=== PATIENT | female | born 1960 | race African-American/Black ===

== ENCOUNTER → 2020-02-06 14:50 | Outpatient (BNVA) | payer OTHER, SELFPAY | PROVIDERS: PCP Internal Medicine; Visit Provider Anesthesiology | DX: G89.4 Chronic pain syndrome (principal); M17.0 Bilateral primary osteoarthritis of knee; M25.511 Pain in right shoulder; M25.512 Pain in left shoulder; Z79.891 Long term (current) use of opiate analgesic | CPT/HCPCS: 99213; 99214 ==

== ENCOUNTER → 2020-02-27 09:59 | Outpatient (BNVA) | payer OTHER, SELFPAY | PROVIDERS: PCP Internal Medicine; Visit Provider Anesthesiology | DX: M17.0 Bilateral primary osteoarthritis of knee (principal); G89.4 Chronic pain syndrome; Z79.891 Long term (current) use of opiate analgesic | CPT/HCPCS: 99213 ==

== ENCOUNTER 2020-03-13 10:12 | Day surgery (SDC) | payer OTHER, SELFPAY ==
[2020-03-09 10:54] VITALS: BMI 30.7
[2020-03-13 10:34] VITALS: BP 154/83; PULSE 89; RESP 18; TEMP 36.5; O2SAT 97
[2020-03-13] MEDS: Midazolam HCl/PF 2 MG/2 ML VIAL IVPUSH (12:19)
[2020-03-13 12:21] VITALS: BP 166/83; PULSE 87; RESP 16; O2SAT 99
--- NOTE | 2020-03-13 12:49 | FL_ITS ---
EXAMINATION: XR FLUOROSCOPY WITH IMAGES CLINICAL INFORMATION: Genicular nerve block. COMPARISON: 07/24/2019 TECHNIQUE: Fluoroscopy performed by Dr. Tyson Ohara. Fluoroscopy time: 0.1 minutes DAP: 0.842 Gycm2 Images: 2 FINDINGS: AP and lateral views of the left knee performed. There is no evidence of an acute fracture or dislocation. Knee joint spaces appear maintained. [place] are seen overlying the distal femur and proximal tibia. FL/FL guidance in OR IMPRESSION: Left knee intervention.
--- NOTE | 2020-03-13 12:55 | MHC.SHP ---
Pre-Procedural Eval Section A The patient is an INPATIENT: No The History & Physical has been completed within 30 days and I have reviewed it.: No Section B Chief Complaint: OSTEOARTHRITIS RIGHT KNEE Details of Present Illness: Right knee pain. Relevant Family History (Specify if Yes): No Relevant Social History: None Present Medications: see Short Stay Collaborative assessment Medical History: Significant History History of Previous Operations: Relevant previous surgery/procedure and date(s) Allergies: Allergies Allergy/AdvReac Type Severity Reaction Status Date / Time lisinopril [LISINOPRIL] Allergy Severe TONGUE Verified 03/09/20 10:44 SWELLING emprin compound Allergy Intermediate Hives Uncoded 03/09/20 10:45 Review of Systems Sugical H&P ROS: Negative: Constitution, Cardiovascular, Respiratory, Neurological, Psychiatric, Hem-Onc, Allergic/Immunologic, Gastrointestinal, Genitourinary, Musculoskeletal, Integumentary, Endocrine and Eyes/Ears/Nose/Throat Exam Surgical H&P Exam: Normal: HEENT, Normal: Heart, Normal: Lungs, Normal: Abdomen, Normal: Skin and Normal: Neurological and Significant Findings: Extremities ( Tenderness on palpation on bilateral knees more to the more to the right and less to the left.) Plan Diagnosis/Plan: Unchanged Patient has been examined and remains a candidate for the planned procedure
[2020-03-13 13:21] VITALS: BP 148/80; PULSE 89; RESP 16; TEMP 36.2; O2SAT 95
--- NOTE | 2020-03-13 13:33 | PM.OP ---
Brief Operative Note Date of procedure: 03/13/20 Pre-op diagnosis: osteoarthritis left knee Post-op diagnosis: same Procedure: left knee genicular nerves blocks: Superior medial superior lateral and inferior medial nerves. Implants: None Surgeon: Tyson Ohara MD Anesthesia: MAC Estimated blood loss (mL): 0 Condition: stable Disposition: PACU
[2020-03-13 13:36] VITALS: BP 143/78; PULSE 88; RESP 18; O2SAT 96
[2020-03-13 13:51] VITALS: BP 152/74; PULSE 87; RESP 20; O2SAT 97
--- NOTE | 2020-03-13 16:42 | P.OP_ITS ---
Operative Note Operative Note Narrative: GENICULAR NERVES BLOCK Informed consent was explained to the patient. All questions were explained and answered. The patient was taken inside the operating room. The patient was positioned supine on operating table with her LEFT leg elevated on a gel bin. Time-out was performed delineating correct site, side, the nature of the procedure, patient's allergy, preoperative antibiotic if needed. All operating room staff was participating in OR time-out procedure. The point of interest were delineated for: FOR: superior lateral genicular nerve as the connection of the metaphysis of the left femur with corresponding diaphysis on the lateral silhouette of the femur distal bone, For superior medial genicular nerve the point of interest was delineated is the connection of metaphysis of left femur with corresponding diaphysis on the medial silhouette on the femoral distal bone. For inferior medial genicular nerve the point of interest was delineated as connection of metaphysis of the proximal tibia on the medial side with corresponding diaphysis of the same bone. The projections of the points of interest on anterior surface of the left knee was injected with small amount of lidocaine 2% 1-to 2 ml. After that 3 needles 22 gauge 3-1/2 inch long were driven to were the point of interest in tunnel vision fashion. When needles gently contacted the bones the position of the C- arm was switched to the lateral view and needles positions were adjusted to assure that the tip of the needle is located at the mid shaft of each of the above described bones. After that small amount of bupivacaine 0.5% was injected into each needle position total dose of bupivacaine was 4.5 cc. No steroids were used. Upon the completion of the injections the needles were removed sterile dressing was applied. Patient went to PACU where recovered uneventfully.
== END 2020-03-13 14:45 | disposition home or self-care (01) ==
PROVIDERS: PCP Internal Medicine; Visit Provider Anesthesiology
PROC: (CPT 64454; principal; 2020-03-13 11:40)
DX: M17.12 Unilateral primary osteoarthritis, left knee (principal); M25.462 Effusion, left knee; G89.4 Chronic pain syndrome; F11.90 Opioid use, unspecified, uncomplicated; I10 Essential (primary) hypertension; J44.9 Chronic obstructive pulmonary disease, unspecified; F17.210 Nicotine dependence, cigarettes, uncomplicated; Z96.651 Presence of right artificial knee joint; Z79.899 Other long term (current) drug therapy
CPT/HCPCS: 64454; J2250

== ENCOUNTER → 2020-03-19 16:57 | Outpatient (BNVA) | payer OTHER, SELFPAY | PROVIDERS: PCP Internal Medicine; Referring Provider Internal Medicine; Visit Provider Anesthesiology | DX: G89.4 Chronic pain syndrome (principal); M17.0 Bilateral primary osteoarthritis of knee; Z79.891 Long term (current) use of opiate analgesic | CPT/HCPCS: 99212 ==

== ENCOUNTER → 2020-03-30 12:54 | Outpatient (BNVA) | payer OTHER, SELFPAY | PROVIDERS: PCP Internal Medicine; Visit Provider Anesthesiology | DX: G89.4 Chronic pain syndrome (principal); M17.0 Bilateral primary osteoarthritis of knee; Z79.891 Long term (current) use of opiate analgesic | CPT/HCPCS: 99212 ==

== ENCOUNTER → 2020-04-27 09:07 | Outpatient (BNVA) | payer OTHER, SELFPAY | PROVIDERS: PCP Internal Medicine; Visit Provider Anesthesiology | DX: M17.0 Bilateral primary osteoarthritis of knee (principal); F11.90 Opioid use, unspecified, uncomplicated; G89.4 Chronic pain syndrome | CPT/HCPCS: 99212 ==

== ENCOUNTER → 2020-05-25 09:18 | Outpatient (BNVA) | payer OTHER, SELFPAY | PROVIDERS: PCP Internal Medicine; Visit Provider Anesthesiology | DX: M17.0 Bilateral primary osteoarthritis of knee (principal); F11.90 Opioid use, unspecified, uncomplicated; G89.4 Chronic pain syndrome | CPT/HCPCS: 99212 ==

== ENCOUNTER 2020-06-12 09:48 | Day surgery (SDC) | payer OTHER, SELFPAY ==
[2020-06-05 19:26] VITALS: BMI 29.9
--- NOTE | 2020-06-11 09:45 | P.CONAN_ITS ---
Documented by User: Pooja Mason 06/11/20 09:46 HPI - Anesthesia Eval Consult details Narrative: 59yo F for Femoral Nerve Block PMFSH Past Medical History Medical History Arthritis Asthma Back pain Chronic bronchitis Depression with anxiety Fibromyalgia Gastroesophageal reflux disease History of frequent headaches History of palpitations History of sickle cell trait Hyperlipidemia Hypertension Irritable bowel syndrome Neck pain Peripheral neuropathy Renal stones TIA (transient ischemic attack) Family History Family History Father Alive and well Gout Arthritis Mother Alive and well Hypertension Hyperlipidemia Chronic obstructive pulmonary disease (COPD) Brother No problems noted. Son Alive and well Daughter Alive and well Daughter Alive and well Maternal Aunt History of breast cancer Diabetes Surgical History Surgical History H/O arthroscopic knee surgery H/O wrist surgery History of partial hysterectomy History of surgical removal of ganglion cyst History of total right knee replacement (TKR) Hx of cholecystectomy Previous section Subacromial impingement of right shoulder Social History Social History Alcohol intake: current Alcohol intake frequency: a few times a month Alcohol type: wine Smoking Status: Current every day smoker Tobacco Type: Cigarette Cigarettes Per Day: 2 Years Smoked: 10 Smoked in Last 30 Days: Yes Use of substances other than those prescribed or required for medical reasons: No Advance Directives: No Advance Directives Information Provided: No Advance Directives on File: No Recently lost weight without trying: No Meds Allergies Allergy/AdvReac Type Severity Reaction Status Date / Time lisinopril [LISINOPRIL] Allergy Severe TONGUE Verified 06/12/20 09:58 SWELLING emprin compound Allergy Intermediate Hives Uncoded 05/25/20 09:51 Home Medications Medication Instructions Recorded Confirmed Type albuterol sulfate 90 mcg/actuation 2 puff INHALATION Q4H 02/01/20 06/05/20 History aerosol inhaler amlodipine 5 mg tablet 7.5 mg PO DAILY 02/01/20 06/05/20 History cyclobenzaprine 10 mg tablet 10 mg PO TID PRN 02/01/20 06/05/20 History fluticasone propionate 50 1 spray INTRANASAL DAILY 02/01/20 06/05/20 History mcg/actuation nasal spray,suspension naproxen 500 mg tablet 500 mg PO BID PRN 02/01/20 06/05/20 History pantoprazole 40 mg tablet,delayed 40 mg PO DAILY 02/01/20 06/05/20 History release simvastatin 20 mg tablet 20 mg PO BEDTIME 02/01/20 06/05/20 History Exam Exam Date and Time: June 11, 2020 0945 Height,Weight and Vital Signs: Height 5 ft 5 in Weight 81.647 kg Assessment and Plan Assessment Anesthesia Assessment: Chart Reviewed Documented by User: Neeru James 06/12/20 10:12 [facility] Past Medical History Medical History Arthritis Asthma Back pain Chronic bronchitis Depression with anxiety Fibromyalgia Gastroesophageal reflux disease History of frequent headaches History of palpitations History of sickle cell trait Hyperlipidemia Hypertension Irritable bowel syndrome Neck pain Peripheral neuropathy Renal stones TIA (transient ischemic attack) Family History Family History Father Alive and well Gout Arthritis Mother Alive and well Hypertension Hyperlipidemia Chronic obstructive pulmonary disease (COPD) Brother No problems noted. Son Alive and well Daughter Alive and well Daughter Alive and well Maternal Aunt History of breast cancer Diabetes Surgical History Surgical History H/O arthroscopic knee surgery H/O wrist surgery History of partial hysterectomy History of surgical removal of ganglion cyst History of total right knee replacement (TKR) Hx of cholecystectomy Previous section Subacromial impingement of right shoulder Social History Social History Alcohol intake: current Alcohol intake frequency: a few times a month Alcohol type: wine Smoking Status: Current every day smoker Tobacco Type: Cigarette Cigarettes Per Day: 2 Years Smoked: 10 Smoked in Last 30 Days: Yes Use of substances other than those prescribed or required for medical reasons: No Advance Directives: No Advance Directives Information Provided: No Advance Directives on File: No Recently lost weight without trying: No Meds Allergies Allergy/AdvReac Type Severity Reaction Status Date / Time lisinopril [LISINOPRIL] Allergy Severe TONGUE Verified 06/12/20 09:58 SWELLING emprin compound Allergy Intermediate Hives Uncoded 05/25/20 09:51 Home Medications Medication Instructions Recorded Confirmed Type albuterol sulfate 90 mcg/actuation 2 puff INHALATION Q4H 02/01/20 06/05/20 History aerosol inhaler amlodipine 5 mg tablet 7.5 mg PO DAILY 02/01/20 06/05/20 History cyclobenzaprine 10 mg tablet 10 mg PO TID PRN 02/01/20 06/05/20 History fluticasone propionate 50 1 spray INTRANASAL DAILY 02/01/20 06/05/20 History mcg/actuation nasal spray,suspension naproxen 500 mg tablet 500 mg PO BID PRN 02/01/20 06/05/20 History pantoprazole 40 mg tablet,delayed 40 mg PO DAILY 02/01/20 06/05/20 History release simvastatin 20 mg tablet 20 mg PO BEDTIME 02/01/20 06/05/20 History Exam Airway Mallampati Class: II Loose/Missing/Broken Teeth: Yes and Upper (Missing both upper central incisors) Heart: RRR Lungs: CTA Assessment and Plan Assessment Anesthesia Assessment: Anesthesia Plan Discussed and Chart Reviewed Final Anesthetic Review NPO: Yes ASA Class: II Final Preanesthetic Review: Meds/Allgs Chart Reviewed, Consent Obtained/Reviewed and Anes Risks/Benef Reviewed Patient Risk: Low Procedure Risk: Low Anesthetic Plan Anesthetic Plan: MAC: Disposition: Standard PACU
[2020-06-12 10:00] VITALS: BP 158/85; PULSE 95; RESP 18; TEMP 36.6; O2SAT 97
--- NOTE | 2020-06-12 10:11 | MHC.SHP ---
Pre-Procedural Eval Section A The patient is an INPATIENT: No Changes since office visit: Yes Patient answered all questions The History & Physical has been completed within 30 days and I have reviewed it.: No Section B Chief Complaint: osteoarthritis of knee Details of Present Illness: as above Relevant Family History (Specify if Yes): No Relevant Social History: None Present Medications: see Short Stay Collaborative assessment Medical History: No relevant PMH History of Previous Operations: No relevant previous surgery Allergies: Allergies Allergy/AdvReac Type Severity Reaction Status Date / Time lisinopril [LISINOPRIL] Allergy Severe TONGUE Verified 06/12/20 09:58 SWELLING emprin compound Allergy Intermediate Hives Uncoded 05/25/20 09:51 Review of Systems Sugical H&P ROS: Negative: Constitution, Cardiovascular, Respiratory, Neurological, Psychiatric, Hem-Onc, Allergic/Immunologic, Gastrointestinal, Genitourinary, Musculoskeletal, Integumentary, Endocrine and Eyes/Ears/Nose/Throat Exam Surgical H&P Exam: Normal: HEENT, Normal: Heart, Normal: Lungs, Normal: Extremities, Normal: Abdomen, Normal: Skin and Normal: Neurological Plan Diagnosis/Plan: Unchanged I have reviewed the history and physical and performed a pertinent physical examination on my patient. No changes have occurred unless specified.
[2020-06-12] MEDS: Lactated Ringers 1,000 ML 100 ML IVCONT (10:25)
[2020-06-12 11:04] VITALS: BP 135/80; PULSE 97; RESP 20; TEMP 36.7; O2SAT 99
--- NOTE | 2020-06-12 11:06 | PM.OP ---
Brief Operative Note Date of Service: 06/12/20 Pre-op diagnosis: Left knee pain, status post total knee replacement Post-op diagnosis: same Procedure: Femoral nerve block Implants: None Surgeon: Tyson Ohara MD Anesthesia: MAC Estimated blood loss (mL): 0 Pathology: none sent Condition: stable Disposition: PACU
[2020-06-12 11:19] VITALS: BP 150/86; PULSE 85; RESP 18; O2SAT 96
--- NOTE | 2020-06-12 11:32 | PC.NURSE ---
1130 JORGE L PO PREP FOR DC MONITORS AND IVF DCD ASST OOB CH STEADY W ASST AWARE OF HEAVY FEELING IN LEFT THIGH, STIFF , DRESSED SELF AT BS CALL LAGUNAS IN REACH, PLAN TO DC IN WC
--- NOTE | 2020-06-12 12:31 | HO.POSTANES ---
Post Anesthesia Evaluation Post Anesthesia Evaluation Vital Signs: Vital Signs Temp Pulse Resp BP Pulse Ox 06/12/20 11:19 85 18 150/86 H 96 06/12/20 11:04 98.1 F 97 20 135/80 99 06/12/20 10:00 97.9 F 95 18 158/85 H 97 Anesthesia: Monitored Mental Status: Awake Pain Control: Satisfactory Nausea/Vomiting: None Hydration: Adequate Anesthesia-Related Issues: No Anes. Related Issues
--- NOTE | 2020-06-12 15:01 | W.PM.OPN ---
Operative Note Operative Note Date of Service: 06/12/20 Narrative: Informed consent was explained to the patient. All questions were explained and answered. The patient was taken inside of the operating room where she was positioned supine on the stretcher Time-out was performed delineating patient's name and date of , correct site, side, the nature of the procedure, patient's allergy, preoperative antibiotic if needed. All operating room staff was participating in OR time-out procedure. [employer] [employer] monitors were applied. Patient was deeply sedated. Her left groin left lower abdomen and left upper thigh was prepped with ChloraPrep and draped with sterile towels. Sterilely draped straight ultrasound probe was brought over the operating field and picture of femoral artery was delineated on the screen. Lateral to femoral artery femoral nerve was located and 22 gauge echo positive 100 mm needle was inserted extra anatomically to the skin and was advanced toward femoral nerve. Injection of the normal saline was performed through the needle when needle tip was in the vicinity of femoral nerve. Spread of the injection was corresponding to perineural and not intraneural tissue. After that 10 cc of local anesthetic bupivacaine 0.5% was injected in the area surrounding nerve. Upon completion of the injection needle was removed and Band-Aid was applied. The patient tolerated procedure well. She recovered uneventfully. She went home without immediate complications.
== END 2020-06-12 11:59 | disposition home or self-care (01) ==
PROVIDERS: PCP Internal Medicine; Visit Provider Anesthesiology
PROC: 3E0T3BZ Introduction of Anesthetic Agent into Peripheral Nerves and Plexi, Percutaneous Approach (ICD-10-PCS; CPT 64447; principal; 2020-06-12 11:30)
DX: M17.12 Unilateral primary osteoarthritis, left knee (principal); G89.4 Chronic pain syndrome; Z96.651 Presence of right artificial knee joint; M79.7 Fibromyalgia; G62.9 Polyneuropathy, unspecified; J45.909 Unspecified asthma, uncomplicated; J42 Unspecified chronic bronchitis; I10 Essential (primary) hypertension; F11.90 Opioid use, unspecified, uncomplicated; F17.210 Nicotine dependence, cigarettes, uncomplicated; Z79.51 Long term (current) use of inhaled steroids; Z79.899 Other long term (current) drug therapy; Z86.73 Personal history of transient ischemic attack (TIA), and cerebral infarction without residual deficits; Z88.8 Allergy status to other drugs, medicaments and biological substances
CPT/HCPCS: 64447; J2250; J3300

== ENCOUNTER → 2020-06-17 11:30 | Outpatient (BNVA) | payer OTHER, SELFPAY | PROVIDERS: Visit Provider Urology ==

== ENCOUNTER → 2020-06-18 13:36 | Outpatient (BNVA) | payer OTHER, SELFPAY | PROVIDERS: Visit Provider Anesthesiology ==

== ENCOUNTER 2020-10-09 19:03 | Inpatient (IN) | payer OTHER, SELFPAY ==
--- NOTE | ~2020-10-09 | XR_ITS ---
EXAMINATION: XR CHEST CLINICAL INFORMATION: Chest pain COMPARISON: CTA chest 01/04/2019 TECHNIQUE: Frontal view of the chest was obtained. FINDINGS: No significant abnormality is noted involving the heart, lungs, mediastinum, bony thorax or soft tissues. An orthopedic anchor is seen overlying the right humerus. XR/XR chest 1V IMPRESSION: No acute intrathoracic disease.
--- NOTE | ~2020-10-09 | CT_ITS ---
EXAMINATION: CT ANGIOGRAM ABDOMEN CLINICAL INFORMATION: Left renal artery stenosis COMPARISON: Rule out renal artery stenosis TECHNIQUE: Multiple axial images were obtained through the abdomen following the administration of 85 mL Omnipaque 350 intravenous contrast. Images were reviewed on a dedicated 3-D workstation. This CT examination was performed using dose optimization techniques as appropriate, variously including the following: *Automated exposure control *Adjustment of mA and/or kV according to patient size (this includes techniques or standardized protocols for targeted exams where dose is matched to indication/reason for exam; i.e. extremities or head) *Use of iterative reconstruction technique DLP: 238 mGy-cm FINDINGS: The abdominal aorta is normal in caliber. The celiac axis, and ROBINA are patent. Arteries bilaterally. No evidence of renal artery stenosis is seen in the bilateral renal veins are patent. The common and iliac and visualized internal and external iliac arteries are normal in caliber. The lung bases are clear. The liver is slightly enlarged, right lobe measuring 20 cm. Liver attenuation is difficult to assess arterial phase imaging. No focal liver lesion is seen. The gallbladder is not identified. There is no layering duct dilatation. The pancreas is unremarkable. The spleen is unremarkable. The adrenal glands are unremarkable. The kidneys are normal in size, shape and contour. There are areas of bilateral renal cortical thinning or scarring, left greater than right. No renal stone, mass or hydronephrosis is seen. There is stool throughout the colon questionable for constipation. There is diverticulosis of the colon. Visualized small and large bowel is otherwise unremarkable. The stomach is unremarkable. No ascites or adenopathy is seen. There are degenerative changes of the lower thoracic spine. CT/CT angio abdomen IMPRESSION: No evidence of renal artery stenosis. Bilateral renal cortical thinning or scarring, left greater than right.
[2020-10-09 19:57] VITALS: BP 173/96; PULSE 89; RESP 16; TEMP 36.6; O2SAT 98; BMI 29.1
[2020-10-09 20:15] LABS: MANUAL DIFF FLAG NO
[2020-10-09 20:19] LABS: Basophils Percent Auto 0.3 % (0-2); Eosinophils Absolute Auto 0.1 X10*3/uL (0.0-0.4); Eosinophils Percent Auto 0.9 % (0-4); Hematocrit 35.5 % (37-47); Hemoglobin 12.8 g/dl (12.0-16.0); Imm Gran Abs Auto 0.02 X10*3/uL (0.00-0.03); Imm Gran Pct Auto 0.3 % (0.0-0.4); Lymphocytes Absolute Auto 1.9 X10*3/uL (1.2-4.9); Lymphocytes Percent Auto 27.7 % (20-40); Mean Corpuscular HGB Conc 36.1 g/dl (31.0-35.0); Mean Corpuscular Hemoglobin 33.9 pg (27.0-33.0); Mean Corpuscular Volume 93.9 fL (80-98); Mean Platelet Volume 10.4 fL (9.4-12.3); Monocytes Absolute Auto 0.7 X10*3/uL (0.1-1.2); Monocytes Percent Auto 10.2 % (2-11); Neutrophils Percent Auto 60.6 % (45-73); Platelet Count 298 X10*3/uL (160-400); Red Blood Count 3.78 X10*6/uL (4.20-5.50); Red Cell Distribution Width 13.3 % (11.0-16.0); White Blood Count 6.7 X10*3/uL (4.8-10.8)
--- NOTE | 2020-10-09 20:25 | PC.NURSE ---
EKG and labs obtained in Triage. IV established by this RN. Pt aware of plan to await lab results. Continue to monitor.
[2020-10-09 20:28] VITALS: BP 172/87; PULSE 84; RESP 20; O2SAT 99
--- NOTE | 2020-10-09 20:29 | PC.NURSE ---
Pt twitching in bed, remains alert and oriented x 4, speaking full sentences to this RN. Pt states she doesn't know why she is currently twitching and does not twitch at home. This RN asking pt to stay still for an accurate BP reading, pt was able to stay completely still for VS. MD aware. VSS. Continue to monitor.
[2020-10-09 21:02] LABS: Anion Gap 17 (12-20); Blood Urea Nitrogen 5 mg/dL (9-16); Calcium 8.9 mg/dL (8.4-10.2); Carbon Dioxide 32 mmol/L (22-29); Chloride 96 mmol/L (96-108); Creatinine Clr Calc Pharmacy 92.9; Estimated Glomerular Filt Rate > 60; Glucose Random 89 mg/dL (60-115); Potassium 2.4 mmol/L (3.3-5.1); Sodium 143 mmol/L (135-145)
--- NOTE | 2020-10-09 21:09 | ECG_ITS ---
Test Reason : CHEST PAIN Blood Pressure : / mmHG Vent. Rate : 079 BPM Atrial Rate : 079 BPM P-R Int : 162 ms QRS Dur : 102 ms QT Int : 410 ms P-R-T Axes : 031 -02 047 degrees QTc Int : 470 ms Normal sinus rhythm Normal ECG When compared to the previous EKG of No significant changes seen Referred By: Neeru Iverson Electronically Signed By:Anand Goss
--- NOTE | 2020-10-09 21:14 | PC.NURSE ---
at bedside for primary eval.
--- NOTE | 2020-10-09 21:20 | ED.CHESTPAIN ---
HPI - Chest Pain General Chief Complaint: Chest Pain Stated Complaint: chest pain Time Seen by Provider: 10/09/20 21:09 Source: patient Mode of arrival: ambulatory History of Present Illness HPI narrative: Is a 60-year-old female with history of IBS, hypertension, hyperlipidemia who presents as a referral from her physician's office after she had a routine visit for experiencing some palpitations and had lab work that showed that her potassium and magnesium were low. Patient states that thereafter she began experiencing some sharp chest pain symptoms nonradiating, not associated with nausea/dizziness/diaphoresis. Patient denies any new cough or bilateral lower extremity swelling. She states that her blood pressure medication was increased today from Norvasc 5 mg to Norvasc 10 mg daily. Related Data Home Medications Medication Instructions Recorded Confirmed albuterol sulfate 90 mcg/actuation 2 puff INHALATION Q4H PRN 02/01/20 10/09/20 aerosol inhaler amlodipine 5 mg tablet 5 mg PO DAILY 02/01/20 10/09/20 fluticasone propionate 50 1 spray INTRANASAL DAILY PRN 02/01/20 10/09/20 mcg/actuation nasal spray,suspension pantoprazole 40 mg tablet,delayed 40 mg PO DAILY 02/01/20 10/09/20 release simvastatin 20 mg tablet 20 mg PO BEDTIME 02/01/20 10/09/20 cyclobenzaprine 1 tab PO TID PRN 10/09/20 10/09/20 naproxen 1 tab PO BID PRN 10/09/20 10/09/20 Previous Rx's Medication Instructions Recorded oxycodone 10 mg tablet 10 mg PO BID PRN 30 Days #60 tab 05/25/20 Allergies Allergy/AdvReac Type Severity Reaction Status Date / Time lisinopril [LISINOPRIL] Allergy Severe TONGUE Verified 06/18/20 13:36 SWELLING emprin compound Allergy Intermediate Hives Uncoded 05/25/20 09:51 Review of Systems Review of Systems: Pertinent positives and negatives as stated in HPI 10 point review of systems otherwise negative. [facility] Past Medical History Source: nursing notes reviewed Medical History Arthritis Asthma Back pain Chronic bronchitis Depression with anxiety Fibromyalgia Gastroesophageal reflux disease History of frequent headaches History of palpitations History of sickle cell trait Hyperlipidemia Hypertension Irritable bowel syndrome Neck pain Peripheral neuropathy Renal stones TIA (transient ischemic attack) Surgical History H/O arthroscopic knee surgery H/O wrist surgery History of partial hysterectomy History of surgical removal of ganglion cyst History of total right knee replacement (TKR) Hx of cholecystectomy Previous section Subacromial impingement of right shoulder Family History Family History Father Alive and well Gout Arthritis Mother Alive and well Hypertension Hyperlipidemia Chronic obstructive pulmonary disease (COPD) Brother No problems noted. Son Alive and well Daughter Alive and well Daughter Alive and well Maternal Aunt History of breast cancer Diabetes Social History Social History Alcohol intake: current Alcohol intake frequency: a few times a month Alcohol type: wine Cigarettes Per Day: 2 Years Smoked: 10 Advance Directives: No Advance Directives Information Provided: No Patient : No Physical Exam Vital Signs: Vital Signs: Last Vital Signs Temp 97.8 F 10/09/20 19:57 Pulse 74 10/10/20 02:54 Resp 16 10/10/20 02:54 BP 175/88 H 10/10/20 02:54 Pulse Ox 96 10/10/20 01:40 Body Mass Index 29.1 VITAL SIGNS: Reviewed. GENERAL: Well developed, well nourished, in no acute distress. HEAD: Normocephalic/atraumatic EYES: PERRLA, EOMI NOSE: Nares patent bilateral OROPHARYNX: no oral lesions noted, posterior pharynx clear NECK: Supple, no adenopathy LUNGS: Normal breath sounds. No adventitious sounds or accessory muscle use. SpO2<99> CARDIOVASCULAR: Regular rate and rhythm without noted murmurs, no JVD or lower extremity edema. ABDOMEN: Soft, non-tender, non-distended with bowel sounds. NEUROLOGIC: Alert and oriented x 4. Course Course Course Narrative: 60-year-old female with history and clinical presentation of palpitations and chest discomfort likely secondary to electrolyte derangements. Review of all investigations significant for hypokalemia and hypomagnesemia as well as detectable high sensitivity troponin without acute changes on EKG. Repeat troponin decreased and after receiving 2 g of magnesium and 40 mEq of potassium chloride repeat lab work demonstrates almost no change in potassium and magnesium levels. Patient will likely need to be further evaluated and the case was discussed with the inpatient hospitalist who is agreeable for admission. An additional 2g of magnesium was ordered. MDM - Chest Pain Lab Data Result diagrams: 10/09/20 20:10 10/10/20 03:56 Labs: Lab Results 10/09/20 10/09/20 10/09/20 Range/Units 20:10 20:10 20:10 WBC 6.7 (4.8-10.8) X10*3/uL RBC 3.78 L (4.20-5.50) X10*6/uL Hgb 12.8 (12.0-16.0) g/dl Hct 35.5 L (37-47) % MCV 93.9 (80-98) fL MCH 33.9 H (27.0-33.0) pg MCHC 36.1 H (31.0-35.0) g/dl RDW 13.3 (11.0-16.0) % Plt Count 298 (160-400) X10*3/uL MPV 10.4 (9.4-12.3) fL Immature Gran % (Auto) 0.3 (0.0-0.4) % Neut % (Auto) 60.6 (45-73) % Lymph % (Auto) 27.7 (20-40) % [place] % (Auto) 10.2 (2-11) % Eos % (Auto) 0.9 (0-4) % Baso % (Auto) 0.3 (0-2) % Lymph # (Auto) 1.9 (1.2-4.9) X10*3/uL [place] # (Auto) 0.7 (0.1-1.2) X10*3/uL Eos # (Auto) 0.1 (0.0-0.4) X10*3/uL Baso # (Auto) 0.0 (0.0-0.2) X10*3/uL Abs Immat Gran (auto) 0.02 (0.00-0.03) X10*3/uL Absolute Neuts (auto) 4.0 (2.0-8.3) X10*3/uL Absolute Nucleated RBC 0.000 (0.0-0.012) X10*3/uL Nucleated RBC % (auto) 0.0 (0.0-0.2) /100WBC Sodium 143 (135-145) mmol/L Potassium 2.4 L* (3.3-5.1) mmol/L Chloride 96 (96-108) mmol/L Carbon Dioxide 32 H (22-29) mmol/L Anion Gap 17 (12-20) BUN 5 L (9-16) mg/dL Creatinine 0.67 (0.5-1.4) mg/dL Estim Creat Clear Calc 92.9 Estimated GFR > 60 Random Glucose 89 (60-115) mg/dL Calcium 8.9 (8.4-10.2) mg/dL Magnesium 0.9 L* (1.6-2.6) mg/dL Troponin I High Sens 7.0 (<3.5-17.0) ng/L B-Natriuretic Peptide 42 (<100) pg/mL Lipase 20 (8-78) U/L COVID-19 (ISAEL) (Negative) COVID-19 Clin Com 10/09/20 10/10/20 10/10/20 Range/Units 23:20 03:56 03:56 WBC (4.8-10.8) X10*3/uL RBC (4.20-5.50) X10*6/uL Hgb (12.0-16.0) g/dl Hct (37-47) % MCV (80-98) fL MCH (27.0-33.0) pg MCHC (31.0-35.0) g/dl RDW (11.0-16.0) % Plt Count (160-400) X10*3/uL MPV (9.4-12.3) fL Immature Gran % (Auto) (0.0-0.4) % Neut % (Auto) (45-73) % Lymph % (Auto) (20-40) % [place] % (Auto) (2-11) % Eos % (Auto) (0-4) % Baso % (Auto) (0-2) % Lymph # (Auto) (1.2-4.9) X10*3/uL [place] # (Auto) (0.1-1.2) X10*3/uL Eos # (Auto) (0.0-0.4) X10*3/uL Baso # (Auto) (0.0-0.2) X10*3/uL Abs Immat Gran (auto) (0.00-0.03) X10*3/uL Absolute Neuts (auto) (2.0-8.3) X10*3/uL Absolute Nucleated RBC (0.0-0.012) X10*3/uL Nucleated RBC % (auto) (0.0-0.2) /100WBC Sodium 142 (135-145) mmol/L Potassium 2.5 L* (3.3-5.1) mmol/L Chloride 100 (96-108) mmol/L Carbon Dioxide 31 H (22-29) mmol/L Anion Gap 14 (12-20) BUN 4 L (9-16) mg/dL Creatinine 0.55 (0.5-1.4) mg/dL Estim Creat Clear Calc 113.2 Estimated GFR > 60 Random Glucose 99 (60-115) mg/dL Calcium 7.6 L D (8.4-10.2) mg/dL Magnesium Cancelled 1.3 L* (1.6-2.6) mg/dL Troponin I High Sens 5.4 (<3.5-17.0) ng/L B-Natriuretic Peptide (<100) pg/mL Lipase (8-78) U/L COVID-19 (ISAEL) (Negative) COVID-19 Clin Com 10/10/20 Range/Units 04:41 WBC (4.8-10.8) X10*3/uL RBC (4.20-5.50) X10*6/uL Hgb (12.0-16.0) g/dl Hct (37-47) % MCV (80-98) fL MCH (27.0-33.0) pg MCHC (31.0-35.0) g/dl RDW (11.0-16.0) % Plt Count (160-400) X10*3/uL MPV (9.4-12.3) fL Immature Gran % (Auto) (0.0-0.4) % Neut % (Auto) (45-73) % Lymph % (Auto) (20-40) % [place] % (Auto) (2-11) % Eos % (Auto) (0-4) % Baso % (Auto) (0-2) % Lymph # (Auto) (1.2-4.9) X10*3/uL [place] # (Auto) (0.1-1.2) X10*3/uL Eos # (Auto) (0.0-0.4) X10*3/uL Baso # (Auto) (0.0-0.2) X10*3/uL Abs Immat Gran (auto) (0.00-0.03) X10*3/uL Absolute Neuts (auto) (2.0-8.3) X10*3/uL Absolute Nucleated RBC (0.0-0.012) X10*3/uL Nucleated RBC % (auto) (0.0-0.2) /100WBC Sodium (135-145) mmol/L Potassium (3.3-5.1) mmol/L Chloride (96-108) mmol/L Carbon Dioxide (22-29) mmol/L Anion Gap (12-20) BUN (9-16) mg/dL Creatinine (0.5-1.4) mg/dL Estim Creat Clear Calc Estimated GFR Random Glucose (60-115) mg/dL Calcium (8.4-10.2) mg/dL Magnesium (1.6-2.6) mg/dL Troponin I High Sens (<3.5-17.0) ng/L B-Natriuretic Peptide (<100) pg/mL Lipase (8-78) U/L COVID-19 (ISAEL) Negative (Negative) COVID-19 Clin Com See Note ECG Data ECG #1: Attestation: I personally reviewed and interpreted this ECG as follows: Prior ECG tracings: available for review (01/04/2019 no acute changes on comparison) Interpretation: Normal sinus rhythm, HR -79, no evidence of acute ischemia, RI/QTC within normal limits. Critical Care Time Critical Care Time Critical Care Time: Yes Total Critical Care Time: 30 Attestation: I personally attest to this time spent taking care of the patient. Discharge Plan Discharge Clinical Impression: Heart palpitations, Chest pain, Hypokalemia, Hypomagnesemia Patient Disposition: Admitted As Inpatient Prescriptions: No Action cyclobenzaprine 10 mg tablet 1 tab PO TID PRN (Reason: musculoskeletal pain) RF: 0 naproxen 500 mg tablet 1 tab PO BID PRN (Reason: Pain) RF: 0 oxycodone 10 mg tablet 10 mg PO BID PRN (Reason: pain) 30 Days Qty: 60 RF: 0 pantoprazole 40 mg tablet,delayed release (DR/EC) 40 mg PO DAILY RF: 0 amlodipine 5 mg tablet 5 mg PO DAILY RF: 0 simvastatin 20 mg tablet 20 mg PO BEDTIME RF: 0 albuterol sulfate 90 mcg/actuation HFA aerosol inhaler 2 puff inhalation Q4H PRN (Reason: Cough) RF: 0 fluticasone propionate 50 mcg/actuation spray,suspension 1 spray intranasal DAILY PRN (Reason: Allergic Symptoms) RF: 0
[2020-10-09 21:35] LABS: B Type Natriuretic Peptide 42 pg/mL (<100)
--- NOTE | 2020-10-09 21:35 | PC.NURSE ---
Per MD to hold ordered Potassium infusion until Magnesium is resulted.
[2020-10-09 21:40] LABS: Lipase 20 U/L (8-78); Magnesium 0.9 mg/dL (1.6-2.6)
[2020-10-09] MEDS: Magnesium Sulfate/H2O 2 GM/50 ML PIGGYBACK IV (21:46)
--- NOTE | 2020-10-09 21:47 | PC.NURSE ---
Magnesium infusing per MAR.
[2020-10-09] MEDS: Acetaminophen 325 MG TABLET 650 MG PO (22:05)
[2020-10-09] MEDS: Acetaminophen 325 MG TABLET PO (22:05)
[2020-10-09 22:06] VITALS: BP 166/91; PULSE 79; RESP 16; O2SAT 98
--- NOTE | 2020-10-09 22:24 | PC.NURSE ---
Pt requesting pain medication for a ROSS, pt describes the pain as 9/10. This RN consulting with MD, pt MD, verbal order for Tylenol 975 mg. Pt hesitant to accept the Tylenol at this time, states I don't want to refuse it but this isn't going to help me!! I take Oxycodone 10 mg twice a day at home!! This RN again consulting with MD, at this time MD unwilling to place an order for Oxycodone. Pt agreeable to Tylenol but very frustrated, states I'm anxious and in pain and I'm just supposed to lay here in pain?!?! I'll just go home!! Pt provided with multiple warm blankets for comfort, lights dim per request, pt watching TV at this time. VSS. Continue to monitor.
--- NOTE | 2020-10-09 23:20 | PC.NURSE ---
pharmaceutical laboratory technician at bedside for repeat Troponin.
[2020-10-09] MEDS: Potassium Chloride/H20 10 MEQ/100 ML PIGGYBACK 100 MEQ IV (23:40)
[2020-10-09 23:42] VITALS: BP 170/88; PULSE 79; RESP 16; O2SAT 96
--- NOTE | 2020-10-09 23:42 | PC.NURSE ---
Potassium infusion initiated, pt aware of plan for 4 bags of IV Potassium. VSS. Pt reports no relief of pain after Tylenol, requesting to speak with MD.
[2020-10-10] VITALS (12 sets, daily range): BP systolic 165–182; BP diastolic 76–117; PULSE 72–86; RESP 14–18; TEMP 36.1–36.9; O2SAT 95–98
[2020-10-10 00:01] LABS: Troponin-I High Sensitivity 5.4 ng/L (<3.5-17.0)
[2020-10-10] MEDS: Potassium Chloride/H20 10 MEQ/100 ML PIGGYBACK 100 MEQ IV ×3 (00:43→02:44)
[2020-10-10] MEDS: Butalb/Acetamin/Caff 50/325/40 TABLET 1 TAB PO ×2 (00:47→16:03)
--- NOTE | 2020-10-10 01:40 | PC.NURSE ---
Third bag of Potassium infusing.
--- NOTE | 2020-10-10 02:46 | PC.NURSE ---
Final bag of Potassium infusing. Pt sleeping in bed at this time in NAD. VSS. Continue to monitor.
--- NOTE | 2020-10-10 02:51 | PC.NURSE ---
Pt ambulating to the bathroom with a steady gait.
--- NOTE | 2020-10-10 03:56 | PC.NURSE ---
Potassium infusion complete. Labs redrawn, pt aware of plan to await results.
[2020-10-10 04:35] LABS: Anion Gap 14 (12-20); Blood Urea Nitrogen 4 mg/dL (9-16); Calcium 7.6 mg/dL (8.4-10.2); Carbon Dioxide 31 mmol/L (22-29); Chloride 100 mmol/L (96-108); Creatinine Clr Calc Pharmacy 113.2; Estimated Glomerular Filt Rate > 60; Glucose Random 99 mg/dL (60-115); Magnesium 1.3 mg/dL (1.6-2.6); Potassium 2.5 mmol/L (3.3-5.1); Sodium 142 mmol/L (135-145)
--- NOTE | 2020-10-10 04:45 | PC.NURSE ---
Covid swab obtained and sent.
--- NOTE | 2020-10-10 04:59 | PC.NURSE ---
Pt aware of order for UA, unable to void at this time.
[2020-10-10 05:04] LABS: COVID-19 Test Negative (Negative); IDNOW Serial# 9DD0AD1C
[2020-10-10] MEDS: Magnesium Sulfate/D5W 1 GM/100 ML PIGGYBACK IV (05:31)
--- NOTE | 2020-10-10 05:37 | PC.NURSE ---
Mag infusing per MAR. UA obtained and sent. VSS.
[2020-10-10 05:46] LABS: Glucose Urine UA NEG (NEG); Leukocyte Esterase Urine NEG (NEG); Nitrite Urine NEG (NEG); Urine Blood NEG (NEG); Urine Ketones NEG (NEG); Urine Protein NEG (NEG-TRACE)
[2020-10-10 05:48] LABS: Appearance Urine CLEAR; Color Urine YELLOW
[2020-10-10] MEDS: Ketorolac Tromethamine 15 MG/ML VIAL IVPUSH (06:29)
--- NOTE | 2020-10-10 07:17 | PC.NURSE ---
report taken from Deondre JULIAN. pt in bed, resting, awake. requesting breakfast. pt reports pain in her back that is chronic and reports she recently received Toradol for the pain. pt awaiting bed assignment.
--- NOTE | 2020-10-10 07:53 | PM.IMHP ---
History of Present Illness Date of Service: 10/10/20 Chief Complaint: Low potassium, low magnesium and palpitation. 60-year-old female history of IBS with diarrhea predominant, hypertension, chronic pain due to arthritis. She presented to the emergency room after being told by her primary care physician's office to come to the emergency room because an outpatient lab that was done earlier showed low magnesium and low potassium. Earlier during the day the patient had a seen her primary care physician because she was having palpitation and that the office EKG and lab work were performed and she was later called to come to the emergency room because the potassium level was critically low and magnesium level was also critically low. In the emergency room her potassium level was noted to be 2.4 and magnesium was 0.9. She has gotten IV potassium 40 mEq and 3 grams of magnesium. She reports that she has been having more diarrhea than usual. And report that she has history of C diff the last time she has issue with a potassium and magnesium. EKG is normal Review of Systems Review of Systems: Gen: no fever Resp: no sob, no cough CV: no chest, no VENTURA, no leg edema GI: No n/v, no abd pain Neuro: No confusion, headache from migraine musculoskeletal: Joint pains Yes all other systems are reviewed and are negative [facility] Medical History (Updated 10/10/20 @ 08:00 by Sergei Lo MD) Arthritis Asthma Back pain Chronic bronchitis Depression with anxiety Fibromyalgia Gastroesophageal reflux disease History of frequent headaches History of palpitations History of sickle cell trait Hyperlipidemia Hypertension Irritable bowel syndrome Neck pain Peripheral neuropathy Renal stones TIA (transient ischemic attack) Functional capacity: independent ambulation Patient : No Family History Father Alive and well Gout Arthritis Mother Alive and well Hypertension Hyperlipidemia Chronic obstructive pulmonary disease (COPD) Brother No problems noted. Son Alive and well Daughter Alive and well Daughter Alive and well Maternal Aunt History of breast cancer Diabetes Pertinent family history: mother had diabetes Surgical History H/O arthroscopic knee surgery H/O wrist surgery History of partial hysterectomy History of surgical removal of ganglion cyst History of total right knee replacement (TKR) Hx of cholecystectomy Previous section Subacromial impingement of right shoulder Social History Alcohol intake: current Alcohol intake frequency: a few times a month Alcohol type: wine Cigarettes Per Day: 2 Years Smoked: 10 Advance Directives: No Advance Directives Information Provided: No Patient : No Meds Allergies Allergy/AdvReac Type Severity Reaction Status Date / Time lisinopril [LISINOPRIL] Allergy Severe TONGUE Verified 06/18/20 13:36 SWELLING emprin compound Allergy Intermediate Hives Uncoded 05/25/20 09:51 Active Medications: Current Medications Generic Name Dose Route Start Last Admin Trade Name Freq PRN Reason Stop Dose Admin Albuterol Sulfate 2 puff 10/10/20 07:45 Albuterol Sulfate 90 Mcg 8 Gm Inhaler INHALE Q4H PRN Cough Amlodipine Besylate 5 mg 10/10/20 09:00 Amlodipine Besylate 5 Mg Tablet PO DAILY [facility] Protocol Cyclobenzaprine HCl 10 mg 10/10/20 07:45 Cyclobenzaprine Hcl 10 Mg Tablet PO TID PRN musculoskeletal pain Fluticasone Propionate 1 spray 10/10/20 07:45 Fluticasone Propionate Nasal 16 Gm [place] NOSTRIL-B DAILY PRN Allergic Symptoms Naproxen 500 mg 10/10/20 07:45 Naproxen 500 Mg Tablet PO BID PRN Pain Non-Formulary Medication 40 mg 10/10/20 09:00 Pantoprazole PO DAILY [facility] Non-Formulary Medication 20 mg 10/10/20 21:00 Simvastatin PO BEDTIME [facility] Oxycodone HCl 10 mg 10/10/20 07:45 Oxycodone Hcl Immed Release 5 Mg Tablet PO BID PRN pain Pharmacy Consult 1 each 10/09/20 21:53 Consult Rx Perform Med Rec MISCELLANE ONCE PRN Consult order Potassium Chloride 40 meq 10/10/20 07:50 Potassium Chloride Er 20 Meq Tab.Er.Prt PO Q8H [facility] Home Medications Medication Instructions Recorded Confirmed Last Taken Type albuterol sulfate 90 mcg/actuation 2 puff INHALATION Q4H PRN 02/01/20 10/09/20 Unknown History aerosol inhaler amlodipine 5 mg tablet 5 mg PO DAILY 02/01/20 10/09/20 10/08/20 History fluticasone propionate 50 1 spray INTRANASAL DAILY PRN 02/01/20 10/09/20 Unknown History mcg/actuation nasal spray,suspension pantoprazole 40 mg tablet,delayed 40 mg PO DAILY 02/01/20 10/09/20 10/08/20 History release simvastatin 20 mg tablet 20 mg PO BEDTIME 02/01/20 10/09/20 10/08/20 History cyclobenzaprine 1 tab PO TID PRN 10/09/20 10/09/20 10/08/20 History naproxen 1 tab PO BID PRN 10/09/20 10/09/20 10/08/20 History Physical Exam Vital Signs and Narrative: Vital Signs: Last Vital Signs Temp 97.8 F 10/09/20 19:57 Pulse 83 10/10/20 07:16 Resp 15 10/10/20 07:16 BP 165/76 H 10/10/20 07:23 Pulse Ox 98 10/10/20 07:16 Body Mass Index 29.1 Constitutional Awake and Alert, No apparent distress HEENT--normal Neck Supple, No lymphadenopathy Cardiovascular RRR, No M/R/G, S1 S2, No S3 S4, No pedal edema Respiratory Lungs clear, No respiratory distress Gastrointestinal Non tender, Non-distended Skin No rash Neurological Alert & oriented x3 Psychological Appropriate affect Results Labs CBC and Chem 7: 10/09/20 20:10 10/10/20 03:56 Labs: Laboratory Results - last 24 hr 10/09/20 10/09/20 10/09/20 20:10 20:10 20:10 MCV 93.9 MCH 33.9 H MCHC 36.1 H RDW 13.3 Plt Count 298 MPV 10.4 Immature Gran % (Auto) 0.3 Neut % (Auto) 60.6 Lymph % (Auto) 27.7 [place] % (Auto) 10.2 Eos % (Auto) 0.9 Baso % (Auto) 0.3 Lymph # (Auto) 1.9 [place] # (Auto) 0.7 Eos # (Auto) 0.1 Baso # (Auto) 0.0 Abs Immat Gran (auto) 0.02 Absolute Neuts (auto) 4.0 Absolute Nucleated RBC 0.000 Nucleated RBC % (auto) 0.0 Anion Gap 17 Estim Creat Clear Calc 92.9 Estimated GFR > 60 Random Glucose 89 Calcium 8.9 Magnesium 0.9 L* Troponin I High Sens 7.0 B-Natriuretic Peptide 42 Lipase 20 Urine Color Urine Appearance Urine pH Ur Specific [place] Urine Protein Urine Glucose (UA) Urine Ketones Urine Blood Urine Nitrite Ur Leukocyte Esterase COVID-19 (ISAEL) COVID-19 [facility] 10/09/20 10/10/20 10/10/20 23:20 03:56 03:56 MCV MCH MCHC RDW Plt Count MPV Immature Gran % (Auto) Neut % (Auto) Lymph % (Auto) [place] % (Auto) Eos % (Auto) Baso % (Auto) Lymph # (Auto) [place] # (Auto) Eos # (Auto) Baso # (Auto) Abs Immat Gran (auto) Absolute Neuts (auto) Absolute Nucleated RBC Nucleated RBC % (auto) Anion Gap 14 Estim Creat Clear Calc 113.2 Estimated GFR > 60 Random Glucose 99 Calcium 7.6 L D Magnesium Cancelled 1.3 L* Troponin I High Sens 5.4 B-Natriuretic Peptide Lipase Urine Color Urine Appearance Urine pH Ur Specific [place] Urine Protein Urine Glucose (UA) Urine Ketones Urine Blood Urine Nitrite Ur Leukocyte Esterase COVID-19 (ISAEL) COVID-[facility] 10/10/20 10/10/20 04:41 05:37 MCV MCH MCHC RDW Plt Count MPV Immature Gran % (Auto) Neut % (Auto) Lymph % (Auto) [place] % (Auto) Eos % (Auto) Baso % (Auto) Lymph # (Auto) [place] # (Auto) Eos # (Auto) Baso # (Auto) Abs Immat Gran (auto) Absolute Neuts (auto) Absolute Nucleated RBC Nucleated RBC % (auto) Anion Gap Estim Creat Clear Calc Estimated GFR Random Glucose Calcium Magnesium Troponin I High Sens B-Natriuretic Peptide Lipase Urine Color YELLOW Urine Appearance CLEAR Urine pH 6.0 Ur Specific [place] 1.010 Urine Protein NEG Urine Glucose (UA) NEG Urine Ketones NEG Urine Blood NEG Urine Nitrite NEG Ur Leukocyte Esterase NEG COVID-19 (ISAEL) Negative COVID-19 [facility] See Note Imaging Radiologist's Impressions: Impressions Chest X-Ray 10/09/20 21:10 IMPRESSION: No acute intrathoracic disease. Assessment and Plan (1) Hypokalemia: Status: Acute (2) Hypomagnesemia: Status: Acute (3) Hyperlipidemia: Status: Inactive (4) Hypertension: Status: Inactive 60-year-old female with IBS with associated diarrhea, hypertension, hyperlipidemia chronic pain who has presented to the ED with critically low magnesium and potassium likely related to diarrhea. Hypokalemia-- corrected with IV and oral potassium. Hypomagnesemia-- corrected with IV magnesium nephrology consult -- to investigate if there is some underlying renal issues contributing to these electrolyte abnormalities. Hypertension-- blood pressure is moderately high she takes Norvasc 5 mg but this was increased yesterday at the PCP visit to 10 mg and therefore will give her 10 mg here. -Repeat labs in several hours Hyperlipidemia-- continue simvastatin of formulary equivalent chronic pain- continue oxycodone, Fioricet for her migraine headache patient stayed in the hospital will be rather short and therefore avoid heparin or other form anticoagulated for DVT prophylaxis at this time however will encourage to ambulate.
[2020-10-10] MEDS: amLODIPine Besylate 5 MG TABLET PO (08:26)
[2020-10-10] MEDS: oxyCODONE HCl Immed Release 5 MG TABLET 10 MG PO ×2 (08:26→19:57)
[2020-10-10] MEDS: Magnesium Sulfate/H2O 2 GM/50 ML PIGGYBACK IV (10:00)
[2020-10-10] MEDS: Potassium Chloride Packet 20 MEQ PACKET 40 MEQ PO ×3 (10:00→19:28)
[2020-10-10] MEDS: 0.9 % Sodium Chloride Flush 3 ML SYRINGE IVFLUSH ×3 (10:04→19:56)
[2020-10-10 11:03] LABS: Anion Gap 15 (12-20); Carbon Dioxide 31 mmol/L (22-29); Chloride 99 mmol/L (96-108); Potassium 2.9 mmol/L (3.3-5.1); Sodium 142 mmol/L (135-145)
[2020-10-10 11:58] LABS: CDIFF Ag Negative (Negative); CDIFF Internal ctrl Dots and bkg OK (V); CDiff Toxin Negative (Negative)
[2020-10-10 12:38] LABS: Magnesium 1.6 mg/dL (1.6-2.6)
[2020-10-10] MEDS: ondansetron HCL 4 MG/2 ML VIAL IVPUSH ×2 (12:50→19:57)
[2020-10-10] MEDS: NaPROXEN 500 MG TABLET PO (12:55)
[2020-10-10] MEDS: Cyclobenzaprine HCl 10 MG TABLET PO (12:55)
--- NOTE | 2020-10-10 14:58 | PM.CNNEP ---
History of Present Illness Reason for Consult Consult date: 10/10/20 Chief Complaint Chief complaint: Hypokalemia, Hypomagnesemia History of Present Illness Narrative: Laurece is a 60-year-old female history of IBS with diarrhea presented to the emergency room after being told by her primary care physician's office to come to the emergency room because an outpatient lab that was done earlier showed low magnesium and low potassium. Earlier during the day the patient had a seen her primary care physician because she was having palpitation and that the office EKG and lab work were performed and she was later called to come to the emergency room because the potassium level was critically low and magnesium level was also critically low. In the emergency room her potassium level was noted to be 2.4 and magnesium was 0.9. She has gotten IV potassium 40 mEq and 3 grams of magnesium. She reports that she has been having more diarrhea than usual. Nephrology has been consulted to assist in his clinical care Review of Systems Review of Systems Yes all other systems are reviewed and are negative PMF Past Medical History Medical History (Updated 10/10/20 @ 08:00 by Sergei Lo MD) Arthritis Asthma Back pain Chronic bronchitis Depression with anxiety Fibromyalgia Gastroesophageal reflux disease History of frequent headaches History of palpitations History of sickle cell trait Hyperlipidemia Hypertension Irritable bowel syndrome Neck pain Peripheral neuropathy Renal stones TIA (transient ischemic attack) Functional capacity: independent ambulation Family History Family History Father Alive and well Gout Arthritis Mother Alive and well Hypertension Hyperlipidemia Chronic obstructive pulmonary disease (COPD) Brother No problems noted. Son Alive and well Daughter Alive and well Daughter Alive and well Maternal Aunt History of breast cancer Diabetes Surgical History Surgical History H/O arthroscopic knee surgery H/O wrist surgery History of partial hysterectomy History of surgical removal of ganglion cyst History of total right knee replacement (TKR) Hx of cholecystectomy Previous section Subacromial impingement of right shoulder Social History Social History Alcohol intake: current Alcohol intake frequency: a few times a month Alcohol type: wine Cigarettes Per Day: 2 Years Smoked: 10 Advance Directives: No Advance Directives Information Provided: No Patient : No Meds Allergies Allergy/AdvReac Type Severity Reaction Status Date / Time lisinopril [LISINOPRIL] Allergy Severe TONGUE Verified 06/18/20 13:36 SWELLING emprin compound Allergy Intermediate Hives Uncoded 05/25/20 09:51 Active Medications: Current Medications Generic Name Dose Route Start Last Admin Trade Name Freq PRN Reason Stop Dose Admin Acetaminophen 650 mg 10/10/20 09:57 Acetaminophen Supp 650 Mg Supp.Rect [place] Q6H PRN Pain, Mild (Pain Scale 1-3) Acetaminophen/Butalbital/Caffeine 1 tab 10/10/20 12:18 Butalb/Acetamin/Caff 50/325/40 Tablet PO Q8H PRN Headache Albuterol Sulfate 2 puff 10/10/20 07:45 Albuterol Sulfate 90 Mcg 8 Gm Inhaler INHALE Q4H PRN Cough Amlodipine Besylate 5 mg 10/10/20 09:00 10/10/20 08:26 Amlodipine Besylate 5 Mg Tablet PO 5 mg DAILY [facility] Administration Protocol Atorvastatin Calcium 10 mg 10/10/20 21:00 Atorvastatin Calcium 10 Mg Tablet PO BEDTIME [facility] Cyclobenzaprine HCl 10 mg 10/10/20 07:45 10/10/20 12:55 Cyclobenzaprine Hcl 10 Mg Tablet PO 10 mg TID PRN Administration musculoskeletal pain Fluticasone Propionate 1 spray 10/10/20 07:45 Fluticasone Propionate Nasal 16 Gm [place] NOSTRIL-B DAILY PRN Allergic Symptoms Naproxen 500 mg 10/10/20 07:45 10/10/20 12:55 Naproxen 500 Mg Tablet PO 500 mg BID PRN Administration Pain, Moderate (Pain Scale 4-6 Omeprazole 20 mg 10/11/20 06:30 Omeprazole 20 Mg Capsule. PO DAILY@0630 [facility] Ondansetron HCl 4 mg 10/10/20 12:18 10/10/20 12:50 Ondansetron Hcl 4 Mg/2 Ml Vial IVPUSH 4 mg Q8H PRN Administration Nausea and Vomiting Oxycodone HCl 10 mg 10/10/20 07:45 10/10/20 08:26 Oxycodone Hcl Immed Release 5 Mg Tablet PO 10 mg BID PRN Administration Pain, Moderate (Pain Scale 4-6 Pharmacy Consult 1 each 10/09/20 21:53 Consult Rx Perform Med Rec MISCELLANE ONCE PRN Consult order Potassium Chloride 40 meq 10/10/20 10:00 10/10/20 10:00 Potassium Chloride Packet 20 Meq Packet PO 10/10/20 18:01 40 meq Q4H MICHELLE Administration Sodium Chloride 3 ml 10/10/20 09:57 10/10/20 10:04 0.9 % Sodium Chloride Flush 3 Ml Syringe IVFLUSH 3 ml QSHIFT MICHELLE Administration Zolpidem Tartrate 5 mg 10/10/20 09:57 Zolpidem Tartrate 5 Mg Tablet PO BEDTIME PRN Insomnia Home Medications Medication Instructions Recorded Confirmed Last Taken Type albuterol sulfate 90 mcg/actuation 2 puff INHALATION Q4H PRN 02/01/20 10/09/20 Unknown History aerosol inhaler amlodipine 5 mg tablet 5 mg PO DAILY 02/01/20 10/09/20 10/08/20 History fluticasone propionate 50 1 spray INTRANASAL DAILY PRN 02/01/20 10/09/20 Unknown History mcg/actuation nasal spray,suspension pantoprazole 40 mg tablet,delayed 40 mg PO DAILY 02/01/20 10/09/20 10/08/20 History release simvastatin 20 mg tablet 20 mg PO BEDTIME 02/01/20 10/09/20 10/08/20 History cyclobenzaprine 1 tab PO TID PRN 10/09/20 10/09/20 10/08/20 History naproxen 1 tab PO BID PRN 10/09/20 10/09/20 10/08/20 History Physical Exam Vital Signs: Last Vital Signs Temp 97.8 F 10/09/20 19:57 Pulse 72 10/10/20 12:51 Resp 14 10/10/20 12:51 BP 172/87 H 10/10/20 12:51 Pulse Ox 98 10/10/20 09:58 Body Mass Index 29.1 Const General: alert Eyes EOM: EOMs intact bilaterally Neck Neck: Yes supple Resp Auscultation: diminished lung sounds Cardio Jugular venous distension: no JVD GI Palpation (GI): Soft to palpation Neuro General: moves all extremities Results Lab Results Result Diagrams: 10/09/20 20:10 10/10/20 09:34 Lab results: Chemistry 10/09/20 10/10/20 10/10/20 20:10 03:56 09:34 Sodium 143 142 142 Potassium 2.4 L* 2.5 L* 2.9 L Carbon Dioxide 32 H 31 H 31 H BUN 5 L 4 L Creatinine 0.67 0.55 Calcium 8.9 7.6 L D Hematology 10/09/20 20:10 WBC 6.7 Hgb 12.8 Plt Count 298 Urinalysis 10/10/20 05:37 Urine Color YELLOW Urine Appearance CLEAR Urine pH 6.0 Ur Specific [place] 1.010 Urine Protein NEG Urine Glucose (UA) NEG Urine Ketones NEG Urine Blood NEG Urine Nitrite NEG Ur Leukocyte Esterase NEG Assessment and Plan (1) Hypokalemia: Status: Acute Has Hypokalemia, hypomagnesemia, metabolic alkalosis, hypertension 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 Shall aggressively replace Magnesium Needs to check urine calcium. Could discontinue Amlodipine Start Spironolactone 25 mg which could be increased based on clinical response Procedures Date of Service Date of Service: 10/10/20
[2020-10-10] MEDS: Atorvastatin Calcium 10 MG TABLET PO (19:55)
[2020-10-10] MEDS: Zolpidem Tartrate 5 MG TABLET PO (21:53)
[2020-10-11 03:00] VITALS: BP 180/99; PULSE 73; RESP 18; TEMP 36.5; O2SAT 94
[2020-10-11] MEDS: oxyCODONE HCl Immed Release 5 MG TABLET 10 MG PO ×2 (05:52→18:44)
[2020-10-11] MEDS: Omeprazole 20 MG CAPSULE.DR PO (05:52)
[2020-10-11 05:57] VITALS: BP 180/99; PULSE 85
[2020-10-11] MEDS: amLODIPine Besylate 5 MG TABLET PO (05:57)
[2020-10-11 06:46] VITALS: BP 170/81; PULSE 73; RESP 20; TEMP 36.1; O2SAT 96
[2020-10-11] MEDS: Cyclobenzaprine HCl 10 MG TABLET PO ×2 (07:53→15:28)
[2020-10-11] MEDS: 0.9 % Sodium Chloride Flush 3 ML SYRINGE IVFLUSH ×2 (07:55→15:29)
[2020-10-11 09:03] LABS: Carbon Dioxide 33 mmol/L (22-29); Chloride 97 mmol/L (96-108); Potassium 2.6 mmol/L (3.3-5.1); Sodium 140 mmol/L (135-145)
[2020-10-11 09:04] LABS: Anion Gap 13 (12-20); Blood Urea Nitrogen 3 mg/dL (9-16); Calcium 7.9 mg/dL (8.4-10.2); Creatinine Clr Calc Pharmacy 109.2; Estimated Glomerular Filt Rate > 60; Glucose Random 94 mg/dL (60-115); Magnesium 1.5 mg/dL (1.6-2.6)
--- NOTE | 2020-10-11 09:04 | MHC.CM.PN ---
CM met with Patient at bedside. Patient lives in a townhouse with her Daughter/HCP/Milagro, her Son-in-Law and 3 Grandchildren. Patient has both a cane and walker and her Daughter is her SALES AND SERVICE ASSOCIATE (30 hours/week through [facility]). Patient's goal is to return home and resume these services and CM has initiated and will follow for dc planning.PCP is Dr. Rusty Zaragoza.
--- NOTE | 2020-10-11 10:21 | HO.PM.IMPN ---
Subjective Subjective Date of Service: 10/11/20 Interval History: seen in f/u for low potassium and magenesium, potassium remains low despite aggresive replacement presently 2.6, mag 1.5 which is better Review of Systems Gen: no fever Resp: no sob, no cough CV: no chest, no VENTURA, no leg edema GI: No n/v, no abd pain Neuro: No confusion, headache from migraine musculoskeletal: Joint pains Physical Exam Vital Signs: Vital Signs: Last Vital Signs Temp 97 F 10/11/20 06:46 Pulse 73 10/11/20 06:46 Resp 20 10/11/20 06:46 BP 170/81 H 10/11/20 06:46 Pulse Ox 96 10/11/20 06:46 Body Mass Index 29.1 Const: Other: Constitutional Awake and Alert, No apparent distress Neck Supple, No lymphadenopathy Cardiovascular RRR, No M/R/G, S1 S2, No S3 S4, No pedal edema Respiratory Lungs clear, No respiratory distress Gastrointestinal Non tender, Non-distended Skin No rash Neurological Alert & oriented x3 Psychological Appropriate affect Objective Data Current Medications Generic Name Dose Route Start Last Admin Trade Name Freq PRN Reason Stop Dose Admin Acetaminophen 650 mg 10/10/20 09:57 Acetaminophen Supp 650 Mg Supp.Rect [place] Q6H PRN Pain, Mild (Pain Scale 1-3) Acetaminophen/Butalbital/Caffeine 1 tab 10/10/20 12:18 10/10/20 16:03 Butalb/Acetamin/Caff 50/325/40 Tablet PO 1 tab Q8H PRN Administration Headache Albuterol Sulfate 2 puff 10/10/20 07:45 Albuterol Sulfate 90 Mcg 8 Gm Inhaler INHALE Q4H PRN Cough Amlodipine Besylate 5 mg 10/10/20 09:00 10/11/20 05:57 Amlodipine Besylate 5 Mg Tablet PO 5 mg DAILY [facility]HELLE Administration Protocol Atorvastatin Calcium 10 mg 10/10/20 21:00 10/10/20 19:55 Atorvastatin Calcium 10 Mg Tablet PO 10 mg BEDTIME MICHELLE Administration Cyclobenzaprine HCl 10 mg 10/10/20 07:45 10/11/20 07:53 Cyclobenzaprine Hcl 10 Mg Tablet PO 10 mg TID PRN Administration musculoskeletal pain Fluticasone Propionate 1 spray 10/10/20 07:45 Fluticasone Propionate Nasal 16 Gm [place] NOSTRIL-B DAILY PRN Allergic Symptoms Magnesium Sulfate 4 gm in 50 mls @ 150 mls/hr 10/11/20 10:19 Magnesium Sulfate/H2o IV 10/11/20 10:38 ONCE ONE Naproxen 500 mg 10/10/20 07:45 10/10/20 12:55 Naproxen 500 Mg Tablet PO 500 mg BID PRN Administration Pain, Moderate (Pain Scale 4-6 Omeprazole 20 mg 10/11/20 06:30 10/11/20 05:52 Omeprazole 20 Mg Capsule.Dr PO 20 mg DAILY@0630 MICHELLE Administration Ondansetron HCl 4 mg 10/10/20 12:18 10/10/20 19:57 Ondansetron Hcl 4 Mg/2 Ml Vial IVPUSH 4 mg Q8H PRN Administration Nausea and Vomiting Oxycodone HCl 10 mg 10/10/20 07:45 10/11/20 05:52 Oxycodone Hcl Immed Release 5 Mg Tablet PO 10 mg BID PRN Administration Pain, Moderate (Pain Scale 4-6 Pharmacy Consult 1 each 10/09/20 21:53 Consult Rx Perform Med Rec MISCELLANE ONCE PRN Consult order Potassium Chloride 60 meq 10/11/20 10:18 Potassium Chloride Packet 20 Meq Packet PO 10/11/20 10:19 ONCE ONE Sodium Chloride 3 ml 10/10/20 09:57 10/11/20 07:55 0.9 % Sodium Chloride Flush 3 Ml Syringe IVFLUSH 3 ml QSHIFT MICHELLE Administration Zolpidem Tartrate 5 mg 10/10/20 09:57 10/10/20 21:53 Zolpidem Tartrate 5 Mg Tablet PO 5 mg BEDTIME PRN Administration Insomnia Labs CBC & Chem 7: 10/09/20 20:10 10/11/20 07:46 Assessment and Plan (1) Hypokalemia: Status: Acute (2) Hypomagnesemia: Status: Acute (3) Hyperlipidemia: Status: Inactive (4) Hypertension: Status: Inactive Assessment and Plan: 60-year-old female with IBS with associated diarrhea, hypertension, hyperlipidemia chronic pain who has presented to the ED with critically low magnesium and potassium likely related to diarrhea. Hypokalemia-- IV and PO replacement Hypomagnesemia-- IV replacment nephrology consult seeing her with provisional diagnosis of gittlemen's -Add Aldactone to help retain potassium and treat BP Hypertension-- blood pressure is moderately high she takes Norvasc 5 mg but this was increased yesterday at the PCP visit to 10 mg and therefore will give her 10 mg here. -Repeat labs in several hours, adding Aldactone 25 daily Hyperlipidemia-- continue simvastatin of formulary equivalent chronic pain- continue oxycodone, Fioricet for her migraine headache Lovenox for DVT siomara
[2020-10-11] MEDS: Magnesium Sulfate/H2O 2 GM/50 ML PIGGYBACK IV ×2 (10:44→12:43)
[2020-10-11] MEDS: ondansetron HCL 4 MG/2 ML VIAL IVPUSH (10:51)
[2020-10-11] MEDS: NaPROXEN 500 MG TABLET PO (10:51)
[2020-10-11] MEDS: Potassium Chloride Packet 20 MEQ PACKET 60 MEQ PO (10:58)
[2020-10-11 11:03] VITALS: BP 155/80; PULSE 78; RESP 18; TEMP 35.8; O2SAT 96
[2020-10-11] MEDS: Spironolactone 25 MG TABLET PO (11:42)
[2020-10-11] MEDS: Butalb/Acetamin/Caff 50/325/40 TABLET 1 TAB PO ×2 (12:04→20:27)
[2020-10-11 15:32] VITALS: BP 171/86; PULSE 78; RESP 18; TEMP 36.6; O2SAT 98
--- NOTE | 2020-10-11 15:42 | PM.PNNEP ---
Subjective Subjective Date of Service: 10/11/20 Interval history: Continues to have diarrhea. Remains hypokalemia Physical Exam Vital Signs: Vital Signs: Last Vital Signs Temp 97.8 F 10/11/20 15:32 Pulse 78 10/11/20 15:32 Resp 18 10/11/20 15:32 BP 171/86 H 10/11/20 15:32 Pulse Ox 98 10/11/20 15:32 Body Mass Index 29.1 Const: General: comfortable Orientation/consciousness: patient oriented x3 Eyes: EOM: EOMs intact bilaterally Neck: Neck: Yes supple Resp: Auscultation: diminished lung sounds Cardio: Jugular venous distension: no JVD GI: Palpation (GI): Soft to palpation Neuro: General: patient oriented x3 and moves all extremities Objective Data Labs CBC & Chem 7: 10/09/20 20:10 10/11/20 07:46 Labs: Laboratory Results - last 24 hr 10/11/20 07:46 Sodium 140 Potassium 2.6 L Chloride 97 Carbon Dioxide 33 H Anion Gap 13 BUN 3 L Creatinine 0.57 Estim Creat Clear Calc 109.2 Estimated GFR > 60 Random Glucose 94 Calcium 7.9 L Magnesium 1.5 L Assessment & Plan Assessment and plan (1) Hypokalemia: Status: Acute Assessment and Plan: Has Hypokalemia, hypomagnesemia, metabolic alkalosis, hypertension 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 Getting aggressively replacement of Magnesium. Needs aggressive K replacement urine calcium pending. Ordered urine K, Osmolality. Could discontinue Amlodipine with time Could increase Spironolactone to 50 mg which could be increased based on clinical response Time Spent With Patient Time: Total time spent is greater than 50% in coordination of care (as documented) at patient's floor/unit and/or counseling patient: Procedures Date of Service Date of Service: 10/11/20
[2020-10-11 15:55] LABS: Anion Gap 14 (12-20); Carbon Dioxide 33 mmol/L (22-29); Chloride 96 mmol/L (96-108); Potassium 2.9 mmol/L (3.3-5.1); Sodium 140 mmol/L (135-145)
[2020-10-11 16:25] LABS: Osmolality, Serum 290 mosm/kg (281-305)
[2020-10-11] MEDS: Potassium Chloride Packet 20 MEQ PACKET 40 MEQ PO (17:08)
[2020-10-11 17:52] LABS: Potassium Urine Random 4.2 mmol/L
[2020-10-11 18:07] LABS: Osmolality Urine 180 mosm/kg (373-1093)
[2020-10-11 19:25] VITALS: BP 161/84; PULSE 76; RESP 18; TEMP 36.9; O2SAT 96
[2020-10-11] MEDS: Atorvastatin Calcium 10 MG TABLET PO (20:26)
[2020-10-12] VITALS (7 sets, daily range): BP systolic 147–172; BP diastolic 74–89; PULSE 69–78; RESP 16–20; TEMP 36.3–37.1; O2SAT 93–99
[2020-10-12] MEDS: ondansetron HCL 4 MG/2 ML VIAL IVPUSH ×3 (00:08→20:34)
[2020-10-12] MEDS: NaPROXEN 500 MG TABLET PO ×3 (00:08→22:15)
[2020-10-12] MEDS: Cyclobenzaprine HCl 10 MG TABLET PO ×3 (00:08→17:05)
[2020-10-12] MEDS: 0.9 % Sodium Chloride Flush 3 ML SYRINGE IVFLUSH ×4 (00:51→20:32)
[2020-10-12] MEDS: Omeprazole 20 MG CAPSULE.DR PO (07:10)
[2020-10-12] MEDS: oxyCODONE HCl Immed Release 5 MG TABLET 10 MG PO ×2 (07:24→20:30)
[2020-10-12 08:25] LABS: Anion Gap 13 (12-20); Blood Urea Nitrogen 7 mg/dL (9-16); Calcium 7.9 mg/dL (8.4-10.2); Carbon Dioxide 32 mmol/L (22-29); Chloride 99 mmol/L (96-108); Creatinine Clr Calc Pharmacy 107.4; Estimated Glomerular Filt Rate > 60; Glucose Random 83 mg/dL (60-115); Sodium 141 mmol/L (135-145)
[2020-10-12 08:39] LABS: Magnesium 1.9 mg/dL (1.6-2.6)
[2020-10-12] MEDS: amLODIPine Besylate 5 MG TABLET 10 MG PO (09:17)
[2020-10-12] MEDS: Spironolactone 25 MG TABLET PO (09:17)
--- NOTE | 2020-10-12 11:05 | P.PNIM_ITS ---
Subjective Subjective Date of Service: 10/12/20 Interval History: Continues to have diarrhea. Remains hypokalemic, 3.0, has diarrhea Review of Systems Gen: no fever Resp: no sob, no cough CV: no chest, no VENTURA, no leg edema GI: No n/v, no abd pain Neuro: No confusion, headache from migraine musculoskeletal: Joint pains Physical Exam Vital Signs: Vital Signs: Last Vital Signs Temp 97.5 F 10/12/20 07:36 Pulse 69 10/12/20 07:36 Resp 18 10/12/20 07:36 BP 165/86 H 10/12/20 07:36 Pulse Ox 99 10/12/20 07:36 Body Mass Index 29.1 Const: Other: Constitutional Awake and Alert, No apparent distress Neck Supple, No lymphadenopathy Cardiovascular RRR, No M/R/G, S1 S2, No S3 S4, No pedal edema Respiratory Lungs clear, No respiratory distress Gastrointestinal Non tender, Non-distended Skin No rash Neurological Alert & oriented x3 Psychological Appropriate affect Objective Data Current Medications Generic Name Dose Route Start Last Admin Trade Name Freq PRN Reason Stop Dose Admin Acetaminophen 650 mg 10/10/20 09:57 Acetaminophen Supp 650 Mg Supp.Rect [place] Q6H PRN Pain, Mild (Pain Scale 1-3) Acetaminophen/Butalbital/Caffeine 1 tab 10/10/20 12:18 10/11/20 20:27 Butalb/Acetamin/Caff 50/325/40 Tablet PO 1 tab Q8H PRN Administration Headache Albuterol Sulfate 2 puff 10/10/20 07:45 Albuterol Sulfate 90 Mcg 8 Gm Inhaler INHALE Q4H PRN Cough Amlodipine Besylate 10 mg 10/12/20 09:00 10/12/20 09:17 Amlodipine Besylate 5 Mg Tablet PO 10 mg DAILY [facility]HELLE Administration Protocol Atorvastatin Calcium 10 mg 10/10/20 21:00 10/11/20 20:26 Atorvastatin Calcium 10 Mg Tablet PO 10 mg BEDTIME MICHELLE Administration Cyclobenzaprine HCl 10 mg 10/10/20 07:45 10/12/20 09:18 Cyclobenzaprine Hcl 10 Mg Tablet PO 10 mg TID PRN Administration musculoskeletal pain Fluticasone Propionate 1 spray 10/10/20 07:45 Fluticasone Propionate Nasal 16 Gm [place] NOSTRIL-B DAILY PRN Allergic Symptoms Naproxen 500 mg 10/10/20 07:45 10/12/20 09:17 Naproxen 500 Mg Tablet PO 500 mg BID PRN Administration Pain, Moderate (Pain Scale 4-6 Omeprazole 20 mg 10/11/20 06:30 10/12/20 07:10 Omeprazole 20 Mg Capsule. PO 20 mg DAILY@0630 MICHELLE Administration Ondansetron HCl 4 mg 10/10/20 12:18 10/12/20 09:18 Ondansetron Hcl 4 Mg/2 Ml Vial IVPUSH 4 mg Q8H PRN Administration Nausea and Vomiting Oxycodone HCl 10 mg 10/10/20 07:45 10/12/20 07:24 Oxycodone Hcl Immed Release 5 Mg Tablet PO 10 mg BID PRN Administration Pain, Moderate (Pain Scale 4-6 Pharmacy Consult 1 each 10/09/20 21:53 Consult Rx Perform Med Rec MISCELLANE ONCE PRN Consult order Sodium Chloride 3 ml 10/10/20 09:57 10/12/20 07:24 0.9 % Sodium Chloride Flush 3 Ml Syringe IVFLUSH 3 ml QSHIFT MICHELLE Administration Spironolactone 25 mg 10/11/20 10:45 10/12/20 09:17 Spironolactone 25 Mg Tablet PO 25 mg DAILY [facility]HELLE Administration Protocol Zolpidem Tartrate 5 mg 10/10/20 09:57 10/10/20 21:53 Zolpidem Tartrate 5 Mg Tablet PO 5 mg BEDTIME PRN Administration Insomnia Labs CBC & Chem 7: 10/09/20 20:10 10/12/20 06:57 Assessment and Plan (1) Hypokalemia: Status: Acute (2) Hypomagnesemia: Status: Acute (3) Hyperlipidemia: Status: Inactive (4) Hypertension: Status: Inactive Assessment and Plan: 60-year-old female with IBS with associated diarrhea, hypertension, hyperlipidemia chronic pain who has presented to the ED with critically low mag nesium and potassium likely related to diarrhea. Hypokalemia-- 3.o now, oral replacement a Hypomagnesemia-- recheck level today and consider oral supplemt nephrology consult seeing her with provisional diagnosis of gittlemen's vs primary gi loss from diarrha -Add Aldactone to help retain potassium and treat BP Hypertension-- blood pressure is moderately high she takes Norvasc 5 mg but this was increased yesterday at the PCP visit to 10 mg and therefore will give her 10 mg here. -Repeat labs in several hours, continue Aldactone 25 daily Hyperlipidemia-- continue simvastatin of formulary equivalent chronic pain- continue oxycodone, Fioricet for her migraine headache home tomorrow, recheck lab later today and give additional K PRN Lovenox for DVT siomara
[2020-10-12] MEDS: Potassium Chloride Packet 20 MEQ PACKET 40 MEQ PO (11:10)
[2020-10-12] MEDS: Butalb/Acetamin/Caff 50/325/40 TABLET 1 TAB PO ×2 (11:16→20:29)
[2020-10-12 14:25] LABS: Osmolality Urine 336 mosm/kg (373-1093)
[2020-10-12 14:31] LABS: Potassium Urine Random 18.8 mmol/L
[2020-10-12 18:12] LABS: Calcium, Random Urine 1.8 mg/dL
--- NOTE | 2020-10-12 19:31 | PM.PNNEP ---
Subjective Subjective Date of Service: 10/12/20 Interval history: Seen and examined.Events noted H/O recurrent hypoK during periods of GI/diarrhea upset Trouble with taking PO KCL Physical Exam Vital Signs: Vital Signs: Last Vital Signs Temp 97.3 F 10/12/20 16:00 Pulse 75 10/12/20 16:00 Resp 18 10/12/20 16:00 BP 147/74 H 10/12/20 16:00 Pulse Ox 93 10/12/20 16:00 Body Mass Index 29.1 Const: General: comfortable and alert Orientation/consciousness: patient oriented x3 Eyes: EOM: EOMs intact bilaterally Neck: Neck: Yes supple Resp: Auscultation: diminished lung sounds Cardio: Jugular venous distension: no JVD GI: Palpation (GI): Soft to palpation Neuro: General: patient oriented x3 and moves all extremities Objective Data Labs CBC & Chem 7: 10/09/20 20:10 10/12/20 06:57 Labs: Laboratory Results - last 24 hr 10/11/20 10/12/20 10/12/20 06:01 06:57 06:57 Sodium 141 Potassium 3.0 L Chloride 99 Carbon Dioxide 32 H Anion Gap 13 BUN 7 L D Creatinine 0.58 Estim Creat Clear Calc 107.4 Estimated GFR > 60 Random Glucose 83 Calcium 7.9 L Magnesium 1.9 Urine Osmolality Ur Random Sodium Ur Random Potassium Ur Random Calcium 1.8 Urine Creatinine 10/12/20 10/12/20 13:44 13:44 Sodium Potassium Chloride Carbon Dioxide Anion Gap BUN Creatinine Estim Creat Clear Calc Estimated GFR Random Glucose Calcium Magnesium Urine Osmolality 336 L Ur Random Sodium 46.0 Ur Random Potassium 18.8 Ur Random Calcium Urine Creatinine 159.40 Assessment & Plan Assessment and plan (1) Hypokalemia: Status: Acute Assessment and Plan: 1. HypoK: based on TTKg elevated looks like inappropriate urine K wasting and raises the following DDx primary hyperaldo:given HTN with hypoK CHIP with hyperRenin/hyperaldo secondary hyperaldo: diarrhea vol depletion with sec incr jak tubular defect: gitleman or Bar[place] which would go along with incr HCO3 and hypoMg BUT these PTs do not have elevated BP 2. HypoMg: d/t diarrhea and/or PPI 3. Incr HCO3: contraction alk vs other REC: cont K and Mg repalcement; track K level; check jak/renin levels ( on aldactone will be hard to interpret); avoid PPi if possible Will follow with team Time Spent With Patient Time: Total time spent is greater than 50% in coordination of care (as documented) at patient's floor/unit and/or counseling patient: Procedures Date of Service Date of Service: 10/12/20
[2020-10-12 20:03] LABS: Anion Gap 12 (12-20); Carbon Dioxide 32 mmol/L (22-29); Chloride 100 mmol/L (96-108); Magnesium 1.6 mg/dL (1.6-2.6); Potassium 3.2 mmol/L (3.3-5.1); Sodium 141 mmol/L (135-145)
[2020-10-12] MEDS: Atorvastatin Calcium 10 MG TABLET PO (20:30)
[2020-10-12] MEDS: Zolpidem Tartrate 5 MG TABLET PO (22:15)
[2020-10-13] VITALS (7 sets, daily range): BP systolic 138–188; BP diastolic 74–89; PULSE 71–95; RESP 17–20; TEMP 36.1–37.3; O2SAT 95–98
[2020-10-13] MEDS: Omeprazole 20 MG CAPSULE.DR PO (06:04)
[2020-10-13] MEDS: Cyclobenzaprine HCl 10 MG TABLET PO ×2 (06:09→20:19)
[2020-10-13] MEDS: ondansetron HCL 4 MG/2 ML VIAL IVPUSH ×2 (06:10→18:11)
[2020-10-13 07:04] LABS: Magnesium 1.5 mg/dL (1.6-2.6)
[2020-10-13] MEDS: Spironolactone 25 MG TABLET PO (07:38)
[2020-10-13] MEDS: oxyCODONE HCl Immed Release 5 MG TABLET 10 MG PO ×2 (07:38→20:19)
[2020-10-13] MEDS: amLODIPine Besylate 5 MG TABLET 10 MG PO (07:39)
[2020-10-13] MEDS: 0.9 % Sodium Chloride Flush 3 ML SYRINGE IVFLUSH ×3 (07:41→20:19)
--- NOTE | 2020-10-13 07:56 | HO.PM.IMPN ---
Subjective Subjective Date of Service: 10/13/20 Interval History: Seen in f/u for hypoKalemia, hypomagnesemia, she c/o intermittend sharp abd pain Review of Systems Gen: no fever Resp: no sob, no cough CV: no chest, no VENTURA, no leg edema GI: No n/v, no abd pain Neuro: No confusion, headache from migraine musculoskeletal: Joint pains Physical Exam Vital Signs: Vital Signs: Last Vital Signs Temp 99.1 F 10/13/20 07:28 Pulse 71 10/13/20 07:28 Resp 18 10/13/20 07:28 BP 173/89 H 10/13/20 07:28 Pulse Ox 98 10/13/20 07:28 Body Mass Index 29.1 Const: Other: Constitutional Awake and Alert, No apparent distress Neck Supple, No lymphadenopathy Cardiovascular RRR, No M/R/G, S1 S2, No S3 S4, No pedal edema Respiratory Lungs clear, No respiratory distress Gastrointestinal Non tender, Non-distended Skin No rash Neurological Alert & oriented x3 Psychological Appropriate affect Objective Data Current Medications Generic Name Dose Route Start Last Admin Trade Name Freq PRN Reason Stop Dose Admin Acetaminophen 650 mg 10/10/20 09:57 Acetaminophen Supp 650 Mg Supp.Rect [place] Q6H PRN Pain, Mild (Pain Scale 1-3) Acetaminophen/Butalbital/Caffeine 1 tab 10/10/20 12:18 10/12/20 20:29 Butalb/Acetamin/Caff 50/325/40 Tablet PO 1 tab Q8H PRN Administration Headache Albuterol Sulfate 2 puff 10/10/20 07:45 Albuterol Sulfate 90 Mcg 8 Gm Inhaler INHALE Q4H PRN Cough Amlodipine Besylate 10 mg 10/12/20 09:00 10/13/20 07:39 Amlodipine Besylate 5 Mg Tablet PO 10 mg DAILY MICHELLE Administration Protocol Atorvastatin Calcium 10 mg 10/10/20 21:00 10/12/20 20:30 Atorvastatin Calcium 10 Mg Tablet PO 10 mg BEDTIME MICHELLE Administration Cyclobenzaprine HCl 10 mg 10/10/20 07:45 10/13/20 06:09 Cyclobenzaprine Hcl 10 Mg Tablet PO 10 mg TID PRN Administration musculoskeletal pain Fluticasone Propionate 1 spray 10/10/20 07:45 Fluticasone Propionate Nasal 16 Gm [place] NOSTRIL-B DAILY PRN Allergic Symptoms Magnesium Sulfate 2 gm in 50 mls @ 25 mls/hr 10/13/20 08:00 Magnesium Sulfate/H2o IV 10/13/20 09:59 Q1H MICHELLE Naproxen 500 mg 10/10/20 07:45 10/12/20 22:15 Naproxen 500 Mg Tablet PO 500 mg BID PRN Administration Pain, Moderate (Pain Scale 4-6 Ondansetron HCl 4 mg 10/10/20 12:18 10/13/20 06:10 Ondansetron Hcl 4 Mg/2 Ml Vial IVPUSH 4 mg Q8H PRN Administration Nausea and Vomiting Oxycodone HCl 10 mg 10/10/20 07:45 10/13/20 07:38 Oxycodone Hcl Immed Release 5 Mg Tablet PO 10 mg BID PRN Administration Pain, Moderate (Pain Scale 4-6 Pharmacy Consult 1 each 10/09/20 21:53 Consult Rx Perform Med Rec MISCELLANE ONCE PRN Consult order Sodium Chloride 3 ml 10/10/20 09:57 10/13/20 07:41 0.9 % Sodium Chloride Flush 3 Ml Syringe IVFLUSH 3 ml QSHIFT MICHELLE Administration Spironolactone 25 mg 10/11/20 10:45 10/13/20 07:38 Spironolactone 25 Mg Tablet PO 25 mg DAILY MICHELLE Administration Protocol Zolpidem Tartrate 5 mg 10/10/20 09:57 10/12/20 22:15 Zolpidem Tartrate 5 Mg Tablet PO 5 mg BEDTIME PRN Administration Insomnia Labs CBC & Chem 7: 10/09/20 20:10 10/12/20 13:44 Assessment and Plan (1) Hypokalemia: Status: Acute (2) Hypomagnesemia: Status: Acute (3) Hyperlipidemia: Status: Inactive (4) Hypertension: Status: Inactive Assessment and Plan: 60-year-old female with IBS with associated diarrhea, hypertension, hyperlipidemia chronic pain who has presented to the ED with critically low magnesium and potassium likely related to diarrhea. Hypokalemia likely-- 3.2 now, oral replacement a Hypomagnesemia-- recheck level today and consider oral supplemt, DC PPI nephrology consult seeing her with provisional diagnosis of gittlemen's vs primary gi loss from diarrha -Aldactone to help retain potassium and treat BP Hypertension-- BP still high, continue Aldactone 25, Norvasc 10, if persistently high, add Atenolol, she has Pricilla allergy Hyperlipidemia-- continue simvastatin of formulary equivalent chronic pain- continue oxycodone, Fioricet for her migraine headache Abdominal pain transient and resolved, normal exam if happens again will consider a scan home tomorrow, recheck lab later today and give additional K PRN
[2020-10-13] MEDS: Magnesium Sulfate/H2O 2 GM/50 ML PIGGYBACK IV ×2 (08:25→09:50)
[2020-10-13 13:36] LABS: Anion Gap 12 (12-20); Carbon Dioxide 31 mmol/L (22-29); Chloride 101 mmol/L (96-108); Potassium 3.2 mmol/L (3.3-5.1); Sodium 141 mmol/L (135-145)
[2020-10-13] MEDS: Butalb/Acetamin/Caff 50/325/40 TABLET 1 TAB PO (18:13)
--- NOTE | 2020-10-13 19:33 | PM.PNNEP ---
Subjective Subjective Date of Service: 10/13/20 Interval history: Seen and examined, events noted Physical Exam Vital Signs: Vital Signs: Last Vital Signs Temp 97.5 F 10/13/20 19:06 Pulse 86 10/13/20 19:06 Resp 17 10/13/20 19:06 BP 175/88 H 10/13/20 19:06 Pulse Ox 98 10/13/20 19:06 Body Mass Index 29.1 Const: General: comfortable and alert Orientation/consciousness: patient oriented x3 Eyes: EOM: EOMs intact bilaterally Neck: Neck: Yes supple Resp: Auscultation: diminished lung sounds Cardio: Jugular venous distension: no JVD GI: Palpation (GI): Soft to palpation Neuro: General: patient oriented x3 and moves all extremities Objective Data Labs CBC & Chem 7: 10/09/20 20:10 10/13/20 11:12 Labs: Laboratory Results - last 24 hr 10/12/20 10/13/20 10/13/20 13:44 06:10 06:10 Sodium 141 Potassium 3.2 L Chloride 100 Carbon Dioxide 32 H Anion Gap 12 Magnesium 1.6 Renin Cancelled Aldosterone Cancelled 10/13/20 10/13/20 06:10 11:12 Sodium 141 Potassium 3.2 L Chloride 101 Carbon Dioxide 31 H Anion Gap 12 Magnesium 1.5 L Renin Aldosterone Assessment & Plan Assessment and plan (1) Hypokalemia: Status: Acute Assessment and Plan: 1. 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 HypoMg: d/t diarrhea and/or PPI 3. Incr HCO3: contraction alk vs other 4. HTN: will cont ot incr REC: cont K and Mg repalcement; track K level; r/o CHIP with CTA; check jak/renin levels ( on aldactone will be hard to interpret); avoid PPi if possible Will follow with team Time Spent With Patient Time: Total time spent is greater than 50% in coordination of care (as documented) at patient's floor/unit and/or counseling patient: Procedures Date of Service Date of Service: 10/13/20
[2020-10-13] MEDS: Atorvastatin Calcium 10 MG TABLET PO (20:19)
[2020-10-13] MEDS: Zolpidem Tartrate 5 MG TABLET PO (22:05)
[2020-10-13] MEDS: Potassium Chloride Packet 20 MEQ PACKET 40 MEQ PO (22:05)
[2020-10-14 04:00] VITALS: BP 145/71; PULSE 85; RESP 17; TEMP 36.7; O2SAT 97
[2020-10-14 06:51] VITALS: BP 179/78; PULSE 81; RESP 20; TEMP 36.1; O2SAT 96
[2020-10-14 06:55] LABS: Magnesium 1.6 mg/dL (1.6-2.6)
[2020-10-14 07:11] LABS: Anion Gap 11 (12-20); Carbon Dioxide 33 mmol/L (22-29); Chloride 100 mmol/L (96-108); Creatinine Clr Calc Pharmacy 103.8; Estimated Glomerular Filt Rate > 60; Glucose Random 85 mg/dL (60-115); Potassium 3.1 mmol/L (3.3-5.1); Sodium 141 mmol/L (135-145)
[2020-10-14 07:35] LABS: Blood Urea Nitrogen 13 mg/dL (9-16); Calcium 9.2 mg/dL (8.4-10.2)
[2020-10-14] MEDS: oxyCODONE HCl Immed Release 5 MG TABLET 10 MG PO (09:05)
[2020-10-14] MEDS: atenoloL 25 MG TABLET PO (09:06)
[2020-10-14] MEDS: Spironolactone 25 MG TABLET PO (09:06)
[2020-10-14] MEDS: amLODIPine Besylate 5 MG TABLET 10 MG PO (09:06)
[2020-10-14] MEDS: 0.9 % Sodium Chloride Flush 3 ML SYRINGE IVFLUSH ×2 (09:07→15:05)
[2020-10-14] MEDS: Magnesium Sulfate/H2O 2 GM/50 ML PIGGYBACK IV (09:07)
[2020-10-14] MEDS: Potassium Chloride Packet 20 MEQ PACKET 40 MEQ PO ×2 (09:07)
[2020-10-14] MEDS: ondansetron HCL 4 MG/2 ML VIAL IVPUSH (09:11)
[2020-10-14 10:52] VITALS: BP 152/78; PULSE 83; RESP 82; TEMP 36.1; O2SAT 98
[2020-10-14] MEDS: iohexoL 350 MG/ML 100 ML INFUS..BTL 80 ML IV (11:26)
--- NOTE | 2020-10-14 12:47 | P.PNIM_ITS ---
Subjective Subjective Date of Service: 10/14/20 Interval History: Seen in f/u for hypoKalemia, hypomagnesemia, she c/o some abd pain Review of Systems Gen: no fever Resp: no sob, no cough CV: no chest, no VENTURA, no leg edema GI: No n/v, no abd pain Neuro: No confusion, headache from migraine musculoskeletal: Joint pains Physical Exam Vital Signs: Vital Signs: Last Vital Signs Temp 96.9 F 10/14/20 10:52 Pulse 83 10/14/20 10:52 Resp 82 H 10/14/20 10:52 BP 152/78 H 10/14/20 10:52 Pulse Ox 98 10/14/20 10:52 Body Mass Index 29.1 Const: Other: Constitutional Awake and Alert, No apparent distress Neck Supple, No lymphadenopathy Cardiovascular RRR, No M/R/G, S1 S2, No S3 S4, No pedal edema Respiratory Lungs clear, No respiratory distress Gastrointestinal Non tender, Non-distended Skin No rash Neurological Alert & oriented x3 Psychological Appropriate affect Objective Data Current Medications Generic Name Dose Route Start Last Admin Trade Name Freq PRN Reason Stop Dose Admin Acetaminophen 650 mg 10/10/20 09:57 Acetaminophen Supp 650 Mg Supp.Rect [place] Q6H PRN Pain, Mild (Pain Scale 1-3) Acetaminophen/Butalbital/Caffeine 1 tab 10/10/20 12:18 10/13/20 18:13 Butalb/Acetamin/Caff 50/325/40 Tablet PO 1 tab Q8H PRN Administration Headache Albuterol Sulfate 2 puff 10/10/20 07:45 Albuterol Sulfate 90 Mcg 8 Gm Inhaler INHALE Q4H PRN Cough Amlodipine Besylate 10 mg 10/12/20 09:00 10/14/20 09:06 Amlodipine Besylate 5 Mg Tablet PO 10 mg DAILY MICHELLE Administration Protocol Atenolol 25 mg 10/14/20 09:00 10/14/20 09:06 Atenolol 25 Mg Tablet PO 25 mg DAILY MICHELLE Administration Protocol Atorvastatin Calcium 10 mg 10/10/20 21:00 10/13/20 20:19 Atorvastatin Calcium 10 Mg Tablet PO 10 mg BEDTIME MICHELLE Administration Cyclobenzaprine HCl 10 mg 10/10/20 07:45 10/13/20 20:19 Cyclobenzaprine Hcl 10 Mg Tablet PO 10 mg TID PRN Administration musculoskeletal pain Fluticasone Propionate 1 spray 10/10/20 07:45 Fluticasone Propionate Nasal 16 Gm [place] NOSTRIL-B DAILY PRN Allergic Symptoms Naproxen 500 mg 10/10/20 07:45 10/12/20 22:15 Naproxen 500 Mg Tablet PO 500 mg BID PRN Administration Pain, Moderate (Pain Scale 4-6 Ondansetron HCl 4 mg 10/10/20 12:18 10/14/20 09:11 Ondansetron Hcl 4 Mg/2 Ml Vial IVPUSH 4 mg Q8H PRN Administration Nausea and Vomiting Oxycodone HCl 10 mg 10/10/20 07:45 10/14/20 09:05 Oxycodone Hcl Immed Release 5 Mg Tablet PO 10 mg BID PRN Administration Pain, Moderate (Pain Scale 4-6 Pharmacy Consult 1 each 10/09/20 21:53 Consult Rx Perform Med Rec MISCELLANE ONCE PRN Consult order Potassium Chloride 40 meq 10/13/20 21:10 10/14/20 09:07 Potassium Chloride Packet 20 Meq Packet PO 10/14/20 21:01 40 meq BID MICHELLE Administration Sodium Chloride 3 ml 10/10/20 09:57 10/14/20 09:07 0.9 % Sodium Chloride Flush 3 Ml Syringe IVFLUSH 3 ml QSHIFT MICHELLE Administration Spironolactone 25 mg 10/11/20 10:45 10/14/20 09:06 Spironolactone 25 Mg Tablet PO 25 mg DAILY MICHELLE Administration Protocol Zolpidem Tartrate 5 mg 10/10/20 09:57 10/13/20 22:05 Zolpidem Tartrate 5 Mg Tablet PO 5 mg BEDTIME PRN Administration Insomnia Labs CBC & Chem 7: 10/09/20 20:10 10/14/20 05:38 Assessment and Plan (1) Hypokalemia: Status: Acute (2) Hypomagnesemia: Status: Acute (3) Hyperlipidemia: Status: Inactive (4) Hypertension: Status: Inactive Assessment and Plan: 60-year-old female with IBS with associated diarrhea, hypertension, hyperlipidemia chronic pain who has presented to the ED with critically low magnesium and potassium likely related to diarrhea. Hypokalemia likely-- 3.1 now, oral replacement a Hypomagnesemia-- 1.6, give more supplement today nephrology consult seeing her with provisional diagnosis GI, loss as not less likely Gittleman chronic pain- continue oxycodone, Fioricet for her migraine headache Abdominal pain transient and resolved, normal exam if happens again will consider a scan home todag, recheck lab later today and giv
--- NOTE | 2020-10-14 13:46 | MHC.CM.PN ---
pt dcd today to resume [facility] at 30 hrs a week family to transport home
--- NOTE | 2020-10-14 13:58 | P.DS_ITS ---
DS: Providers Provider Date of Service: 10/14/20 Date of admission: 10/10/20 07:50 Primary care physician: Rusty Zaragoza MD Consults: 10/10/20 07:49 Consult to Nephrology Routine Consulting Provider: Salvador Shelby Reason for consultation: Low potassium, low magnesium Has provider been notified: DS: Diagnosis Discharge Diagnosis (1) Hypokalemia: Status: Acute (2) Hypomagnesemia: Status: Acute (3) Hyperlipidemia: Status: Inactive (4) Hypertension: Status: Inactive DS: Medications Discharge Medications Home Medications: Home Medications Medication Instructions Recorded Confirmed albuterol sulfate 90 mcg/actuation 2 puff INHALATION Q4H PRN 02/01/20 10/09/20 aerosol inhaler amlodipine 5 mg tablet 5 mg PO DAILY 02/01/20 10/09/20 fluticasone propionate 50 1 spray INTRANASAL DAILY PRN 02/01/20 10/09/20 mcg/actuation nasal spray,suspension pantoprazole 40 mg tablet,delayed 40 mg PO DAILY 02/01/20 10/09/20 release simvastatin 20 mg tablet 20 mg PO BEDTIME 02/01/20 10/09/20 cyclobenzaprine 1 tab PO TID PRN 10/09/20 10/09/20 naproxen 1 tab PO BID PRN 10/09/20 10/09/20 Previous Rx's Medication Instructions Recorded oxycodone 10 mg tablet 10 mg PO BID PRN 30 Days #60 tab 05/25/20 DS: Summary Hospital Course Hospital Course: Chief Complaint: Low potassium, low magnesium and palpitation. 60-year-old female history of IBS with diarrhea predominant, hypertension, chronic pain due to arthritis. She presented to the emergency room after being told by her primary care physician's office to come to the emergency room because an outpatient lab that was done earlier showed low magnesium and low potassium. Earlier during the day the patient had a seen her primary care physician because she was having palpitation and that the office EKG and lab work were performed and she was later called to come to the emergency room because the potassium level was critically low and magnesium level was also critically low. In the emergency room her potassium level was noted to be 2.4 and magnesium was 0.9. She has gotten IV potassium 40 mEq and 3 grams of magnesium. She reports that she has been having more diarrhea than usual. And report that she has history of C diff the last time she has issue with a potassium and magnesium. EKG is normal Hospital course: HypOkalemia--etiology likely GI loss as patient reports frequent episode of diarrhea, althought no diarrhea has been seen here in the hospital, she has soft stool and this has been ongoing for years, actually a CT scan suggest rather constipation. Hypokalemia was treated with combination of IV and oral potassium and along with magenesium replacement and over time, potassium has improved to 3.1 now and Magnesium 1.6 up from 0.9 of admission with ongoing replacement. She was evaluated by Nephrology team that help with mangement. Her potassium was 2. 4 on admission. She will be discharge with oral potassium 40 meq daily, magnesium oxide 400 mg bid, and [place] has been titrated up to 50 mg daily to help retain potassium. She will have lab check on Monday and to follow up with Dr. Acosta in the office next week. Also her blood pressure has been moderately high and Norvasc has been increased to 10 and Started on Atenolol 25 daily, and Aldactone 50 mg daily. Time Spent with Patient Time attestation: Total time spent providing and/or coordinating discharge services: Discharge coordination time: Greater than 30 minutes Quality: Stroke Does the patient have a stroke diagnosis?: No Physical Exam Vital Signs: Vital Signs: Last Vital Signs Temp 96.9 F 10/14/20 10:52 Pulse 83 10/14/20 10:52 Resp 82 H 10/14/20 10:52 BP 152/78 H 10/14/20 10:52 Pulse Ox 98 10/14/20 10:52 Body Mass Index 29.1 General: AO X 3, no acute distress Resp: CTA bilateral CVS: S1,S2,RRR GI: +BS, NT, no distention Skin: No rash Neuro: motor grossly intact Psych: appropriate affect DS: Data Data Completed and Pending Labs on day of discharge: Laboratory Results - last 24 hr 10/14/20 10/14/20 05:38 05:38 Sodium 141 Potassium 3.1 L Chloride 100 Carbon Dioxide 33 H Anion Gap 11 L BUN 13 D Creatinine 0.60 Estim Creat Clear Calc 103.8 Estimated GFR > 60 Random Glucose 85 Calcium 9.2 D Magnesium 1.6 Discharge Plan Discharge Anticipated Discharge Date/Time: 10/14/20 13:25 Patient Disposition: Home, Self-Care Discharge Diagnosis: Hypokalemia, hypomagnesia Referrals: interventional physiatrist servcies [Other] - 1 Week Rusty Zaragoza MD [Primary Care Provider] - 1 Week Discharge Medications: New atenolol 25 mg Tablet 25 mg PO DAILY Qty: 30 RF: 0 amlodipine 5 mg Tablet 10 mg PO DAILY Qty: 30 RF: 0 spironolactone [Aldactone] 50 mg tablet 50 mg PO DAILY Qty: 30 RF: 0 potassium chloride 10 mEq capsule, extended release 40 meq PO DAILY Qty: 60 RF: 0 magnesium oxide 400 mg magnesium capsule 400 mg PO BID Qty: 60 RF: 0 famotidine [Pepcid] 40 mg tablet 40 mg PO DAILY Qty: 30 RF: 0 oxycodone 5 mg capsule 5 mg PO BID PRN (Reason: pain) Qty: 10 RF: 0 atenolol 25 mg tablet 25 mg PO DAILY Qty: 30 RF: 0 Continued cyclobenzaprine 10 mg tablet 1 tab PO TID PRN (Reason: musculoskeletal pain) RF: 0 naproxen 500 mg tablet 1 tab PO BID PRN (Reason: Pain) RF: 0 oxycodone 10 mg tablet 10 mg PO BID PRN (Reason: pain) 30 Days Qty: 60 RF: 0 simvastatin 20 mg tablet 20 mg PO BEDTIME RF: 0 albuterol sulfate 90 mcg/actuation HFA aerosol inhaler 2 puff inhalation Q4H PRN (Reason: Cough) RF: 0 fluticasone propionate 50 mcg/actuation spray,suspension 1 spray intranasal DAILY PRN (Reason: Allergic Symptoms) RF: 0 Discontinued pantoprazole 40 mg tablet,delayed release (DR/EC) 40 mg PO DAILY RF: 0 amlodipine 5 mg tablet 5 mg PO DAILY RF: 0 Discharge Orders: Discharge Order (Routine); Ordered 10/14/20 Ordered By: Sergei Lo Diet: advance to usual diet Activity on Discharge: As tolerated Stand Alone Forms: Patient Portal Discharge page Other Ambulatory Orders: Basic Metabolic Panel (Routine) Timeframe: [id number] Facility: [facility] - Location: Laboratory Ordered By: Sergei [facility] Care Plan Goals: Correct magnesium and post potassium level and prevent rehospitalization. Health Concerns: Low potassium and low magnesium. Plan of Treatment: Take Potassium and Magenesium supplement as directed, follow up with your Doctor in a week Follow up with Dr. Fall in his office accros from the hospital. Get lab work done on Monday Stop takin prilosec and take Pepcid instead Norvasc for blood pressure has been increased to 10, Atenolol 25 mg daily has been added, Aldactone 50 mg also added --all to help controll your blood pressure. Aldactone will also help with potassium level. Assessment: low potassium and low magnesium Patient Instructions: Spironolactone (By mouth) Discharge Date/Time: 10/14/20 17:00
[2020-10-14] MEDS: Cyclobenzaprine HCl 10 MG TABLET PO (15:04)
[2020-10-14] MEDS: Butalb/Acetamin/Caff 50/325/40 TABLET 1 TAB PO (15:04)
[2020-10-17 16:31] LABS: Creatinine, Random Urine 146 mg/dL (20-275); Magnesium, Random Urine 25 mg/g creat (22-130)
[2020-10-20 12:51] LABS: Plasma Renin Activity 0.25 ng/mL/h (0.25-5.82)
== END 2020-10-14 17:00 | disposition home or self-care (01) | DRG 425 ==
LOC: HO.ED 10-10 05:32 → HO.EDOVER 10-10 07:51 → HO.IMC 10-10 14:05
PROVIDERS: Internal Medicine; Internal Medicine Nephrology; Admitting Provider Internal Medicine; Emergency Provider Student in an Organized Health Care Education/Training Program; PCP Internal Medicine; Visit Provider Internal Medicine
DX: E87.6 Hypokalemia (principal); E83.42 Hypomagnesemia; E78.5 Hyperlipidemia, unspecified; G89.29 Other chronic pain; F17.210 Nicotine dependence, cigarettes, uncomplicated; Z20.822 Contact with and (suspected) exposure to COVID-19; Z71.6 Tobacco abuse counseling; Z79.1 Long term (current) use of non-steroidal anti-inflammatories (NSAID); Z79.51 Long term (current) use of inhaled steroids; Z79.891 Long term (current) use of opiate analgesic; Z79.899 Other long term (current) drug therapy
CPT/HCPCS: 36415; 71045; 74175; 80048; 80051; 81003; 82088; 82310; 83690; 83735; 83880; 83930; 83935; 84133; 84300; 84484; 85025; 87324; 87449; 87635; 93005; 96365; 96366; 96375; 99285; 99291; J1885; J2405; J3475; Q9967

== ENCOUNTER 2020-10-16 08:59 | Outpatient (REF) | payer OTHER, SELFPAY ==
[2020-10-16 10:27] LABS: Anion Gap 17 (12-20); Blood Urea Nitrogen 8 mg/dL (9-16); Calcium 9.4 mg/dL (8.4-10.2); Carbon Dioxide 29 mmol/L (22-29); Chloride 99 mmol/L (96-108); Estimated Glomerular Filt Rate > 60; Glucose Random 76 mg/dL (60-115); Potassium 3.3 mmol/L (3.3-5.1); Sodium 142 mmol/L (135-145)
== END 2020-10-16 09:00 | disposition home or self-care (01) ==
LOC: HO.LAB 08:59
PROVIDERS: PCP Internal Medicine; Visit Provider Internal Medicine
DX: E83.42 Hypomagnesemia (principal); E87.6 Hypokalemia
CPT/HCPCS: 36415; 80048

== ENCOUNTER 2020-12-10 14:51 | Outpatient (REF) | payer OTHER, SELFPAY ==
[2020-12-10 16:04] LABS: Anion Gap 18 (12-20); Blood Urea Nitrogen 9 mg/dL (9-16); Calcium 9.2 mg/dL (8.4-10.2); Carbon Dioxide 29 mmol/L (22-29); Chloride 99 mmol/L (96-108); Estimated Glomerular Filt Rate > 60; Magnesium 1.5 mg/dL (1.6-2.6); Phosphorus 3.4 mg/dL (2.7-4.5); Potassium 2.9 mmol/L (3.3-5.1); Sodium 143 mmol/L (135-145)
[2020-12-10 18:03] LABS: Glucose Urine UA NEG (NEG); Leukocyte Esterase Urine NEG (NEG); Nitrite Urine NEG (NEG); Urine Blood NEG (NEG); Urine Ketones NEG (NEG); Urine Protein NEG (NEG-TRACE)
[2020-12-10 18:05] LABS: Appearance Urine CLEAR; Color Urine YELLOW
[2020-12-10 18:14] LABS: Microalbum/Creatinine Ratio Ur 12.2 ug/mg cr; Protein/Creatinine Ratio, Ur 0.08 (<0.2); Total Protein Urine Random 14 mg/dL (<12)
== END 2020-12-10 14:52 | disposition home or self-care (01) ==
LOC: HO.LAB 14:51
PROVIDERS: PCP Internal Medicine; Visit Provider Internal Medicine Nephrology
DX: E83.42 Hypomagnesemia (principal); E87.6 Hypokalemia
CPT/HCPCS: 36415; 80051; 81003; 82043; 82310; 82565; 83735; 84100; 84156; 84520

== ENCOUNTER 2021-07-28 14:49 | Emergency (ER) | payer OTHER, SELFPAY ==
--- NOTE | 2021-07-28 | ECG_ITS ---
Test Reason : LOW POTASSIUM Blood Pressure : / mmHG Vent. Rate : 085 BPM Atrial Rate : 085 BPM P-R Int : 158 ms QRS Dur : 094 ms QT Int : 368 ms P-R-T Axes : 055 -23 081 degrees QTc Int : 437 ms Normal sinus rhythm Nonspecific T wave abnormality Abnormal ECG When compared with ECG of 09-OCT-2020 21:29, No significant change was found Referred By: Generic ED Physician Electronically Signed By:REGINO LANTIGUA MD
[2021-07-28 15:25] VITALS: BP 190/90; PULSE 86; RESP 18; TEMP 36.8; O2SAT 98; BMI 30.5
[2021-07-28 15:26] LABS: MANUAL DIFF FLAG NO
[2021-07-28 15:37] LABS: Basophils Percent Auto 0.3 % (0-2); Eosinophils Absolute Auto 0.1 X10*3/uL (0.0-0.4); Eosinophils Percent Auto 1.2 % (0-4); Hematocrit 37.8 % (37.0-47.0); Hemoglobin 13.3 g/dl (12.0-16.0); Imm Gran Abs Auto 0.04 X10*3/uL (0.00-0.03); Imm Gran Pct Auto 0.6 % (0.0-0.4); Lymphocytes Absolute Auto 1.7 X10*3/uL (1.2-4.9); Lymphocytes Percent Auto 25.3 % (20-40); Mean Corpuscular HGB Conc 35.2 g/dl (31.0-35.0); Mean Corpuscular Hemoglobin 32.8 pg (27.0-33.0); Mean Corpuscular Volume 93.3 fL (80.0-98.0); Monocytes Absolute Auto 0.5 X10*3/uL (0.1-1.2); Neutrophils Absolute Auto 4.4 x10*3/uL (2.0-8.3); Neutrophils Percent Auto 64.6 % (45-73); Platelet Count 327 X10*3/uL (160-400); Red Blood Count 4.05 X10*6/uL (4.20-5.50); Red Cell Distribution Width 14.7 % (11.0-16.0); White Blood Count 6.8 X10*3/uL (4.8-10.8)
[2021-07-28 15:52] LABS: Alanine Aminotransferase 12 U/L (0-31); Albumin Level 4.2 g/dL (3.5-5.0); Alkaline Phosphatase 137 U/L (39-117); Anion Gap 15 (12-20); Aspartate Amino Transferase 23 U/L (5-31); Bilirubin Total 0.6 mg/dL (0.0-1.0); Blood Urea Nitrogen 9 mg/dL (9-16); Calcium 9.9 mg/dL (8.4-10.2); Carbon Dioxide 29 mmol/L (22-29); Chloride 101 mmol/L (96-108); Creatinine Clr Calc Pharmacy 93.9; Estimated Glomerular Filt Rate > 60; Glucose Random 97 mg/dL (60-115); Magnesium 1.4 mg/dL (1.6-2.6); Potassium 3.5 mmol/L (3.3-5.1); Sodium 141 mmol/L (135-145); Total Protein 8.3 g/dL (6.5-8.0)
--- NOTE | 2021-07-28 18:15 | ED.RECABL ---
HPI - Recheck/Abnormal Lab/Rx General Chief Complaint: Recheck/Abnormal Lab/Rx Stated Complaint: low potassium/affecting heart Time Seen by Provider: 07/28/21 16:03 Source: patient Mode of arrival: ambulatory Limitations: no limitations History of Present Illness complaint: abnormal lab (told by PCP 2.9 K) Initial visit (ago): hour(s) (earlier today) Initial visit for: other (has had chronic diarrhea for 3 years unknown cause but due to this has repeat bouts of low K and low Mag / Na) Returns today for: called because of abnormal lab/test Symptoms since prior visit: no new symptoms (similar diarrhea, but she reports fatigue, palpitations overall not feeling well) Context: called for abnormal lab result Associated symptoms: malaise, nausea and abdominal pain Treatments prior to arrival: other (tried to take her medications as prescribed she is on oral K BID) Related Data Home Medications Medication Instructions Recorded Confirmed albuterol sulfate 90 mcg/actuation 2 puff INHALATION Q4H PRN 02/01/20 10/09/20 aerosol inhaler fluticasone propionate 50 1 spray INTRANASAL DAILY PRN 02/01/20 10/09/20 mcg/actuation nasal spray,suspension simvastatin 20 mg tablet 20 mg PO BEDTIME 02/01/20 10/09/20 cyclobenzaprine 10 mg tablet 1 tab PO TID PRN 10/09/20 10/09/20 naproxen 500 mg tablet 1 tab PO BID PRN 10/09/20 10/09/20 Previous Rx's Medication Instructions Recorded oxycodone 10 mg tablet 10 mg PO BID PRN 30 Days #60 tab 05/25/20 amlodipine 5 mg tablet 10 mg PO DAILY #30 tab 10/14/20 atenolol 25 mg tablet 25 mg PO DAILY #30 tab 10/14/20 atenolol 25 mg tablet 25 mg PO DAILY #30 tab 10/14/20 famotidine 40 mg tablet (Pepcid) 40 mg PO DAILY #30 tab 10/14/20 magnesium oxide 400 mg PO BID #60 cap 10/14/20 oxycodone 5 mg capsule 5 mg PO BID PRN #10 cap 10/14/20 potassium chloride 10 mEq 40 meq PO DAILY #60 cap 10/14/20 capsule,extended release spironolactone 50 mg tablet 50 mg PO DAILY #30 tab 10/14/20 (Aldactone) [id number] 3.5 4 drp OTIC (EAR) RIGHT TID 7 Days 07/28/21 mg-10,000 unit/mL-1 % ear #10 ml drops,susp Allergies Allergy/AdvReac Type Severity Reaction Status Date / Time lisinopril [LISINOPRIL] Allergy Severe TONGUE Verified 06/18/20 13:36 SWELLING emprin compound Allergy Intermediate Hives Uncoded 05/25/20 09:51 Review of Systems Review of Systems: Constitutional : No Weight loss, No Fever, No Chills, pos Fatigue, pos Malaise ENT/Mouth : No sore throat, No Rhinorrhea Eyes: No Eye Pain, No Swelling, No Redness Cardiovascular : No Chest Pain, No SOB, No Dyspnea on Exertion, No Orthopnea, No Edema, pos Palpitations Respiratory : No Cough, No Sputum, No Wheezing Gastrointestinal : pos Nausea, No Vomiting, pos Diarrhea, No Constipation, pos abdominal Pain, No Hematochezia, No Melena Genitourinary : No Dysuria, No Urinary Frequency, No Hematuria, Musculoskeletal : No joint pain, pos Myalgias, No Joint Swelling Skin : No Skin Lesions, No rash Neuro : pos Weakness, No Numbness, No Dizziness, No Headache Psych : No Anxiety/Panic, No Depression Heme/Lymph: No Bruising, No Bleeding,No Lymphadenopathy Endocrine : No Polyuria, No Polydipsia All other systems reviewed and are negative [facility] Past Medical History Attestation statement: The following information was validated with the patient. Medical History Arthritis Asthma Back pain Chronic bronchitis Depression with anxiety Fibromyalgia Gastroesophageal reflux disease History of frequent headaches History of palpitations History of sickle cell trait Hyperlipidemia Hypertension Irritable bowel syndrome Neck pain Peripheral neuropathy Renal stones TIA (transient ischemic attack) Surgical History H/O arthroscopic knee surgery H/O wrist surgery History of partial hysterectomy History of surgical removal of ganglion cyst History of total right knee replacement (TKR) Hx of cholecystectomy Previous section Subacromial impingement of right shoulder Family History Family History Father Alive and well Gout Arthritis Mother Alive and well Hypertension Hyperlipidemia Chronic obstructive pulmonary disease (COPD) Brother No problems noted. Son Alive and well Daughter Alive and well Daughter Alive and well Maternal Aunt History of breast cancer Diabetes Social History Social History Household Members: Family Housing: House Alcohol intake: current Alcohol intake frequency: a few times a month Alcohol type: wine Cigarettes Per Day: 2 Years Smoked: 10 Advance Directives: No Advance Directives Information Provided: No service: No Current occupational status: disabled Physical Exam Vital Signs: Vital Signs: Last Vital Signs Temp 98.2 F 07/28/21 15:25 Pulse 83 07/28/21 18:44 Resp 16 07/28/21 18:44 BP 158/82 H 07/28/21 18:44 Pulse Ox 99 07/28/21 18:44 BMI result Body Mass Index 30.5 Appearance: Alert. Oriented X3. No acute distress. Eyes: Pupils equal, round and reactive to light. ENT: Pharynx normal. R TM normal mild erythema noted of canal scant yellow material Neck: Normal inspection. Neck supple. CVS: Normal heart rate and rhythm. Pulses normal. Respiratory: No respiratory distress. Breath sounds normal. Abdomen: Soft and non-tender. Did not grimace to palpation Skin: Skin warm and dry. Normal skin color. Normal skin turgor. Extremities: No lower extremity edema. No calf ttp Neuro: Oriented X 3. No motor deficit. No sensory deficit. Course Course Course Narrative: K 3.1 - IV 10meg and 40meg PO ordered but not an indication for admission will replete and DC home IV morphine for chronic back pain otic gtts for right ear watching TV in no distress MDM - Recheck/Abnormal Lab/Rx MDM Narrative Medical decision making narrative: 61 yo female with hx of chronic IBS with diarrhea she reports it has been constant x 3 years with repeat workups by GI this has resulted in frequent bouts of hypokalemia and hypomagnesemia. At this time she had labs drawn by PCP today told her K was 2.9 and to come to ED on our lab it is 3.5 but the patient feels her K is low - will repeat level. Her magnesium is low IV 2G is ordered. Her symptoms after review of EMR appear to be a chronic presentation. Dispo per results and findings. Lab Data Result diagrams: 07/28/21 15:22 07/28/21 19:54 Labs: Lab Results 07/28/21 07/28/21 07/28/21 Range/Units 15: 15: 19:54 WBC 6.8 (4.8-10.8) X10*3/uL RBC 4.05 L (4.20-5.50) X10*6/uL Hgb 13.3 (12.0-16.0) g/dl Hct 37.8 (37.0-47.0) % MCV 93.3 (80.0-98.0) fL MCH 32.8 (27.0-33.0) pg MCHC 35.2 H (31.0-35.0) g/dl RDW 14.7 (11.0-16.0) % Plt Count 327 (160-400) X10*3/uL MPV 11.0 (9.4-12.3) fL Immature Gran % (Auto) 0.6 H (0.0-0.4) % Neut % (Auto) 64.6 (45-73) % Lymph % (Auto) 25.3 (20-40) % [place] % (Auto) 8.0 (2-11) % Eos % (Auto) 1.2 (0-4) % Baso % (Auto) 0.3 (0-2) % Lymph # (Auto) 1.7 (1.2-4.9) X10*3/uL [place] # (Auto) 0.5 (0.1-1.2) X10*3/uL Eos # (Auto) 0.1 (0.0-0.4) X10*3/uL Baso # (Auto) 0.0 (0.0-0.2) X10*3/uL Abs Immat Gran (auto) 0.04 H (0.00-0.03) X10*3/uL Absolute Neuts (auto) 4.4 (2.0-8.3) x10*3/uL Absolute Nucleated RBC 0.000 (0.0-0.012) X10*3/uL Nucleated RBC % (auto) 0.0 (0.0-0.2) /100WBC Sodium 141 (135-145) mmol/L Potassium 3.5 D 3.1 L (3.3-5.1) mmol/L Chloride 101 (96-108) mmol/L Carbon Dioxide 29 (22-29) mmol/L Anion Gap 15 (12-20) BUN 9 (9-16) mg/dL Creatinine 0.67 (0.5-1.4) mg/dL Estim Creat Clear Calc 93.9 Estimated GFR > 60 Random Glucose 97 (60-115) mg/dL Calcium 9.9 D (8.4-10.2) mg/dL Magnesium 1.4 L* (1.6-2.6) mg/dL Total Bilirubin 0.6 (0.0-1.0) mg/dL AST 23 (5-31) U/L ALT 12 (0-31) U/L Alkaline Phosphatase 137 H (39-117) U/L Total Protein 8.3 H (6.5-8.0) g/dL Albumin 4.2 (3.5-5.0) g/dL ECG Data Attestation: I personally reviewed and interpreted this ECG as follows: ECG interpretation date: 07/28/21 ECG interpretation time: 18:27 Interpretation: Rate: 85 Rhythm: NSR [place]: left Normal P waves. Normal FERMIN. Normal QRS complex. ST T wave : normal no DAVID qTC: normal prior studies: no acute ischemia The study has been interpreted contemporaneously by me. . Discharge Plan Discharge Clinical Impression: Hypomagnesemia, Acute hypokalemia, Chronic diarrhea Otitis externa Qualifiers: Otitis externa type: diffuse Chronicity: acute Laterality: right Qualified Code(s): H60.311 - Diffuse otitis externa, right ear Patient Disposition: Home, Self-Care Instructions: Otitis Externa (ED), Hypokalemia (ED), Chronic Diarrhea (ED), Hypomagnesemia (ED) Additional Instructions: return to ED for any worsening symptoms or concerns magnesium and potassium repleted in ED magnesium 1.4, potassium 3.1 Prescriptions: New tjhteqyo-muzctkdyt-IA 3.5-10,000-1 mg/mL-unit/mL-% drops,suspension 4 drp otic (ear) right TID 7 Days Qty: 10 0RF No Action cyclobenzaprine 10 mg tablet 1 tab PO TID PRN (Reason: musculoskeletal pain) 0RF naproxen 500 mg tablet 1 tab PO BID PRN (Reason: Pain) 0RF atenolol 25 mg Tablet 25 mg PO DAILY Qty: 30 0RF Protocol: Hold for SBP/HR < HOLD for SBP < : 90 HOLD for HR < : 60 amlodipine 5 mg Tablet 10 mg PO DAILY Qty: 30 0RF Protocol: Hold for SBP< HOLD for SBP < : 90 spironolactone [Aldactone] 50 mg tablet 50 mg PO DAILY Qty: 30 0RF potassium chloride 10 mEq capsule, extended release 40 meq PO DAILY Qty: 60 0RF magnesium oxide 400 mg magnesium capsule 400 mg PO BID Qty: 60 0RF famotidine [Pepcid] 40 mg tablet 40 mg PO DAILY Qty: 30 0RF oxycodone 5 mg capsule 5 mg PO BID PRN (Reason: pain) Qty: 10 0RF atenolol 25 mg tablet 25 mg PO DAILY Qty: 30 0RF oxycodone 10 mg tablet 10 mg PO BID PRN (Reason: pain) 30 Days Qty: 60 0RF Rx Instructions: Not filled recently, but patient taking prn simvastatin 20 mg tablet 20 mg PO BEDTIME 0RF albuterol sulfate 90 mcg/actuation HFA aerosol inhaler 2 puff inhalation Q4H PRN (Reason: Cough) 0RF Rx Instructions: Inhale 2 puffs by mouth every 4 hours if needed for cough or wheezing fluticasone propionate 50 mcg/actuation spray,suspension 1 spray intranasal DAILY PRN (Reason: Allergic Symptoms) 0RF Rx Instructions: administer into each nostril Referrals: Rusty Zaragoza MD [Primary Care Provider] - 2 days (recheck labs)
[2021-07-28] MEDS: Magnesium Sulfate/H2O 2 GM/50 ML PIGGYBACK IV (18:36)
[2021-07-28] MEDS: Lactated Ringers 1,000 ML 999 ML IV (18:39)
[2021-07-28 18:44] VITALS: BP 158/82; PULSE 83; RESP 16; O2SAT 99
[2021-07-28] MEDS: Morphine Sulfate 4 MG/ML CARTRIDGE IVPUSH (19:12)
[2021-07-28] MEDS: ondansetron HCL 4 MG/2 ML VIAL IVPUSH (19:13)
[2021-07-28 20:16] LABS: Potassium 3.1 mmol/L (3.3-5.1)
[2021-07-28 20:42] VITALS: BP 168/89; PULSE 71; RESP 16; O2SAT 97
[2021-07-28] MEDS: NeoMYCIN/Polymyxin/HC Otic Sol BOTTLE 4 DROP EAR-RIGHT (20:43)
[2021-07-28] MEDS: Potassium Chloride ER 20 MEQ TAB.ER.PRT 40 MEQ PO (20:44)
[2021-07-28] MEDS: Potassium Chloride/H20 10 MEQ/100 ML PIGGYBACK 100 MEQ IV (20:44)
[2021-07-28 21:56] VITALS: BP 154/86; PULSE 70; RESP 16; TEMP 36.9; O2SAT 99
== END 2021-07-28 22:00 | disposition home or self-care (01) ==
PROVIDERS: Emergency Provider Emergency Medicine; PCP Internal Medicine
DX: H60.311 Diffuse otitis externa, right ear (principal); R79.89 Other specified abnormal findings of blood chemistry; E61.2 Magnesium deficiency; E87.6 Hypokalemia; R19.7 Diarrhea, unspecified; Z79.899 Other long term (current) drug therapy
CPT/HCPCS: 36415; 80053; 83735; 84132; 85025; 93005; 96365; 96366; 96367; 96375; 99284; J2270; J2405; J3475

== ENCOUNTER 2022-01-03 08:45 | Outpatient (REF) | payer OTHER, SELFPAY ==
--- NOTE | ~2022-01-03 | XR_ITS ---
EXAMINATION: XR BILATERAL KNEE AP STANDING, LATERAL AND SUNRISE VIEWS CLINICAL INFORMATION: Pain in unspecified knee COMPARISON: 07/24/2019 TECHNIQUE: AP bilateral standing, lateral and sunrise views of both knees were obtained. FINDINGS: Right knee: Status post right total knee arthroplasty with patellar resurfacing. The hardware appears well seated. No evidence of periprosthetic fracture. No joint effusion. Similar appearance of prepatellar soft tissue prominence. Left knee: Mild medial compartment joint space narrowing. Mild medial and lateral marginal tibial osteophytosis. No fracture or dislocation. No joint effusion. Lateral patellofemoral osteophytosis. XR/XR knee standing BI IMPRESSION: Status post right total knee arthroplasty with no evidence of complication. Mild osteoarthritis of the left knee.
--- NOTE | ~2022-01-03 | XR_ITS ---
EXAMINATION: XR BILATERAL KNEE AP STANDING, LATERAL AND SUNRISE VIEWS CLINICAL INFORMATION: Pain in unspecified knee COMPARISON: 07/24/2019 TECHNIQUE: AP bilateral standing, lateral and sunrise views of both knees were obtained. FINDINGS: Right knee: Status post right total knee arthroplasty with patellar resurfacing. The hardware appears well seated. No evidence of periprosthetic fracture. No joint effusion. Similar appearance of prepatellar soft tissue prominence. Left knee: Mild medial compartment joint space narrowing. Mild medial and lateral marginal tibial osteophytosis. No fracture or dislocation. No joint effusion. Lateral patellofemoral osteophytosis. XR/XR knee LT 2V IMPRESSION: Status post right total knee arthroplasty with no evidence of complication. Mild osteoarthritis of the left knee.
--- NOTE | ~2022-01-03 | XR_ITS ---
EXAMINATION: XR BILATERAL KNEE AP STANDING, LATERAL AND SUNRISE VIEWS CLINICAL INFORMATION: Pain in unspecified knee COMPARISON: 07/24/2019 TECHNIQUE: AP bilateral standing, lateral and sunrise views of both knees were obtained. FINDINGS: Right knee: Status post right total knee arthroplasty with patellar resurfacing. The hardware appears well seated. No evidence of periprosthetic fracture. No joint effusion. Similar appearance of prepatellar soft tissue prominence. Left knee: Mild medial compartment joint space narrowing. Mild medial and lateral marginal tibial osteophytosis. No fracture or dislocation. No joint effusion. Lateral patellofemoral osteophytosis. XR/XR knee RT 2V IMPRESSION: Status post right total knee arthroplasty with no evidence of complication. Mild osteoarthritis of the left knee.
== END 2022-01-03 08:46 | disposition home or self-care (01) ==
LOC: HO.HOSX 08:45
PROVIDERS: Visit Provider Orthopaedic Surgery
DX: M17.12 Unilateral primary osteoarthritis, left knee (principal); M25.561 Pain in right knee; M54.16 Radiculopathy, lumbar region; R26.9 Unspecified abnormalities of gait and mobility
CPT/HCPCS: 20610; 73560; 73565; 99212; J1100

== ENCOUNTER 2022-02-16 10:25 | Emergency (ER) | payer OTHER, SELFPAY ==
[2022-02-16 11:14] VITALS: BP 185/97; PULSE 80; RESP 18; TEMP 36.2; O2SAT 98; BMI 29.2
[2022-02-16 11:32] LABS: MANUAL DIFF FLAG NO
[2022-02-16 11:34] LABS: Basophils Percent Auto 0.6 % (0-2); Eosinophils Absolute Auto 0.1 X10*3/uL (0.0-0.4); Hematocrit 37.7 % (37.0-47.0); Hemoglobin 13.4 g/dl (12.0-16.0); Imm Gran Abs Auto 0.02 X10*3/uL (0.00-0.03); Imm Gran Pct Auto 0.4 % (0.0-0.4); Lymphocytes Absolute Auto 1.5 X10*3/uL (1.2-4.9); Lymphocytes Percent Auto 28.1 % (20-40); Mean Corpuscular HGB Conc 35.5 g/dl (31.0-35.0); Mean Corpuscular Hemoglobin 31.7 pg (27.0-33.0); Mean Corpuscular Volume 89.1 fL (80.0-98.0); Mean Platelet Volume 10.1 fL (9.4-12.3); Monocytes Absolute Auto 0.5 X10*3/uL (0.1-1.2); Monocytes Percent Auto 9.4 % (2-11); Neutrophils Absolute Auto 3.3 x10*3/uL (2.0-8.3); Neutrophils Percent Auto 59.5 % (45-73); Platelet Count 325 X10*3/uL (160-400); Red Blood Count 4.23 X10*6/uL (4.20-5.50); Red Cell Distribution Width 13.9 % (11.0-16.0); White Blood Count 5.5 X10*3/uL (4.8-10.8)
[2022-02-16 12:02] LABS: Anion Gap 18 (12-20); Blood Urea Nitrogen 9 mg/dL (9-16); Calcium 9.4 mg/dL (8.4-10.2); Carbon Dioxide 33 mmol/L (22-29); Chloride 97 mmol/L (96-108); Creatinine Clr Calc Pharmacy 88.1; Estimated Glomerular Filt Rate > 60; Glucose Random 87 mg/dL (60-115); Potassium 2.7 mmol/L (3.3-5.1); Sodium 145 mmol/L (135-145)
[2022-02-16 13:50] VITALS: BP 189/90; PULSE 69; RESP 16; O2SAT 99
--- NOTE | 2022-02-16 13:55 | ECG_ITS ---
Test Reason : ABNORMAL LABS Blood Pressure : / mmHG Vent. Rate : 070 BPM Atrial Rate : 070 BPM P-R Int : 164 ms QRS Dur : 098 ms QT Int : 422 ms P-R-T Axes : 044 001 051 degrees QTc Int : 455 ms Normal sinus rhythm Normal ECG When compared with ECG of 28-JUL-2021 15:06, No significant change was found Referred By: Gloria Everett Electronically Signed By:CANDICE ROWAN MD
--- NOTE | 2022-02-16 14:18 | ED_ITS ---
HPI - Recheck/Abnormal Lab/Rx General Chief Complaint: Recheck/Abnormal Lab/Rx Stated Complaint: sent from doctors, dangerously low potassium Time Seen by Provider: 02/16/22 13:55 Source: patient and old records reviewed Mode of arrival: ambulatory Limitations: no limitations History of Present Illness MD complaint: abnormal lab Initial visit (ago): day(s) (today ) Initial visit for: other (preop for cataracts next week) Returns today for: called because of abnormal lab/test Description of abnormal result: K and magnesium Symptoms since prior visit: no new symptoms Context: called for abnormal lab result Associated symptoms: other (chronic nausea and abdominal pain) Related Data Home Medications Medication Instructions Recorded Confirmed albuterol sulfate 90 mcg/actuation 2 puff inhalation Q4H PRN Cough 02/01/20 10/09/20 aerosol inhaler fluticasone propionate 50 1 spray intranasal DAILY PRN 02/01/20 10/09/20 mcg/actuation nasal Allergic Symptoms spray,suspension simvastatin 20 mg tablet 20 mg PO BEDTIME 02/01/20 10/09/20 cyclobenzaprine 10 mg tablet 1 tab PO TID PRN musculoskeletal 10/09/20 10/09/20 pain naproxen 500 mg tablet 1 tab PO BID PRN Pain 10/09/20 10/09/20 Previous Rx's Medication Instructions Recorded oxycodone 10 mg tablet 10 mg PO BID PRN pain 30 days #60 05/25/20 tabs amlodipine 5 mg tablet 10 mg PO DAILY #30 tabs 10/14/20 atenolol 25 mg tablet 25 mg PO DAILY #30 tabs 10/14/20 atenolol 25 mg tablet 25 mg PO DAILY #30 tabs 10/14/20 famotidine 40 mg tablet (Pepcid) 40 mg PO DAILY #30 tabs 10/14/20 magnesium oxide 400 mg PO BID #60 caps 10/14/20 potassium chloride 10 mEq 40 meq PO DAILY #60 caps 10/14/20 capsule,extended release spironolactone 50 mg tablet 50 mg PO DAILY #30 tabs 10/14/20 (Aldactone) [id number]-[id number]-[id number] 3.5 4 drp otic (ear) right TID 7 days 07/28/21 mg-10,000 unit/mL-1 % ear #10 mL drops,susp Allergies Allergy/AdvReac Type Severity Reaction Status Date / Time lisinopril [LISINOPRIL] Allergy Severe TONGUE Verified 01/03/22 10:09 SWELLING emprin compound Allergy Intermediate Hives Uncoded 05/25/20 09:51 Review of Systems Review of Systems: Constitutional : No Weight loss, No Fever, No Chills ENT/Mouth : No sore throat, No Rhinorrhea Eyes: No Swelling, No Redness Cardiovascular : No Chest Pain, No SOB, NoEdema Respiratory : No Cough, No Sputum, No Wheezing Gastrointestinal : Positive Nausea, no Vomiting, no Diarrhea, positive abdominal Pain, No Hematochezia, No Melena Genitourinary : No Dysuria, No Urinary Frequency, No Hematuria, No Urgency Musculoskeletal : No joint pain, No Myalgias, No Joint Swelling Skin : No Skin Lesions, No rash Neuro : No Weakness, No Numbness, No Dizziness, No Headache Psych : No Anxiety/Panic, No Depression Heme/Lymph: No Bruising, No Lymphadenopathy Endocrine : No Polyuria, No Polydipsia All other systems reviewed and are negative. [facility] Past Medical History Attestation statement: The following information was validated with the patient. Medical History Arthritis Asthma Back pain Chronic bronchitis Depression with anxiety Fibromyalgia Gastroesophageal reflux disease History of frequent headaches History of palpitations History of sickle cell trait Hyperlipidemia Hypertension Irritable bowel syndrome Neck pain Peripheral neuropathy Renal stones TIA (transient ischemic attack) Surgical History H/O arthroscopic knee surgery H/O wrist surgery History of partial hysterectomy History of surgical removal of ganglion cyst History of total right knee replacement (TKR) Hx of cholecystectomy Previous section Subacromial impingement of right shoulder Family History Family History Father Alive and well Gout Arthritis Mother Alive and well Hypertension Hyperlipidemia Chronic obstructive pulmonary disease (COPD) Brother No problems noted. Son Alive and well Daughter Alive and well Daughter Alive and well Maternal Aunt History of breast cancer Diabetes Social History Social History Household Members: Family Housing: House Alcohol intake: current Alcohol intake frequency: holidays/special occasions only Alcohol type: wine Patient Tobacco Use Status: Current someday Tobacco user Cigarettes Per Day: 2 Years Smoked: 10 Smoked in Last 30 Days: Yes Use of substances other than those prescribed or required for medical reasons: No Advance Directives: No Patient : No service: No Current occupational status: disabled Physical Exam Vital Signs: Vital Signs: Last Vital Signs Temp 97.1 F 02/16/22 11:14 Pulse 69 02/16/22 14:26 Resp 18 02/16/22 14:26 BP 190/97 H 02/16/22 14:26 Pulse Ox 97 02/16/22 14:26 O2 Del Method 02/16/22 14:26 BMI result Body Mass Index 29.2 Appearance: Alert. Oriented X3. No acute distress. States she needs pain medications and nausea medications - chronic pain Eyes: Pupils equal, round and reactive to light. ENT: Pharynx normal. Neck: Normal inspection. Neck supple. CVS: Normal heart rate and rhythm. Pulses normal. Respiratory: No respiratory distress. Breath sounds normal. Abdomen: Soft and no grimace with palpation no rebound or guarding Skin: Skin warm and dry. Normal skin color. Normal skin turgor. Extremities: No lower extremity edema. No calf ttp Neuro: Oriented X 3. No motor deficit. No sensory deficit. Course Course Course Narrative: eating in ED MDM - Recheck/Abnormal Lab/Rx MDM Narrative Medical decision making narrative: 61 yo female with hx of IBS, HLD, HTN, chronic pain on oxycodone regularly frequent low K and magnesium here with c/o getting pre op for her cataracts and sent to the ED for her low K and magnesium - chronic presentation. On supplements at home. At this time will replete. She also has chronic pain. Medications ordered. Anticipate DC home. Lab Data Result diagrams: 02/16/22 11:27 02/16/22 11:27 Labs: Lab Results 02/16/22 02/16/22 Range/Units 11:27 11:27 WBC 5.5 (4.8-10.8) X10*3/uL RBC 4.23 (4.20-5.50) X10*6/uL Hgb 13.4 (12.0-16.0) g/dl Hct 37.7 (37.0-47.0) % MCV 89.1 (80.0-98.0) fL MCH 31.7 (27.0-33.0) pg MCHC 35.5 H (31.0-35.0) g/dl RDW 13.9 (11.0-16.0) % Plt Count 325 (160-400) X10*3/uL MPV 10.1 (9.4-12.3) fL Immature Gran % (Auto) 0.4 (0.0-0.4) % Neut % (Auto) 59.5 (45-73) % Lymph % (Auto) 28.1 (20-40) % [place] % (Auto) 9.4 (2-11) % Eos % (Auto) 2.0 (0-4) % Baso % (Auto) 0.6 (0-2) % Lymph # (Auto) 1.5 (1.2-4.9) X10*3/uL [place] # (Auto) 0.5 (0.1-1.2) X10*3/uL Eos # (Auto) 0.1 (0.0-0.4) X10*3/uL Baso # (Auto) 0.0 (0.0-0.2) X10*3/uL Abs Immat Gran (auto) 0.02 (0.00-0.03) X10*3/uL Absolute Neuts (auto) 3.3 (2.0-8.3) x10*3/uL Absolute Nucleated RBC 0.000 (0.0-0.012) X10*3/uL Nucleated RBC % (auto) 0.0 (0.0-0.2) /100WBC Sodium 145 (135-145) mmol/L Potassium 2.7 L (3.3-5.1) mmol/L Chloride 97 (96-108) mmol/L Carbon Dioxide 33 H (22-29) mmol/L Anion Gap 18 (12-20) BUN 9 (9-16) mg/dL Creatinine 0.70 (0.5-1.4) mg/dL Estim Creat Clear Calc 88.1 Estimated GFR > 60 Random Glucose 87 (60-115) mg/dL Calcium 9.4 (8.4-10.2) mg/dL Magnesium 1.3 L* (1.6-2.6) mg/dL ECG Data Attestation: I personally reviewed and interpreted this ECG as follows: ECG interpretation date: 02/16/22 ECG interpretation time: 14:30 Interpretation: Rate: 70 Rhythm: NSR Caruthers: left Normal P waves. Normal FERMIN. Normal QRS complex. ST T wave : normal no DAVID qTC: normal prior studies: no acute ischemia The study has been interpreted contemporaneously by me. . Discharge Plan Discharge Clinical Impression: Acute hypokalemia, Hypomagnesemia, Chronic abdominal pain Patient Disposition: Home, Self-Care Instructions: Hypokalemia (ED), Hypomagnesemia (ED) Additional Instructions: return to ED for any worsening symptoms or concerns continue your supplements please have your labs rechecked through your primary care doctor on Monday Prescriptions: No Action cyclobenzaprine 10 mg tablet 1 tab PO TID PRN (Reason: musculoskeletal pain) naproxen 500 mg tablet 1 tab PO BID PRN (Reason: Pain) atenolol 25 mg Tablet 25 mg PO DAILY Qty: 30 0RF Protocol: Hold for SBP/HR < HOLD for SBP < : 90 HOLD for HR < : 60 amlodipine 5 mg Tablet 10 mg PO DAILY Qty: 30 0RF Protocol: Hold for SBP< HOLD for SBP < : 90 spironolactone [Aldactone] 50 mg tablet 50 mg PO DAILY Qty: 30 0RF potassium chloride 10 mEq capsule, extended release 40 meq PO DAILY Qty: 60 0RF magnesium oxide 400 mg magnesium capsule 400 mg PO BID Qty: 60 0RF famotidine [Pepcid] 40 mg tablet 40 mg PO DAILY Qty: 30 0RF atenolol 25 mg tablet 25 mg PO DAILY Qty: 30 0RF nhqrqctb-sbbkkmzfo-LT 3.5-10,000-1 mg/mL-unit/mL-% drops,suspension 4 drp otic (ear) right TID 7 Days Qty: 10 0RF oxycodone 10 mg tablet 10 mg PO BID PRN (Reason: pain) 30 Days Qty: 60 0RF Rx Instructions: Not filled recently, but patient taking prn simvastatin 20 mg tablet 20 mg PO BEDTIME albuterol sulfate 90 mcg/actuation HFA aerosol inhaler 2 puff inhalation Q4H PRN (Reason: Cough) Rx Instructions: Inhale 2 puffs by mouth every 4 hours if needed for cough or wheezing fluticasone propionate 50 mcg/actuation spray,suspension 1 spray intranasal DAILY PRN (Reason: Allergic Symptoms) Rx Instructions: administer into each nostril
[2022-02-16 14:26] VITALS: BP 190/97; PULSE 69; RESP 18; O2SAT 97
[2022-02-16] MEDS: HYDROmorphone HCl 1 MG/ML SYRINGE IVPUSH (14:47)
[2022-02-16] MEDS: Magnesium Sulfate/H2O 2 GM/50 ML PIGGYBACK IV (14:49)
[2022-02-16] MEDS: oxyCODONE HCl Immed Release 5 MG TABLET 10 MG PO (14:49)
[2022-02-16] MEDS: ondansetron HCL 4 MG/2 ML VIAL IVPUSH ×2 (14:49→18:25)
[2022-02-16] MEDS: Potassium Chloride Packet 20 MEQ PACKET 40 MEQ PO (14:49)
[2022-02-16] MEDS: Potassium Chloride/H20 10 MEQ/100 ML PIGGYBACK 100 MEQ IV ×2 (14:50→16:37)
[2022-02-16 15:28] LABS: Magnesium 1.3 mg/dL (1.6-2.6)
[2022-02-16] MEDS: 0.9 % Sodium Chloride 1,000 ML 999 ML IV (15:29)
== END 2022-02-16 18:31 | disposition home or self-care (01) ==
PROVIDERS: Emergency Provider Emergency Medicine; PCP Internal Medicine
DX: E87.6 Hypokalemia (principal); R79.89 Other specified abnormal findings of blood chemistry; E83.42 Hypomagnesemia; R07.89 Other chest pain; F17.210 Nicotine dependence, cigarettes, uncomplicated; Z79.899 Other long term (current) drug therapy; Z71.6 Tobacco abuse counseling
CPT/HCPCS: 36415; 80048; 83735; 85025; 93005; 96365; 96366; 96375; 96376; 99284; 99285; J1170; J2405; J3475

== ENCOUNTER 2022-03-05 08:55 | Emergency (ER) | payer OTHER, SELFPAY ==
--- NOTE | ~2022-03-05 | CT_ITS ---
EXAMINATION: CT HEAD CT CERVICAL SPINE CLINICAL INFORMATION: Trauma. Fall. Pain. COMPARISON: Plain films 11/30/2010 TECHNIQUE: CT head: Contiguous axial imaging from the skull base through the vertex. Coronal and sagittal reformats. CT cervical spine: Contiguous axial imaging from the skull base to the thoracic inlet. Coronal and sagittal reformats. This CT examination was performed using dose optimization techniques as appropriate, variously including the following: * Automated exposure control * Adjustment of mA and/or kV according to patient size (this includes techniques or standardized protocols for targeted exams where dose is matched to indication/reason for exam; i.e. extremities or head) * Use of iterative reconstruction technique Total exam dose-length product 1106 mGy-cm FINDINGS: CT HEAD: Small volume of subarachnoid hemorrhage is noted over the left frontal cortex. No mass effect or shift of midline structures. The ventricles are symmetric and midline in position. Garcia-white differentiation is preserved without acute territorial infarction. Right lens extraction. Posterior fossa is intact. Postsurgical changes along the left inferior orbital rim. No acute fracture. CERVICAL SPINE: Mild concave right scoliosis. No acute fracture. No malalignment. Mild diffuse spondylosis and disc disease predominating at the C6-7 level. Facet joints articulate normally. Prevertebral soft tissues within normal limits. 5 mm nodule at the right apex. Follow with low-dose noncontrast chest CT in 6-[address]/CT cervical spine wo IV con IMPRESSION: 1. Small subarachnoid hemorrhage overlying the left frontal cortex. No mass effect or shift of midline structures. 2. A 5 mm right upper lobe pulmonary nodule. Follow with low-dose noncontrast chest CT in 6-12 months time. 3. Degenerative changes in the cervical spine without fracture. Fleischner criteria followed. This critical result was discussed with Eden SEVILLA at 10:50 AM on 03/05/2022 and it was ascertained that the content and urgency of the report was understood at the time of direct communication.
--- NOTE | ~2022-03-05 | XR_ITS ---
EXAMINATION: XR RIGHT HIP WITH PELVIS XR RIGHT TIBIA/FIBULA XR RIGHT ANKLE XR RIGHT FOOT CLINICAL INFORMATION: History of fall, pain COMPARISON: 01/03/2022 exam of right knee TECHNIQUE: Pelvis, AP view Right hip, 2 views Right tibia/fibula, AP and lateral views Right ankle, 4 views Right foot, 2 views FINDINGS: Pelvis and right hip: Pelvic bones are intact and have normal alignment. Moderate superior joint space loss, subarticular sclerosis and osteophytosis at the left hip. The right hip joint space is maintained. No fracture or subluxation at the right hip. The proximal femur is intact. Right tibia and fibula: There are constrained femoral and tibial components of the total knee arthroplasty. No periprosthetic fracture. There appears to be a trace amount of fluid in the suprapatellar compartment of the knee joint. Proximal tibia and fibula are intact. Right ankle: Acute, oblique fracture of the distal fibular metaphysis (Steward B injury) with approximately 0.5 cm lateral displacement 0.3 cm posterior displacement of the distal fibular fragment. There is abnormal widening of the medial tibiotalar joint space, highly suggestive of deltoid ligament injury, with mild lateral talar subluxation within the mortise. Right foot: Bones have normal alignment throughout the right foot. Tarsal bones and metatarsals are intact. The joint spaces are maintained throughout the foot. Soft tissues are swollen at the ankle and proximal foot. XR/XR hip RT w PEL1V IMPRESSION: * Acute, oblique fracture of the distal fibular metaphysis (Steward B injury) and deltoid ligament injury, as manifest by abnormal widening of medial tibiotalar joint space. Soft tissues are swollen at the ankle. * No other sites of acute osseous injury are identified within the examined extremity. * Moderate osteoarthritis of the left hip. * No evidence of loosening of components of the right total knee arthroplasty.
--- NOTE | ~2022-03-05 | XR_ITS ---
EXAMINATION: XR RIGHT HIP WITH PELVIS XR RIGHT TIBIA/FIBULA XR RIGHT ANKLE XR RIGHT FOOT CLINICAL INFORMATION: History of fall, pain COMPARISON: 01/03/2022 exam of right knee TECHNIQUE: Pelvis, AP view Right hip, 2 views Right tibia/fibula, AP and lateral views Right ankle, 4 views Right foot, 2 views FINDINGS: Pelvis and right hip: Pelvic bones are intact and have normal alignment. Moderate superior joint space loss, subarticular sclerosis and osteophytosis at the left hip. The right hip joint space is maintained. No fracture or subluxation at the right hip. The proximal femur is intact. Right tibia and fibula: There are constrained femoral and tibial components of the total knee arthroplasty. No periprosthetic fracture. There appears to be a trace amount of fluid in the suprapatellar compartment of the knee joint. Proximal tibia and fibula are intact. Right ankle: Acute, oblique fracture of the distal fibular metaphysis (Steward B injury) with approximately 0.5 cm lateral displacement 0.3 cm posterior displacement of the distal fibular fragment. There is abnormal widening of the medial tibiotalar joint space, highly suggestive of deltoid ligament injury, with mild lateral talar subluxation within the mortise. Right foot: Bones have normal alignment throughout the right foot. Tarsal bones and metatarsals are intact. The joint spaces are maintained throughout the foot. Soft tissues are swollen at the ankle and proximal foot. XR/XR tibia fibula RT 2V IMPRESSION: * Acute, oblique fracture of the distal fibular metaphysis (Steward B injury) and deltoid ligament injury, as manifest by abnormal widening of medial tibiotalar joint space. Soft tissues are swollen at the ankle. * No other sites of acute osseous injury are identified within the examined extremity. * Moderate osteoarthritis of the left hip. * No evidence of loosening of components of the right total knee arthroplasty.
[2022-03-05 09:11] VITALS: BP 137/85; BP 138/86; PULSE 109; PULSE 99; RESP 16; TEMP 36.8; O2SAT 97; O2SAT 98; BMI 29.4
--- NOTE | 2022-03-05 09:25 | ED.FALL ---
HPI - Fall General Chief Complaint: Fall Stated Complaint: fall ankle shoulder and knee pain Time Seen by Provider: 03/05/22 09:03 Source: patient and EMS Mode of arrival: EMS Limitations: no limitations History of Present Illness HPI Narrative: 61-year-old female with a history of IBS, hypertension, hyperlipidemia, chronic pain here after a fall. Patient tells me she tripped yesterday while walking landing on the right side of her body but then says she isnt sure because everything is fuzzy. She may or may not have hit her head. Patient tells me she had a brief ?blacking out. She was able to get up after the fall. She tells me that she has been using an Oral wrap and an ankle brace to the right lower leg. She does have pain in the right foot, right lower leg, right ankle, right hip, right shoulder. Also complaining of some headache and nausea. No neck pain, back pain, vomiting, abdominal pain, chest pain. No anticoagulation use Related Data Home Medications Medication Instructions Recorded Confirmed albuterol sulfate 90 mcg/actuation 2 puff inhalation Q4H PRN Cough 02/01/20 10/09/20 aerosol inhaler fluticasone propionate 50 1 spray intranasal DAILY PRN 02/01/20 10/09/20 mcg/actuation nasal Allergic Symptoms spray,suspension simvastatin 20 mg tablet 20 mg PO BEDTIME 02/01/20 10/09/20 cyclobenzaprine 10 mg tablet 1 tab PO TID PRN musculoskeletal 10/09/20 10/09/20 pain naproxen 500 mg tablet 1 tab PO BID PRN Pain 10/09/20 10/09/20 Previous Rx's Medication Instructions Recorded oxycodone 10 mg tablet 10 mg PO BID PRN pain 30 days #60 05/25/20 tabs amlodipine 5 mg tablet 10 mg PO DAILY #30 tabs 10/14/20 atenolol 25 mg tablet 25 mg PO DAILY #30 tabs 10/14/20 atenolol 25 mg tablet 25 mg PO DAILY #30 tabs 10/14/20 famotidine 40 mg tablet (Pepcid) 40 mg PO DAILY #30 tabs 10/14/20 magnesium oxide 400 mg PO BID #60 caps 10/14/20 potassium chloride 10 mEq 40 meq PO DAILY #60 caps 10/14/20 capsule,extended release spironolactone 50 mg tablet 50 mg PO DAILY #30 tabs 10/14/20 (Aldactone) [id number] 3.5 4 drp otic (ear) right TID 7 days 07/28/21 mg-10,000 unit/mL-1 % ear #10 mL drops,susp Allergies Allergy/AdvReac Type Severity Reaction Status Date / Time lisinopril [LISINOPRIL] Allergy Severe TONGUE Verified 01/03/22 10:09 SWELLING emprin compound Allergy Intermediate Hives Uncoded 05/25/20 09:51 Review of Systems Review of Systems: Yes all other systems are reviewed and are negative Constitutional: Constitutional: Reports no additional constitutional complaints, Denies body ache(s), Denies chills, Denies fever(s), Reports headache(s) and Denies weakness Eyes: Eyes: Reports no additional eye complaints and Denies change in vision ENT: Reports system reviewed and no additional complaints, except as documented, Denies dizziness, Reports headache(s), Denies nasal congestion, Denies nasal discharge and Denies neck pain Cardiovascular: Cardiovascular: Reports no additional cardiovascular complaints, Denies chest pain, Denies leg edema and Denies dyspnea Respiratory: Respiratory: Reports no additional respiratory complaints, Denies cough and Denies dyspnea Gastrointestinal: Gastrointestinal: Reports no additional gastrointestinal complaints, Denies abdominal pain, Denies diarrhea, Reports nausea and Denies vomiting Genitourinary: Genitourinary: Reports no additional female genitourinary complaints and Denies urinary incontinence Musculoskeletal: Musculoskeletal: Reports no additional musculoskeletal complaints, Denies back pain, Reports arthralgias, Denies joint swelling, Reports limited range of motion, Denies neck pain, Denies numbness and Denies tingling Integumentary/Breasts: Skin/Breast: Reports system reviewed and no additional complaints, except as docu and Denies rash Neurologic: Reports system reviewed and no additional complaints, except as documented, Denies Abnormal speech present, Denies dizziness, Reports headache(s), Denies numbness, Denies tingling and Denies weakness PMFSH Past Medical History Attestation statement: The following information was validated with the patient. Source: old records reviewed and nursing notes reviewed Medical History Arthritis Asthma Back pain Chronic bronchitis Depression with anxiety Fibromyalgia Gastroesophageal reflux disease History of frequent headaches History of palpitations History of sickle cell trait Hyperlipidemia Hypertension Irritable bowel syndrome Neck pain Peripheral neuropathy Renal stones TIA (transient ischemic attack) Surgical History H/O arthroscopic knee surgery H/O wrist surgery History of partial hysterectomy History of surgical removal of ganglion cyst History of total right knee replacement (TKR) Hx of cholecystectomy Previous section Subacromial impingement of right shoulder Family History Family History Father Alive and well Gout Arthritis Mother Alive and well Hypertension Hyperlipidemia Chronic obstructive pulmonary disease (COPD) Brother No problems noted. Son Alive and well Daughter Alive and well Daughter Alive and well Maternal Aunt History of breast cancer Diabetes Social History Social History Household Members: Family Housing: House Alcohol intake: never Patient Tobacco Use Status: Never used Tobacco Cigarettes Per Day: 2 Years Smoked: 10 Use of substances other than those prescribed or required for medical reasons: No Advance Directives: No Advance Directives Information Provided: Yes service: No Current occupational status: disabled Physical Exam Vital Signs: Vital Signs: Last Vital Signs Temp 98.2 F 03/05/22 10:54 Pulse 90 03/05/22 10:54 Resp 18 03/05/22 10:54 BP 152/80 H 03/05/22 10:54 Pulse Ox 99 03/05/22 10:54 O2 Del Method 03/05/22 10:54 BMI result Body Mass Index 29.4 Const: General: cooperative, healthy appearing, comfortable and no acute distress Orientation/consciousness: patient oriented x3 Limitations: no limitations HEENT: Head: Yes normal to inspection, No Osorio's sign and No raccoon eyes Ears: hearing grossly normal bilaterally and TM's normal bilaterally General nose exam: Normal external nose present Face and sinus: Yes normal facial exam Mouth: Normal oral and palatal mucosa present Throat: Yes posterior oropharynx normal Eyes: General: appearance normal, both eyes and all related structures Pupils: Equal, round and reactive pupils present Neck: Other: Mild cervical midline tenderness. No step-offs or deformities Neck: Yes normal visual inspection and Yes full ROM Chest: Chest palpation & inspection: normal inspection of the chest Resp: Effort & Inspection: normal respiratory effort Auscultation: clear to auscultation bilaterally Cardio: Rate: regular rate Rhythm: regular rhythm Peripheral pulses: Peripheral pulses 2+ throughout GI: Inspection: Yes normal to inspection Palpation (GI): Soft to palpation and nontender Auscultation: normal bowel sounds : General: Yes no CVA tenderness Back/Spine/Pelvis: Back: no CVA tenderness Thoracic/Lumbar Spine: thoracic and lumbar spine normal to inspection Skin: General skin exam: no rashes or lesions noted Neuro: General: patient oriented x3, moves all extremities, no focal motor deficits, normal sensation to monofilament and Unable to assess gait Cranial nerves: Yes CN's II-XII intact bilaterally, Yes Equal, round and reactive pupils present, Yes Bilaterally intact EOM present, Yes Nystagmus not present, Yes Normal facial strength present and Yes Midline tongue present Cognition (Neuro): normal cognition Speech: No Abnormal speech present Gait exam (Neuro): Unable to assess gait Motor exam (neuro): 5/5 motor strength present throughout Sensory Exam: Normal double simultaneous stimulation for sensation Extrem: Other: There is mild tenderness to the right anterior shoulder with full range of motion and no obvious swelling or deformity. Neurovascular intact distally. Mild tenderness the right lateral hip. There is no obvious shortening or deformity of the limb. There is some tenderness over the right ankle and just proximal to this with some swelling. Limited range of motion of the ankle due to pain. There is also some tenderness over the right dorsal foot. Neurovascular intact distally. Normal DP and PT pulses General: Yes normal to inspection NIH Stroke Scale Internal: Initial- Upon Arrival Level of Consciousness: Alert Level of Consciousness Questions: Answers both questions correctly Level of Consciousness Commands: Performs both tasks correctly Best Gaze: Normal Visual: No visual loss Facial Palsy: Normal Motor Arm (Right): No drift Motor Arm (Left): No drift Motor Leg (Right): No drift Motor Leg (Left): No drift Limb Ataxia: Absent Sensory: Normal Best Language: No aphasia Dysarthia: Normal Extinction and Inattention: No abnormality Score: 0 Course Course Course Narrative: 1050-call from Radiology. Patient has a small left frontal cortex subarachnoid hemorrhage. CT cervical spine is still pending. Her x-rays are also pending. On my review of the x-rays the hip and pelvis look normal. There is a distal fibula fracture of the right lower leg. COVID screen ordered. Images sent through [place]. Will call [facility] Trauma Service for transfer Reevaluation(s) Reevaluation #1: 1100-spoke to transfer line at [facility]. Pending call back from Trauma Service Spoke to patient still having some pain and some mild nausea. Will give morphine and Zofran. Posterior splint placed to the right lower leg. Blood pressure stable Neuro exam unchanged Reevaluation #2: 1120-call back from [facility] trauma service. Spoke to Dr. Kelley who accepted patient ER to ER with trauma consult Procedures Orthopedic Splinting/Casting Injury #1: Side: right Lower Extremity Injury Location: lower leg Lower Extremity Immobilizer: posterior splint MDM - Fall MDM Narrative Medical decision making narrative: 61-year-old female here after mechanical fall with a ?head strike and brief LOC here with complaints of RLE pain, right hip pain, right shoulder pain, headache, nausea, neck discomfort. Normal neuro exam There is some swelling and in tenderness over the right ankle and proximal tibia and fibula with limited range of motion due to pain. Also some tenderness over the foot. Will check x-rays. Right hip pain. Unable to assess range of motion due to discomfort. Therefore will check x-rays. Patient also having right shoulder pain. Patient has full range of motion with no difficulty and no swelling. Likely contusion. Patient also is unsure if she had brief loss of consciousness or head strike. She does have nausea and headache. Normal neuro exam. Will check CT head and cervical spine. Patient takes oxycodone 10mg BID chronically. Will provide antiemetic, analgesia. Medical Records Attestation: I reviewed the patient's medical records. Lab Data Attestation: I reviewed the patient's lab results. Labs: Lab Results 03/05/22 Range/Units 11:05 COVID-19 (ISAEL) Negative (Negative) COVID-19 Clin Com See Note Imaging Data ct head/cervical spine: Attestation: I personally reviewed and interpreted this imaging study as follows: Radiologist's impression: FINDINGS: CT HEAD: Small volume of subarachnoid hemorrhage is noted over the left frontal cortex. No mass effect or shift of midline structures. The ventricles are symmetric and midline in position. Garcia-white differentiation is preserved without acute territorial infarction. Right lens extraction. Posterior fossa is intact. Postsurgical changes along the left inferior orbital rim. No acute fracture. CERVICAL SPINE: Mild concave right scoliosis. No acute fracture. No malalignment. Mild diffuse spondylosis and disc disease predominating at the C6-7 level. Facet joints articulate normally. Prevertebral soft tissues within normal limits. 5 mm nodule at the right apex. Follow with low-dose noncontrast chest CT in 6-[address]/CT head/brain wo IV con IMPRESSION: ? 1. Small subarachnoid hemorrhage overlying the left frontal cortex. No mass effect or shift of midline structures. ? 2. A 5 mm right upper lobe pulmonary nodule. Follow with low-dose noncontrast chest CT in 6-12 months time. ? 3. Degenerative changes in the cervical spine without fracture. ankle xray: Attestation: I personally reviewed and interpreted this imaging study as follows: Radiologist's impression: *? Acute, oblique fracture of the distal fibular metaphysis (Steward B injury) and deltoid ligament injury, as manifest by abnormal widening of medial tibiotalar joint space. Soft tissues are swollen at the ankle. right foot xray: Attestation: I personally reviewed and interpreted this imaging study as follows: Radiologist's impression: Right foot: Bones have normal alignment throughout the right foot. Tarsal bones and metatarsals are intact. The joint spaces are maintained throughout the foot. Soft tissues are swollen at the ankle and proximal foot. right tibia/fibula xray: Attestation: I personally reviewed and interpreted this imaging study as follows: Radiologist's impression: Right tibia and fibula: There are constrained femoral and tibial components of the total knee arthroplasty. No periprosthetic fracture. There appears to be a trace amount of fluid in the suprapatellar compartment of the knee joint. Proximal tibia and fibula are intact. right hip/pelvis xray: Attestation: I personally reviewed and interpreted this imaging study as follows: Radiologist's impression: Pelvis and right hip: Pelvic bones are intact and have normal alignment. Moderate superior joint space loss, subarticular sclerosis and osteophytosis at the left hip. The right hip joint space is maintained. No fracture or subluxation at the right hip. The proximal femur is intact. Critical Care Time Critical Care Time Critical Care Time: Yes Total Critical Care Time: 60 Attestation: Multiple re-evaluations for neurological status. Intracranial hemorrhage requiring transfer to Trauma Service, discussion with tertiary care center. Discharge Plan Discharge Clinical Impression: Subarachnoid hemorrhage, Closed fracture of distal end of right fibula Patient Disposition: Xfer [facility] [place] [facility] [place]: No Action cyclobenzaprine 10 mg tablet 1 tab PO TID PRN (Reason: musculoskeletal pain) naproxen 500 mg tablet 1 tab PO BID PRN (Reason: Pain) atenolol 25 mg Tablet 25 mg PO DAILY Qty: 30 0RF Protocol: Hold for SBP/HR < HOLD for SBP < : 90 HOLD for HR < : 60 amlodipine 5 mg Tablet 10 mg PO DAILY Qty: 30 0RF Protocol: Hold for SBP< HOLD for SBP < : 90 spironolactone [Aldactone] 50 mg tablet 50 mg PO DAILY Qty: 30 0RF potassium chloride 10 mEq capsule, extended release 40 meq PO DAILY Qty: 60 0RF magnesium oxide 400 mg magnesium capsule 400 mg PO BID Qty: 60 0RF famotidine [Pepcid] 40 mg tablet 40 mg PO DAILY Qty: 30 0RF atenolol 25 mg tablet 25 mg PO DAILY Qty: 30 0RF [id number]-yfvtpzlsj-HC 3.5-10,000-1 mg/mL-unit/mL-% drops,suspension 4 drp otic (ear) right TID 7 Days Qty: 10 0RF oxycodone 10 mg tablet 10 mg PO BID PRN (Reason: pain) 30 Days Qty: 60 0RF Rx Instructions: Not filled recently, but patient taking prn simvastatin 20 mg tablet 20 mg PO BEDTIME albuterol sulfate 90 mcg/actuation HFA aerosol inhaler 2 puff inhalation Q4H PRN (Reason: Cough) Rx Instructions: Inhale 2 puffs by mouth every 4 hours if needed for cough or wheezing fluticasone propionate 50 mcg/actuation spray,suspension 1 spray intranasal DAILY PRN (Reason: Allergic Symptoms) Rx Instructions: administer into each nostril Interventions: Acute Care Transfer Worksheet (ED) Last Done: 03/05/22 11:56 Discharge Date/Time: 03/05/22 11:58
[2022-03-05] MEDS: Ondansetron ODT 4 MG TAB.RAPDIS TRANSLINGU (10:04)
[2022-03-05] MEDS: Ketorolac Tromethamine 60 MG/2 ML VIAL IM (10:05)
[2022-03-05 10:54] VITALS: BP 152/80; PULSE 90; RESP 18; TEMP 36.8; O2SAT 99
--- NOTE | 2022-03-05 10:56 | PC.NURSE ---
pt is a/o x 4 no sob/alejandro noted lungs - cta. heart sound regular. abd soft, n/t, bs x + 4 quads.pt aware of plan of care for transfer to [facility] [place] via amb, pt has r ft ankle.
[2022-03-05 11:23] LABS: COVID-19 Test Negative (Negative)
[2022-03-05] MEDS: ondansetron HCL 4 MG/2 ML VIAL IVPUSH (11:24)
[2022-03-05] MEDS: Morphine Sulfate 4 MG/ML CARTRIDGE IVPUSH (11:24)
--- NOTE | 2022-03-05 11:56 | PC.NURSE ---
rn to rn report given to maryjane at [facility], pt transfered to [facility].
== END 2022-03-05 11:58 | disposition short-term general hospital (02) ==
PROVIDERS: Nurse Practitioner Family; Emergency Provider Emergency Medicine; PCP Internal Medicine
DX: S82.831A Other fracture of upper and lower end of right fibula, initial encounter for closed fracture (principal); S06.6XAA Traumatic subarachnoid hemorrhage with loss of consciousness status unknown, initial encounter; R51.9 Headache, unspecified; M54.2 Cervicalgia; M25.551 Pain in right hip; M25.571 Pain in right ankle and joints of right foot; W01.0XXA Fall on same level from slipping, tripping and stumbling without subsequent striking against object, initial encounter; Y93.9 Activity, unspecified; Y92.9 Unspecified place or not applicable; Z79.899 Other long term (current) drug therapy; Z20.822 Contact with and (suspected) exposure to COVID-19; Y99.9 Unspecified external cause status; F17.210 Nicotine dependence, cigarettes, uncomplicated; Z71.6 Tobacco abuse counseling
CPT/HCPCS: 29505; 70450; 72125; 73502; 73590; 73600; 73620; 87635; 96372; 96374; 96375; 99285; J1885; J2270; J2405

== ENCOUNTER 2022-07-30 06:50 | Emergency (ER) | payer OTHER, SELFPAY ==
--- NOTE | ~2022-07-30 | CT_ITS ---
EXAMINATION: CT ABDOMEN AND PELVIS WITH CONTRAST CLINICAL INFORMATION: Abdominal pain/vomiting/diarrhea COMPARISON: None available. TECHNIQUE: Multidetector volumetric images were obtained from the superior aspect of the liver through the pubic symphysis following administration 85 mL of Omnipaque 350 intravenous contrast. Sagittal and coronal reformatted images were obtained on the technologist's workstation. Oral contrast: No This CT examination was performed using dose optimization techniques as appropriate, variously including the following: *Automated exposure control *Adjustment of mA and/or kV according to patient size (this includes techniques or standardized protocols for targeted exams where dose is matched to indication/reason for exam; i.e. extremities or head) *Use of iterative reconstruction technique DLP: 665 mGy-cm FINDINGS: LUNG BASES: The lung bases are clear. Heart size is normal. LIVER, GALLBLADDER, AND BILIARY TREE: The liver is normal in size, shape, and attenuation. No focal hepatic lesion or biliary ductal dilatation is present. The gallbladder has been surgically removed PANCREAS: The pancreas is homogeneous in density without focal lesion. Pancreatic duct is visualized and measures 4 mm. SPLEEN: The spleen is unremarkable. ADRENAL GLANDS: There is a 1.5 cm left adrenal lesion measuring 69 Hounsfield units on coronal image 37/5. The right adrenal gland is unremarkable. KIDNEYS AND URETERS: The kidneys are normal in size, shape, and attenuation. There are multiple bilateral cortical scars. No radiopaque renal calculi or hydronephrosis seen. No perinephric stranding seen. Images of 5 mm hypodensity upper pole left kidney likely small cyst BLADDER: Unremarkable. GASTROINTESTINAL TRACT: There is diffuse mural thickening involving the colon with pericolic fat stranding suggestive of inflammatory or infectious colitis. There is a posterior cecal diverticulosis with superimposed diverticulitis. The pericolic fat stranding is more prominent in the proximal descending and ascending colon. Appendix is normal caliber. The small bowel loops are normal caliber. No free air or free fluid seen. The stomach is nondistended. ABDOMINAL WALL: No significant hernia is appreciated. LYMPH NODES: No abnormal size lymph nodes seen. VASCULAR: No abnormality seen PELVIC VISCERA: No aggressive lytic or sclerotic process seen. There is mild facet joint arthropathy L3-L4 through L5- OSSEOUS STRUCTURES: There is mild bilateral facet joint arthropathy from L3-L4 through L5-S1 disc levels. CT/CT abdomen pelvis w IV con IMPRESSION: Diffuse colonic mural thickening with pericolic fat stranding suggestive of inflammatory or infectious colitis. In addition there is cecal diverticulosis with posterior cecal fat stranding suspicious for superimposed diverticulitis. No obstruction, free air or free fluid fluid. 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 Fleischner guidelines were followed.
[2022-07-30 06:57] VITALS: BP 149/80; PULSE 79; RESP 16; TEMP 37.2; O2SAT 99; BMI 28.3
[2022-07-30 07:49] LABS: MANUAL DIFF FLAG NO
--- NOTE | 2022-07-30 07:49 | PC.NURSE ---
Patient with complaint of abd pain denies hematuria or dysuria, ABD soft tender throughout BS quad x 4. PAtient also complains of numbness in legs ambulates independently with steady gait grasp equal no facial asymmetry or deviation of tongue no slurring of words. AOx 4 neuros intact no distress noted. IV access obtained labs collected and sent will CTM
[2022-07-30 07:51] LABS: Basophils Percent Auto 0.3 % (0-2); Eosinophils Absolute Auto 0.1 X10*3/uL (0.0-0.4); Eosinophils Percent Auto 0.5 % (0-4); Hematocrit 42.3 % (37.0-47.0); Hemoglobin 15.1 g/dl (12.0-16.0); Imm Gran Abs Auto 0.04 X10*3/uL (0.00-0.03); Imm Gran Pct Auto 0.4 % (0.0-0.4); Lymphocytes Absolute Auto 1.3 X10*3/uL (1.2-4.9); Lymphocytes Percent Auto 14.2 % (20-40); Mean Corpuscular HGB Conc 35.7 g/dl (31.0-35.0); Mean Corpuscular Hemoglobin 31.3 pg (27.0-33.0); Mean Corpuscular Volume 87.6 fL (80.0-98.0); Mean Platelet Volume 10.7 fL (9.4-12.3); Monocytes Absolute Auto 0.7 X10*3/uL (0.1-1.2); Monocytes Percent Auto 7.6 % (2-11); Neutrophils Absolute Auto 7.1 x10*3/uL (2.0-8.3); Platelet Count 347 X10*3/uL (160-400); Red Blood Count 4.83 X10*6/uL (4.20-5.50); Red Cell Distribution Width 14.7 % (11.0-16.0); White Blood Count 9.2 X10*3/uL (4.8-10.8)
--- NOTE | 2022-07-30 07:54 | ED.NAVMDI ---
HPI - Nausea/Vomiting/Diarrhea General Chief complaint: Nausea/Vomiting/Diarrhea Stated complaint: n,v,d, Multiple symptoms Time Seen by Provider: 07/30/22 07:52 Source: patient Mode of arrival: ambulatory Limitations: no limitations History of Present Illness HPI Narrative: 61 yo female with history of IBS, HTN, HLD, chronic pain syndrome on 10mg oxycodone several times daily presents to the ER with complaints of 4 days of vomiting, diarrhea, generalized abdominal discomfort, chills. Reports unable to tolerate her oxycodone due to symptoms. Patient reports some acute on chronic neck and back pain as well as tingling in her 4 extremities. Patient feels she may be dehydrated or her electrolytes may be abnormal. Patient denies any bloody or black stools. No blood in the vomit. No fevers. No URI symptoms, chest pain or shortness of breath. Patient denies any recent travel or sick contact. No recent antibiotic use or hospitalization. h/o radha, c/section MD elicited complaint: vomiting, diarrhea and abdominal pain Associated nausea: Yes Related Data Home Medications Medication Instructions Recorded Confirmed albuterol sulfate 90 mcg/actuation 2 puff inhalation Q4H PRN Cough 02/01/20 10/09/20 aerosol inhaler fluticasone propionate 50 1 spray intranasal DAILY PRN 02/01/20 10/09/20 mcg/actuation nasal Allergic Symptoms spray,suspension simvastatin 20 mg tablet 20 mg PO BEDTIME 02/01/20 10/09/20 cyclobenzaprine 10 mg tablet 1 tab PO TID PRN musculoskeletal 10/09/20 10/09/20 pain naproxen 500 mg tablet 1 tab PO BID PRN Pain 10/09/20 10/09/20 Previous Rx's Medication Instructions Recorded oxycodone 10 mg tablet 10 mg PO BID PRN pain 30 days #60 05/25/20 tabs amlodipine 5 mg tablet 10 mg PO DAILY #30 tabs 10/14/20 atenolol 25 mg tablet 25 mg PO DAILY #30 tabs 10/14/20 atenolol 25 mg tablet 25 mg PO DAILY #30 tabs 10/14/20 famotidine 40 mg tablet (Pepcid) 40 mg PO DAILY #30 tabs 10/14/20 magnesium oxide 400 mg PO BID #60 caps 10/14/20 potassium chloride 10 mEq 40 meq PO DAILY #60 caps 10/14/20 capsule,extended release spironolactone 50 mg tablet 50 mg PO DAILY #30 tabs 10/14/20 (Aldactone) [id number] 3.5 4 drp otic (ear) right TID 7 days 07/28/21 mg-10,000 unit/mL-1 % ear #10 mL drops,susp levofloxacin 750 mg tablet 750 mg PO DAILY 7 days #7 tabs 07/30/22 metronidazole 500 mg tablet 500 mg PO BID 7 days #14 tabs 07/30/22 ondansetron 4 mg disintegrating 4 mg PO Q6H PRN nausea and 07/30/22 tablet vomiting #15 tabs oxycodone 5 mg tablet 5 mg PO Q8H PRN pain #6 tabs 07/30/22 Allergies Allergy/AdvReac Type Severity Reaction Status Date / Time lisinopril [LISINOPRIL] Allergy Severe TONGUE Verified 01/03/22 10:09 SWELLING emprin compound Allergy Intermediate Hives Uncoded 05/25/20 09:51 Review of Systems Review of Systems: Yes all other systems are reviewed and are negative Constitutional: Constitutional: Reports no additional constitutional complaints, Denies body ache(s), Reports chills, Denies fever(s), Denies headache(s) and Denies weakness Eyes: Eyes: Reports no additional eye complaints and Denies change in vision ENT: Reports system reviewed and no additional complaints, except as documented, Denies dizziness, Denies headache(s), Denies nasal congestion, Denies nasal discharge and Denies neck pain Cardiovascular: Cardiovascular: Reports no additional cardiovascular complaints, Denies chest pain, Denies leg edema and Denies dyspnea Respiratory: Respiratory: Reports no additional respiratory complaints, Denies cough and Denies dyspnea Gastrointestinal: Gastrointestinal: Reports no additional gastrointestinal complaints, Reports abdominal pain, Reports diarrhea, Reports nausea and Reports vomiting Genitourinary: Genitourinary: Reports no additional female genitourinary complaints and Denies urinary incontinence Musculoskeletal: Musculoskeletal: Reports no additional musculoskeletal complaints, Denies back pain, Denies arthralgias, Denies joint swelling, Denies neck pain, Denies numbness and Denies tingling Integumentary/Breasts: Skin/Breast: Reports system reviewed and no additional complaints, except as docu and Denies rash Neurologic: Reports system reviewed and no additional complaints, except as documented, Denies Abnormal speech present, Denies dizziness, Denies headache(s), Denies numbness, Denies tingling and Denies weakness PMFSH Past Medical History Attestation statement: The following information was validated with the patient. Source: old records reviewed and nursing notes reviewed Medical History Arthritis Asthma Back pain Chronic bronchitis Depression with anxiety Fibromyalgia Gastroesophageal reflux disease History of frequent headaches History of palpitations History of sickle cell trait Hyperlipidemia Hypertension Irritable bowel syndrome Neck pain Peripheral neuropathy Renal stones TIA (transient ischemic attack) Surgical History H/O arthroscopic knee surgery H/O wrist surgery History of partial hysterectomy History of surgical removal of ganglion cyst History of total right knee replacement (TKR) Hx of cholecystectomy Previous section Subacromial impingement of right shoulder Family History Family History Father Alive and well Gout Arthritis Mother Alive and well Hypertension Hyperlipidemia Chronic obstructive pulmonary disease (COPD) Brother No problems noted. Son Alive and well Daughter Alive and well Daughter Alive and well Maternal Aunt History of breast cancer Diabetes Social History Social History Household Members: Family Housing: House Alcohol intake: current Alcohol intake frequency: holidays/special occasions only Alcohol type: wine Patient Tobacco Use Status: Never used Tobacco Cigarettes Per Day: 2 Years Smoked: 10 Smoked in Last 30 Days: Yes Use of substances other than those prescribed or required for medical reasons: No Advance Directives: Yes Advance Directives Information Provided: No Advance Directives on File: No service: No Current occupational status: disabled Physical Exam Vital Signs: Vital Signs: Last Vital Signs Temp 98.1 F 07/30/22 12:00 Pulse 63 07/30/22 12:00 Resp 16 07/30/22 12:00 BP 156/80 H 07/30/22 12:00 Pulse Ox 98 07/30/22 12:00 O2 Del Method Room Air 07/30/22 12:00 BMI result Body Mass Index 28.3 Const: General: cooperative, healthy appearing, comfortable and no acute distress Orientation/consciousness: patient oriented x3 Limitations: no limitations HEENT: Head: Yes normal to inspection Ears: hearing grossly normal bilaterally and TM's normal bilaterally General nose exam: Normal external nose present Face and sinus: Yes normal facial exam Mouth: Normal oral and palatal mucosa present Throat: Yes posterior oropharynx normal, Yes tonsils normal and Yes uvula midline Eyes: General: appearance normal, both eyes and all related structures Pupils: Equal, round and reactive pupils present Neck: Neck: Yes normal visual inspection, Yes full ROM, Yes no lymphadenopathy and Yes no meningeal signs Chest: Chest palpation & inspection: normal inspection of the chest Resp: Effort & Inspection: normal respiratory effort Auscultation: clear to auscultation bilaterally Cardio: Rate: regular rate Rhythm: regular rhythm Peripheral pulses: Peripheral pulses 2+ throughout GI: Inspection: Yes normal to inspection Palpation (GI): Soft to palpation and Tenderness to palpation present (GI) (Diffusely tender) Auscultation: normal bowel sounds Back/Spine/Pelvis: Thoracic/Lumbar Spine: thoracic and lumbar spine normal to inspection Skin: General skin exam: no rashes or lesions noted Neuro: General: patient oriented x3, no meningeal signs, no focal motor deficits and normal sensation to monofilament Cranial nerves: Yes Equal, round and reactive pupils present Cognition (Neuro): normal cognition Speech: No Abnormal speech present Gait exam (Neuro): Normal gait present Motor exam (neuro): 5/5 motor strength present throughout Extrem: General: Yes normal to inspection Course Course Course Narrative: CT is concerning for inflammatory or infectious colitis with likely underlying diverticulitis as well. Labs show hypomagnesimia. Patient received IV replacement. Additional labs are unremarkable. UA is pending. Viral testing is negative. Will need p.o. trial determine if patient can be discharged home Reevaluation(s) Reevaluation #1: 1350-patient able tolerate nadine kira as well as her home 10 mg of oxycodone with no additional vomiting episodes. Plan for discharge home with course of antibiotics. Reviewed worrisome signs and symptoms of when to return to the emergency room. Comfortable plan for discharge home. Reevaluation #2: 1400-patient informs me she does not have more oxycodone at home. i did review [facility] which showed that she filled a 2 day supply on 06/28 so this seems accurate. She does have a provider and tells me she can follow-up with them however today is monday and she will have difficulty. Therefore I will provide 6 tablets of 5mg oxycodone to the patient. Medications Administered Discontinued Medications Generic Name Dose Route Start Last Admin Trade Name Roberto PRN Reason Stop Dose Admin Sodium Chloride 1,000 mls @ 999 mls/hr 07/30/22 08:01 07/30/22 12:13 Ns IV 07/30/22 09:01 Infused .Q1H1M STA Infusion Magnesium Sulfate 2 gm in 50 mls @ 25 mls/hr 07/30/22 08:47 07/30/22 11:12 Magnesium Sulfate/H2o IV 07/30/22 10:46 Infused ONCE ONE Infusion Iohexol 85 ml 07/30/22 08:40 07/30/22 08:41 Iohexol 350 Mg/Ml 100 Ml Infus..Btl IV 07/30/22 08:41 85 ml ONCE ONE Administration Morphine Sulfate 4 mg 07/30/22 08:01 07/30/22 08:20 Morphine Sulfate 4 Mg/Ml Cartridge IVPUSH 07/30/22 08:02 4 mg ONCE ONE Administration Protocol Ondansetron HCl 4 mg 07/30/22 08:01 07/30/22 08:20 Ondansetron Hcl 4 Mg/2 Ml Vial IVPUSH 07/30/22 08:02 4 mg ONCE ONE Administration Ondansetron HCl 4 mg 07/30/22 11:19 07/30/22 11:29 Ondansetron Hcl 4 Mg/2 Ml Vial IVPUSH 07/30/22 11:20 4 mg ONCE ONE Administration Oxycodone HCl 10 mg 07/30/22 11:19 07/30/22 11:29 Oxycodone Hcl Immed Release 5 Mg Tablet PO 07/30/22 11:20 10 mg ONCE ONE Administration Medical Decision Making Medical Decision Making MDM Narrative: This is a 62-year-old female who is on chronic opiates who presents to the emergency room with vomiting, diarrhea, abdominal cramping, chills for the last 4 days. Patient feels that she is dehydrated as she has been unable to tolerate liquids or her chronic pain medications for the last 4 days. Also describes tingling in her extremities and feels that her mouth is dry. On exam patient with diffuse abdominal tenderness Hemodynamically stable. Normal neuro. Will obtain labs, UA, viral testing, CT Patient will receive IV fluids, antiemetics, analgesia Differential Diagnosis Differential Diagnoses: The differential diagnosis associated with the presentation includes Viral syndrome, diverticulitis, infectious diarrhea Lab Data MDM Lab Attestation statement: I reviewed the patient's lab results. 07/30/22 07:43 07/30/22 07:43 Labs: Lab Results 07/30/22 07/30/22 07/30/22 Range/Units 07:43 07:43 08:14 WBC 9.2 (4.8-10.8) X10*3/uL RBC 4.83 (4.20-5.50) X10*6/uL Hgb 15.1 (12.0-16.0) g/dl Hct 42.3 (37.0-47.0) % MCV 87.6 (80.0-98.0) fL MCH 31.3 (27.0-33.0) pg MCHC 35.7 H (31.0-35.0) g/dl RDW 14.7 (11.0-16.0) % Plt Count 347 (160-400) X10*3/uL MPV 10.7 (9.4-12.3) fL Immature Gran % (Auto) 0.4 (0.0-0.4) % Neut % (Auto) 77.0 H (45-73) % Lymph % (Auto) 14.2 L (20-40) % Jones % (Auto) 7.6 (2-11) % Eos % (Auto) 0.5 (0-4) % Baso % (Auto) 0.3 (0-2) % Lymph # (Auto) 1.3 (1.2-4.9) X10*3/uL Jones # (Auto) 0.7 (0.1-1.2) X10*3/uL Eos # (Auto) 0.1 (0.0-0.4) X10*3/uL Baso # (Auto) 0.0 (0.0-0.2) X10*3/uL Abs Immat Gran (auto) 0.04 H (0.00-0.03) X10*3/uL Absolute Neuts (auto) 7.1 (2.0-8.3) x10*3/uL Absolute Nucleated RBC 0.000 (0.0-0.012) X10*3/uL Nucleated RBC % (auto) 0.0 (0.0-0.2) /100WBC Sodium 142 (135-145) mmol/L Potassium 3.3 D (3.3-5.1) mmol/L Chloride 100 (96-108) mmol/L Carbon Dioxide 24 (22-29) mmol/L Anion Gap 21 H (12-20) BUN 6 L (9-16) mg/dL Creatinine 0.61 (0.5-1.4) mg/dL Estim Creat Clear Calc 98.2 Estimated GFR > 60 Random Glucose 87 (60-115) mg/dL Lactic Acid 0.7 (0.5-2.0) mmol/L Calcium 8.9 (8.4-10.2) mg/dL Magnesium (1.6-2.6) mg/dL Total Bilirubin 1.1 H (0.0-1.0) mg/dL AST 22 (5-31) U/L ALT 8 (0-31) U/L Alkaline Phosphatase 188 H (39-117) U/L Total Protein 7.6 (6.5-8.0) g/dL Albumin 3.7 (3.5-5.0) g/dL Lipase 8 (8-78) U/L Influenza Type A (PCR) (Negative) Influenza Type B (PCR) (Negative) RSV RNA Qual (PCR) (Negative) SARS-CoV-2 RNA (RT-PCR) (Negative) 07/30/22 07/30/22 Range/Units 08:14 08:14 WBC (4.8-10.8) X10*3/uL RBC (4.20-5.50) X10*6/uL Hgb (12.0-16.0) g/dl Hct (37.0-47.0) % MCV (80.0-98.0) fL MCH (27.0-33.0) pg MCHC (31.0-35.0) g/dl RDW (11.0-16.0) % Plt Count (160-400) X10*3/uL MPV (9.4-12.3) fL Immature Gran % (Auto) (0.0-0.4) % Neut % (Auto) (45-73) % Lymph % (Auto) (20-40) % Jones % (Auto) (2-11) % Eos % (Auto) (0-4) % Baso % (Auto) (0-2) % Lymph # (Auto) (1.2-4.9) X10*3/uL Jones # (Auto) (0.1-1.2) X10*3/uL Eos # (Auto) (0.0-0.4) X10*3/uL Baso # (Auto) (0.0-0.2) X10*3/uL Abs Immat Gran (auto) (0.00-0.03) X10*3/uL Absolute Neuts (auto) (2.0-8.3) x10*3/uL Absolute Nucleated RBC (0.0-0.012) X10*3/uL Nucleated RBC % (auto) (0.0-0.2) /100WBC Sodium (135-145) mmol/L Potassium (3.3-5.1) mmol/L Chloride (96-108) mmol/L Carbon Dioxide (22-29) mmol/L Anion Gap (12-20) BUN (9-16) mg/dL Creatinine (0.5-1.4) mg/dL Estim Creat Clear Calc Estimated GFR Random Glucose (60-115) mg/dL Lactic Acid (0.5-2.0) mmol/L Calcium (8.4-10.2) mg/dL Magnesium 1.2 L* (1.6-2.6) mg/dL Total Bilirubin (0.0-1.0) mg/dL AST (5-31) U/L ALT (0-31) U/L Alkaline Phosphatase (39-117) U/L Total Protein (6.5-8.0) g/dL Albumin (3.5-5.0) g/dL Lipase (8-78) U/L Influenza Type A (PCR) NEGATIVE (Negative) Influenza Type B (PCR) NEGATIVE (Negative) RSV RNA Qual (PCR) NEGATIVE (Negative) SARS-CoV-2 RNA (RT-PCR) NEGATIVE (Negative) Independent Interpretation I performed an independent interpretation of an: CT Scan Interpretation: I independently reviewed the CT scan and agree with the radiologist's report Radiology Impression Discussion of test interpretation with radiology: I have reviewed the radiologist's reading. Discharge Plan Discharge Clinical Impression: Diverticulitis Patient Disposition: Home, Self-Care Instructions: Diverticulitis (ED), Diverticulitis Diet (ED) Additional Instructions: Your ct scan shows diverticulitis start with clear liquids today then advance your diet as tolerated return for worsening symptoms Prescriptions: New metronidazole 500 mg tablet 500 mg PO BID 7 Days Qty: 14 0RF levofloxacin 750 mg tablet 750 mg PO DAILY 7 Days Qty: 7 0RF ondansetron 4 mg tablet,disintegrating 4 mg PO Q6H PRN (Reason: nausea and vomiting) Qty: 15 0RF oxycodone 5 mg tablet 5 mg PO Q8H PRN (Reason: pain) Qty: 6 0RF Rx Instructions: Partial Fill upon patient request. No Action cyclobenzaprine 10 mg tablet 1 tab PO TID PRN (Reason: musculoskeletal pain) naproxen 500 mg tablet 1 tab PO BID PRN (Reason: Pain) atenolol 25 mg Tablet 25 mg PO DAILY Qty: 30 0RF Protocol: Hold for SBP/HR < HOLD for SBP < : 90 HOLD for HR < : 60 amlodipine 5 mg Tablet 10 mg PO DAILY Qty: 30 0RF Protocol: Hold for SBP< HOLD for SBP < : 90 spironolactone [Aldactone] 50 mg tablet 50 mg PO DAILY Qty: 30 0RF potassium chloride 10 mEq capsule, extended release 40 meq PO DAILY Qty: 60 0RF magnesium oxide 400 mg magnesium capsule 400 mg PO BID Qty: 60 0RF famotidine [Pepcid] 40 mg tablet 40 mg PO DAILY Qty: 30 0RF atenolol 25 mg tablet 25 mg PO DAILY Qty: 30 0RF [id number]-guqrglcwp-SN 3.5-10,000-1 mg/mL-unit/mL-% drops,suspension 4 drp otic (ear) right TID 7 Days Qty: 10 0RF oxycodone 10 mg tablet 10 mg PO BID PRN (Reason: pain) 30 Days Qty: 60 0RF Rx Instructions: Not filled recently, but patient taking prn simvastatin 20 mg tablet 20 mg PO BEDTIME albuterol sulfate 90 mcg/actuation HFA aerosol inhaler 2 puff inhalation Q4H PRN (Reason: Cough) Rx Instructions: Inhale 2 puffs by mouth every 4 hours if needed for cough or wheezing fluticasone propionate 50 mcg/actuation spray,suspension 1 spray intranasal DAILY PRN (Reason: Allergic Symptoms) Rx Instructions: administer into each nostril Referrals: Physician,Unknown J [Primary Care Provider] - 10 days Interventions: ED Discharge Assessment Last Done: 07/30/22 14:29 Discharge Date/Time: 07/30/22 14:29
[2022-07-30] MEDS: 0.9 % Sodium Chloride 1,000 ML 999 ML IV (08:19)
[2022-07-30] MEDS: Morphine Sulfate 4 MG/ML CARTRIDGE IVPUSH (08:20)
[2022-07-30] MEDS: ondansetron HCL 4 MG/2 ML VIAL IVPUSH ×2 (08:20→11:29)
[2022-07-30 08:21] LABS: Alanine Aminotransferase 8 U/L (0-31); Albumin Level 3.7 g/dL (3.5-5.0); Alkaline Phosphatase 188 U/L (39-117); Anion Gap 21 (12-20); Aspartate Amino Transferase 22 U/L (5-31); Bilirubin Total 1.1 mg/dL (0.0-1.0); Blood Urea Nitrogen 6 mg/dL (9-16); Calcium 8.9 mg/dL (8.4-10.2); Carbon Dioxide 24 mmol/L (22-29); Chloride 100 mmol/L (96-108); Creatinine Clr Calc Pharmacy 98.2; Estimated Glomerular Filt Rate > 60; Glucose Random 87 mg/dL (60-115); Lipase 8 U/L (8-78); Potassium 3.3 mmol/L (3.3-5.1); Sodium 142 mmol/L (135-145); Total Protein 7.6 g/dL (6.5-8.0)
[2022-07-30 08:37] LABS: Lactic Acid 0.7 mmol/L (0.5-2.0)
[2022-07-30] MEDS: iohexoL 350 MG/ML 100 ML INFUS..BTL 85 ML IV (08:41)
[2022-07-30 08:47] LABS: Magnesium 1.2 mg/dL (1.6-2.6)
[2022-07-30 09:01] LABS: Influenza A PCR NEGATIVE (Negative); Influenza B PCR NEGATIVE (Negative); Resp Syncy Virus RNA Qual PCR NEGATIVE (Negative); SARS COV2 PCR INHOUSE NEGATIVE (Negative)
[2022-07-30] MEDS: Magnesium Sulfate/H2O 2 GM/50 ML PIGGYBACK IV (09:12)
[2022-07-30 09:19] VITALS: BP 170/88; PULSE 68; RESP 16; TEMP 36.8; O2SAT 96
--- NOTE | 2022-07-30 09:23 | PC.NURSE ---
assuming care of pt @ 9:00. aox3, reporting 8/10 abdominal pain and some leg tingling described as when your foot falls asleep nuros intact, grasps equal, speech clear. Magnesium ruining per order, banking paralegal intact. tech drawing blood cultures. will continue to monitor.
[2022-07-30] MEDS: oxyCODONE HCl Immed Release 5 MG TABLET 10 MG PO (11:29)
--- NOTE | 2022-07-30 11:31 | PC.NURSE ---
patient a*ox3, night monitor intact, nsr 80s, pt medicated for nausea and back/abd 01/15 pain, pt given ice chips, call bustos within reach, will continue to monitor
[2022-07-30 12:00] VITALS: BP 156/80; PULSE 63; RESP 16; TEMP 36.7; O2SAT 98
--- NOTE | 2022-07-30 12:52 | PC.NURSE ---
patient a&ox3, licensing officer intact-sinus tyler, vss, pt states her pain is a 8/10 abd/back, pt states that at times the weather plays a part in her pain increasing. pt also states her nausea has improved, call bustos within reach, will continue to montir.
== END 2022-07-30 14:29 | disposition home or self-care (01) ==
PROVIDERS: Nurse Practitioner Family; Emergency Provider Emergency Medicine
DX: K57.92 Diverticulitis of intestine, part unspecified, without perforation or abscess without bleeding (principal); R11.2 Nausea with vomiting, unspecified; Z20.822 Contact with and (suspected) exposure to COVID-19; Z20.828 Contact with and (suspected) exposure to other viral communicable diseases; I10 Essential (primary) hypertension; E78.5 Hyperlipidemia, unspecified; G89.4 Chronic pain syndrome; Z79.891 Long term (current) use of opiate analgesic; Z79.899 Other long term (current) drug therapy
CPT/HCPCS: 0241U; 36415; 74177; 80053; 83605; 83690; 83735; 85025; 87040; 96361; 96365; 96366; 96375; 96376; 99284; 99285; J2270; J2405; J3475; Q9967

== ENCOUNTER 2022-08-04 12:29 | Inpatient (IN) | payer OTHER, SELFPAY ==
--- NOTE | ~2022-08-04 | MR_ITS ---
EXAMINATION: MR CHOLANGIOPANCREATOGRAPHY CLINICAL INFORMATION: hepatic duct dilatation COMPARISON: Prior studies including the 08/04/2022 CT scan TECHNIQUE: Multiple routine MRI sequences through the abdomen were obtained. Heavily T2-weighted images were performed utilizing a dedicated MRCP technique. Contrast was not utilized for the study. FINDINGS: Biliary system: The common bile duct is normal in course but mildly increased in caliber measuring up to 0.8 cm. No evidence for intrahepatic biliary ductal dilatation. No intraluminal filling defects are appreciated. Gallbladder: Surgically absent Liver parenchyma is homogeneous in signal with no focal hepatic lesion appreciated. Pancreas: There is an incidental pancreatic divisum with the main pancreatic duct draining separately into the duodenum via an accessory ampulla. No evidence for pancreatic ductal obstruction. There is homogeneous signal to the pancreas with no focal suspicious pancreatic lesion. Cortical scarring in the left kidney again noted. No obstructive changes seen to the kidneys. No visualized abnormalities are seen in the adrenals or spleen. MR/MR MRCP IMPRESSION: The prominent common bile duct is likely within normal limits for postcholecystectomy patient of this age. No obstructive change or intraluminal filling defects seen.
--- NOTE | ~2022-08-04 | CT_ITS ---
EXAMINATION: CT ABDOMEN AND PELVIS WITH CONTRAST CLINICAL INFORMATION: Abdominal pain COMPARISON: CT abdomen and pelvis with contrast 07/30/2022. CTA abdomen 10/14/2020, CTA chest 01/04/2019; outside ultrasound kidneys 06/09/2020 and 06/06/2019 ([facility]). TECHNIQUE: Multidetector volumetric images were obtained from the superior aspect of the liver through the pubic symphysis following administration 85 mL of Omnipaque 350 intravenous contrast. Sagittal and coronal reformatted images were obtained on the technologist's workstation. Patient's IV is in the right lower extremity. Oral contrast: No This CT examination was performed using dose optimization techniques as appropriate, variously including the following: *Automated exposure control *Adjustment of mA and/or kV according to patient size (this includes techniques or standardized protocols for targeted exams where dose is matched to indication/reason for exam; i.e. extremities or head) *Use of iterative reconstruction technique DLP: 623 mGy-cm FINDINGS: LUNG BASES: The visualized lung bases are unremarkable. LIVER, GALLBLADDER, AND BILIARY TREE: The liver is homogeneous and smooth in contour and within normal size. No focal hepatic parenchymal lesion. There has been prior cholecystectomy. Again, there is fullness central intrahepatic biliary tree similar to recent CT. The common hepatic duct ranges from 10-13 mm, increased in size from the more remote CT in 2020. There is no visible choledocholithiasis or focal stricture. Recommend correlation with serum laboratories. Ultrasound could be performed for further evaluation. PANCREAS: Pancreas is atrophic. No distention common duct. No peripancreatic inflammatory changes. SPLEEN: Unremarkable. ADRENAL GLANDS: Stable, probable mild bilateral adrenal hyperplasia. KIDNEYS AND URETERS: No hydronephrosis, hydroureter, calculi, or perinephric stranding. There is incidental compound left kidney similar to prior exams. BLADDER: Unremarkable. GASTROINTESTINAL TRACT: No bowel obstruction or focal inflammatory changes in the bowel or mesentery. No pneumatosis or free air. The subtle inflammatory stranding adjacent to a posterior cecal diverticulum is no longer demonstrated. The appendix is not well visualized. No dilated appendix. No interval pericecal inflammatory changes. Terminal ileum normal. No ascites or fluid collection. ABDOMINAL WALL: No significant hernia is appreciated. LYMPH NODES: No lymphadenopathy. VASCULAR: There is contrast in the right femoral and iliac veins compared with no appreciable contrast on the left consistent with the contrast injection from the right lower extremity IV. PELVIC VISCERA: Unremarkable. OSSEOUS STRUCTURES: Unremarkable. Results called and discussed with DI Jones in the emergency department at approximately [address]/CT abdomen pelvis w IV con IMPRESSION: -Prior cholecystectomy. Mild fullness central intrahepatic biliary tree similar to recent CT. Common hepatic duct 10-13 mm increased from more remote CT in 2020. No visible choledocholithiasis or focal stricture. Recommend correlation with laboratories. -Resolution inflammatory changes around posterior cecal diverticulum since recent CT 07/30/2022. No obstruction or focal inflammatory changes in bowel or mesentery.
[2022-08-04 12:39] VITALS: BP 148/78; PULSE 72; PULSE 74; RESP 18; TEMP 37.1; O2SAT 100; O2SAT 98; BMI 29.1
--- NOTE | 2022-08-04 12:57 | PC.NURSE ---
Pt a&ox4. Pt resting comfortably, no difficulty/labored breathing, no obvious distress. Skin normal for ethnicity, warm, and dry. Pt complaining of 10/10 epigastric abdominal pain. Bowel sounds present and hyperactive all oh. Abdomen soft upon palpation, pt reports tenderness upon palpation. Lung sounds present and equal all oh bilaterally.
--- NOTE | 2022-08-04 13:06 | ED.GENADULT ---
HPI - General Adult General Chief complaint: Abdominal Pain Stated complaint: ABD PAIN,N/V, FROM URGENT CARE PER EMS Time Seen by Provider: 08/04/22 13:06 Source: patient and EMS Mode of arrival: EMS Limitations: no limitations History of Present Illness HPI narrative: Patient is a 62 year old assigned female at with a history of irritable bowel syndrome and recent diagnosed diverticulitis presenting to the emergency department today with worsening abdominal pain. Patient states that she started antibiotic treatment along with liquid diet for her diverticulitis but has been having worsening abdominal pain radiating to the back and shoulders, the abdominal pain now is diffuse. She states she ran out of the Oxycodone that was prescribed for her pain at her prior visit. Reports diarrhea, nausea, and vomiting. Unsure about fever but has been having chills. Patient denies any dizziness, lightheadedness, blurry vision, double vision, loss of vision, chest pain, difficulty breathing, shortness of breath, back pain, night sweats, pain with urination, increased urinary frequency, increased urinary urgency, blood in her urine or stool, syncope or a near syncopal episode, recent trauma or falls, bowel incontinence, bladder incontinence, bowel retention, bladder retention, or any other complaints at this time. Onset (ago): day(s) Location: abdomen Radiation: back Quality: sharp Associated symptoms: nausea/vomiting Treatments prior to arrival: other (Oxycodone) Related Data Home Medications Medication Instructions Recorded Confirmed albuterol sulfate 90 mcg/actuation 2 puff inhalation Q4H PRN Cough 02/01/20 08/04/22 aerosol inhaler simvastatin 20 mg tablet 20 mg PO BEDTIME 02/01/20 08/04/22 cyclobenzaprine 10 mg tablet 1 tab PO TID PRN musculoskeletal 10/09/20 08/04/22 pain escitalopram oxalate 20 mg tablet 20 mg PO DAILY 08/04/22 08/04/22 fluticasone propionate 110 1 puff inhalation BID 08/04/22 08/04/22 mcg/actuation HFA aerosol inhaler (Flovent HFA) mirtazapine 30 mg tablet 30 mg PO BEDTIME 08/04/22 08/04/22 pantoprazole 40 mg tablet,delayed 40 mg PO DAILY 08/04/22 08/04/22 release zolpidem 10 mg tablet 10 mg PO BEDTIME PRN insomnia 08/04/22 08/04/22 Previous Rx's Medication Instructions Recorded amlodipine 5 mg tablet 10 mg PO DAILY #30 tabs 10/14/20 levofloxacin 750 mg tablet 750 mg PO DAILY 7 days #7 tabs 07/30/22 metronidazole 500 mg tablet 500 mg PO BID 7 days #14 tabs 07/30/22 ondansetron 4 mg disintegrating 4 mg PO Q6H PRN nausea and 07/30/22 tablet vomiting #15 tabs oxycodone 5 mg tablet 5 mg PO Q8H PRN pain #6 tabs 07/30/22 Allergies Allergy/AdvReac Type Severity Reaction Status Date / Time lisinopril [LISINOPRIL] Allergy Severe TONGUE Verified 01/03/22 10:09 SWELLING emprin compound Allergy Intermediate Hives Uncoded 05/25/20 09:51 Review of Systems Review of Systems: Yes all other systems are reviewed and are negative Constitutional: Constitutional: Reports no additional constitutional complaints Eyes: Eyes: Reports no additional eye complaints and Denies loss of vision ENT: Reports system reviewed and no additional complaints, except as documented and Denies dizziness Cardiovascular: Cardiovascular: Reports no additional cardiovascular complaints Respiratory: Respiratory: Reports no additional respiratory complaints Gastrointestinal: Gastrointestinal: Reports as per HPI, Reports abdominal pain and Reports nausea Genitourinary: Genitourinary: Denies hematuria, Denies urinary frequency, Denies dysuria, Denies urinary incontinence, Denies urinary hesitancy and Denies urinary urgency Musculoskeletal: Musculoskeletal: Reports no additional musculoskeletal complaints, Denies numbness and Denies tingling Neurologic: Denies dizziness, Denies loss of vision, Denies numbness and Denies tingling Psychiatric: Psychiatric: Reports no additional psychiatric complaints Endocrine: Endocrine: Reports no additional endocrine complaints Hematologic/Lymphatic: Hematologic/Lymphatic: Reports no additional hematologic/lymphatic complaints Allergic/Immunologic: Allergic/Immunologic: Reports no additional allergic/immunologic complaints [facility] Past Medical History Attestation statement: The following information was validated with the patient. Source: old records reviewed and nursing notes reviewed Medical History (Updated 08/05/22 @ 09:25 by Rod Tillman MD) Arthritis Asthma Back pain Chronic bronchitis Depression with anxiety Diverticulitis Fibromyalgia Gastroesophageal reflux disease History of frequent headaches History of palpitations History of sickle cell trait Hyperlipidemia Hypertension Irritable bowel syndrome Neck pain Peripheral neuropathy Renal stones TIA (transient ischemic attack) Surgical History H/O arthroscopic knee surgery H/O wrist surgery History of partial hysterectomy History of surgical removal of ganglion cyst History of total right knee replacement (TKR) Hx of cholecystectomy Previous section Subacromial impingement of right shoulder Family History Family History Father Alive and well Gout Arthritis Mother Alive and well Hypertension Hyperlipidemia Chronic obstructive pulmonary disease (COPD) Brother No problems noted. Son Alive and well Daughter Alive and well Daughter Alive and well Maternal Aunt History of breast cancer Diabetes Social History Social History Household Members: Children Housing: Condominium Do you presently have visiting nurse or other home services: Yes (sister is [employer]) Alcohol intake: current Alcohol intake frequency: holidays/special occasions only Alcohol type: wine Patient Tobacco Use Status: Never used Tobacco Cigarettes Per Day: 2 Years Smoked: 10 Smoked in Last 30 Days: Yes Use of substances other than those prescribed or required for medical reasons: No Currently Displaying Signs/Symptoms of Drug Intoxication Withdrawal: No Have you been hit, kicked, punched, or otherwise hurt by someone within the past year? If so, by whom?: No Do you feel safe in your current relationship?: Yes Is there a partner from a previous relationship who is making you feel unsafe now?: No Are you made to feel afraid or neglected: No Advance Directives: No Do you have thoughts of harming others: None Do you have a plan to hurt others: No Plan Recently lost weight without trying: Yes How much weight loss: 2-13 pounds Eating poorly because of decreased appetite: Yes Nutrition screen score: 4 Nutrition Risks: Acute nausea or vomiting x1 week Patient : No : No Poor oral hygiene: No service: No Current occupational status: disabled Physical Exam ED Vital Signs: Vital Signs - 24 hr 08/04/22 12:39 08/04/22 13:47 08/04/22 14:04 Temperature 98.7 F Pulse Rate 74 74 82 Respiratory Rate 18 16 12 Blood Pressure 156/90 H 158/81 H Pulse Oximetry 100 96 Oxygen Delivery Method Room Air Room Air 08/04/22 16:18 Temperature Pulse Rate 79 Respiratory Rate 16 Blood Pressure 166/81 H Pulse Oximetry 95 Oxygen Delivery Method Room Air BMI result Body Mass Index 29.1 Const General: cooperative and in distress (appears uncomfortable laying in bed) Nutritional Appearance: average body habitus Orientation/consciousness: oriented to person, oriented to place, oriented to time and patient oriented x3 Limitations: no limitations [facility] Head: Yes normal to inspection Ears: hearing grossly normal bilaterally General nose exam: Normal external nose present Face and sinus: Yes normal facial exam Mouth: Normal oral and palatal mucosa present, no drooling and no muffled voice Eyes General: appearance normal, both eyes and all related structures Periorbital: periorbital findings normal Eyelids: Yes eyelids normal Conjunctivae: conjunctivae normal Pupils: Equal, round and reactive pupils present EOM: EOMs intact bilaterally Neck Neck: Yes normal visual inspection and Yes full ROM Chest Chest palpation & inspection: normal inspection of the chest Resp Effort & Inspection: normal respiratory effort and able to speak in complete sentences Auscultation: clear to auscultation bilaterally Cardio Rate: regular rate Rhythm: regular rhythm GI Inspection: Yes normal to inspection Palpation (GI): Soft to palpation and Tenderness to palpation present (GI) (palpable mass in LLQ) in the epigastrum, in the LLQ, in the RLQ, in the LUQ, in the RUQ and periumbilically Auscultation: normal bowel sounds Neuro General: oriented to person, oriented to place, oriented to time and patient oriented x3 Cranial nerves: Yes Equal, round and reactive pupils present Cognition (Neuro): normal cognition Motor exam (neuro): 5/5 motor strength present throughout Sensory Exam: Normal double simultaneous stimulation for sensation Coordination: [id number] test normal Extrem General: Yes normal to inspection, Yes full ROM and Yes capillary refill normal Psych Appearance: grossly normal Mental Status: mental status grossly normal Affect: normal affect Attitude: cooperative Thought process: Normal thought process present Thought content: Normal thought content present Insight: Good insight present (Psych) Medications Administered Generic Name Dose Route Start Last Admin Trade Name Freq PRN Reason Stop Dose Admin Amlodipine Besylate 10 mg 08/05/22 09:00 08/05/22 08:45 Amlodipine Besylate 10 Mg Tablet PO 10 mg DAILY MICHELLE Administration Protocol Atorvastatin Calcium 10 mg 08/04/22 21:00 08/04/22 23:08 Atorvastatin Calcium 10 Mg Tablet PO Not Given BEDTIME MICHELLE Enoxaparin Sodium 40 mg 08/04/22 18:30 08/04/22 19:12 Enoxaparin Sodium 40 Mg/0.4 Ml Syringe SUBCUT 40 mg Q24H MICHELLE Administration Escitalopram Oxalate 20 mg 08/05/22 09:00 08/05/22 08:47 Escitalopram Oxalate 20 Mg Tablet PO Not Given DAILY MICHELLE Fluticasone Propionate 1 puff 08/04/22 20:00 08/05/22 08:55 Fluticasone Propionate 100 Mcg Blst.W.Dev INHALE Not Given RBID MICHELLE Hydromorphone HCl 1 mg 08/04/22 20:00 08/05/22 08:47 Hydromorphone Hcl 1 Mg/Ml Syringe IVPUSH 1 mg Q4H PRN Administration Pain, Severe (Pain Scale 7-10) Protocol Sodium Chloride 1,000 mls @ 100 mls/hr 08/04/22 18:45 08/05/22 11:10 Ns IVCONT 0 mls/hr .Q10H MICHELLE Infusion Ceftriaxone Sodium 1 gm/ 50 mls @ 100 mls/hr 08/05/22 00:00 08/05/22 00:10 Sodium Chloride IV Infused Q24H MICHELLE Infusion Metronidazole 500 mg in 100 mls @ 100 mls/hr 08/05/22 00:00 08/05/22 10:19 Flagyl IV Infused Q8H MICHELLE Infusion Potassium Chloride 10 meq in 100 mls @ 100 mls/hr 08/05/22 09:00 08/05/22 11:10 Potassium Chloride/H20 IV 08/05/22 12:59 0 mls/hr Q1H MICHELLE Infusion Magnesium Oxide 400 mg 08/05/22 08:30 08/05/22 08:47 Magnesium Oxide 400 Mg Tablet PO Not Given BIDPC MICHELLE Mirtazapine 30 mg 08/04/22 21:00 08/04/22 23:08 Mirtazapine 30 Mg Tablet PO Not Given BEDTIME MICHELLE Omeprazole 20 mg 08/05/22 06:30 08/05/22 06:13 Omeprazole 20 Mg Capsule.Dr PO Not Given DAILY@0630 [facility] Ondansetron HCl 4 mg 08/04/22 18:23 08/05/22 06:16 Ondansetron Hcl 4 Mg/2 Ml Vial IVPUSH 4 mg Q8H PRN Administration Nausea and Vomiting Sodium Chloride 3 ml 08/05/22 00:00 08/05/22 07:12 0.9 % Sodium Chloride Flush 3 Ml Syringe IVFLUSH Not Given QSHIFT MICHELLE Zolpidem Tartrate 5 mg 08/04/22 21:00 08/04/22 23:12 Zolpidem Tartrate 5 Mg Tablet PO 5 mg BEDTIME PRN Administration insomnia Discontinued Medications Generic Name Dose Route Start Last Admin Trade Name Ciroq PRN Reason Stop Dose Admin Hydromorphone HCl 1 mg 08/04/22 13:25 08/04/22 13:45 Hydromorphone Hcl 1 Mg/Ml Syringe IVPUSH 08/04/22 13:26 1 mg ONCE ONE Administration Protocol Hydromorphone HCl 1 mg 08/04/22 16:01 08/04/22 16:16 Hydromorphone Hcl 1 Mg/Ml Syringe IVPUSH 08/04/22 16:02 1 mg ONCE ONE Administration Protocol Magnesium Sulfate 2 gm in 50 mls @ 25 mls/hr 08/04/22 14:33 08/04/22 17:30 Magnesium Sulfate/H2o IV 08/04/22 16:32 Infused ONCE ONE Infusion Potassium Chloride 10 meq in 100 mls @ 100 mls/hr 08/04/22 15:00 08/04/22 23:34 Potassium Chloride/H20 IV 08/04/22 18:59 Infused Q1H MICHELLE Infusion Magnesium Sulfate 2 gm in 50 mls @ 25 mls/hr 08/04/22 18:23 08/04/22 23:34 Magnesium Sulfate/H2o IV 08/04/22 20:22 Infused ONCE ONE Infusion Ceftriaxone Sodium 1 gm/ 50 mls @ 100 mls/hr 08/04/22 18:35 08/04/22 23:33 Sodium Chloride IV Not Given Q24H MICHELLE Metronidazole 500 mg in 100 mls @ 100 mls/hr 08/04/22 18:45 08/04/22 23:34 Flagyl IV Not Given Q8H MICHELLE Iohexol 100 ml 08/04/22 16:14 08/04/22 16:14 Iohexol 350 Mg/Ml 100 Ml Infus..Btl IV 08/04/22 16:15 85 ml ONCE ONE Administration Ondansetron HCl 4 mg 08/04/22 14:12 08/04/22 14:24 Ondansetron Hcl 4 Mg/2 Ml Vial IVPUSH 08/04/22 14:13 4 mg ONCE ONE Administration Potassium Chloride 40 meq 08/05/22 07:08 08/05/22 08:45 Potassium Chloride Er 20 Meq Tab.Er.Prt PO 08/05/22 07:09 Not Given ONCE ONE Medical Decision Making Medical Decision Making [facility] Narrative: Patient is a 62 year old assigned female at presenting to the emergency department today with continued abdominal pain. Patient's physical exam showed diffuse abdominal pain but was otherwise unremarkable. Patient's blood work showed hypomagnesemia at 1.2 and hypokalemia at 2.8. Patient's abdominal CT showed no evidence of perforation. Patient required multiple doses of IV pain medication to effectively manage her pain. I spoke to the hospitalist team who agreed to admission. I explained my physical exam findings as well as all test results to the patient. I answered all questions asked by the patient. Patient verbalized agreement and understanding with this treatment plan and admission. Differential Diagnosis Differential Diagnoses: The differential diagnosis associated with the presentation includes intractable pain, hypomagnesemia, hypokalemia, diverticulitis Consult Healthcare Provider Management of the patient was discussed with: Hospitalist (agreed to admission) Lab Data [facility] Lab Attestation statement: I reviewed the patient's lab results. 08/04/22 13:30 08/04/22 13:30 Labs: Lab Results 08/04/22 08/04/22 08/04/22 Range/Units 13:30 13:30 13:45 WBC 5.9 (4.8-10.8) X10*3/uL RBC 4.41 (4.20-5.50) X10*6/uL Hgb 13.5 (12.0-16.0) g/dl Hct 38.4 (37.0-47.0) % MCV 87.1 (80.0-98.0) fL MCH 30.6 (27.0-33.0) pg MCHC 35.2 H (31.0-35.0) g/dl RDW 14.6 (11.0-16.0) % Plt Count 334 (160-400) X10*3/uL MPV 10.7 (9.4-12.3) fL Immature Gran % (Auto) 0.7 H (0.0-0.4) % Neut % (Auto) 65.9 (45-73) % Lymph % (Auto) 20.0 (20-40) % [place] % (Auto) 11.5 H (2-11) % Eos % (Auto) 1.7 (0-4) % Baso % (Auto) 0.2 (0-2) % Lymph # (Auto) 1.2 (1.2-4.9) X10*3/uL [place] # (Auto) 0.7 (0.1-1.2) X10*3/uL Eos # (Auto) 0.1 (0.0-0.4) X10*3/uL Baso # (Auto) 0.0 (0.0-0.2) X10*3/uL Abs Immat Gran (auto) 0.04 H (0.00-0.03) X10*3/uL Absolute Neuts (auto) 3.9 (2.0-8.3) x10*3/uL Absolute Nucleated RBC 0.000 (0.0-0.012) X10*3/uL Nucleated RBC % (auto) 0.0 (0.0-0.2) /100WBC Smear Tech's Comments VERIFIED Sodium (135-145) mmol/L Potassium (3.3-5.1) mmol/L Chloride (96-108) mmol/L Carbon Dioxide (22-29) mmol/L Anion Gap (12-20) BUN (9-16) mg/dL Creatinine (0.5-1.4) mg/dL Estim Creat Clear Calc Estimated GFR Random Glucose (60-115) mg/dL Lactic Acid 0.9 (0.5-2.0) mmol/L Calcium (8.4-10.2) mg/dL Magnesium (1.6-2.6) mg/dL Total Bilirubin (0.0-1.0) mg/dL AST (5-31) U/L ALT (0-31) U/L Alkaline Phosphatase (39-117) U/L Total Protein (6.5-8.0) g/dL Albumin (3.5-5.0) g/dL Urine Color Urine Appearance Urine pH (5.0-9.0) Ur Specific [place] (1.005-1.025) Urine Protein (Neg-Trace) mg/dL Urine Glucose (UA) (Negative) mg/dL Urine Ketones (Negative) mg/dL Urine Blood (Negative) Urine Nitrite (Negative) Ur Leukocyte Esterase (Negative) COVID-19 (ISAEL) Negative (Negative) COVID-19 Clin Com See Note 08/04/22 08/04/22 Range/Units 14:00 17:49 WBC (4.8-10.8) X10*3/uL RBC (4.20-5.50) X10*6/uL Hgb (12.0-16.0) g/dl Hct (37.0-47.0) % MCV (80.0-98.0) fL MCH (27.0-33.0) pg MCHC (31.0-35.0) g/dl RDW (11.0-16.0) % Plt Count (160-400) X10*3/uL MPV (9.4-12.3) fL Immature Gran % (Auto) (0.0-0.4) % Neut % (Auto) (45-73) % Lymph % (Auto) (20-40) % [place] % (Auto) (2-11) % Eos % (Auto) (0-4) % Baso % (Auto) (0-2) % Lymph # (Auto) (1.2-4.9) X10*3/uL [place] # (Auto) (0.1-1.2) X10*3/uL Eos # (Auto) (0.0-0.4) X10*3/uL Baso # (Auto) (0.0-0.2) X10*3/uL Abs Immat Gran (auto) (0.00-0.03) X10*3/uL Absolute Neuts (auto) (2.0-8.3) x10*3/uL Absolute Nucleated RBC (0.0-0.012) X10*3/uL Nucleated RBC % (auto) (0.0-0.2) /100WBC Smear Tech's Comments Sodium 144 (135-145) mmol/L Potassium 2.8 L (3.3-5.1) mmol/L Chloride 104 (96-108) mmol/L Carbon Dioxide 29 (22-29) mmol/L Anion Gap 14 (12-20) BUN 7 L (9-16) mg/dL Creatinine 0.67 (0.5-1.4) mg/dL Estim Creat Clear Calc 90.6 Estimated GFR > 60 Random Glucose 90 (60-115) mg/dL Lactic Acid (0.5-2.0) mmol/L Calcium 8.6 (8.4-10.2) mg/dL Magnesium 1.2 L* (1.6-2.6) mg/dL Total Bilirubin 0.4 (0.0-1.0) mg/dL AST 19 (5-31) U/L ALT 9 (0-31) U/L Alkaline Phosphatase 190 H (39-117) U/L Total Protein 6.3 L (6.5-8.0) g/dL Albumin 3.3 L (3.5-5.0) g/dL Urine Color Yellow Urine Appearance Clear Urine pH 6.5 (5.0-9.0) Ur Specific [place] >= 1.030 H (1.005-1.025) Urine Protein Negative (Neg-Trace) mg/dL Urine Glucose (UA) Negative (Negative) mg/dL Urine Ketones Trace (Negative) mg/dL Urine Blood Negative (Negative) Urine Nitrite Negative (Negative) Ur Leukocyte Esterase Negative (Negative) COVID-19 (ISAEL) (Negative) COVID-19 Clin Com Independent Interpretation Interpretation: My interpretation is in agreement with the radiologist's impression of this imaging study. EXAMINATION: CT ABDOMEN AND PELVIS WITH CONTRAST? CLINICAL INFORMATION: Abdominal pain? COMPARISON: CT abdomen and pelvis with contrast 07/30/2022. CTA abdomen 10/14/2020, CTA chest 01/04/2019; outside ultrasound kidneys 06/09/2020 and 06/06/2019 ([facility]). TECHNIQUE: Multidetector volumetric images were obtained from the superior aspect of the liver through the pubic symphysis following administration 85 mL of Omnipaque 350 intravenous contrast. Sagittal and coronal reformatted images were obtained on the technologist's workstation. Patient's IV is in the right lower extremity. Oral contrast: No This CT examination was performed using dose optimization techniques as appropriate, variously including the following: *Automated exposure control *Adjustment of mA and/or kV according to patient size (this includes techniques or standardized protocols for targeted exams where dose is matched to indication/reason for exam; i.e. extremities or head) *Use of iterative reconstruction technique DLP: 623 mGy-cm FINDINGS: LUNG BASES: The visualized lung bases are unremarkable.? LIVER, GALLBLADDER, AND BILIARY TREE: The liver is homogeneous and smooth in contour and within normal size. No focal hepatic parenchymal lesion. There has been prior cholecystectomy. Again, there is fullness central intrahepatic biliary tree similar to recent CT. The common hepatic duct ranges from 10-13 mm, increased in size from the more remote CT in 2020. There is no visible choledocholithiasis or focal stricture. Recommend correlation with serum laboratories. Ultrasound could be performed for further evaluation. PANCREAS: Pancreas is atrophic. No distention common duct. No peripancreatic inflammatory changes.? SPLEEN: Unremarkable.? ADRENAL GLANDS: Stable, probable mild bilateral adrenal hyperplasia.? KIDNEYS AND URETERS: No hydronephrosis, hydroureter, calculi, or perinephric stranding. There is incidental compound left kidney similar to prior exams.? BLADDER: Unremarkable.? GASTROINTESTINAL TRACT: No bowel obstruction or focal inflammatory changes in the bowel or mesentery. No pneumatosis or free air. The subtle inflammatory stranding adjacent to a posterior cecal diverticulum is no longer demonstrated. The appendix is not well visualized. No dilated appendix. No interval pericecal inflammatory changes. Terminal ileum normal. No ascites or fluid collection. ? ABDOMINAL WALL: No significant hernia is appreciated.? LYMPH NODES: No lymphadenopathy. VASCULAR: There is contrast in the right femoral and iliac veins compared with no appreciable contrast on the left consistent with the contrast injection from the right lower extremity IV. PELVIC VISCERA: Unremarkable.? OSSEOUS STRUCTURES: Unremarkable.? Results called and discussed with DI Jones in the emergency department at approximately [address]/CT abdomen pelvis w IV con IMPRESSION: -Prior cholecystectomy. Mild fullness central intrahepatic biliary tree similar to recent CT. Common hepatic duct 10-13 mm increased from more remote CT in 2020. No visible choledocholithiasis or focal stricture. Recommend correlation with laboratories. ? -Resolution inflammatory changes around posterior cecal diverticulum since recent CT 07/30/2022. No obstruction or focal inflammatory changes in bowel or mesentery. Dictated By: Bj Broussard MD Signed By: Electronically signed by Bj Broussard MD 08/04/22 3550 Critical Care Time Critical Care Time Critical Care Time: Yes Total Critical Care Time: 30 Attestation: I spent 30 minutes of Critical Care Time with this patient. This does not include time spent on separately reported billable procedures. Discharge Plan Discharge Clinical Impression: Hypokalemia, Hypomagnesemia, Diverticulitis, Intractable abdominal pain Patient Disposition: Admitted As Inpatient Interventions: Admission Worksheet (ED) Last Done: 08/04/22 20:48 Discharge Date/Time: 08/04/22 20:51
[2022-08-04 13:41] LABS: Basophils Percent Auto 0.2 % (0-2); Eosinophils Absolute Auto 0.1 X10*3/uL (0.0-0.4); Eosinophils Percent Auto 1.7 % (0-4); Hematocrit 38.4 % (37.0-47.0); Hemoglobin 13.5 g/dl (12.0-16.0); Imm Gran Abs Auto 0.04 X10*3/uL (0.00-0.03); Imm Gran Pct Auto 0.7 % (0.0-0.4); Lymphocytes Absolute Auto 1.2 X10*3/uL (1.2-4.9); MANUAL DIFF FLAG SCAN; Mean Corpuscular HGB Conc 35.2 g/dl (31.0-35.0); Mean Corpuscular Hemoglobin 30.6 pg (27.0-33.0); Mean Corpuscular Volume 87.1 fL (80.0-98.0); Mean Platelet Volume 10.7 fL (9.4-12.3); Monocytes Absolute Auto 0.7 X10*3/uL (0.1-1.2); Monocytes Percent Auto 11.5 % (2-11); Neutrophils Absolute Auto 3.9 x10*3/uL (2.0-8.3); Neutrophils Percent Auto 65.9 % (45-73); PLT CLUMP 1; Red Blood Count 4.41 X10*6/uL (4.20-5.50); Red Cell Distribution Width 14.6 % (11.0-16.0); SCAN SMEAR FLAG 1
[2022-08-04 13:43] LABS: White Blood Count 5.9 X10*3/uL (4.8-10.8)
[2022-08-04] MEDS: HYDROmorphone HCl 1 MG/ML SYRINGE IVPUSH ×4 (13:45→23:12)
[2022-08-04 13:47] VITALS: BP 156/90; PULSE 74; RESP 16
--- NOTE | 2022-08-04 13:47 | PC.NURSE ---
Difficult IV stick, obtained in right foot. Medicated as charted for 10/10 abd pain
[2022-08-04 13:53] LABS: COVID-19 Test Negative (Negative); IDNOW Serial# 6674DD1D
[2022-08-04 14:02] LABS: Lactic Acid 0.9 mmol/L (0.5-2.0)
[2022-08-04 14:04] VITALS: BP 158/81; PULSE 82; RESP 12; O2SAT 96
[2022-08-04 14:14] LABS: Platelet Count 334 X10*3/uL (160-400)
[2022-08-04 14:15] LABS: SLIDE REVIEW VERIFIED
[2022-08-04] MEDS: ondansetron HCL 4 MG/2 ML VIAL IVPUSH ×2 (14:24→23:13)
[2022-08-04 14:32] LABS: Alanine Aminotransferase 9 U/L (0-31); Albumin Level 3.3 g/dL (3.5-5.0); Alkaline Phosphatase 190 U/L (39-117); Anion Gap 14 (12-20); Aspartate Amino Transferase 19 U/L (5-31); Bilirubin Total 0.4 mg/dL (0.0-1.0); Blood Urea Nitrogen 7 mg/dL (9-16); Calcium 8.6 mg/dL (8.4-10.2); Carbon Dioxide 29 mmol/L (22-29); Chloride 104 mmol/L (96-108); Creatinine Clr Calc Pharmacy 90.6; Estimated Glomerular Filt Rate > 60; Glucose Random 90 mg/dL (60-115); Magnesium 1.2 mg/dL (1.6-2.6); Potassium 2.8 mmol/L (3.3-5.1); Sodium 144 mmol/L (135-145); Total Protein 6.3 g/dL (6.5-8.0)
[2022-08-04] MEDS: Magnesium Sulfate/H2O 2 GM/50 ML PIGGYBACK IV ×2 (14:50→21:30)
--- NOTE | 2022-08-04 14:54 | PHA.MEDREC ---
Pharmacy Consult ? Medication Reconciliation Pharmacy has completed the medication reconciliation.
[2022-08-04] MEDS: Potassium Chloride/H20 10 MEQ/100 ML PIGGYBACK 100 MEQ IV ×4 (15:45→20:28)
[2022-08-04] MEDS: iohexoL 350 MG/ML 100 ML INFUS..BTL IV (16:14)
[2022-08-04 16:18] VITALS: BP 166/81; PULSE 79; RESP 16; O2SAT 95
--- NOTE | 2022-08-04 17:44 | PM.IMHP ---
History of Present Illness Date of Service: 08/04/22 Attending physician on admission: Rod Tillman Chief Complaint: Abdominal pain Pt is a 62-year-old female with a PMH significant for?IBS with diarrhea predominant, HTN, chronic pain d/t arthritis on chronic opioids, fibromyalgia, and GERD who presents to the ED with?worsening abdominal pain and nausea, vomiting, and diarrhea. Patient originally presented to the ED with similar complaints on 07/10/2022. CT scan showed evidence of inflammatory or infectious colitis also suspicious for a superimposed diverticulitis. Patient was treated for pain and sent home on a prescription for metronidazole and levofloxacin. Patient states that her pain since visit 5 days ago has continued to be severe though slightly improved to an 8/10, down from a 10/10. Abdominal pain is diffuse, described as crampy, stabbing, squeezing. Pain tends to come and go, though today has been constant. Patient has a long history of chronic nausea, vomiting, and diarrhea; pt states she has not had a solid bowel movement in over six years. However, these have been worse over the past week. Patient has experienced chills and has felt fatigued, drained. Patient also complains of pain while walking in her calves bilaterally for the past few weeks, and has had chronic intermittent numbness and tingling in her extremities and on the left side of her face. Patient followed by Dr. Hardwick in Gastroenterology. In the ED patient was afebrile, slightly hypertensive at 166/81. Labs were significant for potassium 2.8, magnesium of 1.2. CT?of abdomen/pelvis showed no perforation, continued biliary tree dilation w/o evidence of choledocholithiasis, and improving colonic inflammation per verbal report. Pt was treated with hydromorphone, ondansetron, Mag sulfate, and potassium chloride. Pt will be admitted to the hospital for treatment and further evaluation of diverticulitis with intractable pain that failed outpatient therapy. Review of Systems Review of Systems: Severe, diffuse abdominal pain Worsening nausea, vomiting, diarrhea Chills Fatigue Leg pain in calves with walking Numbness and tingling of extremities and left face Yes all other systems are reviewed and are negative [facility] Medical History Arthritis Asthma Back pain Chronic bronchitis Depression with anxiety Fibromyalgia Gastroesophageal reflux disease History of frequent headaches History of palpitations History of sickle cell trait Hyperlipidemia Hypertension Irritable bowel syndrome Neck pain Peripheral neuropathy Renal stones TIA (transient ischemic attack) Family History Father Alive and well Gout Arthritis Mother Alive and well Hypertension Hyperlipidemia Chronic obstructive pulmonary disease (COPD) Brother No problems noted. Son Alive and well Daughter Alive and well Daughter Alive and well Maternal Aunt History of breast cancer Diabetes Surgical History H/O arthroscopic knee surgery H/O wrist surgery History of partial hysterectomy History of surgical removal of ganglion cyst History of total right knee replacement (TKR) Hx of cholecystectomy Previous section Subacromial impingement of right shoulder Social History Household Members: Family Housing: House Alcohol intake: current Alcohol intake frequency: holidays/special occasions only Alcohol type: wine Patient Tobacco Use Status: Never used Tobacco Cigarettes Per Day: 2 Years Smoked: 10 Smoked in Last 30 Days: Yes Use of substances other than those prescribed or required for medical reasons: No Advance Directives: No Patient : No service: No Current occupational status: disabled Meds Allergies Allergy/AdvReac Type Severity Reaction Status Date / Time lisinopril [LISINOPRIL] Allergy Severe TONGUE Verified 01/03/22 10:09 SWELLING emprin compound Allergy Intermediate Hives Uncoded 05/25/20 09:51 Active Medications: Current Medications Potassium Chloride (Potassium Chloride/H20) 10 meq in 100 mls @ 100 mls/hr IV Q1H MICHELLE Stop: 08/04/22 18:59 Last Admin: 08/04/22 17:30 Dose: 100 mls/hr Pharmacy Consult (Consult Rx Perform Med Rec) 1 each MISCELLANE ONCE PRN PRN Reason: Consult order Home Medications Medication Instructions Recorded Confirmed Last Taken Type albuterol sulfate 90 mcg/actuation 2 puff inhalation Q4H PRN Cough 02/01/20 08/04/22 08/03/22 History aerosol inhaler simvastatin 20 mg tablet 20 mg PO BEDTIME 02/01/20 08/04/22 08/03/22 History cyclobenzaprine 10 mg tablet 1 tab PO TID PRN musculoskeletal 10/09/20 08/04/22 08/03/22 History pain escitalopram oxalate 20 mg tablet 20 mg PO DAILY 08/04/22 08/04/22 08/03/22 History fluticasone propionate 110 1 puff inhalation BID 08/04/22 08/04/22 08/03/22 History mcg/actuation HFA aerosol inhaler (Flovent HFA) mirtazapine 30 mg tablet 30 mg PO BEDTIME 08/04/22 08/04/22 08/03/22 History pantoprazole 40 mg tablet,delayed 40 mg PO DAILY 08/04/22 08/04/22 08/04/22 History release zolpidem 10 mg tablet 10 mg PO BEDTIME PRN insomnia 08/04/22 08/04/22 08/03/22 History Physical Exam Vital Signs and Narrative: Vital Signs: Last Vital Signs Temp 98.7 F 08/04/22 12:39 Pulse 79 08/04/22 16:18 Resp 16 08/04/22 16:18 BP 166/81 H 08/04/22 16:18 Pulse Ox 95 08/04/22 16:18 O2 Del Method Room Air 08/04/22 16:18 BMI result Body Mass Index 29.1 Constitutional: Alert, in no acute distress. Mental Status: Oriented to person, place and time. Eyes: Pupils are equal, round, and reactive to light. Ear, Nose, and Throat: Oropharynx clear, mucous membranes moist. Ears and nose without deformities. Trachea midline. Respiratory: Clear to auscultation bilaterally. No wheezing, rales, or rhonchi. Cardiovascular: S1, S2 regular. No murmurs, rubs, or gallops. Gastrointestinal: Abdomen soft, non-distended. Diffusely tender, especially in upper quadrants. Normal bowel sounds. Neurologic: Cranial nerves II-XII are grossly intact bilaterally. No focal neurological deficits. Moves all extremities spontaneously. Skin: No rashes or lesions noted. Musculoskeletal: No cyanosis or clubbing. Extremities: No edema. Psychiatric: Normal mood and affect. Results Labs 08/04/22 13:30 08/04/22 14:00 Labs: Laboratory Results - last 24 hr 08/04/22 08/04/22 08/04/22 13:30 13:30 13:45 MCV 87.1 MCH 30.6 MCHC 35.2 H RDW 14.6 Plt Count 334 MPV 10.7 Immature Gran % (Auto) 0.7 H Neut % (Auto) 65.9 Lymph % (Auto) 20.0 [place] % (Auto) 11.5 H Eos % (Auto) 1.7 Baso % (Auto) 0.2 Lymph # (Auto) 1.2 [place] # (Auto) 0.7 Eos # (Auto) 0.1 Baso # (Auto) 0.0 Abs Immat Gran (auto) 0.04 H Absolute Neuts (auto) 3.9 Absolute Nucleated RBC 0.000 Nucleated RBC % (auto) 0.0 Smear Tech's Comments VERIFIED Anion Gap Estim Creat Clear Calc Estimated GFR Random Glucose Lactic Acid 0.9 Calcium Magnesium Total Bilirubin AST ALT Alkaline Phosphatase Total Protein Albumin COVID-19 (ISAEL) Negative COVID-19 Clin Com See Note 08/04/22 14:00 MCV MCH MCHC RDW Plt Count MPV Immature Gran % (Auto) Neut % (Auto) Lymph % (Auto) [place] % (Auto) Eos % (Auto) Baso % (Auto) Lymph # (Auto) [place] # (Auto) Eos # (Auto) Baso # (Auto) Abs Immat Gran (auto) Absolute Neuts (auto) Absolute Nucleated RBC Nucleated RBC % (auto) Smear Tech's Comments Anion Gap 14 Estim Creat Clear Calc 90.6 Estimated GFR > 60 Random Glucose 90 Lactic Acid Calcium 8.6 Magnesium 1.2 L* Total Bilirubin 0.4 AST 19 ALT 9 Alkaline Phosphatase 190 H Total Protein 6.3 L Albumin 3.3 L COVID-19 (ISAEL) COVID-19 Clin Com Assessment and Plan (1) Intractable abdominal pain: Status: Acute (2) Diverticulitis: Status: Acute Plan Pt is a 62-year-old female with a PMH significant for?IBS with diarrhea predominant, HTN, chronic pain d/t arthritis on chronic opioids, fibromyalgia, and GERD who presents to the ED with?worsening abdominal pain and nausea, vomiting, and diarrhea. Patient originally presented to the ED with similar complaints on 07/10/2022. CT scan showed evidence of inflammatory or infectious colitis also suspicious for a superimposed diverticulitis. Pt will be admitted to the hospital for treatment and further evaluation of diverticulitis with intractable pain that failed outpatient therapy. Diverticulitis with intractable pain CT with evidence of colitis and superimposed diverticulitis, improved over CT on 07/10/2022 Patient with continued severe abdominal pain, increased diarrhea, nausea, vomiting IV ABX: Ceftriaxone, metronidazole Continue hydromorphone for pain management Patient to be made NPO, advance to clear liquid diet tomorrow a.m. as tolerated GI consult, patient followed by Dr. Hardwick gastroenterology Hypomagnesemia Patient with a long history of hypomagnesia, no longer taking home supplements Possible secondary to long-term PPI use? Patient presented with magnesium 1.2 Given 2 g IV of Mag and ED Give another 2 g IV of Mag Check BMP tomorrow Hypokalemia Patient with a long history of hypokalemia, no longer taking home supplements Possible secondary to long-term PPI use? Patient mildly hypokalemic at 2.8 Given IV potassium chloride in the ED Check BMP tomorrow Numbness and tingling in extremities and left face Patient should continue following up with Dr. Cedeño outpatient Bilateral calf pain with walking Patient with history of chronic lower back pain and surgically repaired right ankle fracture Analgesics for pain Follow-up outpatient PCP GERD Continue pantoprazole HLD Continue statin Mood disorder Continue mirtazapine HTN Continue amlodipine Full Code Attending:?Dr. Tillman DVT Prophylaxis: Lovenox Pt will require a hospitalization of at least two nights for treatment of?diverticulitis and intractable pain that failed outpatient therapy with IV antibiotics and analgesics. Time Spent With Patient Time: Total time managing care of this patient today ____ minutes. Quality Stroke Does the patient have a stroke diagnosis?: No VTE Prior VTE?: No VTE Risk Level:: Medical - moderate - high VTE Device Contraindication: Treatment Not Indicated VTE Drug Contraindication: N/A - Med Ordered
[2022-08-04 17:56] LABS: Appearance Urine Clear; Color Urine Yellow; Glucose Urine UA Negative (Negative); Leukocyte Esterase Urine Negative (Negative); Nitrite Urine Negative (Negative); PH 6.5 (5.0-9.0); Specific Gravity - Urine >= 1.030 (1.005-1.025); Urine Blood Negative (Negative); Urine Ketones Trace mg/dL (Negative); Urine Protein Negative (Neg-Trace)
[2022-08-04] MEDS: Enoxaparin Sodium 40 MG/0.4 ML SYRINGE SUBCUT (19:12)
[2022-08-04 20:02] VITALS: BP 168/89; PULSE 67; RESP 17; O2SAT 96
[2022-08-04 21:02] VITALS: BP 160/93; PULSE 69; RESP 18; TEMP 36.6; O2SAT 93
[2022-08-04] MEDS: 0.9 % Sodium Chloride 1,000 ML 100 ML IVCONT (21:36)
[2022-08-04] MEDS: Zolpidem Tartrate 5 MG TABLET PO (23:12)
[2022-08-04] MEDS: 0.9 % Sodium Chloride Flush 3 ML SYRINGE IVFLUSH (23:13)
[2022-08-04] MEDS: cefTRIAXone sodium 1 GM in 0.9 % Sodium Chloride 50 ML IV (23:26)
[2022-08-04] MEDS: metroNIDAZOLE/NS 500 MG/100 ML PIGGYBACK 100 MG IV (23:27)
[2022-08-05] VITALS (8 sets, daily range): BP systolic 160–188; BP diastolic 79–91; PULSE 69–78; RESP 18–98; TEMP 36–37.2; O2SAT 95–98
[2022-08-05] MEDS: HYDROmorphone HCl 1 MG/ML SYRINGE IVPUSH ×5 (04:31→22:41)
[2022-08-05] MEDS: 0.9 % Sodium Chloride 1,000 ML 100 ML IVCONT ×2 (06:16→16:04)
[2022-08-05] MEDS: ondansetron HCL 4 MG/2 ML VIAL IVPUSH ×2 (06:16→15:49)
[2022-08-05 06:36] LABS: Anion Gap 13 (12-20); Blood Urea Nitrogen 3 mg/dL (9-16); Calcium 8.5 mg/dL (8.4-10.2); Carbon Dioxide 28 mmol/L (22-29); Chloride 105 mmol/L (96-108); Creatinine Clr Calc Pharmacy 96.4; Estimated Glomerular Filt Rate > 60; Glucose Random 83 mg/dL (60-115); Magnesium 1.6 mg/dL (1.6-2.6); Potassium 3.3 mmol/L (3.3-5.1); Sodium 143 mmol/L (135-145)
[2022-08-05] MEDS: metroNIDAZOLE/NS 500 MG/100 ML PIGGYBACK 100 MG IV ×2 (08:45→16:04)
[2022-08-05] MEDS: amLODIPine Besylate 10 MG TABLET PO (08:45)
--- NOTE | 2022-08-05 09:24 | P.PNIM_ITS ---
Subjective Subjective Date of Service: 08/05/22 Interval History: abd pain improving Physical Exam Vital Signs: Vital Signs: Last Vital Signs Temp 97.5 F 08/05/22 08:00 Pulse 78 08/05/22 08:00 Resp 19 08/05/22 08:47 BP 163/79 H 08/05/22 08:00 Pulse Ox 95 08/05/22 08:00 O2 Del Method Room Air 08/05/22 08:00 BMI result Body Mass Index 29.1 General: AO X 3, no acute distress Resp: CTA bilateral, no accessory muscles used CVS: S1,S2,RRR GI: soft, tender, non distended Neuro: motor grossly intact, alert Psych: appropriate affect, appropriate insight Objective Data Active Medications Acetaminophen (Acetaminophen 325 Mg Tablet) 650 mg PO Q6H PRN PRN Reason: Pain, Mild (Pain Scale 1-3) Albuterol Sulfate (Albuterol Sulfate 90 Mcg 8 Gm Inhaler) 2 puff INHALE Q4H PRN PRN Reason: Cough Amlodipine Besylate (Amlodipine Besylate 10 Mg Tablet) 10 mg PO DAILY [facility]; Protocol Last Admin: 08/05/22 08:45 Dose: 10 mg Documented By: SOHAN Atorvastatin Calcium (Atorvastatin Calcium 10 Mg Tablet) 10 mg PO BEDTIME [facility] Last Admin: 08/04/22 23:08 Dose: Not Given Documented By: KALE Non-Admin Reason: Patient Refused Enoxaparin Sodium (Enoxaparin Sodium 40 Mg/0.4 Ml Syringe) 40 mg SUBCUT Q24H [facility] Last Admin: 08/04/22 19:12 Dose: 40 mg Documented By: EVELYNE Escitalopram Oxalate (Escitalopram Oxalate 20 Mg Tablet) 20 mg PO DAILY [facility] Last Admin: 08/05/22 08:47 Dose: Not Given Documented By: SOHAN Non-Admin Reason: Patient Refused Fluticasone Propionate (Fluticasone Propionate 100 Mcg Blst.W.Dev) 1 puff INHALE RBID [facility] Last Admin: 08/05/22 08:55 Dose: Not Given Documented By: MARCELA Non-Admin Reason: pharmacy called Hydromorphone HCl (Hydromorphone Hcl 1 Mg/Ml Syringe) 1 mg IVPUSH Q4H PRN; Protocol PRN Reason: Pain, Severe (Pain Scale 7-10) Last Admin: 08/05/22 08:47 Dose: 1 mg Documented By: SOHAN Sodium Chloride (Ns) 1,000 mls @ 100 mls/hr IVCONT .Q10H [facility] Last Admin: 08/05/22 06:16 Dose: 100 mls/hr Documented By: KALE Ceftriaxone Sodium 1 gm/ (Sodium Chloride) 50 mls @ 100 mls/hr IV Q24H [facility] Last Infusion: 08/05/22 00:10 Dose: 0 mls/hr Documented By: KALE Metronidazole (Flagyl) 500 mg in 100 mls @ 100 mls/hr IV Q8H [facility] Last Admin: 08/05/22 08:45 Dose: 100 mls/hr Documented By: SOHAN Potassium Chloride (Potassium Chloride/H20) 10 meq in 100 mls @ 100 mls/hr IV Q1H [facility] Stop: 08/05/22 12:59 Magnesium Oxide (Magnesium Oxide 400 Mg Tablet) 400 mg PO BIDPC [facility] Last Admin: 08/05/22 08:47 Dose: Not Given Documented By: SOHAN Non-Admin Reason: Patient Refused Mirtazapine (Mirtazapine 30 Mg Tablet) 30 mg PO BEDTIME [facility] Last Admin: 08/04/22 23:08 Dose: Not Given Documented By: KALE Non-Admin Reason: Patient Refused Omeprazole (Omeprazole 20 Mg Capsule.Dr) 20 mg PO DAILY@0630 [facility] Last Admin: 08/05/22 06:13 Dose: Not Given Documented By: KALE Non-Admin Reason: Patient Refused Ondansetron HCl (Ondansetron Hcl 4 Mg/2 Ml Vial) 4 mg IVPUSH Q8H PRN PRN Reason: Nausea and Vomiting Last Admin: 08/05/22 06:16 Dose: 4 mg Documented By: KALE Pharmacy Consult (Consult Rx Perform Med Rec) 1 each MISCELLANE ONCE PRN PRN Reason: Consult order Sodium Chloride (0.9 % Sodium Chloride Flush 3 Ml Syringe) 3 ml IVFLUSH QSHIFT [facility] Last Admin: 08/05/22 07:12 Dose: Not Given Documented By: SOHAN Non-Admin Reason: IV Running Zolpidem Tartrate (Zolpidem Tartrate 5 Mg Tablet) 5 mg PO BEDTIME PRN PRN Reason: insomnia Last Admin: 08/04/22 23:12 Dose: 5 mg Documented By: KALE Labs 08/04/22 13:30 08/05/22 05:40 Labs: Laboratory Results - last 24 hr 08/04/22 08/04/22 08/04/22 13:30 13:30 13:45 MCV 87.1 MCH 30.6 MCHC 35.2 H RDW 14.6 Plt Count 334 MPV 10.7 Immature Gran % (Auto) 0.7 H Neut % (Auto) 65.9 Lymph % (Auto) 20.0 [place] % (Auto) 11.5 H Eos % (Auto) 1.7 Baso % (Auto) 0.2 Lymph # (Auto) 1.2 [place] # (Auto) 0.7 Eos # (Auto) 0.1 Baso # (Auto) 0.0 Abs Immat Gran (auto) 0.04 H Absolute Neuts (auto) 3.9 Absolute Nucleated RBC 0.000 Nucleated RBC % (auto) 0.0 Smear Tech's Comments VERIFIED Anion Gap Estim Creat Clear Calc Estimated GFR Random Glucose Lactic Acid 0.9 Calcium Magnesium Total Bilirubin AST ALT Alkaline Phosphatase Total Protein Albumin Urine Color Urine Appearance Urine pH Ur Specific [place] Urine Protein Urine Glucose (UA) Urine Ketones Urine Blood Urine Nitrite Ur Leukocyte Esterase COVID-19 (ISAEL) Negative COVID-19 Clin Com See Note 08/04/22 08/04/22 08/05/22 14:00 17:49 05:40 MCV MCH MCHC RDW Plt Count MPV Immature Gran % (Auto) Neut % (Auto) Lymph % (Auto) [place] % (Auto) Eos % (Auto) Baso % (Auto) Lymph # (Auto) [place] # (Auto) Eos # (Auto) Baso # (Auto) Abs Immat Gran (auto) Absolute Neuts (auto) Absolute Nucleated RBC Nucleated RBC % (auto) Smear Tech's Comments Anion Gap 14 13 Estim Creat Clear Calc 90.6 96.4 Estimated GFR > 60 > 60 Random Glucose 90 83 Lactic Acid Calcium 8.6 8.5 Magnesium 1.2 L* 1.6 Total Bilirubin 0.4 AST 19 ALT 9 Alkaline Phosphatase 190 H Total Protein 6.3 L Albumin 3.3 L Urine Color Yellow Urine Appearance Clear Urine pH 6.5 Ur Specific [place] >= 1.030 H Urine Protein Negative Urine Glucose (UA) Negative Urine Ketones Trace Urine Blood Negative Urine Nitrite Negative Ur Leukocyte Esterase Negative COVID-19 (ISAEL) COVID-19 Clin Com Assessment and Plan (1) Intractable abdominal pain: Status: Acute Plan 62F PMH HTN, SAH (feb 2023), sickle cell trait, IBS-D, moderate persistent asthma, chronic opiate dependence, fibromyalgia, GERD presented with ongoing abdominal pain after recent colitis/diverticulitis diagnosis abd pain, diarrhea CT from 07/30/22 with colitis and diverticulitis, chronic bilateral renal infarcts CT from 08/04/22 with resolution of colitis/diverticulitis, fullness of intrahepatic ducts, atrophic pancreas empiric antibiotics with rocpehin and flagyl, gi eval, check stool pcr MRCP to assess biliary ducts added creon for chronic diarrhea and atrophic pancreas Hypomagnesemia replace and monitor hypokalemia replace and monitor GERD ppi moderate persistent asthma stable continue flovent GERD Continue pantoprazole HLD statin Mood disorder mirtazapine, lexapro HTN amlodipine Full Code DVT Prophylaxis: Lovenox reason for continued hospitalization:abd pain Time Spent With Patient Time: Total time managing care of this patient today ____ minutes. Quality Stroke Does the patient have a stroke diagnosis?: No VTE Prior VTE?: No VTE Risk Level:: Medical - moderate - high VTE Device Contraindication: Treatment Not Indicated VTE Drug Contraindication: N/A - Med Ordered
[2022-08-05] MEDS: Potassium Chloride/H20 10 MEQ/100 ML PIGGYBACK 100 MEQ IV ×4 (10:21→14:54)
[2022-08-05 10:22] LABS: CDiff Gene PCR POSITIVE (Negative)
[2022-08-05 11:27] LABS: Adenovirus F 40/41 Not Detected (Not Detect.); Campylobacter Not Detected (Not Detect.); Cryptosporidium Not Detected (Not Detect.); Cyclospora cayetanensis Not Detected (Not Detect.); E. coli EAEC Not Detected (Not Detect.); E. coli EPEC Not Detected (Not Detect.); E. coli ETEC Not Detected (Not Detect.); E. coli STEC Not Detected (Not Detect.); Entamoeba histolytica Not Detected (Not Detect.); Giardia lamblia Not Detected (Not Detect.); Plesiomonas shigelloides Not Detected (Not Detect.); Salmonella Not Detected (Not Detect.); Shigella sp./EIEC Not Detected (Not Detect.); Vibrio Not Detected (Not Detect.); Vibrio Cholerae Not Detected (Not Detect.); Yersinia enterocolitica Not Detected (Not Detect.)
[2022-08-05 11:28] LABS: Astrovirus Not Detected (Not Detect.); Norovirus GI/GII Not Detected (Not Detect.); Rotavirus A Not Detected (Not Detect.); Sapovirus Not Detected (Not Detect.)
--- NOTE | 2022-08-05 11:47 | MHC.CM.PN ---
pt is independent her dgter is her tare worker she has own ride home is covid vax x 3 dc plan home with resumption of same
[2022-08-05 12:01] LABS: CDIFF Internal ctrl Dots and bkg OK (V); CDiff Toxin Negative (Negative)
[2022-08-05] MEDS: Lipase/Prot/Amylase 24/76/120K 1 CAP CAPSULE.DR PO ×2 (12:22→15:49)
--- NOTE | 2022-08-05 13:13 | MHC.CLN ---
NUTRITION CONSULT FOR NAUSEA, VOMITING, POOR PO. CONTINUES NPO. REVIEW OF WEIGHT HX SHOWS WEIGHT LOSS X ONE YEAR -4.6%. WEIGHT LOSS NOT SIGNIFICANT. RD TO FOLLOW UP ABLE WHEN PO RESUMES.
--- NOTE | 2022-08-05 15:26 | PM.EVENT ---
Event Note Date of Service: 08/05/22 Event Note: GI consult dictated agree with symptomatic rx for n/v and abd pain can stop abx if stool tests are negative. dicyclomine for abd cramping mri looks neg to my review, so cbd dilation is likely physiologic after ccy. Time Spent With Patient Time: Total time managing care of this patient today ____ minutes.
[2022-08-05] MEDS: Magnesium Oxide 400 MG TABLET PO (17:41)
[2022-08-05] MEDS: Enoxaparin Sodium 40 MG/0.4 ML SYRINGE SUBCUT (17:41)
[2022-08-05] MEDS: Mirtazapine 30 MG TABLET PO (20:38)
[2022-08-05] MEDS: Atorvastatin Calcium 10 MG TABLET PO (20:38)
[2022-08-05] MEDS: cefTRIAXone sodium 1 GM in 0.9 % Sodium Chloride 50 ML IV (23:39)
[2022-08-05] MEDS: Zolpidem Tartrate 5 MG TABLET PO (23:47)
[2022-08-06] VITALS (7 sets, daily range): BP systolic 138–178; BP diastolic 67–82; PULSE 68–83; RESP 18–19; TEMP 36.4–37.1; O2SAT 93–95
[2022-08-06] MEDS: metroNIDAZOLE/NS 500 MG/100 ML PIGGYBACK 100 MG IV (00:13)
--- NOTE | 2022-08-06 01:10 | CONS_ITS ---
DATE OF SERVICE: 08/05/2022 REFERRING PHYSICIAN: DI Mckinney REASON FOR CONSULTATION: Diarrhea, abdominal pain, and atrophic pancreas. HISTORY OF PRESENT ILLNESS: The patient is a pleasant 62-year-old woman known to me from previous evaluation, who was admitted to the hospital after presenting to the emergency room with multiple complaints. She has a history of irritable bowel syndrome and was last seen in the office in January 2022 for continued care of gastroesophageal reflux disease and irritable bowel syndrome. Reflux has been treated with pantoprazole and IBS with Imodium. She reports having had colonoscopy in [place]. Records available indicate that she had colonoscopy at [facility] in 2010, which showed hemorrhoids, diverticulosis, and no polyps. No colitis was identified. She was recently treated in the emergency department on July 30 after presenting with complaints of vomiting, diarrhea, and abdominal pain as well as chills. CT scanning at that time was interpreted as showing changes consistent with colitis and cecal diverticulitis. She was given antibiotics and sent home. She returned to the emergency department yesterday with complaints of continued abdominal symptoms and was admitted to the hospital. She was started on intravenous antibiotics. CT scanning was repeated, which showed resolution of inflammatory change around the diverticulum from her previous CAT scan. She has been admitted to the hospital and treated with IV antibiotics, antiemetics, and pain medications. She states she last vomited this morning. She reports no rectal bleeding. PAST MEDICAL HISTORY: 1. Irritable bowel syndrome. 2. Gastroesophageal reflux disease. 3. Hypertension. 4. Elevated cholesterol. 5. Osteoarthritis. 6. Bronchitis. 7. Anxiety/depression. 8. Fibromyalgia. 9. Sickle cell trait. 10. Neuropathy. 11. TIA. CURRENT MEDICATIONS: Her current medication list is reviewed in the chart. ALLERGIES: ALLERGY LIST IS REVIEWED. PAST SURGICAL HISTORY: Includes knee replacement, cholecystectomy, shoulder surgery, and section. FAMILY HISTORY: Noncontributory. SOCIAL HISTORY: There is no reported substance abuse. REVIEW OF SYSTEMS: SKIN: No pruritus. HEENT: Negative. CARDIOPULMONARY: No shortness of breath or chest pain. GASTROINTESTINAL: As above. GENITOURINARY: Negative. NEUROPSYCHIATRIC: Negative. PHYSICAL EXAMINATION: GENERAL: Shows a pleasant female, lying comfortably in bed, complaining of abdominal pain. VITAL SIGNS: Reviewed in the electronic medical record and are stable. She has been afebrile. She has been somewhat hypertensive. SKIN: Anicteric. HEENT: Shows no scleral icterus. NECK: Without lymphadenopathy or thyromegaly. LUNGS: Clear. HEART: Shows regular rate and rhythm. S1, S2. No murmur. ABDOMEN: Soft without focal masses or tenderness. Bowel sounds are present. No organomegaly is noted. There is some mild diffuse tenderness to palpation. EXTREMITIES: Without edema. LABORATORY DATA: Including CT scan and MRI are reviewed. Final MRI report is pending. IMPRESSION: Her diverticulosis and colitis appear to be improved by CT standards. She is currently receiving antibiotics and I would recommend continuing these until stool testing is obtained and is negative. I would recommend starting treatment with dicyclomine for any component of functional bowel disease. She believes her last colonoscopy was at [facility] and those records have been requested. She will likely need followup colonoscopy as an outpatient after her present symptoms have resolved. MRI imaging is reviewed and appears to show no evidence of common bile duct pathology suggesting her bile duct dilation is physiologic following her cholecystectomy. Thanks for asking me to see her. I will follow her in the hospital with you. MD ELIN Anne/STEPHAN / [id number]
[2022-08-06] MEDS: 0.9 % Sodium Chloride 1,000 ML 100 ML IVCONT ×2 (03:44→12:50)
[2022-08-06] MEDS: Omeprazole 20 MG CAPSULE.DR PO (05:40)
[2022-08-06] MEDS: HYDROmorphone HCl 1 MG/ML SYRINGE IVPUSH ×4 (05:46→20:23)
[2022-08-06] MEDS: ondansetron HCL 4 MG/2 ML VIAL IVPUSH (05:46)
[2022-08-06 05:48] LABS: Hemoglobin 13.4 g/dl (12.0-16.0); Mean Corpuscular HGB Conc 35.3 g/dl (31.0-35.0); Mean Corpuscular Hemoglobin 30.8 pg (27.0-33.0); Mean Corpuscular Volume 87.4 fL (80.0-98.0); Mean Platelet Volume 9.9 fL (9.4-12.3); Platelet Count 352 X10*3/uL (160-400); Red Blood Count 4.35 X10*6/uL (4.20-5.50); Red Cell Distribution Width 14.8 % (11.0-16.0); White Blood Count 4.9 X10*3/uL (4.8-10.8)
[2022-08-06 06:13] LABS: Alanine Aminotransferase 9 U/L (0-31); Albumin Level 3.3 g/dL (3.5-5.0); Alkaline Phosphatase 180 U/L (39-117); Anion Gap 14 (12-20); Aspartate Amino Transferase 26 U/L (5-31); Bilirubin Direct < 0.2 mg/dL (0.0-0.5); Bilirubin Total 0.5 mg/dL (0.0-1.0); Blood Urea Nitrogen < 3 mg/dL (9-16); Calcium 8.8 mg/dL (8.4-10.2); Carbon Dioxide 30 mmol/L (22-29); Chloride 102 mmol/L (96-108); Creatinine Clr Calc Pharmacy 106.5; Estimated Glomerular Filt Rate > 60; Glucose Fasting 77 mg/dL (60-99); Potassium 3.1 mmol/L (3.3-5.1); Sodium 143 mmol/L (135-145); Total Protein 6.4 g/dL (6.5-8.0)
[2022-08-06 06:15] LABS: Magnesium 1.4 mg/dL (1.6-2.6)
[2022-08-06] MEDS: Magnesium Sulfate/H2O 2 GM/50 ML PIGGYBACK IV (06:34)
[2022-08-06] MEDS: Fluticasone Propionate 100 MCG BLST.W.DEV 1 PUFF INHALE ×2 (07:46→18:54)
[2022-08-06] MEDS: Lipase/Prot/Amylase 24/76/120K 1 CAP CAPSULE.DR PO ×3 (08:00→16:50)
[2022-08-06] MEDS: Escitalopram Oxalate 20 MG TABLET PO (08:00)
[2022-08-06] MEDS: Magnesium Oxide 400 MG TABLET PO ×2 (08:01→16:50)
[2022-08-06] MEDS: Dicyclomine HCl 10 MG CAPSULE 20 MG PO ×4 (08:01→20:24)
[2022-08-06] MEDS: amLODIPine Besylate 10 MG TABLET PO (08:01)
[2022-08-06] MEDS: Enoxaparin Sodium 40 MG/0.4 ML SYRINGE SUBCUT (17:38)
[2022-08-06] MEDS: Mirtazapine 30 MG TABLET PO (20:24)
[2022-08-06] MEDS: Atorvastatin Calcium 10 MG TABLET PO (20:24)
[2022-08-06] MEDS: 0.9 % Sodium Chloride Flush 3 ML SYRINGE IVFLUSH (20:24)
[2022-08-07 07:36] VITALS: BP 160/84; PULSE 65; RESP 17; TEMP 36.2; O2SAT 95
[2022-08-07] MEDS: HYDROmorphone HCl 1 MG/ML SYRINGE IVPUSH ×4 (08:04→21:27)
[2022-08-07] MEDS: Lipase/Prot/Amylase 24/76/120K 1 CAP CAPSULE.DR PO ×3 (08:04→17:04)
[2022-08-07] MEDS: Magnesium Oxide 400 MG TABLET PO ×2 (08:04→17:04)
[2022-08-07] MEDS: amLODIPine Besylate 10 MG TABLET PO (08:04)
[2022-08-07] MEDS: Dicyclomine HCl 10 MG CAPSULE 20 MG PO ×4 (08:05→20:20)
[2022-08-07] MEDS: Escitalopram Oxalate 20 MG TABLET PO (08:05)
--- NOTE | 2022-08-07 09:10 | P.PNIM_ITS ---
Subjective Subjective Date of Service: 08/07/22 Interval History: abd pain improving Physical Exam Vital Signs: Vital Signs: Last Vital Signs Temp 97.2 F 08/07/22 07:36 Pulse 65 08/07/22 07:36 Resp 17 08/07/22 07:36 BP 160/84 H 08/07/22 07:36 Pulse Ox 95 08/07/22 07:36 O2 Del Method Room Air 08/07/22 07:36 BMI result Body Mass Index 29.1 General: AO X 3, no acute distress Resp: CTA bilateral, no accessory muscles used CVS: S1,S2,RRR GI: soft, tender, non distended Neuro: motor grossly intact, alert Psych: appropriate affect, appropriate insight Objective Data Active Medications Acetaminophen (Acetaminophen 325 Mg Tablet) 650 mg PO Q6H PRN PRN Reason: Pain, Mild (Pain Scale 1-3) Albuterol Sulfate (Albuterol Sulfate 90 Mcg 8 Gm Inhaler) 2 puff INHALE Q4H PRN PRN Reason: Cough Amlodipine Besylate (Amlodipine Besylate 10 Mg Tablet) 10 mg PO DAILY [facility]; Protocol Last Admin: 08/07/22 08:04 Dose: 10 mg Documented By: CRISTOFER Lipase/Protease/Amylase (Lipase/Prot/Amylase 24/76/120k 1 Cap Capsule.Dr) 1 cap PO TIDWM [facility] Last Admin: 08/07/22 08:04 Dose: 1 cap Documented By: CRISTOFER Atorvastatin Calcium (Atorvastatin Calcium 10 Mg Tablet) 10 mg PO BEDTIME [facility] Last Admin: 08/06/22 20:24 Dose: 10 mg Documented By: ARASH Dicyclomine HCl (Dicyclomine Hcl 10 Mg Capsule) 20 mg PO QIDACHS [facility] Last Admin: 08/07/22 08:05 Dose: 20 mg Documented By: CRISTOFER Enoxaparin Sodium (Enoxaparin Sodium 40 Mg/0.4 Ml Syringe) 40 mg SUBCUT Q24H [facility] Last Admin: 08/06/22 17:38 Dose: 40 mg Documented By: DOUGLAS Escitalopram Oxalate (Escitalopram Oxalate 20 Mg Tablet) 20 mg PO DAILY [facility] Last Admin: 08/07/22 08:05 Dose: 20 mg Documented By: CRISTOFER Fluticasone Propionate (Fluticasone Propionate 100 Mcg [place]st.Kayleigh) 1 puff INHALE RBID [facility] Last Admin: 08/07/22 07:33 Dose: Not Given Documented By: FELICIA Non-Admin Reason: Patient Asleep Hydromorphone HCl (Hydromorphone Hcl 1 Mg/Ml Syringe) 1 mg IVPUSH Q4H PRN; Protocol PRN Reason: Pain, Severe (Pain Scale 7-10) Last Admin: 08/07/22 08:04 Dose: 1 mg Documented By: CRISTOFER Magnesium Oxide (Magnesium Oxide 400 Mg Tablet) 400 mg PO BIDPC [facility] Last Admin: 08/07/22 08:04 Dose: 400 mg Documented By: CRISTOFER Mirtazapine (Mirtazapine 30 Mg Tablet) 30 mg PO BEDTIME [facility] Last Admin: 08/06/22 20:24 Dose: 30 mg Documented By: ARASH Ondansetron HCl (Ondansetron Hcl 4 Mg/2 Ml Vial) 4 mg IVPUSH Q8H PRN PRN Reason: Nausea and Vomiting Last Admin: 08/06/22 05:46 Dose: 4 mg Documented By: BRYSON Pharmacy Consult (Consult Rx Perform Med Rec) 1 each MISCELLANE ONCE PRN PRN Reason: Consult order Sodium Chloride (0.9 % Sodium Chloride Flush 3 Ml Syringe) [facility] Last Admin: 08/07/22 08:05 Dose: Not Given Documented By: CRISTOFER Non-Admin Reason: IV Running Zolpidem Tartrate (Zolpidem Tartrate 5 Mg Tablet) 5 mg PO BEDTIME PRN PRN Reason: insomnia Last Admin: 08/05/22 23:47 Dose: 5 mg Documented By: BRYSON Labs 08/06/22 05:37 08/06/22 05:37 Microbiology Microbiology Results: Microbiology 08/04/22 14:00 Blood Culture - Preliminary Blood - Venous No growth after 48 hours. 08/04/22 13:42 Blood Culture - Preliminary Blood - Venous No growth after 48 hours. Assessment and Plan (1) Intractable abdominal pain: Status: Acute Plan 62F PMH HTN, SAH (feb 2023), sickle cell trait, IBS-D, moderate persistent asthma, chronic opiate dependence, fibromyalgia, GERD presented with ongoing abdominal pain after recent colitis/diverticulitis diagnosis abd pain, diarrhea CT from 07/30/22 with colitis and diverticulitis, chronic bilateral renal infarcts CT from 08/04/22 with resolution of colitis/diverticulitis, fullness of intrahepatic ducts, atrophic pancreas stool studies negative will dc abx MRCP to assess biliary ducts added creon for chronic diarrhea and atrophic pancreas Hypomagnesemia replace and monitor hypokalemia replace and monitor GERD ppi moderate persistent asthma stable continue flovent HLD statin Mood disorder mirtazapine, lexapro HTN amlodipine Full Code DVT Prophylaxis: Lovenox reason for continued hospitalization:abd pain Time Spent With Patient Time: Total time managing care of this patient today ____ minutes. Quality Stroke Does the patient have a stroke diagnosis?: No VTE Prior VTE?: No VTE Risk Level:: Medical - moderate - high VTE Device Contraindication: Treatment Not Indicated VTE Drug Contraindication: N/A - Med Ordered
[2022-08-07 15:18] VITALS: BP 163/77; PULSE 69; RESP 16; TEMP 37; O2SAT 93
[2022-08-07] MEDS: Enoxaparin Sodium 40 MG/0.4 ML SYRINGE SUBCUT (17:03)
[2022-08-07] MEDS: ondansetron HCL 4 MG/2 ML VIAL IVPUSH (17:25)
[2022-08-07] MEDS: 0.9 % Sodium Chloride Flush 3 ML SYRINGE IVFLUSH ×2 (17:29→20:23)
[2022-08-07 19:14] VITALS: BP 137/78; PULSE 69; RESP 18; TEMP 36.7; O2SAT 97
[2022-08-07] MEDS: Fluticasone Propionate 100 MCG BLST.W.DEV 1 PUFF INHALE (19:51)
[2022-08-07 19:52] VITALS: PULSE 72; RESP 16; O2SAT 98
[2022-08-07] MEDS: Mirtazapine 30 MG TABLET PO (20:20)
[2022-08-07] MEDS: Atorvastatin Calcium 10 MG TABLET PO (20:21)
[2022-08-07] MEDS: Zolpidem Tartrate 5 MG TABLET PO (21:27)
[2022-08-08 03:25] VITALS: BP 144/69; PULSE 65; RESP 16; TEMP 36.4; O2SAT 93
[2022-08-08] MEDS: ondansetron HCL 4 MG/2 ML VIAL IVPUSH ×2 (03:31→11:34)
[2022-08-08] MEDS: HYDROmorphone HCl 1 MG/ML SYRINGE IVPUSH ×5 (03:31→21:30)
[2022-08-08 07:26] LABS: Hematocrit 38.1 % (37.0-47.0); Hemoglobin 13.4 g/dl (12.0-16.0); Mean Corpuscular HGB Conc 35.2 g/dl (31.0-35.0); Mean Corpuscular Hemoglobin 31.2 pg (27.0-33.0); Mean Corpuscular Volume 88.6 fL (80.0-98.0); Mean Platelet Volume 10.3 fL (9.4-12.3); Platelet Count 371 X10*3/uL (160-400); Red Cell Distribution Width 14.8 % (11.0-16.0); White Blood Count 4.8 X10*3/uL (4.8-10.8)
[2022-08-08 07:36] VITALS: BP 164/79; PULSE 67; RESP 16; TEMP 36.9; O2SAT 92
[2022-08-08 07:47] LABS: Anion Gap 11 (12-20); Blood Urea Nitrogen < 3 mg/dL (9-16); Calcium 9.4 mg/dL (8.4-10.2); Carbon Dioxide 33 mmol/L (22-29); Chloride 102 mmol/L (96-108); Creatinine Clr Calc Pharmacy 90.6; Estimated Glomerular Filt Rate > 60; Glucose Fasting 92 mg/dL (60-99); Magnesium 1.5 mg/dL (1.6-2.6); Potassium 3.4 mmol/L (3.3-5.1); Sodium 143 mmol/L (135-145)
[2022-08-08 07:51] VITALS: PULSE 75; RESP 16; O2SAT 97
[2022-08-08] MEDS: Fluticasone Propionate 100 MCG BLST.W.DEV 1 PUFF INHALE ×2 (07:51→19:34)
[2022-08-08] MEDS: Dicyclomine HCl 10 MG CAPSULE 20 MG PO ×4 (08:49→20:36)
[2022-08-08] MEDS: amLODIPine Besylate 10 MG TABLET PO (08:50)
[2022-08-08] MEDS: Escitalopram Oxalate 20 MG TABLET PO (08:50)
[2022-08-08] MEDS: Magnesium Oxide 400 MG TABLET PO (08:50)
[2022-08-08] MEDS: Lipase/Prot/Amylase 24/76/120K 1 CAP CAPSULE.DR PO ×3 (08:50→17:26)
[2022-08-08] MEDS: 0.9 % Sodium Chloride Flush 3 ML SYRINGE IVFLUSH ×3 (08:50→20:36)
[2022-08-08] MEDS: Acetaminophen 325 MG TABLET 650 MG PO (08:56)
--- NOTE | 2022-08-08 10:36 | HO.PM.IMPN ---
Subjective Subjective Date of Service: 08/08/22 Interval History: still with nausea Physical Exam Vital Signs: Vital Signs: Last Vital Signs Temp 98.4 F 08/08/22 07:36 Pulse 75 08/08/22 07:51 Resp 16 08/08/22 07:51 BP 164/79 H 08/08/22 07:36 Pulse Ox 92 08/08/22 07:36 O2 Del Method Room Air 08/08/22 07:36 BMI result Body Mass Index 29.1 General: AO X 3, no acute distress Resp: CTA bilateral, no accessory muscles used CVS: S1,S2,RRR GI: soft, tender, non distended Neuro: motor grossly intact, alert Psych: appropriate affect, appropriate insight Objective Data Active Medications Acetaminophen (Acetaminophen 325 Mg Tablet) 650 mg PO Q6H PRN PRN Reason: Pain, Mild (Pain Scale 1-3) Last Admin: 08/08/22 08:56 Dose: 650 mg Documented By: GRACY Albuterol Sulfate (Albuterol Sulfate 90 Mcg 8 Gm Inhaler) 2 puff INHALE Q4H PRN PRN Reason: Cough Amlodipine Besylate (Amlodipine Besylate 10 Mg Tablet) 10 mg PO DAILY [facility]; Protocol Last Admin: 08/08/22 08:50 Dose: 10 mg Documented By: GRACY Lipase/Protease/Amylase (Lipase/Prot/Amylase 24/76/120k 1 Cap Capsule.Dr) 1 cap PO TIDWM [facility] Last Admin: 08/08/22 08:50 Dose: 1 cap Documented By: GRACY Atorvastatin Calcium (Atorvastatin Calcium 10 Mg Tablet) 10 mg PO BEDTIME [facility] Last Admin: 08/07/22 20:21 Dose: 10 mg Documented By: ARASH Dicyclomine HCl (Dicyclomine Hcl 10 Mg Capsule) 20 mg PO QIDACHS [facility] Last Admin: 08/08/22 08:49 Dose: 20 mg Documented By: GRACY Enoxaparin Sodium (Enoxaparin Sodium 40 Mg/0.4 Ml Syringe) 40 mg SUBCUT Q24H [facility] Last Admin: 08/07/22 17:03 Dose: 40 mg Documented By: CRISTOFER Escitalopram Oxalate (Escitalopram Oxalate 20 Mg Tablet) 20 mg PO DAILY [facility] Last Admin: 08/08/22 08:50 Dose: 20 mg Documented By: GRACY Fluticasone Propionate (Fluticasone Propionate 100 Mcg Blst.W.Dev) 1 puff INHALE RBID [facility] Last Admin: 08/08/22 07:51 Dose: 1 puff Documented By: FRANSISCO Hydromorphone HCl (Hydromorphone Hcl 1 Mg/Ml Syringe) 1 mg IVPUSH Q4H PRN; Protocol PRN Reason: Pain, Severe (Pain Scale 7-10) Last Admin: 08/08/22 08:56 Dose: 1 mg Documented By: GRACY Magnesium Oxide (Magnesium Oxide 400 Mg Tablet) 400 mg PO BIDPC [facility] Last Admin: 08/08/22 08:50 Dose: 400 mg Documented By: GRACY Mirtazapine (Mirtazapine 30 Mg Tablet) 30 mg PO BEDTIME [facility] Last Admin: 08/07/22 20:20 Dose: 30 mg Documented By: ARASH Ondansetron HCl (Ondansetron Hcl 4 Mg/2 Ml Vial) 4 mg IVPUSH Q8H PRN PRN Reason: Nausea and Vomiting Last Admin: 08/08/22 03:31 Dose: 4 mg Documented By: ARASH Pharmacy Consult (Consult Rx Perform Med Rec) 1 each MISCELLANE ONCE PRN PRN Reason: Consult order Potassium Chloride (Potassium Chloride Er 20 Meq Tab.Er.Prt) 40 meq PO ONCE ONE Stop: 08/08/22 10:35 Sodium Chloride (0.9 % Sodium Chloride Flush 3 Ml Syringe) [facility] Last Admin: 08/08/22 08:50 Dose: 3 ml Documented By: GRACY Zolpidem Tartrate (Zolpidem Tartrate 5 Mg Tablet) 5 mg PO BEDTIME PRN PRN Reason: insomnia Last Admin: 08/07/22 21:27 Dose: 5 mg Documented By: ARASH Labs 08/08/22 06:57 08/08/22 06:57 Labs: Laboratory Results - last 24 hr 08/08/22 08/08/22 06:57 06:57 MCV 88.6 MCH 31.2 MCHC 35.2 H RDW 14.8 Plt Count 371 MPV 10.3 Absolute Nucleated RBC 0.000 Nucleated RBC % (auto) 0.0 Anion Gap 11 L Estim Creat Clear Calc 90.6 Estimated GFR > 60 Fasting Glucose 92 Calcium 9.4 D Magnesium 1.5 L Assessment and Plan (1) Intractable abdominal pain: Status: Acute Plan 62F PMH HTN, SAH (feb 2023), sickle cell trait, IBS-D, moderate persistent asthma, chronic opiate dependence, fibromyalgia, GERD presented with ongoing abdominal pain after recent colitis/diverticulitis diagnosis abd pain, diarrhea CT from 07/30/22 with colitis and diverticulitis, chronic bilateral renal infarcts CT from 08/04/22 with resolution of colitis/diverticulitis, fullness of intrahepatic ducts, atrophic pancreas stool studies negative will dced abx MRCP to assess biliary ducts - no obstruction added creon for chronic diarrhea and atrophic pancreas Hypomagnesemia replace and monitor hypokalemia replace and monitor GERD ppi moderate persistent asthma stable continue flovent HLD statin Mood disorder mirtazapine, lexapro HTN amlodipine Full Code DVT Prophylaxis: Lovenox reason for continued hospitalization: not tolerating po Time Spent With Patient Time: Total time managing care of this patient today ____ minutes. Quality Stroke Does the patient have a stroke diagnosis?: No VTE Prior VTE?: No VTE Risk Level:: Medical - moderate - high VTE Device Contraindication: Treatment Not Indicated VTE Drug Contraindication: N/A - Med Ordered
[2022-08-08] MEDS: Famotidine/PF 20 MG/2 ML VIAL IVPUSH ×2 (11:34→20:37)
[2022-08-08] MEDS: Potassium Chloride Packet 20 MEQ PACKET 40 MEQ PO (11:36)
--- NOTE | 2022-08-08 15:39 | MHC.CM.PN ---
per rounds pt will not be dcd today plan remains home no servceis
[2022-08-08 16:00] VITALS: BP 162/80; PULSE 71; RESP 17; TEMP 36.6; O2SAT 94
[2022-08-08] MEDS: Magnesium Oxide 400 MG TABLET 800 MG PO (17:27)
[2022-08-08] MEDS: Enoxaparin Sodium 40 MG/0.4 ML SYRINGE SUBCUT (17:34)
[2022-08-08 19:19] VITALS: BP 156/82; PULSE 82; RESP 18; TEMP 37; O2SAT 96
[2022-08-08 19:35] VITALS: PULSE 80; RESP 18; O2SAT 98
[2022-08-08] MEDS: Mirtazapine 30 MG TABLET PO (20:36)
[2022-08-08] MEDS: Atorvastatin Calcium 10 MG TABLET PO (20:36)
[2022-08-08] MEDS: Zolpidem Tartrate 5 MG TABLET PO (21:31)
[2022-08-09] MEDS: HYDROmorphone HCl 1 MG/ML SYRINGE IVPUSH ×4 (03:13→17:09)
[2022-08-09 03:35] VITALS: BP 142/75; PULSE 66; RESP 17; TEMP 36.7; O2SAT 95
[2022-08-09 06:16] LABS: Hematocrit 36.9 % (37.0-47.0); Hemoglobin 12.9 g/dl (12.0-16.0); Mean Corpuscular Hemoglobin 31.2 pg (27.0-33.0); Mean Corpuscular Volume 89.3 fL (80.0-98.0); Mean Platelet Volume 10.6 fL (9.4-12.3); Platelet Count 356 X10*3/uL (160-400); Red Blood Count 4.13 X10*6/uL (4.20-5.50); Red Cell Distribution Width 14.8 % (11.0-16.0); White Blood Count 4.9 X10*3/uL (4.8-10.8)
[2022-08-09 06:48] LABS: Anion Gap 11 (12-20); Blood Urea Nitrogen 3 mg/dL (9-16); Calcium 9.3 mg/dL (8.4-10.2); Carbon Dioxide 33 mmol/L (22-29); Chloride 102 mmol/L (96-108); Estimated Glomerular Filt Rate > 60; Glucose Fasting 91 mg/dL (60-99); Magnesium 1.6 mg/dL (1.6-2.6); Potassium 3.4 mmol/L (3.3-5.1); Sodium 143 mmol/L (135-145)
[2022-08-09 07:38] VITALS: BP 142/87; PULSE 72; RESP 17; TEMP 36.3; O2SAT 98
[2022-08-09 07:48] VITALS: PULSE 82; RESP 18; O2SAT 97
[2022-08-09] MEDS: Fluticasone Propionate 100 MCG BLST.W.DEV 1 PUFF INHALE ×2 (07:48→20:06)
[2022-08-09] MEDS: Famotidine/PF 20 MG/2 ML VIAL IVPUSH ×2 (08:00→21:15)
[2022-08-09] MEDS: ondansetron HCL 4 MG/2 ML VIAL IVPUSH (08:00)
[2022-08-09] MEDS: amLODIPine Besylate 10 MG TABLET PO (08:02)
[2022-08-09] MEDS: 0.9 % Sodium Chloride Flush 3 ML SYRINGE IVFLUSH ×3 (08:02→21:16)
[2022-08-09] MEDS: Magnesium Oxide 400 MG TABLET 800 MG PO ×2 (08:03→17:03)
[2022-08-09] MEDS: Escitalopram Oxalate 20 MG TABLET PO (08:03)
[2022-08-09] MEDS: Lipase/Prot/Amylase 24/76/120K 1 CAP CAPSULE.DR PO ×3 (08:03→17:03)
[2022-08-09] MEDS: Dicyclomine HCl 10 MG CAPSULE 20 MG PO ×4 (08:07→21:15)
--- NOTE | 2022-08-09 08:58 | HO.PM.IMPN ---
Subjective Subjective Date of Service: 08/09/22 Interval History: still with nausea Physical Exam Vital Signs: Vital Signs: Last Vital Signs Temp 97.3 F 08/09/22 07:38 Pulse 82 08/09/22 07:48 Resp 18 08/09/22 07:48 BP 142/87 H 08/09/22 07:38 Pulse Ox 98 08/09/22 07:38 O2 Del Method Room Air 08/09/22 07:38 BMI result Body Mass Index 29.1 General: AO X 3, no acute distress Resp: CTA bilateral, no accessory muscles used CVS: S1,S2,RRR GI: soft, tender, non distended Neuro: motor grossly intact, alert Psych: appropriate affect, appropriate insight Objective Data Active Medications Acetaminophen (Acetaminophen 325 Mg Tablet) 650 mg PO Q6H PRN PRN Reason: Pain, Mild (Pain Scale 1-3) Last Admin: 08/08/22 08:56 Dose: 650 mg Documented By: GRACY Albuterol Sulfate (Albuterol Sulfate 90 Mcg 8 Gm Inhaler) 2 puff INHALE Q4H PRN PRN Reason: Cough Amlodipine Besylate (Amlodipine Besylate 10 Mg Tablet) 10 mg PO DAILY [facility]; Protocol Last Admin: 08/09/22 08:02 Dose: 10 mg Documented By: MORAIMA Lipase/Protease/Amylase (Lipase/Prot/Amylase 24/76/120k 1 Cap Capsule.Dr) 1 cap PO TIDWM [facility] Last Admin: 08/09/22 08:03 Dose: 1 cap Documented By: MORAIMA Atorvastatin Calcium (Atorvastatin Calcium 10 Mg Tablet) 10 mg PO BEDTIME [facility] Last Admin: 08/08/22 20:36 Dose: 10 mg Documented By: CONNIE Dicyclomine HCl (Dicyclomine Hcl 10 Mg Capsule) 20 mg PO QIDACHS [facility] Last Admin: 08/09/22 08:07 Dose: 20 mg Documented By: MORAIMA Enoxaparin Sodium (Enoxaparin Sodium 40 Mg/0.4 Ml Syringe) 40 mg SUBCUT Q24H [facility] Last Admin: 08/08/22 17:34 Dose: 40 mg Documented By: MORAIMA Escitalopram Oxalate (Escitalopram Oxalate 20 Mg Tablet) 20 mg PO DAILY [facility] Last Admin: 08/09/22 08:03 Dose: 20 mg Documented By: MORAIMA Famotidine (Famotidine/Pf 20 Mg/2 Ml Vial) 20 mg IVPUSH BID [facility] Last Admin: 08/09/22 08:00 Dose: 20 mg Documented By: MORAIMA Fluticasone Propionate (Fluticasone Propionate 100 Mcg Blst.W.Dev) 1 puff INHALE RBID [facility] Last Admin: 08/09/22 07:48 Dose: 1 puff Documented By: FRANSISCO Hydromorphone HCl (Hydromorphone Hcl 1 Mg/Ml Syringe) 1 mg IVPUSH Q4H PRN; Protocol PRN Reason: Pain, Severe (Pain Scale 7-10) Last Admin: 08/09/22 07:58 Dose: 1 mg Documented By: MORAIMA Magnesium Oxide (Magnesium Oxide 400 Mg Tablet) [facility] Last Admin: 08/09/22 08:03 Dose: 800 mg Documented By: MORAIMA Mirtazapine (Mirtazapine 30 Mg Tablet) 30 mg PO BEDTIME [facility] Last Admin: 08/08/22 20:36 Dose: 30 mg Documented By: CONNIE Ondansetron HCl (Ondansetron Hcl 4 Mg/2 Ml Vial) 4 mg IVPUSH Q8H PRN PRN Reason: Nausea and Vomiting Last Admin: 08/09/22 08:00 Dose: 4 mg Documented By: MORAIMA Pharmacy Consult (Consult Rx Perform Med Rec) 1 each MISCELLANE ONCE PRN PRN Reason: Consult order Sodium Chloride (0.9 % Sodium Chloride Flush 3 Ml Syringe) 3 ml IVFLUSH QSHIFT [facility] Last Admin: 08/09/22 08:02 Dose: 3 ml Documented By: MORAIMA Zolpidem Tartrate (Zolpidem Tartrate 5 Mg Tablet) 5 mg PO BEDTIME PRN PRN Reason: insomnia Last Admin: 08/08/22 21:31 Dose: 5 mg Documented By: CONNIE Labs 08/09/22 05:41 08/09/22 05:41 Labs: Laboratory Results - last 24 hr 08/09/22 08/09/22 05:41 05:41 MCV 89.3 MCH 31.2 MCHC 35.0 RDW 14.8 Plt Count 356 MPV 10.6 Absolute Nucleated RBC 0.000 Nucleated RBC % (auto) 0.0 Anion Gap 11 L Estim Creat Clear Calc 92.0 Estimated GFR > 60 Fasting Glucose 91 Calcium 9.3 Magnesium 1.6 Assessment and Plan (1) Intractable abdominal pain: Status: Acute Plan 62F PMH HTN, SAH (feb 2023), sickle cell trait, IBS-D, moderate persistent asthma, chronic opiate dependence, fibromyalgia, GERD presented with ongoing abdominal pain after recent colitis/diverticulitis diagnosis abd pain, diarrhea CT from 07/30/22 with colitis and diverticulitis, chronic bilateral renal infarcts CT from 08/04/22 with resolution of colitis/diverticulitis, fullness of intrahepatic ducts, atrophic pancreas stool studies negative will dced abx MRCP to assess biliary ducts - no obstruction added creon for chronic diarrhea and atrophic pancreas Hypomagnesemia replace and monitor hypokalemia replace and monitor GERD ppi moderate persistent asthma stable continue flovent HLD statin Mood disorder mirtazapine, lexapro HTN amlodipine Full Code DVT Prophylaxis: Lovenox reason for continued hospitalization: not tolerating po Time Spent With Patient Time: Total time managing care of this patient today ____ minutes. Quality Stroke Does the patient have a stroke diagnosis?: No VTE Prior VTE?: No VTE Risk Level:: Medical - moderate - high VTE Device Contraindication: Treatment Not Indicated VTE Drug Contraindication: N/A - Med Ordered
[2022-08-09] MEDS: Potassium Chloride Packet 20 MEQ PACKET 40 MEQ PO (09:06)
[2022-08-09] MEDS: Acetaminophen 325 MG TABLET 650 MG PO ×2 (11:08→21:15)
[2022-08-09 15:49] VITALS: BP 141/75; PULSE 66; RESP 18; TEMP 37; O2SAT 98
[2022-08-09] MEDS: Enoxaparin Sodium 40 MG/0.4 ML SYRINGE SUBCUT (18:04)
[2022-08-09 19:50] VITALS: BP 144/70; PULSE 81; RESP 15; TEMP 36.4; O2SAT 94
[2022-08-09 20:06] VITALS: PULSE 81; RESP 15; O2SAT 95
[2022-08-09] MEDS: Mirtazapine 30 MG TABLET PO (21:15)
[2022-08-09] MEDS: Atorvastatin Calcium 10 MG TABLET PO (21:15)
[2022-08-10] MEDS: ondansetron HCL 4 MG/2 ML VIAL IVPUSH ×3 (00:59→22:31)
[2022-08-10] MEDS: HYDROmorphone HCl 0.5 MG/0.5 ML SYRINGE IVPUSH ×3 (00:59→13:42)
[2022-08-10] MEDS: Zolpidem Tartrate 5 MG TABLET PO ×2 (00:59→22:39)
[2022-08-10 02:34] VITALS: BP 150/75; PULSE 73; RESP 16; TEMP 36.4; O2SAT 94
[2022-08-10 07:42] VITALS: BP 161/86; PULSE 75; RESP 18; TEMP 37; O2SAT 95
[2022-08-10] MEDS: Fluticasone Propionate 100 MCG BLST.W.DEV 1 PUFF INHALE ×2 (07:53→20:04)
[2022-08-10 07:55] VITALS: PULSE 75; RESP 16; O2SAT 95
[2022-08-10] MEDS: Magnesium Oxide 400 MG TABLET 800 MG PO ×2 (09:16→17:28)
[2022-08-10] MEDS: amLODIPine Besylate 10 MG TABLET PO (09:16)
[2022-08-10] MEDS: Dicyclomine HCl 10 MG CAPSULE 20 MG PO ×4 (09:16→20:34)
[2022-08-10] MEDS: Lipase/Prot/Amylase 24/76/120K 1 CAP CAPSULE.DR PO ×3 (09:16→17:28)
[2022-08-10] MEDS: Escitalopram Oxalate 20 MG TABLET PO (09:16)
[2022-08-10] MEDS: 0.9 % Sodium Chloride Flush 3 ML SYRINGE IVFLUSH ×2 (09:17→17:32)
[2022-08-10] MEDS: Famotidine/PF 20 MG/2 ML VIAL IVPUSH ×2 (09:17→20:34)
--- NOTE | 2022-08-10 10:33 | P.PNIM_ITS ---
Subjective Subjective Date of Service: 08/10/22 Interval History: Seen and evaluated improving slowly still reporting pain and nasuea tolerating more diet no other overnight events Review of Systems Review of Systems: Yes all other systems are reviewed and are negative Physical Exam Vital Signs: Vital Signs: Last Vital Signs Temp 98.6 F 08/10/22 07:42 Pulse 75 08/10/22 07:55 Resp 16 08/10/22 07:55 BP 161/86 H 08/10/22 07:42 Pulse Ox 95 08/10/22 07:42 O2 Del Method Room Air 08/10/22 07:42 BMI result Body Mass Index 29.1 Const: Other: Constitutional : Awake, interactive, not in distress Neck : Normal inspection, Supple Cardiovascular : RRR, no JVP, no lower extremity edema Respiratory : good bilateral air entry, no crackles, wheezes or rhonchi Gastrointestinal: soft, lax, Normal bowel sounds, generalized tenderness, no surgical signs Skin : Warm, Dry Neurological : Alert & oriented x3, No focal deficit Objective Data Active Medications Acetaminophen (Acetaminophen 325 Mg Tablet) 650 mg PO Q6H PRN PRN Reason: Pain, Mild (Pain Scale 1-3) Last Admin: 08/09/22 21:15 Dose: 650 mg Documented By: CONNIE Albuterol Sulfate (Albuterol Sulfate 90 Mcg 8 Gm Inhaler) 2 puff INHALE Q4H PRN PRN Reason: Cough Amlodipine Besylate (Amlodipine Besylate 10 Mg Tablet) 10 mg PO DAILY [facility]; Protocol Last Admin: 08/10/22 09:16 Dose: 10 mg Documented By: EVELYN Lipase/Protease/Amylase (Lipase/Prot/Amylase 24/76/120k 1 Cap Capsule.Dr) 1 cap PO TIDWM [facility] Last Admin: 08/10/22 09:16 Dose: 1 cap Documented By: EVELYN Atorvastatin Calcium (Atorvastatin Calcium 10 Mg Tablet) 10 mg PO BEDTIME [facility] Last Admin: 08/09/22 21:15 Dose: 10 mg Documented By: CONNIE Dicyclomine HCl (Dicyclomine Hcl 10 Mg Capsule) 20 mg PO QIDACHS [facility] Last Admin: 08/10/22 09:16 Dose: 20 mg Documented By: EVELYN Enoxaparin Sodium (Enoxaparin Sodium 40 Mg/0.4 Ml Syringe) 40 mg SUBCUT Q24H [facility] Last Admin: 08/09/22 18:04 Dose: 40 mg Documented By: MORAIMA Escitalopram Oxalate (Escitalopram Oxalate 20 Mg Tablet) 20 mg PO DAILY [facility] Last Admin: 08/10/22 09:16 Dose: 20 mg Documented By: EVELYN Famotidine (Famotidine/Pf 20 Mg/2 Ml Vial) 20 mg IVPUSH BID [facility] Last Admin: 08/10/22 09:17 Dose: 20 mg Documented By: EVELYN Fluticasone Propionate (Fluticasone Propionate 100 Mcg Blst.W.Dev) 1 puff INHALE RBID [facility] Last Admin: 08/10/22 07:53 Dose: 1 puff Documented By: JOSSELINE Hydromorphone HCl (Hydromorphone Hcl 0.5 Mg/0.5 Ml Syringe) 0.5 mg IVPUSH Q4H PRN; Protocol PRN Reason: Pain, Severe (Pain Scale 7-10) Last Admin: 08/10/22 09:21 Dose: 0.5 mg Documented By: EVELYN Magnesium Oxide (Magnesium Oxide 400 Mg Tablet) 800 mg PO BIDPC [facility] Last Admin: 08/10/22 09:16 Dose: 800 mg Documented By: EVELYN Mirtazapine (Mirtazapine 30 Mg Tablet) 30 mg PO BEDTIME [facility] Last Admin: 08/09/22 21:15 Dose: 30 mg Documented By: CONNIE Ondansetron HCl (Ondansetron Hcl 4 Mg/2 Ml Vial) 4 mg IVPUSH Q8H PRN PRN Reason: Nausea and Vomiting Last Admin: 08/10/22 00:59 Dose: 4 mg Documented By: CONNIE Pharmacy Consult (Consult Rx Perform Med Rec) 1 each MISCELLANE ONCE PRN PRN Reason: Consult order Sodium Chloride (0.9 % Sodium Chloride Flush 3 Ml Syringe) 3 ml IVFLUSH QSHIFT [facility] Last Admin: 08/10/22 09:17 Dose: 3 ml Documented By: EVELYN Zolpidem Tartrate (Zolpidem Tartrate 5 Mg Tablet) 5 mg PO BEDTIME PRN PRN Reason: Insomnia Last Admin: 08/10/22 00:59 Dose: 5 mg Documented By: CONNIE Labs 08/09/22 05:41 08/09/22 05:41 Microbiology Microbiology Results: Microbiology 08/04/22 14:00 Blood Culture - Final Blood - Venous No growth after 5 days. 08/04/22 13:42 Blood Culture - Final Blood - Venous No growth after 5 days. Assessment and Plan (1) Intractable abdominal pain: Status: Acute (2) Colitis: Status: Acute Plan 62F PMH HTN, SAH (feb 2023), sickle cell trait, IBS-D, moderate persistent asthma, chronic opiate dependence, fibromyalgia, GERD presented with ongoing abdominal pain after recent colitis/diverticulitis diagnosis abd pain, diarrhea improving slowly CT from 07/30/22 with colitis and diverticulitis, chronic bilateral renal infarcts CT from 08/04/22 with resolution of colitis/diverticulitis, fullness of intrahepatic ducts, atrophic pancreas stool studies negative will dced abx MRCP to assess biliary ducts - no obstruction added creon for chronic diarrhea and atrophic pancreas Hypomagnesemia replace and monitor hypokalemia replace and monitor GERD ppi moderate persistent asthma stable continue flovent HLD statin Mood disorder mirtazapine, lexapro HTN amlodipine Full Code DVT Prophylaxis: Lovenox reason for continued hospitalization: not tolerating po Time Spent With Patient Time: Total time managing care of this patient today ____ minutes. Quality Stroke Does the patient have a stroke diagnosis?: No VTE Prior VTE?: No VTE Risk Level:: Medical - moderate - high VTE Device Contraindication: Treatment Not Indicated VTE Drug Contraindication: N/A - Med Ordered
[2022-08-10] MEDS: Metoclopramide HCl 5 MG TABLET PO ×2 (12:34→17:28)
[2022-08-10 15:45] VITALS: BP 164/79; PULSE 78; RESP 18; TEMP 36.4; O2SAT 95
[2022-08-10] MEDS: Enoxaparin Sodium 40 MG/0.4 ML SYRINGE SUBCUT (17:29)
[2022-08-10] MEDS: Morphine Sulfate 2 MG/ML CARTRIDGE IVPUSH ×2 (18:39→22:31)
[2022-08-10 20:00] VITALS: BP 141/81; PULSE 73; RESP 16; TEMP 37.1; O2SAT 97
[2022-08-10 20:04] VITALS: PULSE 78; RESP 18; O2SAT 95
[2022-08-10] MEDS: Atorvastatin Calcium 10 MG TABLET PO (20:34)
[2022-08-10] MEDS: Mirtazapine 30 MG TABLET PO (20:34)
[2022-08-11 03:27] VITALS: BP 152/75; PULSE 73; RESP 16; TEMP 36.5; O2SAT 93
[2022-08-11] MEDS: Morphine Sulfate 2 MG/ML CARTRIDGE IVPUSH ×5 (03:48→21:22)
[2022-08-11 08:00] VITALS: BP 136/83; PULSE 79; RESP 18; TEMP 36.8; O2SAT 98
[2022-08-11] MEDS: Fluticasone Propionate 100 MCG BLST.W.DEV 1 PUFF INHALE ×2 (08:17→19:13)
[2022-08-11 08:18] VITALS: PULSE 79; RESP 16; O2SAT 98
[2022-08-11] MEDS: Lipase/Prot/Amylase 24/76/120K 1 CAP CAPSULE.DR PO ×3 (08:53→17:36)
[2022-08-11] MEDS: Famotidine/PF 20 MG/2 ML VIAL IVPUSH ×2 (08:53→21:21)
[2022-08-11] MEDS: Dicyclomine HCl 10 MG CAPSULE 20 MG PO ×4 (08:54→21:22)
[2022-08-11] MEDS: Metoclopramide HCl 5 MG TABLET PO ×3 (08:54→16:02)
[2022-08-11] MEDS: amLODIPine Besylate 10 MG TABLET PO (08:54)
[2022-08-11] MEDS: Magnesium Oxide 400 MG TABLET 800 MG PO ×2 (08:54→17:36)
[2022-08-11] MEDS: Escitalopram Oxalate 20 MG TABLET PO (08:54)
[2022-08-11] MEDS: 0.9 % Sodium Chloride Flush 3 ML SYRINGE IVFLUSH ×2 (08:59→17:36)
[2022-08-11] MEDS: vancomycin HCL 125 MG CAPSULE PO ×3 (09:51→21:22)
--- NOTE | 2022-08-11 12:20 | HO.PM.IMPN ---
Subjective Subjective Date of Service: 08/11/22 Interval History: Seen and evaluated improving slowly still reporting pain , vomiting and diarrhea tolerating more diet no other overnight events Review of Systems Review of Systems: Yes all other systems are reviewed and are negative Physical Exam Vital Signs: Vital Signs: Last Vital Signs Temp 98.3 F 08/11/22 08:00 Pulse 79 08/11/22 08:18 Resp 16 08/11/22 08:18 BP 136/83 08/11/22 08:00 Pulse Ox 98 08/11/22 08:00 O2 Del Method Room Air 08/11/22 08:00 BMI result Body Mass Index 29.1 Const: Other: Constitutional : Awake, interactive, not in distress Neck : Normal inspection, Supple Cardiovascular : RRR, no JVP, no lower extremity edema Respiratory : good bilateral air entry, no crackles, wheezes or rhonchi Gastrointestinal: soft, lax, Normal bowel sounds, generalized tenderness, no surgical signs Skin : Warm, Dry Neurological : Alert & oriented x3, No focal deficit Objective Data Active Medications Acetaminophen (Acetaminophen 325 Mg Tablet) 650 mg PO Q6H PRN PRN Reason: Pain, Mild (Pain Scale 1-3) Last Admin: 08/09/22 21:15 Dose: 650 mg Documented By: CONNIE Albuterol Sulfate (Albuterol Sulfate 90 Mcg 8 Gm Inhaler) 2 puff INHALE Q4H PRN PRN Reason: Cough Amlodipine Besylate (Amlodipine Besylate 10 Mg Tablet) 10 mg PO DAILY [facility]; Protocol Last Admin: 08/11/22 08:54 Dose: 10 mg Documented By: MORAIMA Lipase/Protease/Amylase (Lipase/Prot/Amylase 24/76/120k 1 Cap Capsule.Dr) 1 cap PO TIDWM [facility] Last Admin: 08/11/22 11:44 Dose: 1 cap Documented By: MORAIMA Atorvastatin Calcium (Atorvastatin Calcium 10 Mg Tablet) 10 mg PO BEDTIME [facility] Last Admin: 08/10/22 20:34 Dose: 10 mg Documented By: MORENITA-KALPANA Dicyclomine HCl (Dicyclomine Hcl 10 Mg Capsule) 20 mg PO QIDACHS [facility] Last Admin: 08/11/22 11:44 Dose: 20 mg Documented By: MORAIMA Enoxaparin Sodium (Enoxaparin Sodium 40 Mg/0.4 Ml Syringe) 40 mg SUBCUT Q24H [facility] Last Admin: 08/10/22 17:29 Dose: 40 mg Documented By: EVELYN Escitalopram Oxalate (Escitalopram Oxalate 20 Mg Tablet) 20 mg PO DAILY [facility] Last Admin: 08/11/22 08:54 Dose: 20 mg Documented By: MORAIMA Famotidine (Famotidine/Pf 20 Mg/2 Ml Vial) 20 mg IVPUSH BID [facility] Last Admin: 08/11/22 08:53 Dose: 20 mg Documented By: MORAIMA Fluticasone Propionate (Fluticasone Propionate 100 Mcg Blst.W.Dev) 1 puff INHALE RBID [facility] Last Admin: 08/11/22 08:17 Dose: 1 puff Documented By: JOSSELINE Magnesium Oxide (Magnesium Oxide 400 Mg Tablet) 800 mg PO BIDPC [facility] Last Admin: 08/11/22 08:54 Dose: 800 mg Documented By: MORAIMA Metoclopramide HCl (Metoclopramide Hcl 5 Mg Tablet) 5 mg PO TIDAC [facility] Stop: 08/12/22 07:31 Last Admin: 08/11/22 11:44 Dose: 5 mg Documented By: MORAIMA Mirtazapine (Mirtazapine 30 Mg Tablet) 30 mg PO BEDTIME [facility] Last Admin: 08/10/22 20:34 Dose: 30 mg Documented By: DOV Morphine Sulfate (Morphine Sulfate 2 Mg/Ml Cartridge) 2 mg IVPUSH Q4H PRN; Protocol PRN Reason: Pain, Severe (Pain Scale 7-10) Last Admin: 08/11/22 08:53 Dose: 2 mg Documented By: MORAIMA Ondansetron HCl (Ondansetron Hcl 4 Mg/2 Ml Vial) 4 mg IVPUSH Q8H PRN PRN Reason: Nausea and Vomiting Last Admin: 08/10/22 22:31 Dose: 4 mg Documented By: DOV Oxycodone HCl (Oxycodone Hcl Immed Release 5 Mg Tablet) 5 mg PO Q6H PRN PRN Reason: Pain, Moderate (Pain Scale 4-6 Pharmacy Consult (Consult Rx Perform Med Rec) 1 each MISCELLANE ONCE PRN PRN Reason: Consult order Sodium Chloride (0.9 % Sodium Chloride Flush 3 Ml Syringe) 3 ml IVFLUSH QSHIFT [facility] Last Admin: 08/11/22 08:59 Dose: 3 ml Documented By: GRAZRIC Vancomycin HCl (Vancomycin Hcl 125 Mg Capsule) 125 mg PO Q6H [facility] Last Admin: 08/11/22 09:51 Dose: 125 mg Documented By: GRAZRIC Zolpidem Tartrate (Zolpidem Tartrate 5 Mg Tablet) 5 mg PO BEDTIME PRN PRN Reason: Insomnia Last Admin: 08/10/22 22:39 Dose: 5 mg Documented By: MORENITA-PIERM Labs 08/09/22 05:41 08/09/22 05:41 Assessment and Plan (1) Colitis: Status: Acute (2) Intractable abdominal pain: Status: Acute Plan 62F PMH HTN, SAH (feb 2023), sickle cell trait, IBS-D, moderate persistent asthma, chronic opiate dependence, fibromyalgia, GERD presented with ongoing abdominal pain after recent colitis/diverticulitis diagnosis abd pain, diarrhea improving slowly CT from 07/30/22 with colitis and diverticulitis, chronic bilateral renal infarcts CT from 08/04/22 with resolution of colitis/diverticulitis, fullness of intrahepatic ducts, atrophic pancreas stool studies negative will dced abx MRCP to assess biliary ducts - no obstruction creon for chronic diarrhea and atrophic pancreas CDiff Carrier with ongoing diarrhea will cover her with PO Vancomycin for 2 weeks Hypomagnesemia replace and monitor hypokalemia replace and monitor GERD ppi moderate persistent asthma stable continue flovent HLD statin Mood disorder mirtazapine, lexapro HTN amlodipine Full Code DVT Prophylaxis: Lovenox reason for continued hospitalization: Symptomatic with nausea and vomiting with ongoing diarrhea. Time Spent With Patient Time: Total time managing care of this patient today ____ minutes. Quality Stroke Does the patient have a stroke diagnosis?: No VTE Prior VTE?: No VTE Risk Level:: Medical - moderate - high VTE Device Contraindication: Treatment Not Indicated VTE Drug Contraindication: N/A - Med Ordered
[2022-08-11 16:00] VITALS: BP 151/73; PULSE 81; RESP 16; TEMP 37; O2SAT 97
[2022-08-11] MEDS: oxyCODONE HCl Immed Release 5 MG TABLET PO (16:07)
[2022-08-11] MEDS: Enoxaparin Sodium 40 MG/0.4 ML SYRINGE SUBCUT (18:44)
[2022-08-11 19:14] VITALS: PULSE 81; RESP 16; O2SAT 96
[2022-08-11 19:51] VITALS: BP 143/77; PULSE 77; RESP 16; TEMP 36.2; O2SAT 97
[2022-08-11] MEDS: Zolpidem Tartrate 5 MG TABLET PO (21:22)
[2022-08-11] MEDS: Atorvastatin Calcium 10 MG TABLET PO (21:22)
[2022-08-11] MEDS: Mirtazapine 30 MG TABLET PO (21:22)
[2022-08-11] MEDS: ondansetron HCL 4 MG/2 ML VIAL IVPUSH (21:23)
[2022-08-12] MEDS: 0.9 % Sodium Chloride Flush 3 ML SYRINGE IVFLUSH ×2 (00:24→07:44)
[2022-08-12] MEDS: vancomycin HCL 125 MG CAPSULE PO ×2 (03:16→09:43)
[2022-08-12 03:19] VITALS: BP 173/81; PULSE 64; RESP 16; TEMP 37.1; O2SAT 95
[2022-08-12 03:21] VITALS: BP 139/71
[2022-08-12] MEDS: oxyCODONE HCl Immed Release 5 MG TABLET PO ×2 (03:25→09:42)
[2022-08-12] MEDS: Morphine Sulfate 2 MG/ML CARTRIDGE IVPUSH ×2 (06:50→12:14)
[2022-08-12] MEDS: Dicyclomine HCl 10 MG CAPSULE 20 MG PO ×2 (07:42→12:13)
[2022-08-12] MEDS: Magnesium Oxide 400 MG TABLET 800 MG PO (07:42)
[2022-08-12] MEDS: amLODIPine Besylate 10 MG TABLET PO (07:43)
[2022-08-12] MEDS: Escitalopram Oxalate 20 MG TABLET PO (07:43)
[2022-08-12] MEDS: Metoclopramide HCl 5 MG TABLET PO (07:43)
[2022-08-12] MEDS: Lipase/Prot/Amylase 24/76/120K 1 CAP CAPSULE.DR PO ×2 (07:43→12:05)
[2022-08-12] MEDS: Famotidine/PF 20 MG/2 ML VIAL IVPUSH (07:44)
[2022-08-12] MEDS: Fluticasone Propionate 100 MCG BLST.W.DEV 1 PUFF INHALE (07:45)
[2022-08-12 07:46] VITALS: PULSE 82; RESP 16; O2SAT 95
[2022-08-12 08:00] VITALS: BP 183/86; PULSE 67; RESP 16; TEMP 36.9; O2SAT 98
--- NOTE | 2022-08-12 09:06 | MHC.CM.PN ---
Addendum entered by Mary Rowley 08/12/22 14:28: [facility] declined to accept the patient. [facility] will provide home health services. Original Note: Patient is discharged to home today. [facility] has been referred for home services. Patient has arranged for transportation home from a family member.
--- NOTE | 2022-08-12 10:33 | W.MHC.F2F ---
Service Date Service Date: 08/12/22 Encounter Date of encounter: 08/12/22 Reasons for Services Signs and symptoms assessed: Monitor BP medications Reason for residential: medication management and teach disease management Homebound: Leaving the home is medically contraindicated at this time without the asist of a device and/or another person due th the listed conditions above and below. Reason homebound: weakness related to hospital stay Certification: Based on the above findings, I certify that this patient is confined to the home and needs intermittent residential care, physical therapy and/or speech therapy, or continues to need occupational therapy. The patient is under my care, and I have initiated the establishment of the plan of care. The patient will be followed by a physician who will periodically review the plan of care. Time Spent With Patient Time: Total time managing care of this patient today ____ minutes.
--- NOTE | 2022-08-12 10:34 | PM.DS ---
DS: Providers Provider Date of Service: 08/12/22 Date of admission: 08/04/22 18:24 Primary care physician: Alyx Lehman MD Consults: 08/04/22 18:23 Consult to Gastroenterology Routine Consulting Provider: Moisés Hardwick Reason for consultation: chronic diarrhea , abd pain, atrophic pancreas DS: Diagnosis Discharge Diagnosis (1) Colitis: Status: Acute (2) Intractable abdominal pain: Status: Acute (3) Clostridium difficile carrier: Status: Acute DS: Summary Hospital Course Hospital Course: Admission note HPI Pt is a 62-year-old female with a PMH significant for?IBS with diarrhea predominant, HTN, chronic pain d/t arthritis on chronic opioids, fibromyalgia, and GERD who presents to the ED with?worsening abdominal pain and nausea, vomiting, and diarrhea.? Patient originally presented to the ED with similar complaints on 07/10/2022.? CT scan showed evidence of inflammatory or infectious colitis also suspicious for a superimposed diverticulitis.? Patient was treated for pain and sent home on a prescription for metronidazole and levofloxacin.? Patient states that her pain since visit 5 days ago has continued to be severe though slightly improved to an 8/10, down from a 10/10.? Abdominal pain is diffuse, described as crampy, stabbing, squeezing. Pain tends to come and go, though today has been constant.? Patient has a long history of chronic nausea, vomiting, and diarrhea; pt states she has not had a solid bowel movement in over six years. However, these have been worse over the past week.? Patient has experienced chills and has felt fatigued, drained.? Patient also complains of pain while walking in her calves bilaterally for the past few weeks, and has had chronic intermittent numbness and tingling in her extremities and on the left side of her face.? Patient followed by Dr. Hardwick in Gastroenterology. In the ED patient was afebrile, slightly hypertensive at 166/81. Labs were significant for potassium 2.8, magnesium of 1.2. CT?of abdomen/pelvis showed no perforation, continued biliary tree dilation w/o evidence of choledocholithiasis, and improving colonic inflammation per verbal report. Pt was treated with hydromorphone, ondansetron, Mag sulfate, and potassium chloride. Pt will be admitted to the hospital for treatment and further evaluation of diverticulitis with intractable pain that failed outpatient therapy. Hospital course Patient was admitted for evaluation of abdominal pain and diarrhea. as CT from 07/30/22 with colitis and diverticulitis, chronic bilateral renal infarcts treated as OP with oral antibiotics. repeated CT from 08/04/22 with resolution of colitis/diverticulitis, fullness of intrahepatic ducts, atrophic pancreas. stool studies negative and IV Abx were discontinued. MRCP to assess biliary ducts - no obstruction. evaluated by GI who recommended creon for chronic diarrhea and atrophic pancreas. pain significantly improved and she was able to tolerated diet. but diarrhea continued. Noted to be a CDiff Carrier. with ongoing diarrhea started on PO Vancomycin for 2 weeks with improvement in diarrhea. Hypomagnesemia replaced and monitored hypokalemia replace and monitored Continue Vancomycin as prescribed Dicyclomine as needed for abd discomfort Creon as prescribed To follow with PCP as outpatient Time Spent with Patient Time attestation: Total time managing care of this patient today ____ minutes. Discharge coordination time: Greater than 30 minutes Quality: Safe Use of Opioids Does Pt have an Active Cancer Diagnosis on the Problem List?: No Quality: Stroke Does the patient have a stroke diagnosis?: No Physical Exam Vital Signs: Vital Signs: Last Vital Signs Temp 98.4 F 08/12/22 08:00 Pulse 67 08/12/22 08:00 Resp 16 08/12/22 08:00 BP 183/86 H 08/12/22 08:00 Pulse Ox 98 08/12/22 08:00 O2 Del Method Room Air 08/12/22 08:00 BMI result Body Mass Index 29.1 Const: Other: Constitutional : Awake, interactive, not in distress Neck : Normal inspection, Supple Cardiovascular : RRR, no JVP, no lower extremity edema Respiratory : good bilateral air entry, no crackles, wheezes or rhonchi Gastrointestinal: soft, lax, Normal bowel sounds, no tenderness, no surgical signs Skin : Warm, Dry Neurological : Alert & oriented x3, No focal deficit DS: Data Imaging MRI - abdomen: Radiologist's impression: ITS Impressions Abdomen/Pelvis CT 08/04/22 16:13 IMPRESSION: -Prior cholecystectomy. Mild fullness central intrahepatic biliary tree similar to recent CT. Common hepatic duct 10-13 mm increased from more remote CT in 2020. No visible choledocholithiasis or focal stricture. Recommend correlation with laboratories. -Resolution inflammatory changes around posterior cecal diverticulum since recent CT 07/30/2022. No obstruction or focal inflammatory changes in bowel or mesentery. Cholangiopancreatography MRI 08/05/22 11:32 IMPRESSION: The prominent common bile duct is likely within normal limits for postcholecystectomy patient of this age. No obstructive change or intraluminal filling defects seen. Discharge Plan Discharge Anticipated Discharge Date/Time: 08/12/22 10:15 Patient Disposition: Home Health Service Discharge Diagnosis: Colitis electrolytes imbalance Referrals: Alyx Lehman MD [Primary Care Provider] - 1 Week Discharge Medications: New vancomycin 125 mg Capsule 125 mg PO Q6H 13 Days Qty: 52 0RF dicyclomine 10 mg Capsule 20 mg PO QIDACHS PRN (Reason: Abdominal Discomfort) Qty: 90 0RF Creon 24,000-76,000 -120,000 unit Capsule,Delayed Release(Dr/Ec) 1 cap PO TIDWM Qty: 90 0RF magnesium oxide 400 mg (241.3 mg magnesium) Tablet 800 mg PO DAILY Qty: 60 0RF Continued cyclobenzaprine 10 mg tablet 1 tab PO TID PRN (Reason: musculoskeletal pain) amlodipine 5 mg Tablet 10 mg PO DAILY Qty: 30 0RF Protocol: Hold for SBP< HOLD for SBP < : 90 ondansetron 4 mg tablet,disintegrating 4 mg PO Q6H PRN (Reason: nausea and vomiting) Qty: 15 0RF pantoprazole 40 mg tablet,delayed release (DR/EC) 40 mg PO DAILY mirtazapine 30 mg tablet 30 mg PO BEDTIME zolpidem 10 mg tablet 10 mg PO BEDTIME PRN (Reason: insomnia) fluticasone propionate [Flovent HFA] 110 mcg/actuation HFA aerosol inhaler 1 puff INHALATION BID escitalopram oxalate 20 mg tablet 20 mg PO DAILY oxycodone 5 mg tablet 5 mg PO Q8H PRN (Reason: pain) Qty: 15 0RF Rx Instructions: Partial Fill upon patient request. simvastatin 20 mg tablet 20 mg PO BEDTIME albuterol sulfate 90 mcg/actuation HFA aerosol inhaler 2 puff inhalation Q4H PRN (Reason: Cough) Rx Instructions: Inhale 2 puffs by mouth every 4 hours if needed for cough or wheezing Discontinued metronidazole 500 mg tablet 500 mg PO BID 7 Days Qty: 14 0RF levofloxacin 750 mg tablet 750 mg PO DAILY 7 Days Qty: 7 0RF Discharge Orders: Discharge Order (Routine); Ordered 08/12/22 Ordered By: Geoff Welch Diet: Advance to usual diet Activity on Discharge: As tolerated Stand Alone Forms: Patient Portal Discharge page Care Plan Goals: Read below Health Concerns: Read below Plan of Treatment: Read below Assessment: You were admitted to the hospital for evaluation of abdominal pain. treated as colitis based on CT images of abdomen with IV antibiotics. MRCP was done showing shrinkage of pancreas, started on Creon as enzyme replacement. stool testing was positive for C.Diff bacteria and you were treated with Vancomycin orally. Continue Vancomycin as prescribed Dicyclomine as needed for abd discomfort Creon as prescribed To follow with PCP as outpatient
[2022-08-12] MEDS: ondansetron HCL 4 MG/2 ML VIAL IVPUSH (12:14)
== END 2022-08-12 01:00 | disposition home health service (06) | DRG 249 ==
LOC: HO.ED 17:44 → HO.EDOVER 18:33 → HO.S3 19:13
PROVIDERS: Internal Medicine; Physician Assistant Medical; Admitting Provider Student in an Organized Health Care Education/Training Program; Emergency Provider Emergency Medicine; PCP Family Medicine; Visit Provider Student in an Organized Health Care Education/Training Program
DX: K52.9 Noninfective gastroenteritis and colitis, unspecified (principal); N28.0 Ischemia and infarction of kidney; D57.3 Sickle-cell trait; E78.00 Pure hypercholesterolemia, unspecified; E83.42 Hypomagnesemia; E87.6 Hypokalemia; M19.90 Unspecified osteoarthritis, unspecified site; G62.9 Polyneuropathy, unspecified; F41.8 Other specified anxiety disorders; J45.40 Moderate persistent asthma, uncomplicated; M79.7 Fibromyalgia; Z22.1 Carrier of other intestinal infectious diseases; I10 Essential (primary) hypertension; Z20.822 Contact with and (suspected) exposure to COVID-19; Z88.8 Allergy status to other drugs, medicaments and biological substances; Z79.891 Long term (current) use of opiate analgesic; Z79.899 Other long term (current) drug therapy
CPT/HCPCS: 36415; 74177; 74181; 80048; 80053; 80076; 81003; 83605; 83735; 85025; 85027; 87040; 87324; 87493; 87507; 87635; 94640; 99285; J0696; J1170; J1650; J2270; J2405; J3475; Q9967

== ENCOUNTER → 2022-09-02 12:06 | Outpatient (BNVA) | payer OTHER, SELFPAY | PROVIDERS: PCP Family Medicine; Visit Provider Orthopaedic Surgery | DX: M17.12 Unilateral primary osteoarthritis, left knee (principal); M79.7 Fibromyalgia; Z96.651 Presence of right artificial knee joint | CPT/HCPCS: 99212 ==

== ENCOUNTER 2022-10-11 12:55 | Emergency (ER) | payer OTHER, SELFPAY ==
--- NOTE | ~2022-10-11 | CT_ITS ---
EXAMINATION: CT ABDOMEN AND PELVIS WITHOUT CONTRAST CLINICAL INFORMATION: Diffuse abdominal pain, nausea and vomiting. COMPARISON: CT scan of the abdomen and pelvis dated 08/04/2022. TECHNIQUE: Multidetector volumetric imaging was performed from the superior aspect of the liver through the pubic symphysis. Sagittal and coronal reformatted images were obtained on the technologist's workstation. Lack of intravenous and oral contrast limits visceral evaluation. This CT examination was performed using dose optimization techniques as appropriate, variously including the following: *Automated exposure control *Adjustment of mA and/or kV according to patient size (this includes techniques or standardized protocols for targeted exams where dose is matched to indication/reason for exam; i.e. extremities or head) *Use of iterative reconstruction technique DLP: 611 mGy-cm FINDINGS: LUNG BASES: The visualized lung bases are unremarkable. LIVER, GALLBLADDER, AND BILIARY TREE: No hepatic abnormality. Status post cholecystectomy. No significant biliary ductal dilatation or change. PANCREAS: Unremarkable. SPLEEN: Unremarkable. ADRENAL GLANDS: Unremarkable. KIDNEYS AND URETERS: Bilateral renal cortical lobulation, left greater than right without significant change. No hydroureteronephrosis. BLADDER: Unremarkable. GASTROINTESTINAL TRACT: The stomach, small bowel and appendix are unremarkable. The colon shows scattered mild diverticulosis, most pronounced in the sigmoid colon without surrounding abnormality. The rectum is unremarkable. ABDOMINAL WALL: No significant hernia is appreciated. LYMPH NODES: No lymphadenopathy. VASCULAR: Unremarkable. PELVIC VISCERA: Unremarkable. OSSEOUS STRUCTURES: There is an approximate 10% superior plate compression deformity of L4 that was not seen previously. Mild to moderate multilevel bilateral facet arthropathy with hypertrophic changes without significant change. CT/CT abdomen pelvis wo IV con IMPRESSION: 1. No acute intra-abdominal/pelvic abnormality to explain the patient's symptoms. 2. Mild colonic diverticulosis without evidence for acute diverticulitis. 3. L4 superior endplate compression deformity was not seen previously. Correlate with physical exam.
[2022-10-11 13:49] VITALS: BP 194/107; PULSE 86; RESP 18; TEMP 37.1; O2SAT 100; BMI 27.7
--- NOTE | 2022-10-11 13:55 | ED_ITS ---
HPI - Nausea/Vomiting/Diarrhea General Chief complaint: Nausea/Vomiting/Diarrhea Stated complaint: Diarrhea x1wk/ Diverticulitis? Time Seen by Provider: 10/11/22 19:39 Source: patient Mode of arrival: ambulatory Limitations: no limitations History of Present Illness HPI Narrative: 62 year old female presents to the ED with vomiting and diarrhea for the past 4 days. She states she feels like she has been punched in the abdomen as well. Patient denies fever chills cough. She states she has vomited 4 times today and had diarrhea 8 times today. No falls or injuries. Was seen in triage and had CT and labs which show magnsemia only. NO surgical issue in the abdomen. MD elicited complaint: nausea, vomiting and diarrhea Related Data Home Medications Medication Instructions Recorded Confirmed albuterol sulfate 90 mcg/actuation 2 puff inhalation Q4H PRN Cough 02/01/20 08/04/22 aerosol inhaler simvastatin 20 mg tablet 20 mg PO BEDTIME 02/01/20 08/04/22 cyclobenzaprine 10 mg tablet 1 tab PO TID PRN musculoskeletal 10/09/20 08/04/22 pain escitalopram oxalate 20 mg tablet 20 mg PO DAILY 08/04/22 08/04/22 fluticasone propionate 110 1 puff inhalation BID 08/04/22 08/04/22 mcg/actuation HFA aerosol inhaler (Flovent HFA) mirtazapine 30 mg tablet 30 mg PO BEDTIME 08/04/22 08/04/22 pantoprazole 40 mg tablet,delayed 40 mg PO DAILY 08/04/22 08/04/22 release zolpidem 10 mg tablet 10 mg PO BEDTIME PRN insomnia 08/04/22 08/04/22 Previous Rx's Medication Instructions Recorded amlodipine 5 mg tablet 10 mg PO DAILY #30 tabs 10/14/20 ondansetron 4 mg disintegrating 4 mg PO Q6H PRN nausea and 07/30/22 tablet vomiting #15 tabs bkuzon-tavyudod-oaqvivs 1 cap PO TIDWM #90 caps 08/12/22 24,000-76,000-120,000 unit capsule,delayed rel (Creon) magnesium oxide 400 mg (241.3 mg 800 mg PO DAILY #60 tabs 08/12/22 magnesium) tablet celecoxib 200 mg capsule (Celebrex) 200 mg PO BID #60 caps 09/02/22 magnesium chloride 71.5 mg 71.5 mg PO BID #60 tabs 10/11/22 (magnesium chloride) tablet,delayed release (Slow-Mag) Allergies Allergy/AdvReac Type Severity Reaction Status Date / Time lisinopril [LISINOPRIL] Allergy Severe TONGUE Verified 01/03/22 10:09 SWELLING emprin compound Allergy Intermediate Hives Uncoded 05/25/20 09:51 Review of Systems Review of Systems: Review of systems: General: Patient denies any fever chills recent illness or falls Musculoskeletal: Denies back pain or body aches or other injuries HEENT: denies headache, runny nose, ear pain Respiratory: denies shortness of breath, cough Cardiovascular: no chest pain or palpitations : denies dysuria, frequency Abdomen: diarrhea nausea vomiting diffuse abdominal pain Extremities: no swelling, no pain Skin: no diaphoresis Yes all other systems are reviewed and are negative [facility] Past Medical History Medical History (Updated 10/11/22 @ 19:57 by Elieser Doe DO) Arthritis Asthma Back pain Chronic bronchitis Depression with anxiety Diverticulitis Fibromyalgia Gastroesophageal reflux disease History of frequent headaches History of palpitations History of sickle cell trait Hyperlipidemia Hypertension Irritable bowel syndrome Neck pain Peripheral neuropathy Renal stones TIA (transient ischemic attack) Surgical History (Updated 09/02/22 @ 12:35 by Kenny Medrano) H/O arthroscopic knee surgery H/O wrist surgery History of partial hysterectomy History of surgical removal of ganglion cyst History of total right knee replacement (TKR) Hx of cholecystectomy Previous section Subacromial impingement of right shoulder Family History Family History Father Alive and well Gout Arthritis Mother Alive and well Hypertension Hyperlipidemia Chronic obstructive pulmonary disease (COPD) Brother No problems noted. Son Alive and well Daughter Alive and well Daughter Alive and well Maternal Aunt History of breast cancer Diabetes Social History Social History Household Members: Children Housing: Condominium Do you presently have visiting nurse or other home services: Yes (sister is [employer]) Alcohol intake: current Alcohol intake frequency: holidays/special occasions only Alcohol type: wine Patient Tobacco Use Status: Never used Tobacco Cigarettes Per Day: 2 Years Smoked: 10 Smoked in Last 30 Days: Yes Use of substances other than those prescribed or required for medical reasons: No Advance Directives: No Advance Directives Information Provided: No Patient : No service: No Current occupational status: disabled Physical Exam Vital Signs: Vital Signs: Last Vital Signs Temp 98.7 F 10/11/22 13:49 Pulse 91 10/11/22 21:05 Resp 18 10/11/22 21:05 BP 186/98 H 10/11/22 21:05 Pulse Ox 98 10/11/22 21:05 O2 Del Method Room Air 10/11/22 20:14 BMI result Body Mass Index 27.7 General: Well-appearing well-nourished in no signs of distress HEENT: Normocephalic atraumatic Neck: No signs of JVD, no masses no tenderness or lymphadenopathy Cardiovascular: Regular rate and rhythm Respiratory: Clear to auscultation bilaterally Abdomen: Soft obese when pushing on abdomen exaggerated tenderness and won't allow exam. I was able to distract her and use my stethoscope with no tenderness on exam no masses Extremities: Normal pedal pulses no signs of edema Skin: Dry warm no rashes Back: No tenderness full ROM Course Course Course Narrative: RME - 62 y/o f with hx of diverticulitis and c. diff colitis for evaluation of 4-5 days of diarrhea, n/v along with diffuse abdominal pain. She states that it feels similar to diverticulitits in the past. She is hypertensive with diffuse abdominal tenderness on exam. Plan: basic labs, CT scan Reevaluation(s) Reevaluation #1: [id number] I still feel safe discharge the patient home patient did have some Amando seizure after getting the Zyprexa I will give some Benadryl IV I also give her her home dose of amlodipine. Patient admitted she has taking her blood pressure medication due to the recurrent vomiting. I tried to explain to her the dangers of this I do not think she has any end-organ damage I do think she is still safe to go home I will send her home with [facility] and PCP follow-up. Medications Administered Discontinued Medications Generic Name Dose Route Start Last Admin Trade Name Freq PRN Reason Stop Dose Admin Dicyclomine HCl 10 mg 10/11/22 19:46 10/11/22 20:17 Dicyclomine Hcl 10 Mg Capsule PO 10/11/22 19:47 10 mg ONCE ONE Administration Sodium Chloride 1,000 mls @ 999 mls/hr 10/11/22 19:45 10/11/22 20:12 Ns IV 10/11/22 20:45 999 mls/hr .Q1H1M MICHELLE Administration Ketorolac Tromethamine 15 mg 10/11/22 19:46 10/11/22 20:19 Ketorolac Tromethamine 15 Mg/Ml Vial IVPUSH 10/11/22 19:47 15 mg ONCE ONE Administration Olanzapine 10 mg 10/11/22 19:56 10/11/22 20:22 Olanzapine 10 Mg Vial IM 10/11/22 19:57 10 mg ONCE ONE Administration Medical Decision Making Medical Decision Making [facility] Narrative: Patient with the strange story normal CT scan normal labs and only tenderness when I push the hands when I push very hard with my stethoscope she does not wince at all. Patient is completely normal vitals no signs of dehydration other than a magnesium that is minimally low. I will repeat the magnesium the patient some Zofran some Bentyl and Toradol. I do not think this patient will require admission I did explain to the patient she seemed very upset stating that she feels like she has been suspension the stomach I explained that I do not her pain at this time within a CT scan and normal labs Differential Diagnosis Differential Diagnoses: The differential diagnosis associated with the presentation includes Diverticulitis abdominal pain nausea vomiting dehydration hypomagnesemia hypokalemia Admission/Observation Consideration of admission/observation: Escalation of care including admission/observation considered Patient negative CT scan I will replete the magnesium do things patient needs admission Lab Data [facility] Lab Attestation statement: I reviewed the patient's lab results. 10/11/22 14:13 10/11/22 14:13 Labs: Lab Results 10/11/22 10/11/22 10/11/22 Range/Units 14:13 14:13 21:07 WBC 4.4 L (4.8-10.8) X10*3/uL RBC 4.29 (4.20-5.50) X10*6/uL Hgb 13.8 (12.0-16.0) g/dl Hct 38.6 (37.0-47.0) % MCV 90.0 (80.0-98.0) fL MCH 32.2 (27.0-33.0) pg MCHC 35.8 H (31.0-35.0) g/dl RDW 14.5 (11.0-16.0) % Plt Count 294 (160-400) X10*3/uL MPV 10.6 (9.4-12.3) fL Immature Gran % (Auto) 0.2 (0.0-0.4) % Neut % (Auto) 50.0 (45-73) % Lymph % (Auto) 37.1 (20-40) % Grainger % (Auto) 11.1 H (2-11) % Eos % (Auto) 1.1 (0-4) % Baso % (Auto) 0.5 (0-2) % Lymph # (Auto) 1.6 (1.2-4.9) X10*3/uL Grainger # (Auto) 0.5 (0.1-1.2) X10*3/uL Eos # (Auto) 0.1 (0.0-0.4) X10*3/uL Baso # (Auto) 0.0 (0.0-0.2) X10*3/uL Abs Immat Gran (auto) 0.01 (0.00-0.03) X10*3/uL Absolute Neuts (auto) 2.2 (2.0-8.3) x10*3/uL Absolute Nucleated RBC 0.000 (0.0-0.012) X10*3/uL Nucleated RBC % (auto) 0.0 (0.0-0.2) /100WBC Sodium 139 (135-145) mmol/L Potassium 3.7 (3.3-5.1) mmol/L Chloride 103 (96-108) mmol/L Carbon Dioxide 28 (22-29) mmol/L Anion Gap 12 (12-20) BUN 5 L (9-16) mg/dL Creatinine 0.67 (0.5-1.4) mg/dL Estim Creat Clear Calc 89.1 Estimated GFR > 60 Random Glucose 90 (60-115) mg/dL Calcium 9.8 (8.4-10.2) mg/dL Magnesium 1.4 L* (1.6-2.6) mg/dL Total Bilirubin 1.0 (0.0-1.0) mg/dL Direct Bilirubin 0.3 (0.0-0.5) mg/dL AST 26 (5-31) U/L ALT 13 (0-31) U/L Alkaline Phosphatase 126 H (39-117) U/L Total Protein 8.1 H (6.5-8.0) g/dL Albumin 4.1 (3.5-5.0) g/dL Lipase 23 (8-78) U/L Urine Color Yellow Urine Appearance Clear Urine pH 6.5 (5.0-9.0) Ur Specific [place] 1.010 (1.005-1.025) Urine Protein Negative (Neg-Trace) mg/dL Urine Glucose (UA) Negative (Negative) mg/dL Urine Ketones Negative (Negative) mg/dL Urine Blood Negative (Negative) Urine Nitrite Negative (Negative) Ur Leukocyte Esterase Negative (Negative) Radiology Impression Discussion of test interpretation with radiology: I have reviewed the radiologist's reading. External Record Review External record reviewed: Inpatient record Patient previous he has come in for abdominal pain requiring multiple doses of pain medications and admission with negative CT scan and labs. I do not think that is the best course of action for this patient I do not know what Maria Eugenia calms her down so that she can go home. On her parent her speech cute on chronic. Social Determinants Patient?s care significantly limited by Social Determinants of Health including: Inadequate housing and Low income Discharge Plan Discharge Clinical Impression: Chronic abdominal pain, Persistent recurrent vomiting, Diarrhea, Hypomagnesemia Patient Disposition: Home, Self-Care Instructions: Acute Nausea and Vomiting (ED), Acute Diarrhea (ED), Hypomagnesemia (ED), Chronic Abdominal Pain (ED) Additional Instructions: Your seen in the emergency department for abdominal pain recurrent vomiting and diarrhea. You had CT scan and labs that showed low magnesium but no other acute abnormalities.. Please call to follow up with your GI doctor. Prescriptions: New Slow-Mag 71.5 mg tablet,delayed release (DR/EC) 71.5 mg PO BID Qty: 60 0RF No Action cyclobenzaprine 10 mg tablet 1 tab PO TID PRN (Reason: musculoskeletal pain) amlodipine 5 mg Tablet 10 mg PO DAILY Qty: 30 0RF Protocol: Hold for SBP< HOLD for SBP < : 90 ondansetron 4 mg tablet,disintegrating 4 mg PO Q6H PRN (Reason: nausea and vomiting) Qty: 15 0RF pantoprazole 40 mg tablet,delayed release (DR/EC) 40 mg PO DAILY mirtazapine 30 mg tablet 30 mg PO BEDTIME zolpidem 10 mg tablet 10 mg PO BEDTIME PRN (Reason: insomnia) fluticasone propionate [Flovent HFA] 110 mcg/actuation HFA aerosol inhaler 1 puff INHALATION BID escitalopram oxalate 20 mg tablet 20 mg PO DAILY Creon 24,000-76,000 -120,000 unit Capsule,Delayed Release(Dr/Ec) 1 cap PO TIDWM Qty: 90 0RF magnesium oxide 400 mg (241.3 mg magnesium) Tablet 800 mg PO DAILY Qty: 60 0RF simvastatin 20 mg tablet 20 mg PO BEDTIME albuterol sulfate 90 mcg/actuation HFA aerosol inhaler 2 puff inhalation Q4H PRN (Reason: Cough) Rx Instructions: Inhale 2 puffs by mouth every 4 hours if needed for cough or wheezing celecoxib [Celebrex] 200 mg capsule 200 mg PO BID Qty: 60 1RF
[2022-10-11 14:18] LABS: MANUAL DIFF FLAG NO
[2022-10-11 14:22] LABS: Basophils Percent Auto 0.5 % (0-2); Eosinophils Absolute Auto 0.1 X10*3/uL (0.0-0.4); Eosinophils Percent Auto 1.1 % (0-4); Hematocrit 38.6 % (37.0-47.0); Hemoglobin 13.8 g/dl (12.0-16.0); Imm Gran Abs Auto 0.01 X10*3/uL (0.00-0.03); Imm Gran Pct Auto 0.2 % (0.0-0.4); Lymphocytes Absolute Auto 1.6 X10*3/uL (1.2-4.9); Lymphocytes Percent Auto 37.1 % (20-40); Mean Corpuscular HGB Conc 35.8 g/dl (31.0-35.0); Mean Corpuscular Hemoglobin 32.2 pg (27.0-33.0); Mean Platelet Volume 10.6 fL (9.4-12.3); Monocytes Absolute Auto 0.5 X10*3/uL (0.1-1.2); Monocytes Percent Auto 11.1 % (2-11); Neutrophils Absolute Auto 2.2 x10*3/uL (2.0-8.3); Platelet Count 294 X10*3/uL (160-400); Red Blood Count 4.29 X10*6/uL (4.20-5.50); Red Cell Distribution Width 14.5 % (11.0-16.0); White Blood Count 4.4 X10*3/uL (4.8-10.8)
[2022-10-11 14:47] LABS: Alanine Aminotransferase 13 U/L (0-31); Albumin Level 4.1 g/dL (3.5-5.0); Alkaline Phosphatase 126 U/L (39-117); Anion Gap 12 (12-20); Aspartate Amino Transferase 26 U/L (5-31); Bilirubin Direct 0.3 mg/dL (0.0-0.5); Blood Urea Nitrogen 5 mg/dL (9-16); Calcium 9.8 mg/dL (8.4-10.2); Carbon Dioxide 28 mmol/L (22-29); Chloride 103 mmol/L (96-108); Creatinine Clr Calc Pharmacy 89.1; Estimated Glomerular Filt Rate > 60; Glucose Random 90 mg/dL (60-115); Lipase 23 U/L (8-78); Potassium 3.7 mmol/L (3.3-5.1); Sodium 139 mmol/L (135-145); Total Protein 8.1 g/dL (6.5-8.0)
[2022-10-11 14:49] LABS: Magnesium 1.4 mg/dL (1.6-2.6)
[2022-10-11 17:32] VITALS: BP 187/110; PULSE 82; RESP 18; O2SAT 98
--- NOTE | 2022-10-11 17:33 | PC.NURSE ---
Pt re-vitaled in triage BP still elevated 187/110.
[2022-10-11] MEDS: 0.9 % Sodium Chloride 1,000 ML 999 ML IV (20:12)
[2022-10-11 20:14] VITALS: BP 189/103; PULSE 73; RESP 14; O2SAT 99
[2022-10-11] MEDS: Dicyclomine HCl 10 MG CAPSULE PO (20:17)
[2022-10-11] MEDS: Ketorolac Tromethamine 15 MG/ML VIAL IVPUSH (20:19)
[2022-10-11] MEDS: OLANZapine 10 MG VIAL IM (20:22)
[2022-10-11 21:05] VITALS: BP 186/98; PULSE 91; RESP 18; O2SAT 98
[2022-10-11 21:17] LABS: Appearance Urine Clear; Color Urine Yellow; Glucose Urine UA Negative (Negative); Leukocyte Esterase Urine Negative (Negative); Nitrite Urine Negative (Negative); PH 6.5 (5.0-9.0); Urine Blood Negative (Negative); Urine Ketones Negative (Negative); Urine Protein Negative (Neg-Trace)
[2022-10-11] MEDS: Magnesium Sulfate/D5W 1 GM/100 ML PIGGYBACK IV (21:40)
[2022-10-11] MEDS: amLODIPine Besylate 10 MG TABLET PO (21:43)
[2022-10-11] MEDS: diphenhydrAMINE HCL 50 MG/ML VIAL 12.5 MG IVPUSH (21:43)
[2022-10-11 22:39] VITALS: BP 161/106; PULSE 87; RESP 14; O2SAT 99
--- NOTE | 2022-10-11 23:23 | PC.NURSE ---
Addendum entered by Irasema Guillen 10/11/22 23:29: Pt denies any diarrhea at this time, and unable to provide sample. Original Note: Pt A&Ox4, reports N/V/D x 4 days. Reports 9/10 headache with all over ABD pain. Pt reports last BM was while in WR. + bowel sounds x 4 quadrants. IV line placed, medicated per JUL. Pt ambulated independently with steady gait. Pt reported uncontrolled movement, provider notified. New orders given as documented.
== END 2022-10-11 23:33 | disposition home or self-care (01) ==
PROVIDERS: Physician Assistant; Emergency Provider Student in an Organized Health Care Education/Training Program; PCP Family Medicine
DX: G89.29 Other chronic pain (principal); R10.9 Unspecified abdominal pain; R11.15 Cyclical vomiting syndrome unrelated to migraine; R19.7 Diarrhea, unspecified; E83.42 Hypomagnesemia; F17.200 Nicotine dependence, unspecified, uncomplicated; Z79.899 Other long term (current) drug therapy
CPT/HCPCS: 36415; 74176; 80048; 80076; 81003; 83690; 83735; 85025; 96361; 96365; 96366; 96372; 96375; 99284; 99285; J1200; J1885; J3475

== ENCOUNTER 2022-12-13 07:57 | Outpatient (AMB) | payer OTHER, SELFPAY ==
--- NOTE | 2022-12-13 08:08 | A.OFFVIS_ITS ---
Intake Vital Signs 12/13/22 08:15 Height 5 ft 5.5 in Weight 164 lb 14.492 oz BMI 27.0 BP 160/86 H Blood Pressure Location Lt brachial Position Sitting Pulse 93 Pulse Source Pulse Oximeter Temp 97.8 F Temp Source Skin Pulse Oximetry (%) 100 Intake Visit Reasons: Knee OA Intake Note: * New pt presents today for OA consult. * C/o pain in multiple areas. * States the pain comes and goes; today is 9 out 10. 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 Accompanied by: Self / Same As Patient Allergies lisinopril [LISINOPRIL] Allergy (Severe, Verified 12/13/22 08:16) TONGUE SWELLING olanzapine [From Zyprexa] Adverse Reaction (Verified 12/13/22 08:16) Involuntary Spasms emprin compound Allergy (Intermediate, Uncoded 12/13/22 08:16) Hives Medication List - Last Reconciled 12/13/22 by Muna Batista MD albuterol sulfate 90 mcg/actuation 2 puffs inhalation Q4H PRN amlodipine 10 mg PO DAILY bupropion HCl 100 mg PO QAM celecoxib 200 mg PO BID clonazepam 0.5 mg PO Q8H PRN cyclobenzaprine 1 tab PO TID PRN escitalopram oxalate 20 mg PO DAILY fluticasone propionate 110 mcg/actuation (Flovent HFA) 1 puff inhalation BID slywmi-myklsmmb-xhkngdg 24,000-76,000 -120,000 unit (Creon) 1 cap PO TIDWM magnesium chloride (Slow-Mag) 71.5 mg PO BID magnesium oxide 800 mg (2 x 400 mg (241.3 mg magnesium)) PO DAILY mirtazapine 30 mg PO BEDTIME ondansetron 4 mg PO Q6H PRN pantoprazole 40 mg PO DAILY potassium chloride ER (Klor-Con M) 40 mEq PO BID simvastatin 20 mg PO BEDTIME zolpidem 10 mg PO BEDTIME PRN HPI HPI Comments History of Present Illness Details This is a 62-year-old female who presents for evaluation of diffuse pain. Patient states that she has diffuse pain everywhere. She is unaware of any swollen or tender joints. She is unaware of any family history of autoimmune rheumatic disease. Denies any history of DVT/PE. She had 3 pregnancies and 3 live births. [facility] Medical History Arthritis Asthma Back pain Chronic bronchitis Depression with anxiety Diverticulitis Fibromyalgia Gastroesophageal reflux disease History of frequent headaches History of palpitations History of sickle cell trait Hyperlipidemia Hypertension Irritable bowel syndrome Neck pain Peripheral neuropathy Renal stones TIA (transient ischemic attack) Surgical History H/O arthroscopic knee surgery H/O wrist surgery History of ankle surgery History of partial hysterectomy History of surgical removal of ganglion cyst History of total right knee replacement (TKR) Hx of cholecystectomy Previous section Subacromial impingement of right shoulder Family History Father Gout Arthritis Mother Alive and well Hypertension Hyperlipidemia Chronic obstructive pulmonary disease (COPD) Brother No problems noted. Son Alive and well Daughter Alive and well Daughter Alive and well Maternal Aunt History of breast cancer Diabetes Social History Household Members: Children Housing: [facility] Do you presently have visiting nurse or other home services: Yes (sister is [employer] SENIOR MANAGER) Alcohol intake: current Alcohol intake frequency: holidays/special occasions only Alcohol type: wine Patient Tobacco Use Status: Current someday Tobacco user Cigarettes Per Day: 2 Years Smoked: 10 service: No Current occupational status: disabled Female Reproductive History Menstrual Total pregnancies: 3 Number of Living Children: 3 Review of Systems Const Reports fatigue and Reports weakness Eyes Reports itchy eyes Card Reports irregular heart rhythm Resp Reports no additional complaints GI Reports heartburn, Reports diarrhea and Reports nausea Musc Reports arthralgias, Reports joint swelling, Reports limited range of motion and Reports stiffness Neuro Reports weakness Psych Reports abnormal sleep pattern, Reports anxiety and Reports depression Endo Reports fatigue Aller/Immun Reports itchy eyes Physical Exam Vital Signs: Last Vital Signs Temp 97.8 F 12/13/22 08:15 Pulse 93 12/13/22 08:15 BP 160/86 H 12/13/22 08:15 Pulse Ox 100 12/13/22 08:15 BMI result Body Mass Index 27.0 Const General: cooperative, healthy appearing and comfortable Nutritional Appearance: overweight Orientation/consciousness: patient oriented x3 Limitations: no limitations HEENT Head: Yes normocephalic and Yes atraumatic Resp Effort & Inspection: normal respiratory effort and able to speak in complete sentences Neuro General: patient oriented x3 Extrem Other: Diffuse fibromyalgia tender points with no active synovitis Assessment & Plan Assessment & Plan (1) Fibromyalgia: Code(s): M79.7 - Fibromyalgia Plan: This is a 62-year-old female who presents for evaluation of diffuse pain. Upon evaluation I do not see any signs suggestive of autoimmune rheumatic disease. Clinical picture consistent with fibromyalgia Discussed management of fibromyalgia with patient. Is a noninflammatory, non-autoimmune central afferent processing disorder leading to a diffuse pain syndrome. Patient follows up regularly with a psychiatrist and a psychologist. She is on cyclobenzaprine, mirtazapine and escitalopram.. Try to follow sleep hygiene practices. Consider a referral for a sleep study from her PCP. Discuss CBT for sleep with psychotherapist. Patient would benefit from increased physical activity, either through formal physical therapy or by joining a gym. Advised patient that she should start activity slowly and increase as tolerated. Consider low-impact exercises such as walking, swimming, aqua therapy stretching, yoga. Follow-up as needed Medications: Discontinued oxycodone Partial Fill upon patient request. 5 mg PO Q8H PRN 6 tabs 0RF pain Coding Level of Care Code New Pt Level 3 (70756) Diagnoses Fibromyalgia M79.7
[2022-12-13 08:15] VITALS: BP 160/86; PULSE 93; TEMP 36.6; O2SAT 100; BMI 27.0
== END 2022-12-13 08:56 | disposition home or self-care (01) ==
PROVIDERS: PCP Family Medicine; Referring Provider Family Medicine; Visit Provider Student in an Organized Health Care Education/Training Program
DX: M79.7 Fibromyalgia (principal)
CPT/HCPCS: 99203

== ENCOUNTER → 2022-12-13 07:57 | Outpatient (BNVA) | payer OTHER, SELFPAY | PROVIDERS: PCP Family Medicine; Referring Provider Family Medicine; Visit Provider Student in an Organized Health Care Education/Training Program | DX: M79.7 Fibromyalgia (principal) | CPT/HCPCS: 99202 ==

== ENCOUNTER 2023-03-07 13:42 | Inpatient (IN) | payer OTHER, SELFPAY ==
[2023-03-07] VITALS (7 sets, daily range): BP systolic 141–167; BP diastolic 70–119; PULSE 62–92; RESP 16–18; TEMP 36.7–37.1; O2SAT 94–100; BMI 27.0
--- NOTE | ~2023-03-07 | XR_ITS ---
EXAMINATION: XR CHEST CLINICAL INFORMATION: Chest pain COMPARISON: 10/09/2020 TECHNIQUE: Frontal view of the chest was obtained. FINDINGS: No significant abnormality is noted involving the heart, lungs, mediastinum, bony thorax or soft tissues. An orthopedic anchor is again evident in the right shoulder. XR/XR chest 1V IMPRESSION: No acute cardiopulmonary disease or interval change.
--- NOTE | ~2023-03-07 | CT_ITS ---
EXAMINATION: CT ABDOMEN AND PELVIS WITH CONTRAST CLINICAL INFORMATION: LLQ abd pain COMPARISON: TECHNIQUE: Multidetector volumetric imaging was performed from the superior aspect of the liver through the pubic symphysis following administration of 85 mL Omnipaque 300 intravenous contrast. Sagittal and coronal reformatted images were obtained on the technologist workstation.. This CT examination was performed using dose optimization techniques as appropriate, variously including the following: *Automated exposure control *Adjustment of mA and/or kV according to patient size (this includes techniques or standardized protocols for targeted exams where dose is matched to indication/reason for exam; i.e. extremities or head) *Use of iterative reconstruction technique DLP: 590 mGy-cm FINDINGS: LUNG BASES: The visualized lung bases are unremarkable. LIVER, GALLBLADDER, AND BILIARY TREE: The liver is normal in size, shape, and attenuation. Mild perfusional abnormality abutting the falciform ligament incidentally noted. No focal hepatic lesion or biliary ductal dilatation is present. The gallbladder surgically absent PANCREAS: Incidental pancreatic divisum with the main pancreatic duct draining separately to the duodenum via an accessory ampulla although this could represent bifid drainage pattern SPLEEN: Unremarkable. ADRENAL GLANDS: Unremarkable. KIDNEYS AND URETERS: Cortical atrophy seen within the left greater than right kidneys. No hydronephrosis, hydroureter, or calculi seen. No perinephric stranding. BLADDER: Unremarkable. GASTROINTESTINAL TRACT: Scattered colonic diverticulosis but no obvious colonic wall thickening or pericolonic inflammatory change to suggest acute diverticulitis. There is abnormal wall thickening to the terminal ileum and distal ileum which is new from the prior study. Infectious or inflammatory distal enteritis would be suspected. No obstructive changes more proximally. There is a small amount of likely reactive free fluid ABDOMINAL WALL: No significant hernia is appreciated. LYMPHOVASCULAR STRUCTURES: No lymphadenopathy. The aorta is unremarkable. PELVIC VISCERA: Surgically absent OSSEOUS STRUCTURES: Degenerative changes in the hips and spine CT/CT abdomen pelvis w IV con IMPRESSION: Abnormal wall thickening to the terminal ileum and distal ileum. Infectious or inflammatory enteritis would be suspected. No obstructive changes seen. Small amount of likely reactive free fluid seen as well. There is scattered diverticulosis but no evidence for diverticulitis.
--- NOTE | 2023-03-07 13:43 | ECG_ITS ---
Test Reason : cp Blood Pressure : / mmHG Vent. Rate : 082 BPM Atrial Rate : 082 BPM P-R Int : 146 ms QRS Dur : 092 ms QT Int : 384 ms P-R-T Axes : 021 -05 047 degrees QTc Int : 448 ms Normal sinus rhythm Normal ECG When compared with ECG of 16-FEB-2022 14:26, No significant change was found Referred By: Queta Verduzco Electronically Signed By:CANDICE ROWAN MD
--- NOTE | 2023-03-07 13:49 | ED_ITS ---
HPI - General Adult General Chief complaint: General Medical Stated complaint: Heart Racing Diarrhea Vomiting Time Seen by Provider: 03/07/23 16:50 Source: patient Limitations: no limitations History of Present Illness HPI narrative: 62 years old with past medical history of IBS with diarrhea predominant, prior C diff infection, hypertension, arthritis, fibromyalgia, GERD, his prior episode of hypokalemia and hypomagnesemia, presented to the emergency room for abdominal pain, diarrhea, nausea and vomiting. The patient reports that she has being having diarrhea for the past 48 hours, nonbloody, associated with diffuse abdominal cramping. The patient reports that symptoms feels different than her usual IBS. She also reports chills but has not taken a temperature at home. She denies chest pain and shortness of breath. She reports that she has been unable to tolerate any p.o. over the past 24 hours. Patient denies recent trauma, denies recent use of antibiotics. Patient denies headache, blurry vision, slurred speech. Reports episodes of palpitations and dizziness. Related Data Home Medications Medication Instructions Recorded Confirmed albuterol sulfate 90 mcg/actuation 2 puff inhalation Q4H PRN Cough 02/01/20 12/13/22 aerosol inhaler simvastatin 20 mg tablet 20 mg PO BEDTIME 02/01/20 12/13/22 cyclobenzaprine 10 mg tablet 1 tab PO TID PRN musculoskeletal 10/09/20 12/13/22 pain escitalopram oxalate 20 mg tablet 20 mg PO DAILY 08/04/22 12/13/22 fluticasone propionate 110 1 puff inhalation BID 08/04/22 12/13/22 mcg/actuation HFA aerosol inhaler (Flovent HFA) mirtazapine 30 mg tablet 30 mg PO BEDTIME 08/04/22 12/13/22 pantoprazole 40 mg tablet,delayed 40 mg PO DAILY 08/04/22 12/13/22 release zolpidem 10 mg tablet 10 mg PO BEDTIME PRN insomnia 08/04/22 12/13/22 amlodipine 10 mg tablet 10 mg PO DAILY 12/13/22 12/13/22 bupropion HCl 100 mg tablet,12 hr 100 mg PO QAM 12/13/22 12/13/22 sustained-release clonazepam 0.5 mg tablet 0.5 mg PO Q8H PRN 12/13/22 12/13/22 potassium chloride 20 mEq 40 meq PO BID 12/13/22 12/13/22 tablet,extended release(part/cryst) (Klor-Con M) Previous Rx's Medication Instructions Recorded ondansetron 4 mg disintegrating 4 mg PO Q6H PRN nausea and 07/30/22 tablet vomiting #15 tabs [id number] 1 cap PO TIDWM #90 caps 08/12/22 24,000-76,000-120,000 unit capsule,delayed rel (Creon) magnesium oxide 400 mg (241.3 mg 800 mg (2 x 400 mg (241.3 mg 08/12/22 magnesium) tablet magnesium)) PO DAILY #60 tabs magnesium chloride 71.5 mg 71.5 mg PO BID #60 tabs 10/11/22 (magnesium chloride) tablet,delayed release (Slow-Mag) celecoxib 200 mg capsule 200 mg PO BID #60 caps 01/02/23 Allergies Allergy/AdvReac Type Severity Reaction Status Date / Time lisinopril [LISINOPRIL] Allergy Severe TONGUE Verified 03/07/23 13:49 SWELLING olanzapine [From Zyprexa] AdvReac Involuntary Verified 03/07/23 13:49 Spasms emprin compound Allergy Intermediate Hives Uncoded 12/13/22 08:16 Review of Systems 2 Review of Systems: Yes all other systems are reviewed and are negative [facility] Past Medical History Medical History Arthritis Asthma Back pain Chronic bronchitis Depression with anxiety Diverticulitis Fibromyalgia Gastroesophageal reflux disease History of frequent headaches History of palpitations History of sickle cell trait Hyperlipidemia Hypertension Irritable bowel syndrome Neck pain Peripheral neuropathy Renal stones TIA (transient ischemic attack) Surgical History H/O arthroscopic knee surgery H/O wrist surgery History of ankle surgery History of partial hysterectomy History of surgical removal of ganglion cyst History of total right knee replacement (TKR) Hx of cholecystectomy Previous section Subacromial impingement of right shoulder Family History Family History Father Gout Arthritis Mother Alive and well Hypertension Hyperlipidemia Chronic obstructive pulmonary disease (COPD) Brother No problems noted. Son Alive and well Daughter Alive and well Daughter Alive and well Maternal Aunt History of breast cancer Diabetes Social History Social History Household Members: Children Housing: Condominium Do you presently have visiting nurse or other home services: Yes (sister is [employer]EL[employer]) Alcohol intake: current Alcohol intake frequency: holidays/special occasions only Alcohol type: wine Patient Tobacco Use Status: Current someday Tobacco user Cigarettes Per Day: 2 Years Smoked: 10 Advance Directives: No Advance Directives Information Provided: No service: No Current occupational status: disabled Physical Exam ED Vital Signs: Vital Signs - 24 hr 03/07/23 13:51 03/07/23 16:59 03/07/23 17:01 Temperature 98.8 F Pulse Rate 85 72 74 Respiratory Rate 18 Blood Pressure 156/83 H 141/81 H 167/92 H Pulse Oximetry 100 Oxygen Delivery Method Room Air 03/07/23 17:02 03/07/23 17:05 Temperature 98.3 F Pulse Rate 92 62 Respiratory Rate 16 Blood Pressure 158/90 H 144/70 H Pulse Oximetry 98 Oxygen Delivery Method Room Air BMI result Body Mass Index 27.0 Const Other: General: Alert, Not in Distress Skin: No rash, warm HEENT: Atraumatic, No Exudate or Pharyngeal Erythema Resp: Normal Breath sounds bilaterally Cardio: Regular rate and Rhythm, Normal S1, S2 ABD: Abd diffusely tender, voluntary guarding more in lower quads, but no rebound. increased Bowel sounds. : No cva tenderness Neuro: Alert, oriented x4, PERRL Strenght 5/5 on all extremities Sensation is preserved in both lower and upper extremities Index to nose: normal Cranial Nerves II-XII grossly intact No dysarthria, or aphasia No neglet. Visual oh are normal bilaterally Psych: Cooperative, NO SI Course Course Course Narrative: RME: 62yo F w/PMHx IBS, TIA, renal stones, asthma, arthritis, fibromyalgia, HTN, HLD, GERD, c/o nonbloody diarrhea, vomiting, abdominal pain, chest pain x3 days. Also reports lightheadedness, SOB, & hands / finger numbness. No focal defiicts on exam. patient in wheelchair in triage EKG, labs, UA, CXR, stool studies ordered Full HPI, ROS and PE to be performed by primary ED provider. -Mg 0.7 & K+ 2.1 > charge nurse aware. PO potassium and IV Mag replacement ordered Reevaluation(s) Reevaluation #1: Reports mild improvement of pain and nausea but pain still 6 7/10. CT showed possible colitis, pending formal report Will give more analgesia. Time: 18:15 Reevaluation #2: CT ABD: MPRESSION: Abnormal wall thickening to the terminal ileum and distal ileum. Infectious or inflammatory enteritis would be suspected. No obstructive changes seen. Small amount of likely reactive free fluid seen as well. There is scattered diverticulosis but no evidence for diverticulitis. Time: 18:43 Reevaluation #3: discussed case with hospitalist DI for admission. Patient reports improvement of her symptoms however she has severe hypokalemia severe up appointment seen associated with the abdominal pain secondary to enteritis for which she has received opiates in the emergency room, patient also has moderate day duration. Plan is to admit for IV fluids, electrolyte replacement, pain management. Time: 19:22 Medications Administered Discontinued Medications Generic Name Dose Route Start Last Admin Trade Name Freq PRN Reason Stop Dose Admin Magnesium Sulfate 2 gm in 50 mls @ 150 mls/hr 03/07/23 17:03 03/07/23 18:02 Magnesium Sulfate/H2o IV 03/07/23 17:22 150 mls/hr ONCE ONE Administration Acetaminophen 1,000 mg in 100 mls @ 400 mls/hr 03/07/23 18:15 03/07/23 18:31 Ofirmev IV 03/07/23 18:29 400 mls/hr ONCE ONE Administration Iohexol 100 ml 03/07/23 17:54 03/07/23 17:55 Iohexol 350 Mg/Ml 100 Ml Infus..Btl IV 03/07/23 17:55 85 ml ONCE ONE Administration Morphine Sulfate 2 mg 03/07/23 17:15 03/07/23 17:36 Morphine Sulfate 2 Mg/Ml Cartridge IVPUSH 03/07/23 17:16 2 mg ONCE ONE Administration Protocol Morphine Sulfate 2 mg 03/07/23 18:15 03/07/23 18:31 Morphine Sulfate 2 Mg/Ml Cartridge IVPUSH 03/07/23 18:16 2 mg ONCE ONE Administration Protocol Ondansetron HCl 4 mg 03/07/23 17:33 03/07/23 17:36 Ondansetron Hcl 4 Mg/2 Ml Vial IVPUSH 03/07/23 17:34 4 mg ONCE ONE Administration Medical Decision Making Medical Decision Making [facility] Narrative: 62 years old presenting to the emergency room for profuse nonbloody diarrhea, vomiting, dizziness. Symptoms may be secondary to worsening IBS, new infection with C diff colitis. Initial lab work done in triage showed severe hypomagnesemia and severe hypokalemia. I personally reviewed EKG does show sinus rhythm with a normal QTC interval. Impression: Colitis, diverticulitis, infectious diarrhea, hypomagnesemia, hypokalemia, abdominal pain Plan: IV fluids Electrolyte replacement Analgesia Antiemetics CT abdomen with contrast CDiff, UA are pending. Continue monitor patient's symptoms and vital signs Admission Admission/Observation Consideration of admission/observation: Escalation of care including admission/observation considered Lab Data [facility] Lab Attestation statement: I reviewed the patient's lab results. 03/07/23 14:30 03/07/23 14:30 Labs: Lab Results 03/07/23 Range/Units 14:30 WBC 5.0 (4.8-10.8) X10*3/uL RBC 3.76 L (4.20-5.50) X10*6/uL Hgb 12.4 (12.0-16.0) g/dl Hct 34.2 L (37.0-47.0) % MCV 91.0 (80.0-98.0) fL MCH 33.0 (27.0-33.0) pg MCHC 36.3 H (31.0-35.0) g/dl RDW 15.1 (11.0-16.0) % Plt Count 265 (160-400) X10*3/uL MPV 10.4 (9.4-12.3) fL Immature Gran % (Auto) 0.4 (0.0-0.4) % Neut % (Auto) 61.7 (45-73) % Lymph % (Auto) 26.6 (20-40) % [place] % (Auto) 9.9 (2-11) % Eos % (Auto) 1.2 (0-4) % Baso % (Auto) 0.2 (0-2) % Lymph # (Auto) 1.3 (1.2-4.9) X10*3/uL [place] # (Auto) 0.5 (0.1-1.2) X10*3/uL Eos # (Auto) 0.1 (0.0-0.4) X10*3/uL Baso # (Auto) 0.0 (0.0-0.2) X10*3/uL Abs Immat Gran (auto) 0.02 (0.00-0.03) X10*3/uL Absolute Neuts (auto) 3.1 (2.0-8.3) x10*3/uL Absolute Nucleated RBC 0.000 (0.0-0.012) X10*3/uL Nucleated RBC % (auto) 0.0 (0.0-0.2) /100WBC PT 11.8 (11.1-13.3) SEC INR 1.0 (0.9-1.1) Sodium 145 (135-145) mmol/L Potassium 2.1 L* D (3.3-5.1) mmol/L Chloride 103 (96-108) mmol/L Carbon Dioxide 29 (22-29) mmol/L Anion Gap 15 (12-20) BUN 6 L (9-16) mg/dL Creatinine 0.66 (0.5-1.4) mg/dL Estim Creat Clear Calc 88.7 Estimated GFR > 60 Random Glucose 88 (60-115) mg/dL Calcium 8.2 L D (8.4-10.2) mg/dL Magnesium 0.7 L* (1.6-2.6) mg/dL Total Bilirubin 0.7 (0.0-1.0) mg/dL Direct Bilirubin 0.2 (0.0-0.5) mg/dL AST 34 H (5-31) U/L ALT 12 (0-31) U/L Alkaline Phosphatase 95 (39-117) U/L Troponin I High Sens 4.0 (<3.5-17.0) ng/L Total Protein 7.1 (6.5-8.0) g/dL Albumin 3.6 (3.5-5.0) g/dL Lipase 9 (8-78) U/L COVID-19 (ISAEL) Negative (Negative) COVID-19 Clin Com See Note Influenza Type A (RAMBO) Negative (Negative) Influenza Type B (RAMBO) Negative (Negative) Influenza A & B Note See Note Independent Interpretation I performed an independent interpretation of an: EKG (Sinus rhythm, qtc 448ms), Plain X-Ray (CXR: Normal.) and CT Scan (some dilated loops bowels, Colitis? ) External Record Review External record reviewed: Inpatient record Discharge Plan Discharge Clinical Impression: Acute hypokalemia, Hypomagnesemia, Enteritis, Diarrhea, Acute dehydration Patient Disposition: Admitted As Inpatient Prescriptions: No Action celecoxib 200 mg capsule 200 mg PO BID Qty: 60 1RF cyclobenzaprine 10 mg tablet 1 tab PO TID PRN (Reason: musculoskeletal pain) ondansetron 4 mg tablet,disintegrating 4 mg PO Q6H PRN (Reason: nausea and vomiting) Qty: 15 0RF pantoprazole 40 mg tablet,delayed release (DR/EC) 40 mg PO DAILY mirtazapine 30 mg tablet 30 mg PO BEDTIME zolpidem 10 mg tablet 10 mg PO BEDTIME PRN (Reason: insomnia) fluticasone propionate [Flovent HFA] 110 mcg/actuation HFA aerosol inhaler 1 puff INHALATION BID escitalopram oxalate 20 mg tablet 20 mg PO DAILY Creon 24,000-76,000 -120,000 unit Capsule,Delayed Release(Dr/Ec) 1 cap PO TIDWM Qty: 90 0RF magnesium oxide 400 mg (241.3 mg magnesium) Tablet 800 mg PO DAILY Qty: 60 0RF Slow-Mag 71.5 mg tablet,delayed release (DR/EC) 71.5 mg PO BID Qty: 60 0RF simvastatin 20 mg tablet 20 mg PO BEDTIME albuterol sulfate 90 mcg/actuation HFA aerosol inhaler 2 puff inhalation Q4H PRN (Reason: Cough) Rx Instructions: Inhale 2 puffs by mouth every 4 hours if needed for cough or wheezing amlodipine 10 mg tablet 10 mg PO DAILY bupropion HCl 100 mg tablet sustained-release 12 hr 100 mg PO QAM clonazepam 0.5 mg tablet 0.5 mg PO Q8H PRN potassium chloride [Klor-Con M20] 20 mEq tablet,ER particles/crystals 40 meq PO BID
[2023-03-07 14:36] LABS: MANUAL DIFF FLAG NO
[2023-03-07 14:38] LABS: Basophils Percent Auto 0.2 % (0-2); Eosinophils Absolute Auto 0.1 X10*3/uL (0.0-0.4); Eosinophils Percent Auto 1.2 % (0-4); Hematocrit 34.2 % (37.0-47.0); Hemoglobin 12.4 g/dl (12.0-16.0); Imm Gran Abs Auto 0.02 X10*3/uL (0.00-0.03); Imm Gran Pct Auto 0.4 % (0.0-0.4); Lymphocytes Absolute Auto 1.3 X10*3/uL (1.2-4.9); Lymphocytes Percent Auto 26.6 % (20-40); Mean Corpuscular HGB Conc 36.3 g/dl (31.0-35.0); Mean Platelet Volume 10.4 fL (9.4-12.3); Monocytes Absolute Auto 0.5 X10*3/uL (0.1-1.2); Monocytes Percent Auto 9.9 % (2-11); Neutrophils Absolute Auto 3.1 x10*3/uL (2.0-8.3); Neutrophils Percent Auto 61.7 % (45-73); Platelet Count 265 X10*3/uL (160-400); Red Blood Count 3.76 X10*6/uL (4.20-5.50); Red Cell Distribution Width 15.1 % (11.0-16.0)
[2023-03-07 14:46] LABS: Prothrombin Time 11.8 SEC (11.1-13.3)
[2023-03-07 14:52] LABS: COVID-19 Test Negative (Negative); IDNOW Serial# 9DB6401D
[2023-03-07 14:55] LABS: IDNOW Serial# 55D5AD1C; Influenza A Negative (Negative); Influenza B2 Negative (Negative)
[2023-03-07 15:34] LABS: Alanine Aminotransferase 12 U/L (0-31); Albumin Level 3.6 g/dL (3.5-5.0); Alkaline Phosphatase 95 U/L (39-117); Anion Gap 15 (12-20); Aspartate Amino Transferase 34 U/L (5-31); Bilirubin Direct 0.2 mg/dL (0.0-0.5); Bilirubin Total 0.7 mg/dL (0.0-1.0); Blood Urea Nitrogen 6 mg/dL (9-16); Calcium 8.2 mg/dL (8.4-10.2); Carbon Dioxide 29 mmol/L (22-29); Chloride 103 mmol/L (96-108); Creatinine Clr Calc Pharmacy 88.7; Estimated Glomerular Filt Rate > 60; Glucose Random 88 mg/dL (60-115); Lipase 9 U/L (8-78); Magnesium 0.7 mg/dL (1.6-2.6); Potassium 2.1 mmol/L (3.3-5.1); Sodium 145 mmol/L (135-145); Total Protein 7.1 g/dL (6.5-8.0)
--- NOTE | 2023-03-07 17:06 | MHC.EDTECH ---
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
[2023-03-07] MEDS: ondansetron HCL 4 MG/2 ML VIAL IVPUSH (17:36)
[2023-03-07] MEDS: Morphine Sulfate 2 MG/ML CARTRIDGE IVPUSH ×3 (17:36→22:11)
--- NOTE | 2023-03-07 17:45 | PC.NURSE ---
iv inserted, pt medicated with zofran and pain meds for 9/10 abd pain, pt to ct scan will hang mag upon her return- pt to get mag prior to k per provider request
[2023-03-07] MEDS: iohexoL 350 MG/ML 100 ML INFUS..BTL IV (17:55)
[2023-03-07] MEDS: Magnesium Sulfate/H2O 2 GM/50 ML PIGGYBACK IV ×2 (18:02→19:29)
[2023-03-07] MEDS: Acetaminophen 1,000 MG/100 ML PIGGYBACK 400 MG IV (18:31)
[2023-03-07] MEDS: Potassium Chloride Packet 20 MEQ PACKET 60 MEQ PO (18:31)
[2023-03-07] MEDS: 0.9 % Sodium Chloride 500 ML 999 ML IV ×2 (19:38→21:05)
--- NOTE | 2023-03-07 19:38 | PC.NURSE ---
late meds per request of provider, pt is to get all mag before IV potassium.
--- NOTE | 2023-03-07 19:41 | PC.NURSE ---
pt a&ox3, vss, playground monitor nsr 70s, iv mag/ivf running per order, hospitalist and pharmacy at bedside will continueto monitor
--- NOTE | 2023-03-07 20:06 | PHA.MEDREC ---
Pharmacy Consult ? Medication Reconciliation Pharmacy has completed the medication reconciliation. Patient confirmed medicaitons. Georgina Agosto, MaryD
--- NOTE | 2023-03-07 20:14 | PM.IMHP ---
History of Present Illness Date of Service: 03/07/23 Attending physician on admission: [facility] Chief Complaint: diarrhea, abd pain 62-year-old female with history of hyperlipidemia, hypertension, irritable bowel syndrome, fibromyalgia, mood disorder, history of C diff colitis, history TIA, chronic bronchitis, asthma, sickle cell trait presented to the ED earlier today for evaluation of severe abdominal pain and intractable diarrhea that has been ongoing for about 48 hours. She has been unable to tolerate much p.o.. States she has been having watery diarrhea every 20-45 minutes with fecal incontinence. Describes the pain as diffuse and sharp in nature without any radiation. She tells me she also has been having cramping and tingling sensation in her extremities. Denies eating any bad foods, recent illness, recent antibiotic use. Denies any sick contacts. She does not use any illicit substances and denies any alcohol use. She smokes about 1-2 cigarettes on a daily basis.Denies any fevers, chills, nausea, vomiting, melena, hematochezia, shortness of breath, chest pain. On arrival, vitals stable though patient hypertensive to 166/92. There is no leukocytosis or anemia. Renal function is normal. Sodium 145, potassium 2.1, chloride 103, CO2 29, magnesium 0.2. Hepatic function normal, troponin 4.0. Negative for COVID-19, influenza. CXR negative for any acute cardiopulmonary abnormality. CT abdomen/pelvis shows abnormal wall thickening to the terminal ileum and distal ileum, infectious versus inflammatory enteritis would be suspected no obstructive changes or evidence of diverticulitis. In the ED, has received 4 g IV magnesium, 500 mL IV NS, IV Tylenol, 60 mEq oral potassium and is ordered for 40 mEq IV potassium which has not yet been administered. Review of Systems Review of Systems: General: No fevers, malaise, unintentional weight loss HEENT: No blurred vision, diplopia. No sore throat, nasal congestion, rhinorrhea, sinus pain, ear pain Cardiovascular: No chest pain, palpitations, or leg edema Respiratory: No shortness of breath, wheezing, cough GI: +abd pain, +diarrhea. No nausea, vomiting, constipation, melena, hematochezia : No dysuria, hematuria, increased urinary frequency, decreased urinary output MSK: No myalgia, back pain Neuro: No headaches, weakness, paresthesias Skin: No rashes or lesions [facility] Medical History Diverticulitis Irritable bowel syndrome Renal stones Depression with anxiety TIA (transient ischemic attack) Asthma Peripheral neuropathy History of sickle cell trait History of palpitations Back pain Chronic bronchitis Arthritis Fibromyalgia Neck pain History of frequent headaches Gastroesophageal reflux disease Hyperlipidemia Hypertension Family History Father Gout Arthritis Mother Alive and well Hypertension Hyperlipidemia Chronic obstructive pulmonary disease (COPD) Brother No problems noted. Son Alive and well Daughter Alive and well Daughter Alive and well Maternal Aunt History of breast cancer Diabetes Surgical History History of ankle surgery History of total right knee replacement (TKR) H/O arthroscopic knee surgery Subacromial impingement of right shoulder History of surgical removal of ganglion cyst History of partial hysterectomy H/O wrist surgery Previous section Hx of cholecystectomy Social History Household Members: Children [facility] Do you presently have visiting nurse or other home services: Yes (sister is [employer]) Alcohol intake: current Alcohol intake frequency: holidays/special occasions only Alcohol type: wine Patient Tobacco Use Status: Current someday Tobacco user Cigarettes Per Day: 2 Years Smoked: 10 Smoked in Last 30 Days: Yes Use of substances other than those prescribed or required for medical reasons: No Advance Directives: No Advance Directives Information Provided: No Nutrition Risks: Acute nausea or vomiting x1 week Patient : No service: No Current occupational status: disabled Meds Allergies Allergy/AdvReac Type Severity Reaction Status Date / Time lisinopril [LISINOPRIL] Allergy Severe TONGUE Verified 03/07/23 13:49 SWELLING olanzapine [From Zyprexa] AdvReac Involuntary Verified 03/07/23 13:49 Spasms emprin compound Allergy Intermediate Hives Uncoded 12/13/22 08:16 Active Medications: Current Medications Acetaminophen (Acetaminophen 325 Mg Tablet) 650 mg PO Q6H PRN PRN Reason: Pain, Mild (Pain Scale 1-3) Docusate Sodium (Docusate Sodium 100 Mg Capsule) 100 mg PO DAILY PRN PRN Reason: Constipation Potassium Chloride (Potassium Chloride/H20) 10 meq in 100 mls @ 100 mls/hr IV Q1H MICHELLE Stop: 03/07/23 21:14 Lactated Ringer's (Lr) 1,000 mls @ 100 mls/hr IVCONT .Q10H MICHELLE Ondansetron HCl (Ondansetron Hcl 4 Mg/2 Ml Vial) 4 mg IVPUSH Q8H PRN PRN Reason: Nausea and Vomiting Home Medications Medication Instructions Recorded Confirmed Last Taken Type albuterol sulfate 90 mcg/actuation 2 puff inhalation Q4H PRN Cough 02/01/20 03/07/23 03/04/23 History aerosol inhaler simvastatin 20 mg tablet 20 mg PO BEDTIME 02/01/20 03/07/23 03/04/23 History cyclobenzaprine 10 mg tablet 1 tab PO TID PRN musculoskeletal 10/09/20 03/07/23 03/04/23 History pain escitalopram oxalate 20 mg tablet 20 mg PO DAILY 08/04/22 03/07/23 03/04/23 History fluticasone propionate 110 1 puff inhalation BID 08/04/22 03/07/23 03/04/23 History mcg/actuation HFA aerosol inhaler (Flovent HFA) pantoprazole 40 mg tablet,delayed 40 mg PO DAILY 08/04/22 03/07/23 03/04/23 History release zolpidem 10 mg tablet 10 mg PO BEDTIME PRN insomnia 08/04/22 03/07/23 03/04/23 History amlodipine 10 mg tablet 10 mg PO DAILY 12/13/22 03/07/23 03/04/23 History bupropion HCl 100 mg tablet,12 hr 100 mg PO QAM 12/13/22 03/07/23 03/04/23 History sustained-release clonazepam 0.5 mg tablet 0.5 mg PO BID PRN Anxiety 12/13/22 03/07/23 03/04/23 History Physical Exam Vital Signs and Narrative: Vital Signs: Last Vital Signs Temp 98.3 F 03/07/23 19:40 Pulse 78 03/07/23 19:40 Resp 16 03/07/23 19:40 BP 166/92 H 03/07/23 19:40 Pulse Ox 94 03/07/23 19:40 O2 Del Method Room Air 03/07/23 19:40 BMI result Body Mass Index 27.0 Constitutional - Awake and Alert, No apparent distress Eyes - PERRLA, EOMI Cardiovascular - S1S2, RRR, No edema Respiratory - Normal lung expansion, Normal respiratory effort, No respiratory distress, CTA bilaterally Gastrointestinal - diffuse abd ttp without guarding or rebound. ND; +BS Extremities - no calf tenderness bilaterally, no swelling Skin - Warm/Dry Neurological - Alert & oriented x3 Psychological - Appropriate affect Results Labs 03/07/23 14:30 03/07/23 14:30 Labs: Laboratory Results - last 24 hr 03/07/23 14:30 MCV 91.0 MCH 33.0 MCHC 36.3 H RDW 15.1 Plt Count 265 MPV 10.4 Immature Gran % (Auto) 0.4 Neut % (Auto) 61.7 Lymph % (Auto) 26.6 [place] % (Auto) 9.9 Eos % (Auto) 1.2 Baso % (Auto) 0.2 Lymph # (Auto) 1.3 [place] # (Auto) 0.5 Eos # (Auto) 0.1 Baso # (Auto) 0.0 Abs Immat Gran (auto) 0.02 Absolute Neuts (auto) 3.1 Absolute Nucleated RBC 0.000 Nucleated RBC % (auto) 0.0 PT 11.8 INR 1.0 Anion Gap 15 Estim Creat Clear Calc 88.7 Estimated GFR > 60 Random Glucose 88 Calcium 8.2 L D Magnesium 0.7 L* Total Bilirubin 0.7 Direct Bilirubin 0.2 AST 34 H ALT 12 Alkaline Phosphatase 95 Total Protein 7.1 Albumin 3.6 Lipase 9 COVID-19 (ISAEL) Negative COVID-19 Clin Com See Note Influenza Type A (RAMBO) Negative Influenza Type B (RAMBO) Negative Influenza A & B Note See Note Imaging Radiologist's Impressions: Impressions Chest X-Ray 03/07/23 14:17 IMPRESSION: No acute cardiopulmonary disease or interval change. Abdomen/Pelvis CT 03/07/23 17:57 IMPRESSION: Abnormal wall thickening to the terminal ileum and distal ileum. Infectious or inflammatory enteritis would be suspected. No obstructive changes seen. Small amount of likely reactive free fluid seen as well. There is scattered diverticulosis but no evidence for diverticulitis. Assessment and Plan (1) Acute dehydration: Status: Acute (2) Diarrhea: Status: Acute (3) Enteritis: Status: Acute (4) Hypomagnesemia: Status: Acute (5) Acute hypokalemia: Status: Acute Plan 62-year-old female with history of hyperlipidemia, hypertension, irritable bowel syndrome, fibromyalgia, mood disorder, history of C diff colitis, history TIA, chronic bronchitis, asthma, sickle cell trait admitted for acute hypokalemia and hypomagnesemia with intractable diarrhea #Acute hypokalemia- d/t diarrhea -repeated in the ED with 40 mEq IV potassium and 60 mEq oral potassium -no acute EKG changes -recheck potassium level now -follow BMP -monitor on telemetry # acute hypomagnesemia- due to diarrhea -given 4 g IV magnesium in the ED -recheck magnesium now -follow magnesium -monitor on telemetry # acute diarrhea with acute enteritis -C diff PCR and GI panel pending -IV LR -ondansetron p.r.n. -clear liquid diet -pain management p.r.n. # hypertension -blood pressure reasonably controlled -continue lisinopril, amlodipine # hyperlipidemia -statin # asthma/COPD overlap -continue Flovent, albuterol p.r.n. # mood disorder -continue home meds DVT prophylaxis-Lovenox Full code Patient requires inpatient stay at least 2 midnights for management of severe electrolyte abnormality requiring repletion, close monitoring of renal function electrolytes and cardiac monitoring Time Spent With Patient Time: Total time managing care of this patient today ____ minutes. Quality Stroke Does the patient have a stroke diagnosis?: No VTE Prior VTE?: No VTE Risk Level:: Medical - moderate - high VTE Device Contraindication: Treatment Not Indicated VTE Drug Contraindication: N/A - Med Ordered
[2023-03-07 21:45] LABS: Anion Gap 20 (12-20); Blood Urea Nitrogen 6 mg/dL (9-16); Calcium 7.6 mg/dL (8.4-10.2); Carbon Dioxide 21 mmol/L (22-29); Chloride 108 mmol/L (96-108); Creatinine Clr Calc Pharmacy 97.7; Estimated Glomerular Filt Rate > 60; Glucose Random 86 mg/dL (60-115); Magnesium 2.1 mg/dL (1.6-2.6); Potassium 3.3 mmol/L (3.3-5.1); Sodium 146 mmol/L (135-145)
[2023-03-07] MEDS: Atorvastatin Calcium 10 MG TABLET PO (21:54)
[2023-03-07] MEDS: Potassium Chloride/H20 10 MEQ/100 ML PIGGYBACK 100 MEQ IV ×2 (21:54→23:31)
[2023-03-07] MEDS: Lactated Ringers 1,000 ML 100 ML IVCONT (21:55)
[2023-03-07 22:08] LABS: Appearance Urine Clear; Color Urine Yellow; Glucose Urine UA Negative (Negative); Leukocyte Esterase Urine Negative (Negative); Nitrite Urine Negative (Negative); PH 6.5 (5.0-9.0); Specific Gravity - Urine >= 1.030 (1.005-1.025); Urine Blood Negative (Negative); Urine Ketones Negative (Negative); Urine Protein Negative (Neg-Trace)
--- NOTE | 2023-03-07 22:39 | PC.NURSE ---
pt resting comfortably, IVF running, warm blanket and ice water given per request
[2023-03-08] VITALS (8 sets, daily range): BP systolic 149–180; BP diastolic 78–98; PULSE 67–76; RESP 16–20; TEMP 36.1–36.7; O2SAT 94–97
[2023-03-08] MEDS: Acetaminophen 325 MG TABLET 650 MG PO ×2 (01:03→12:24)
[2023-03-08] MEDS: Potassium Chloride/H20 10 MEQ/100 ML PIGGYBACK 100 MEQ IV ×4 (01:03→07:51)
[2023-03-08] MEDS: ondansetron HCL 4 MG/2 ML VIAL IVPUSH ×3 (01:11→19:31)
--- NOTE | 2023-03-08 01:19 | PC.NURSE ---
pt c/o bdominal pain and nausea. pt medicated with PRN medication per MAR
--- NOTE | 2023-03-08 02:13 | PC.NURSE ---
pt took some PO meds then began questioning if she should take PO meds because of her stomach pain. pt tolerating water well with mild nausea. pt took PO atorvasatin and tyloneol but not celebrex since it was not available in [facility] right away so pt requested to wait.
[2023-03-08] MEDS: Morphine Sulfate 2 MG/ML CARTRIDGE IVPUSH ×3 (02:24→11:05)
--- NOTE | 2023-03-08 03:35 | PC.NURSE ---
pt resting comfortably with eyes closed, breathing even and unlabored. no apparent distressed noted at this time
[2023-03-08 05:03] LABS: MANUAL DIFF FLAG NO
[2023-03-08 05:06] LABS: Basophils Percent Auto 0.2 % (0-2); Eosinophils Absolute Auto 0.1 X10*3/uL (0.0-0.4); Eosinophils Percent Auto 2.2 % (0-4); Hemoglobin 10.7 g/dl (12.0-16.0); Imm Gran Abs Auto 0.03 X10*3/uL (0.00-0.03); Imm Gran Pct Auto 0.6 % (0.0-0.4); Lymphocytes Absolute Auto 1.3 X10*3/uL (1.2-4.9); Lymphocytes Percent Auto 27.7 % (20-40); Mean Corpuscular HGB Conc 35.7 g/dl (31.0-35.0); Mean Corpuscular Hemoglobin 32.6 pg (27.0-33.0); Mean Corpuscular Volume 91.5 fL (80.0-98.0); Mean Platelet Volume 10.5 fL (9.4-12.3); Monocytes Absolute Auto 0.6 X10*3/uL (0.1-1.2); Monocytes Percent Auto 12.3 % (2-11); Neutrophils Absolute Auto 2.6 x10*3/uL (2.0-8.3); Platelet Count 216 X10*3/uL (160-400); Red Blood Count 3.28 X10*6/uL (4.20-5.50); Red Cell Distribution Width 14.7 % (11.0-16.0); White Blood Count 4.6 X10*3/uL (4.8-10.8)
--- NOTE | 2023-03-08 05:11 | PC.NURSE ---
pt c/o abdominal pain, requested IV pain medication. this Rn informed her that it was to early to get morphine but had PO oxycodone and tylenol available. pt refused PO meds, said she will wait for the allowed time for morphine IV. offered pt a warm blanket and hot pack for cramping
[2023-03-08 05:25] LABS: Anion Gap 15 (12-20); Blood Urea Nitrogen 4 mg/dL (9-16); Calcium 7.3 mg/dL (8.4-10.2); Carbon Dioxide 25 mmol/L (22-29); Chloride 104 mmol/L (96-108); Estimated Glomerular Filt Rate > 60; Glucose Random 84 mg/dL (60-115); Magnesium 1.4 mg/dL (1.6-2.6); Potassium 2.4 mmol/L (3.3-5.1); Sodium 142 mmol/L (135-145)
--- NOTE | 2023-03-08 05:27 | PC.NURSE ---
critical labs received: potassium 2.4, mag 1.4. MD Lo notfied
[2023-03-08] MEDS: Magnesium Sulfate/H2O 2 GM/50 ML PIGGYBACK IV ×2 (06:14→09:17)
[2023-03-08] MEDS: Omeprazole 20 MG CAPSULE.DR PO (06:15)
--- NOTE | 2023-03-08 06:34 | PC.NURSE ---
pt medicated per JUL with PRN morphine for abdominal pain. pt attempted to give stool sample but was unsuccessful at this time.
[2023-03-08] MEDS: Potassium Chloride Packet 20 MEQ PACKET 40 MEQ PO (07:50)
[2023-03-08] MEDS: amLODIPine Besylate 10 MG TABLET PO (07:51)
[2023-03-08] MEDS: Escitalopram Oxalate 20 MG TABLET PO (07:51)
[2023-03-08] MEDS: Lactated Ringers 1,000 ML 100 ML IVCONT ×2 (08:39→19:12)
--- NOTE | 2023-03-08 09:07 | PC.NURSE ---
pt currently speaking w/ admitting provider.
[2023-03-08] MEDS: Celecoxib 200 MG CAPSULE PO ×2 (09:30→19:28)
--- NOTE | 2023-03-08 09:30 | PC.NURSE ---
this RN resumed care of pt at this time. a&ox3, vss and up to date. nsr on the receiving lead. medicated per provider order. pt c/o nausea, medicated w/ PRN order will reassess shortly. pt still c/o 01/15 abd pain - will medicate w/ PRN when able d/t last administration. respirations remain even and unlabored at this time. pt seems to bein no apparent distress w/ the lights dimmed/watching tv. call bustos placed within reach.
--- NOTE | 2023-03-08 10:57 | HO.PM.IMPN ---
Subjective Subjective Date of Service: 03/13/23 Review of Systems Follow-up gastroenteritis and electrolyte abnormalities. Still with abdominal pain and some nausea Physical Exam Vital Signs: Vital Signs: Last Vital Signs Temp 98.1 F 03/07/23 21:45 Pulse 76 03/08/23 09:26 Resp 16 03/08/23 09:26 BP 152/91 H 03/08/23 09:26 Pulse Ox 97 03/08/23 09:26 O2 Del Method Room Air 03/08/23 09:26 BMI result Body Mass Index 27.0 Appearing in no acute distress lung sounds are clear to auscultation heart regular rate rhythm, clear S1, S2 positive bowel sounds, abdomen is soft, diffusely tender neuro patient is alert x3, no focal deficits Objective Data Active Medications Acetaminophen (Acetaminophen 325 Mg Tablet) 650 mg PO Q6H PRN PRN Reason: Pain, Mild (Pain Scale 1-3) Last Admin: 03/08/23 01:03 Dose: 650 mg Documented By: IWONA Albuterol Sulfate (Albuterol Sulfate 90 Mcg 8 Gm Inhaler) 2 puff INHALE Q4H PRN PRN Reason: Cough Amlodipine Besylate (Amlodipine Besylate 10 Mg Tablet) 10 mg PO DAILY [facility]; Protocol Last Admin: 03/08/23 07:51 Dose: 10 mg Documented By: MARCELO Atorvastatin Calcium (Atorvastatin Calcium 10 Mg Tablet) 10 mg PO BEDTIME [facility] Last Admin: 03/07/23 21:54 Dose: 10 mg Documented By: IWONA Celecoxib (Celecoxib 200 Mg Capsule) 200 mg PO BID [facility] Last Admin: 03/08/23 09:30 Dose: 200 mg Documented By: ROXANNA Clonazepam (Clonazepam 0.5 Mg Tablet) 0.5 mg PO BID PRN PRN Reason: Anxiety Cyclobenzaprine HCl (Cyclobenzaprine Hcl 10 Mg Tablet) 10 mg PO TID PRN PRN Reason: musculoskeletal pain Docusate Sodium (Docusate Sodium 100 Mg Capsule) 100 mg PO DAILY PRN PRN Reason: Constipation Escitalopram Oxalate (Escitalopram Oxalate 20 Mg Tablet) 20 mg PO DAILY [facility] Last Admin: 03/08/23 07:51 Dose: 20 mg Documented By: MARCELO Fluticasone Propionate (Fluticasone Propionate 100 Mcg Blst.W.Dev) 1 puff INHALE RBID [facility] Last Admin: 03/08/23 08:42 Dose: Not Given Documented By: FELICIA Non-Admin Reason: Med Not Available Lactated Ringer's (Lr) 1,000 mls @ 100 mls/hr IVCONT .Q10H [facility] Last Admin: 03/08/23 08:39 Dose: 100 mls/hr Documented By: MARCELO Morphine Sulfate (Morphine Sulfate 2 Mg/Ml Cartridge) 2 mg IVPUSH Q4H PRN; Protocol PRN Reason: Pain, Severe (Pain Scale 7-10) Last Admin: 03/08/23 06:28 Dose: 2 mg Documented By: IWONA Non-Formulary Medication (Bupropion Hcl) 100 mg PO QAM [facility] Omeprazole (Omeprazole 20 Mg Capsule.Dr) 20 mg PO DAILY@0630 [facility] Last Admin: 03/08/23 06:15 Dose: 20 mg Documented By: IWONA Ondansetron HCl (Ondansetron Hcl 4 Mg/2 Ml Vial) 4 mg IVPUSH Q8H PRN PRN Reason: Nausea and Vomiting Last Admin: 03/08/23 09:26 Dose: 4 mg Documented By: ROXANNA Oxycodone HCl (Oxycodone Hcl Immed Release 5 Mg Tablet) 5 mg PO Q4H PRN PRN Reason: Pain, Moderate(Pain Scale 4-6) Potassium Chloride (Potassium Chloride Er 20 Meq Tab.Er.Prt) 40 meq PO BID [facility] Zolpidem Tartrate (Zolpidem Tartrate 5 Mg Tablet) 5 mg PO BEDTIME PRN PRN Reason: insomnia Labs 03/10/23 06:46 03/13/23 06:29 Labs: Laboratory Results - last 24 hr 03/07/23 03/07/23 03/07/23 14:30 21:10 22:03 MCV 91.0 MCH 33.0 MCHC 36.3 H RDW 15.1 Plt Count 265 MPV 10.4 Immature Gran % (Auto) 0.4 Neut % (Auto) 61.7 Lymph % (Auto) 26.6 [place] % (Auto) 9.9 Eos % (Auto) 1.2 Baso % (Auto) 0.2 Lymph # (Auto) 1.3 [place] # (Auto) 0.5 Eos # (Auto) 0.1 Baso # (Auto) 0.0 Abs Immat Gran (auto) 0.02 Absolute Neuts (auto) 3.1 Absolute Nucleated RBC 0.000 Nucleated RBC % (auto) 0.0 PT 11.8 INR 1.0 Anion Gap 15 20 Estim Creat Clear Calc 88.7 97.7 Estimated GFR > 60 > 60 Random Glucose 88 86 Calcium 8.2 L D 7.6 L D Magnesium 0.7 L* 2.1 Total Bilirubin 0.7 Direct Bilirubin 0.2 AST 34 H ALT 12 Alkaline Phosphatase 95 Total Protein 7.1 Albumin 3.6 Lipase 9 Urine Color Yellow Urine Appearance Clear Urine pH 6.5 Ur Specific [place] >= 1.030 H Urine Protein Negative Urine Glucose (UA) Negative Urine Ketones Negative Urine Blood Negative Urine Nitrite Negative Ur Leukocyte Esterase Negative COVID-19 (ISAEL) Negative COVID-19 Clin Com See Note Influenza Type A (RAMBO) Negative Influenza Type B (RAMBO) Negative Influenza A & B Note See Note 03/08/23 04:52 MCV 91.5 MCH 32.6 MCHC 35.7 H RDW 14.7 Plt Count 216 MPV 10.5 Immature Gran % (Auto) 0.6 H Neut % (Auto) 57.0 Lymph % (Auto) 27.7 [place] % (Auto) 12.3 H Eos % (Auto) 2.2 Baso % (Auto) 0.2 Lymph # (Auto) 1.3 [place] # (Auto) 0.6 Eos # (Auto) 0.1 Baso # (Auto) 0.0 Abs Immat Gran (auto) 0.03 Absolute Neuts (auto) 2.6 Absolute Nucleated RBC 0.000 Nucleated RBC % (auto) 0.0 PT INR Anion Gap 15 Estim Creat Clear Calc 101.0 Estimated GFR > 60 Random Glucose 84 Calcium 7.3 L Magnesium 1.4 L* Total Bilirubin Direct Bilirubin AST ALT Alkaline Phosphatase Total Protein Albumin Lipase Urine Color Urine Appearance Urine pH Ur Specific [place] Urine Protein Urine Glucose (UA) Urine Ketones Urine Blood Urine Nitrite Ur Leukocyte Esterase COVID-19 (ISAEL) COVID-19 Clin Com Influenza Type A (RMABO) Influenza Type B (RAMBO) Influenza A & B Note Assessment and Plan (1) Enteritis: Status: Acute Plan 62-year-old female with history of hyperlipidemia, hypertension, irritable bowel syndrome, fibromyalgia, mood disorder, history of C diff colitis, history TIA, chronic bronchitis, asthma, sickle cell trait admitted for acute hypokalemia and hypomagnesemia with intractable diarrhea Acute hypokalemia- d/t diarrhea As low as 2.1 IV and oral repletion no acute EKG changes follow BMP monitor on telemetry acute hypomagnesemia- due to diarrhea IV and oral repletion follow magnesium monitor on telemetry acute diarrhea with acute enteritis C diff PCR pending and GI panel normal IV fluids clear liquid diet pain management p.r.n. hypertension blood pressure reasonably controlled continue lisinopril, amlodipine hyperlipidemia statin asthma/COPD overlap continue Flovent, albuterol p.r.n. mood disorder continue home meds DVT prophylaxis-Lovenox Attending Dr. Landis Full code Patient requires continued hospitalization due to for management of severe electrolyte abnormality requiring repletion, close monitoring of renal function electrolytes and cardiac monitoring Quality Stroke Does the patient have a stroke diagnosis?: No VTE Prior VTE?: No VTE Risk Level:: Medical - moderate - high VTE Device Contraindication: Treatment Not Indicated VTE Drug Contraindication: N/A - Med Ordered
--- NOTE | 2023-03-08 11:06 | PC.NURSE ---
pt medicated w/ PRN pain medication at this time. rating abdominal pain at a 8/10 - will reassess shortly. call bustos placed within reach.
[2023-03-08 11:08] LABS: Anion Gap 15 (12-20); Blood Urea Nitrogen 3 mg/dL (9-16); Calcium 7.6 mg/dL (8.4-10.2); Carbon Dioxide 25 mmol/L (22-29); Chloride 104 mmol/L (96-108); Estimated Glomerular Filt Rate > 60; Glucose Random 107 mg/dL (60-115); Magnesium 2.1 mg/dL (1.6-2.6); Potassium 3.1 mmol/L (3.3-5.1); Sodium 141 mmol/L (135-145)
--- NOTE | 2023-03-08 11:29 | PC.NURSE ---
report given to RN - will notify transport.
[2023-03-08 11:42] LABS: CDiff Gene PCR POSITIVE (Negative)
[2023-03-08] MEDS: oxyCODONE HCl Immed Release 5 MG TABLET PO ×2 (12:24→19:31)
[2023-03-08] MEDS: Potassium Chloride ER 20 MEQ TAB.ER.PRT PO (12:25)
[2023-03-08 12:56] LABS: CDIFF Internal ctrl Dots and bkg OK (V); CDiff Toxin Negative (Negative)
[2023-03-08 15:27] LABS: Potassium 3.2 mmol/L (3.3-5.1)
[2023-03-08] MEDS: HYDROmorphone HCl 0.5 MG/0.5 ML SYRINGE IVPUSH ×2 (17:29→23:27)
[2023-03-08] MEDS: Potassium Chloride ER 20 MEQ TAB.ER.PRT 40 MEQ PO (19:28)
[2023-03-08] MEDS: Atorvastatin Calcium 10 MG TABLET PO (19:28)
[2023-03-08] MEDS: Zolpidem Tartrate 5 MG TABLET PO (23:28)
[2023-03-09] VITALS (8 sets, daily range): BP systolic 142–174; BP diastolic 66–91; PULSE 50–78; RESP 16–20; TEMP 36.1–37.3; O2SAT 95–98
[2023-03-09] MEDS: Lactated Ringers 1,000 ML 100 ML IVCONT ×2 (03:48→16:11)
[2023-03-09] MEDS: HYDROmorphone HCl 0.5 MG/0.5 ML SYRINGE IVPUSH ×4 (03:48→23:47)
[2023-03-09] MEDS: Omeprazole 20 MG CAPSULE.DR PO (06:23)
[2023-03-09] MEDS: oxyCODONE HCl Immed Release 5 MG TABLET PO ×3 (06:25→22:18)
[2023-03-09] MEDS: Fluticasone Propionate 100 MCG BLST.W.DEV 1 PUFF INHALE ×2 (07:49→19:34)
--- NOTE | 2023-03-09 09:15 | MHC.CM.PN ---
Pt is independent, self-care, uses a cane, and is currently staying with her mother to care for her. D/C plan is likely to return home self-care. Pts fiance can transport her home. HCP on file and verified. PCP: Dr. Alyx Lehman
[2023-03-09 09:34] LABS: MANUAL DIFF FLAG NO
[2023-03-09] MEDS: amLODIPine Besylate 10 MG TABLET PO (09:34)
[2023-03-09] MEDS: Potassium Chloride ER 20 MEQ TAB.ER.PRT 40 MEQ PO ×2 (09:34→19:20)
[2023-03-09] MEDS: Celecoxib 200 MG CAPSULE PO ×2 (09:34→19:20)
[2023-03-09] MEDS: Escitalopram Oxalate 20 MG TABLET PO (09:34)
[2023-03-09 09:35] LABS: Basophils Percent Auto 0.7 % (0-2); Eosinophils Absolute Auto 0.2 X10*3/uL (0.0-0.4); Eosinophils Percent Auto 3.8 % (0-4); Imm Gran Abs Auto 0.02 X10*3/uL (0.00-0.03); Imm Gran Pct Auto 0.5 % (0.0-0.4); Lymphocytes Percent Auto 24.4 % (20-40); Mean Corpuscular HGB Conc 35.3 g/dl (31.0-35.0); Mean Corpuscular Hemoglobin 33.5 pg (27.0-33.0); Mean Platelet Volume 10.2 fL (9.4-12.3); Monocytes Absolute Auto 0.5 X10*3/uL (0.1-1.2); Monocytes Percent Auto 12.4 % (2-11); Neutrophils Absolute Auto 2.4 x10*3/uL (2.0-8.3); Neutrophils Percent Auto 58.2 % (45-73); Platelet Count 271 X10*3/uL (160-400); Red Blood Count 3.58 X10*6/uL (4.20-5.50); Red Cell Distribution Width 14.7 % (11.0-16.0); White Blood Count 4.2 X10*3/uL (4.8-10.8)
[2023-03-09] MEDS: ondansetron HCL 4 MG/2 ML VIAL IVPUSH ×2 (09:40→19:25)
[2023-03-09 09:48] LABS: Anion Gap 15 (12-20); Blood Urea Nitrogen < 3 mg/dL (9-16); Calcium 8.4 mg/dL (8.4-10.2); Carbon Dioxide 30 mmol/L (22-29); Chloride 101 mmol/L (96-108); Creatinine Clr Calc Pharmacy 99.3; Estimated Glomerular Filt Rate > 60; Glucose Random 111 mg/dL (60-115); Potassium 3.2 mmol/L (3.3-5.1); Sodium 143 mmol/L (135-145)
--- NOTE | 2023-03-09 13:15 | P.PNIM_ITS ---
Subjective Subjective Date of Service: 03/09/23 Interval History: seen and examined this morning follow up for abdominal pain still with some abdominal pain and nonbloody diarrhea Review of Systems Review of Systems: Yes all other systems are reviewed and are negative Constitutional Constitutional: Denies chills and Denies fever(s) Cardiovascular Cardiovascular: Denies chest pain, Denies palpitations and Denies dyspnea Respiratory Respiratory: Denies cough and Denies dyspnea Gastrointestinal Gastrointestinal: Reports abdominal pain, Reports diarrhea, Reports nausea and Denies vomiting Endocrine Endocrine: Denies palpitations Physical Exam 2 Vital Signs: Vital Signs: Last Vital Signs Temp 99.1 F 03/09/23 12:00 Pulse 74 03/09/23 12:00 Resp 18 03/09/23 12:00 BP 172/87 H 03/09/23 12:00 Pulse Ox 95 03/09/23 12:00 O2 Del Method Room Air 03/09/23 12:00 BMI result Body Mass Index 27.0 Const: General: cooperative, comfortable, no acute distress, alert and awake Nutritional Appearance: average body habitus Orientation/consciousness: p atient oriented x3 Resp: Effort & Inspection: normal respiratory effort, able to speak in complete sentences, no respiratory distress and no use of accessory muscles Cardio: Rate: regular rate GI: Other: mild mid abdominal tenderness Inspection: No distended Palpation (GI): Soft to palpation Neuro: General: patient oriented x3, moves all extremities and CN's II-XI intact bilaterally Extrem: General: Yes no pedal edema Objective Data Active Medications Acetaminophen (Acetaminophen 325 Mg Tablet) 650 mg PO Q6H PRN PRN Reason: Pain, Mild (Pain Scale 1-3) Last Admin: 03/08/23 12:24 Dose: 650 mg Documented By: FELIPE Albuterol Sulfate (Albuterol Sulfate 90 Mcg 8 Gm Inhaler) 2 puff INHALE Q4H PRN PRN Reason: Cough Amlodipine Besylate (Amlodipine Besylate 10 Mg Tablet) 10 mg PO DAILY [facility]; Protocol Last Admin: 03/09/23 09:34 Dose: 10 mg Documented By: FELIPE Atorvastatin Calcium (Atorvastatin Calcium 10 Mg Tablet) 10 mg PO BEDTIME [facility] Last Admin: 03/08/23 19:28 Dose: 10 mg Documented By: LOGAN Celecoxib (Celecoxib 200 Mg Capsule) 200 mg PO BID [facility] Last Admin: 03/09/23 09:34 Dose: 200 mg Documented By: FELIPE Clonazepam (Clonazepam 0.5 Mg Tablet) 0.5 mg PO BID PRN PRN Reason: Anxiety Cyclobenzaprine HCl (Cyclobenzaprine Hcl 10 Mg Tablet) 10 mg PO TID PRN PRN Reason: musculoskeletal pain Docusate Sodium (Docusate Sodium 100 Mg Capsule) 100 mg PO DAILY PRN PRN Reason: Constipation Escitalopram Oxalate (Escitalopram Oxalate 20 Mg Tablet) 20 mg PO DAILY [facility] Last Admin: 03/09/23 09:34 Dose: 20 mg Documented By: FELIPE Fluticasone Propionate (Fluticasone Propionate 100 Mcg Blst.W.Dev) 1 puff INHALE RBID [facility] Last Admin: 03/09/23 07:49 Dose: 1 puff Documented By: PATSYSFRANNIE Hydromorphone HCl (Hydromorphone Hcl 0.5 Mg/0.5 Ml Syringe) 0.5 mg IVPUSH Q4H PRN; Protocol PRN Reason: Pain, Severe (Pain Scale 7-10) Last Admin: 03/09/23 09:34 Dose: 0.5 mg Documented By: FELIPE Lactated Ringer's (Lr) 1,000 mls @ 100 mls/hr IVCONT .Q10H [facility] Last Admin: 03/09/23 03:48 Dose: 100 mls/hr Documented By: LOGAN Non-Formulary Medication (Bupropion Hcl) 100 mg PO QAM [facility] Omeprazole (Omeprazole 20 Mg Capsule.Dr) 20 mg PO DAILY@0630 [facility] Last Admin: 03/09/23 06:23 Dose: 20 mg Documented By: LOGAN Ondansetron HCl (Ondansetron Hcl 4 Mg/2 Ml Vial) 4 mg IVPUSH Q8H PRN PRN Reason: Nausea and Vomiting Last Admin: 03/09/23 09:40 Dose: 4 mg Documented By: FELIPE Oxycodone HCl (Oxycodone Hcl Immed Release 5 Mg Tablet) 5 mg PO Q4H PRN PRN Reason: Pain, Moderate(Pain Scale 4-6) Last Admin: 03/09/23 06:25 Dose: 5 mg Documented By: LOGAN Potassium Chloride (Potassium Chloride Er 20 Meq Tab.Er.Prt) 40 meq PO BID [facility] Last Admin: 03/09/23 09:34 Dose: 40 meq Documented By: FELIPE Zolpidem Tartrate (Zolpidem Tartrate 5 Mg Tablet) 5 mg PO BEDTIME PRN PRN Reason: insomnia Last Admin: 03/08/23 23:28 Dose: 5 mg Documented By: LOGAN Labs 03/09/23 09:20 03/09/23 09:20 Labs: Laboratory Results - last 24 hr 03/08/23 03/09/23 10:13 09:20 MCV 95.0 MCH 33.5 H MCHC 35.3 H RDW 14.7 Plt Count 271 D MPV 10.2 Immature Gran % (Auto) 0.5 H Neut % (Auto) 58.2 Lymph % (Auto) 24.4 [place] % (Auto) 12.4 H Eos % (Auto) 3.8 Baso % (Auto) 0.7 Lymph # (Auto) 1.0 L [place] # (Auto) 0.5 Eos # (Auto) 0.2 Baso # (Auto) 0.0 Abs Immat Gran (auto) 0.02 Absolute Neuts (auto) 2.4 Absolute Nucleated RBC 0.000 Nucleated RBC % (auto) 0.0 Anion Gap 15 Estim Creat Clear Calc 99.3 Estimated GFR > 60 Random Glucose 111 Calcium 8.4 D Stl C. cayetanensis PCR Cancelled Stool Rotavirus A PCR Cancelled Stl Adenov F 40/41 PCR Cancelled Stool Astrovirus (PCR) Cancelled Stool Campylobacter PCR Cancelled Stool Cryptosporidium PCR Cancelled Stl Sh Tox Pr E STEC PCR Cancelled Stool E coli O157 PCR Cancelled Stl Enterotoxigenic E PCR Cancelled Stool EPEC (PCR) Cancelled Stool EAEC (PCR) Cancelled Stl E. histolytica PCR Cancelled Stool Giardia Lamblia PCR Cancelled Stl P. shigelloides PCR Cancelled Stool Salmonella PCR Cancelled Stool Sapovirus (PCR) Cancelled Stl Shigella/EIEC PCR Cancelled St Y.enterocolitica PCR Cancelled Stool Vibrio (PCR) Cancelled Stl Vibrio cholerae PCR Cancelled Stl Norovirus GI/GII PCR Cancelled Assessment and Plan (1) Diarrhea: Status: Acute (2) Enteritis: Status: Acute Plan This is a 62-year-old female with history of hyperlipidemia, hypertension, irritable bowel syndrome, fibromyalgia, mood disorder, history of C diff colitis, history TIA, chronic bronchitis, asthma, sickle cell trait admitted for acute hypokalemia and hypomagnesemia with intractable diarrhea Acute hypokalemia- d/t diarrhea improving with replacement continue po replacement no acute EKG changes follow BMP monitor on telemetry acute hypomagnesemia- due to diarrhea improved with replacement monitor on telemetry acute diarrhea with acute enteritis GI panel normal cdif PCR +, toxin negative - likely colonization continue IV fluids Gi consult pending will try to advance to full liquids pain management p.r.n. hypertension blood pressure reasonably controlled continue amlodipine hyperlipidemia statin asthma/COPD overlap continue Flovent, albuterol p.r.n. mood disorder continue home meds DVT prophylaxis- Attending Dr. Mina Full code Patient requires continued hospitalization due to for management of severe electrolyte abnormality requiring repletion, close monitoring of renal function electrolytes and cardiac monitoring Quality Stroke Does the patient have a stroke diagnosis?: No VTE Prior VTE?: No VTE Risk Level:: Medical - moderate - high VTE Device Contraindication: Treatment Not Indicated VTE Drug Contraindication: N/A - Med Ordered
[2023-03-09] MEDS: Acetaminophen 325 MG TABLET 650 MG PO ×2 (15:08→22:20)
[2023-03-09] MEDS: Atorvastatin Calcium 10 MG TABLET PO (19:20)
[2023-03-10] VITALS (7 sets, daily range): BP systolic 117–176; BP diastolic 60–95; PULSE 65–78; RESP 14–19; TEMP 36.3–36.7; O2SAT 96–99
[2023-03-10] MEDS: oxyCODONE HCl Immed Release 5 MG TABLET PO ×5 (02:15→23:52)
[2023-03-10] MEDS: HYDROmorphone HCl 0.5 MG/0.5 ML SYRINGE IVPUSH ×4 (04:53→20:40)
[2023-03-10] MEDS: Acetaminophen 325 MG TABLET 650 MG PO (05:59)
[2023-03-10] MEDS: Omeprazole 20 MG CAPSULE.DR PO (06:00)
[2023-03-10 07:15] LABS: Anion Gap 13 (12-20); Blood Urea Nitrogen < 3 mg/dL (9-16); Calcium 8.2 mg/dL (8.4-10.2); Carbon Dioxide 33 mmol/L (22-29); Chloride 97 mmol/L (96-108); Creatinine Clr Calc Pharmacy 97.7; Estimated Glomerular Filt Rate > 60; Glucose Random 87 mg/dL (60-115); Sodium 140 mmol/L (135-145)
[2023-03-10] MEDS: Potassium Chloride/H20 10 MEQ/100 ML PIGGYBACK 100 MEQ IV (07:30)
[2023-03-10 07:50] LABS: MANUAL DIFF FLAG NO
[2023-03-10] MEDS: Fluticasone Propionate 100 MCG BLST.W.DEV 1 PUFF INHALE (08:04)
[2023-03-10 08:22] LABS: Basophils Percent Auto 0.6 % (0-2); Eosinophils Absolute Auto 0.2 X10*3/uL (0.0-0.4); Eosinophils Percent Auto 4.1 % (0-4); Hematocrit 36.1 % (37.0-47.0); Hemoglobin 12.9 g/dl (12.0-16.0); Imm Gran Abs Auto 0.02 X10*3/uL (0.00-0.03); Imm Gran Pct Auto 0.6 % (0.0-0.4); Lymphocytes Absolute Auto 1.1 X10*3/uL (1.2-4.9); Lymphocytes Percent Auto 30.1 % (20-40); Mean Corpuscular HGB Conc 35.7 g/dl (31.0-35.0); Mean Corpuscular Hemoglobin 33.2 pg (27.0-33.0); Mean Platelet Volume 10.4 fL (9.4-12.3); Monocytes Absolute Auto 0.5 X10*3/uL (0.1-1.2); Monocytes Percent Auto 14.4 % (2-11); Neutrophils Absolute Auto 1.8 x10*3/uL (2.0-8.3); Neutrophils Percent Auto 50.2 % (45-73); Platelet Count 302 X10*3/uL (160-400); Red Blood Count 3.88 X10*6/uL (4.20-5.50); Red Cell Distribution Width 14.6 % (11.0-16.0); White Blood Count 3.6 X10*3/uL (4.8-10.8)
[2023-03-10] MEDS: Potassium Chloride ER 20 MEQ TAB.ER.PRT 40 MEQ PO ×2 (08:49→20:40)
[2023-03-10] MEDS: amLODIPine Besylate 10 MG TABLET PO (08:49)
[2023-03-10] MEDS: Celecoxib 200 MG CAPSULE PO ×2 (08:49→20:41)
[2023-03-10] MEDS: Escitalopram Oxalate 20 MG TABLET PO (08:49)
[2023-03-10] MEDS: Magnesium Sulfate/H2O 2 GM/50 ML PIGGYBACK IV (08:50)
[2023-03-10] MEDS: ondansetron HCL 4 MG/2 ML VIAL IVPUSH ×2 (08:58→20:40)
--- NOTE | 2023-03-10 12:05 | MHC.CM.PN ---
EMR reviewed and per MD rounds, pt is not medically cleared for D/C as she continues having diarrhea and is awaiting a GI consult. CM will continue to follow.
[2023-03-10] MEDS: clonazePAM 0.5 MG TABLET PO (14:08)
--- NOTE | 2023-03-10 14:11 | MHC.SHP ---
Pre-Procedural Eval Section A Date of Service: 03/10/23 The patient is an INPATIENT: Yes Changes since office visit: No Cold of Flu in the past 2 weeks, No New Medical Problems, No Changes in Medication and No Patient answered all questions The History & Physical has been completed within 30 days and I have reviewed it.: Yes Section B Chief Complaint: hypokalemia, hypomag, diarrhea Allergies: Allergies Allergy/AdvReac Type Severity Reaction Status Date / Time lisinopril [LISINOPRIL] Allergy Severe TONGUE Verified 03/07/23 13:49 SWELLING olanzapine [From Zyprexa] AdvReac Involuntary Verified 03/07/23 13:49 Spasms emprin compound Allergy Intermediate Hives Uncoded 12/13/22 08:16 Plan I have reviewed the history and physical and performed a pertinent physical examination on my patient. No changes have occurred unless specified. Time Spent With Patient Time: Total time managing care of this patient today ____ minutes.
--- NOTE | 2023-03-10 14:12 | PM.EVENT ---
Event Note Date of Service: 03/10/23 Event Note: GI consult dictated EGD/colonscopy planned for 03/13 for further evaluation of nausea, vomiting diarrhea and abd pain. Time Spent With Patient Time: Total time managing care of this patient today ____ minutes.
[2023-03-10] MEDS: Dicyclomine HCl 10 MG CAPSULE 20 MG PO ×2 (15:26→20:41)
--- NOTE | 2023-03-10 16:06 | HO.PM.IMPN ---
Subjective Subjective Date of Service: 03/10/23 Interval History: seen and examined this morning follow up for abdominal pain, nausea and diarrhea having persistent symptoms and electrolyte abnormalities Review of Systems Review of Systems: Yes all other systems are reviewed and are negative Constitutional Constitutional: Denies chills and Denies fever(s) Cardiovascular Cardiovascular: Denies chest pain, Denies palpitations and Denies dyspnea Respiratory Respiratory: Denies cough and Denies dyspnea Gastrointestinal Gastrointestinal: Reports abdominal pain, Reports diarrhea, Denies nausea and Denies vomiting Endocrine Endocrine: Denies palpitations Physical Exam Vital Signs: Vital Signs: Last Vital Signs Temp 97.8 F 03/10/23 15:10 Pulse 78 03/10/23 15:10 Resp 16 03/10/23 15:10 BP 140/80 H 03/10/23 15:10 Pulse Ox 99 03/10/23 15:10 O2 Del Method Room Air 03/10/23 15:10 BMI result Body Mass Index 27.0 Const: General: cooperative, comfortable, no acute distress, alert and awake Nutritional Appearance: average body habitus Orientation/consciousness: patient oriented x3 Resp: Effort & Inspection: normal respiratory effort, able to speak in complete sentences, no respiratory distress and no use of accessory muscles Cardio: Rate: regular rate GI: Other: mild mid abdominal tenderness; no guarding or rebound Inspection: No distended Palpation (GI): Soft to palpation Neuro: General: patient oriented x3, moves all extremities and CN's II-XI intact bilaterally Extrem: General: Yes no pedal edema Objective Data Active Medications Acetaminophen (Acetaminophen 325 Mg Tablet) 650 mg PO Q6H PRN PRN Reason: Pain, Mild (Pain Scale 1-3) Last Admin: 03/10/23 05:59 Dose: 650 mg Documented By: CLAIR Albuterol Sulfate (Albuterol Sulfate 90 Mcg 8 Gm Inhaler) 2 puff INHALE Q4H PRN PRN Reason: Cough Amlodipine Besylate (Amlodipine Besylate 10 Mg Tablet) 10 mg PO DAILY [facility]; Protocol Last Admin: 03/10/23 08:49 Dose: 10 mg Documented By: GIOVANNA Atorvastatin Calcium (Atorvastatin Calcium 10 Mg Tablet) 10 mg PO BEDTIME [facility] Last Admin: 03/09/23 19:20 Dose: 10 mg Documented By: LOGAN Bupropion HCl (Bupropion Hcl 75 Mg Tablet) 75 mg PO BID [facility] Celecoxib (Celecoxib 200 Mg Capsule) 200 mg PO BID [facility] Last Admin: 03/10/23 08:49 Dose: 200 mg Documented By: GIOVANNA Clonazepam (Clonazepam 0.5 Mg Tablet) 0.5 mg PO BID PRN PRN Reason: Anxiety Last Admin: 03/10/23 14:08 Dose: 0.5 mg Documented By: GIOVANNA Cyclobenzaprine HCl (Cyclobenzaprine Hcl 10 Mg Tablet) 10 mg PO TID PRN PRN Reason: musculoskeletal pain Dicyclomine HCl (Dicyclomine Hcl 10 Mg Capsule) 20 mg PO QIDACHS [facility] Last Admin: 03/10/23 15:26 Dose: 20 mg Documented By: GIOVANNA Docusate Sodium (Docusate Sodium 100 Mg Capsule) 100 mg PO DAILY PRN PRN Reason: Constipation Escitalopram Oxalate (Escitalopram Oxalate 20 Mg Tablet) 20 mg PO DAILY [facility] Last Admin: 03/10/23 08:49 Dose: 20 mg Documented By: GIOVANNA Fluticasone Propionate (Fluticasone Propionate 100 Mcg Blst.W.Dev) 1 puff INHALE [facility] Last Admin: 03/10/23 08:04 Dose: 1 puff Documented By: TAZ Hydromorphone HCl (Hydromorphone Hcl 0.5 Mg/0.5 Ml Syringe) 0.5 mg IVPUSH Q4H PRN; Protocol PRN Reason: Pain, Severe (Pain Scale 7-10) Last Admin: 03/10/23 14:08 Dose: 0.5 mg Documented By: GIOVANNA Omeprazole (Omeprazole 20 Mg Capsule.Dr) 20 mg PO DAILY@0630 [facility] Last Admin: 03/10/23 06:00 Dose: 20 mg Documented By: CLAIR Ondansetron HCl (Ondansetron Hcl 4 Mg/2 Ml Vial) 4 mg IVPUSH Q8H PRN PRN Reason: Nausea and Vomiting Last Admin: 03/10/23 08:58 Dose: 4 mg Documented By: GIOVANNA Oxycodone HCl (Oxycodone Hcl Immed Release 5 Mg Tablet) 5 mg PO Q4H PRN PRN Reason: Pain, Moderate(Pain Scale 4-6) Last Admin: 03/10/23 15:26 Dose: 5 mg Documented By: GIOVANNA Polyethylene Glycol/Electrolytes (Peg 3350/Na Sulf,Bicarb,Cl/Kcl 4,000 Ml Soln.Recon) 4,000 ml PO ONCE ONE Stop: 03/12/23 16:01 Potassium Chloride (Potassium Chloride Er 20 Meq Tab.Er.Prt) 40 meq PO BID [facility] Last Admin: 03/10/23 08:49 Dose: 40 meq Documented By: GIOVANNA Zolpidem Tartrate (Zolpidem Tartrate 5 Mg Tablet) 5 mg PO BEDTIME PRN PRN Reason: insomnia Last Admin: 03/08/23 23:28 Dose: 5 mg Documented By: LOGAN Labs 03/10/23 06:46 03/10/23 06:33 Labs: Laboratory Results - last 24 hr 03/10/23 03/10/23 06:33 06:46 MCV 93.0 MCH 33.2 H MCHC 35.7 H RDW 14.6 Plt Count 302 MPV 10.4 Immature Gran % (Auto) 0.6 H Neut % (Auto) 50.2 Lymph % (Auto) 30.1 Isabela % (Auto) 14.4 H Eos % (Auto) 4.1 H Baso % (Auto) 0.6 Lymph # (Auto) 1.1 L Isabel[place] # (Auto) 0.5 Eos # (Auto) 0.2 Baso # (Auto) 0.0 Abs Immat Gran (auto) 0.02 Absolute Neuts (auto) 1.8 L Absolute Nucleated RBC 0.000 Nucleated RBC % (auto) 0.0 Hold Purple Top SEE NOTE Anion Gap 13 Estim Creat Clear Calc 97.7 Estimated GFR > 60 Random Glucose 87 Calcium 8.2 L Magnesium 1.0 L* Assessment and Plan (1) Hypomagnesemia: Status: Acute (2) Acute hypokalemia: Status: Acute Plan This is a 62-year-old female with history of hyperlipidemia, hypertension, irritable bowel syndrome, fibromyalgia, mood disorder, history of C diff colitis, history TIA, chronic bronchitis, asthma, sickle cell trait admitted for acute hypokalemia and hypomagnesemia with intractable diarrhea Acute hypokalemia- d/t diarrhea still low continue po replacement, will give IV 20 meq no acute EKG changes follow BMP monitor on telemetry acute hypomagnesemia- due to diarrhea still low, will replace IV monitor on telemetry acute diarrhea with acute enteritis GI panel normal cdif PCR +, toxin negative - likely colonization, no need to treat pain management p.r.n. seen by GI - advance diet, plan for EGD/colonoscopy on Monday; martin added hypertension continue amlodipine hyperlipidemia statin asthma/COPD overlap continue Flovent, albuterol p.r.n. mood disorder continue home meds DVT prophylaxis- mechanical devices Attending Dr. Landis Full code Patient requires continued hospitalization due to for management of severe electrolyte abnormality requiring repletion, close monitoring of renal function electrolytes and cardiac monitoring Quality Stroke Does the patient have a stroke diagnosis?: No VTE Prior VTE?: No VTE Risk Level:: Medical - moderate - high VTE Device Contraindication: Treatment Not Indicated VTE Drug Contraindication: N/A - Med Ordered
[2023-03-10] MEDS: Magnesium Sulfate/D5W 1 GM/100 ML PIGGYBACK IV (16:33)
--- NOTE | 2023-03-10 20:23 | CONS_ITS ---
DATE OF SERVICE: 03/10/2023 REFERRING PHYSICIAN: DI Rogel REASON FOR CONSULTATION: Enteritis and diarrhea. HISTORY OF PRESENT ILLNESS: The patient is a pleasant 62-year-old woman, who was admitted to the hospital after presenting to the emergency department on 03/07 with complaints of abdominal pain and diarrhea. Symptoms began 2 days before admission when she developed onset of nausea, vomiting, and generalized abdominal pain. There was no hematemesis or melena. She has had occasional hematochezia. She describes chronic diarrheal symptoms relating to underlying irritable bowel syndrome, but states the diarrhea worsened over the past 48 hours prior to admission. There was no suspect food ingestion, antibiotic usage, or ill contacts. She was evaluated in the emergency department and underwent laboratory studies showing a white count of 5 with a hematocrit of 34. CT imaging of the abdomen and pelvis was obtained, which was reviewed. This is interpreted as showing abnormal wall thickening to the terminal ileum and distal ileum, suspicious for infectious or inflammatory enteritis. The patient denies any prior history of Crohn disease or ulcerative colitis. She does describe undergoing colonoscopy, and believes this was last done at [facility]. She was hospitalized earlier in August with diverticulosis and colitis. Outpatient colonoscopy was planned. PAST MEDICAL HISTORY: 1. Hypertension. 2. Hyperlipidemia. 3. Irritable bowel syndrome. 4. Fibromyalgia. 5. Mood disorder. 6. C. diff colitis. 7. TIA. 8. Peripheral neuropathy. 9. Asthma/chronic bronchitis. 10. Sickle cell trait. CURRENT MEDICATIONS: Her current medication list is reviewed in the chart. ALLERGIES: LISINOPRIL, OLANZAPINE, AND EMPIRIN COMPOUND. FAMILY HISTORY: This is reviewed with the patient and is noncontributory. SOCIAL HISTORY: There is no current substance abuse. She does smoke. She denies alcohol. REVIEW OF SYSTEMS: SKIN: No pruritus. HEENT: Negative. CARDIOPULMONARY: No shortness of breath or chest pain. GASTROINTESTINAL: As above. GENITOURINARY: Negative. NEUROPSYCHIATRIC: Negative. PHYSICAL EXAMINATION: GENERAL: Shows a pleasant female, lying in bed. VITAL SIGNS: Stable. SKIN: Anicteric. HEENT: Shows no scleral icterus. NECK: Without lymphadenopathy or thyromegaly. LUNGS: Clear. HEART: Shows a regular rate and rhythm S1, S2. No murmur. ABDOMEN: Soft without focal masses or tenderness. Bowel sounds are present. There is some mild diffuse tenderness to palpation, but no guarding or rebound. EXTREMITIES: Without edema. LABORATORY DATA: Reviewed. She did have a C. diff result, suggestive of colonization. Other stool tests have shown no treatable infectious etiology. IMPRESSION: Nausea, vomiting with abdominal pain and diarrhea. Her presentation could be consistent with an acute viral gastroenteritis, which could also explain the CT findings on her examination. I would recommend further evaluation with upper endoscopy and colonoscopy given her persistent upper and lower GI symptoms. I did start her on dicyclomine for any component of intestinal muscle spasm causing her abdominal discomfort. I discussed risks and benefits of endoscopy and colonoscopy with her. She understands these and agrees to proceed. This will be arranged for 03/13 and can be done as an outpatient if she has felt well enough to be discharged over the weekend. Thanks for asking me to see her. I will follow her in the hospital with you. MD ELIN Anne/STEPHAN / [phone]
[2023-03-10] MEDS: buPROPion HCL 75 MG TABLET PO (20:41)
[2023-03-10] MEDS: Atorvastatin Calcium 10 MG TABLET PO (20:41)
[2023-03-10] MEDS: Zolpidem Tartrate 5 MG TABLET PO (23:51)
[2023-03-11] VITALS (8 sets, daily range): BP systolic 140–181; BP diastolic 73–89; PULSE 70–80; RESP 12–20; TEMP 36.3–36.9; O2SAT 95–99
[2023-03-11] MEDS: Omeprazole 20 MG CAPSULE.DR PO (04:30)
[2023-03-11] MEDS: HYDROmorphone HCl 0.5 MG/0.5 ML SYRINGE IVPUSH ×3 (04:30→14:22)
[2023-03-11] MEDS: Fluticasone Propionate 100 MCG BLST.W.DEV 1 PUFF INHALE ×2 (08:04→19:40)
[2023-03-11 08:34] LABS: Anion Gap 13 (12-20); Blood Urea Nitrogen 3 mg/dL (9-16); Calcium 8.5 mg/dL (8.4-10.2); Carbon Dioxide 27 mmol/L (22-29); Chloride 101 mmol/L (96-108); Creatinine Clr Calc Pharmacy 80.2; Estimated Glomerular Filt Rate > 60; Glucose Random 98 mg/dL (60-115); Magnesium 1.7 mg/dL (1.6-2.6); Potassium 4.1 mmol/L (3.3-5.1); Sodium 137 mmol/L (135-145)
[2023-03-11] MEDS: Escitalopram Oxalate 20 MG TABLET PO (08:36)
[2023-03-11] MEDS: Celecoxib 200 MG CAPSULE PO ×2 (08:36→20:20)
[2023-03-11] MEDS: Dicyclomine HCl 10 MG CAPSULE 20 MG PO ×4 (08:36→20:21)
[2023-03-11] MEDS: buPROPion HCL 75 MG TABLET PO ×2 (08:37→20:20)
[2023-03-11] MEDS: amLODIPine Besylate 10 MG TABLET PO (08:37)
[2023-03-11] MEDS: Potassium Chloride ER 20 MEQ TAB.ER.PRT 40 MEQ PO (08:37)
[2023-03-11] MEDS: oxyCODONE HCl Immed Release 5 MG TABLET PO ×3 (08:38→20:20)
[2023-03-11] MEDS: Magnesium Sulfate/H2O 2 GM/50 ML PIGGYBACK IV (10:25)
--- NOTE | 2023-03-11 11:28 | HO.PM.IMPN ---
Subjective Subjective Date of Service: 03/11/23 Interval History: seen and examined this morning follow up for abdominal pain, diarrhea electrolytes improving, still with some generalized abdominal pain and ongoing diarrhea Review of Systems Review of Systems: Yes all other systems are reviewed and are negative Constitutional Constitutional: Denies chills and Denies fever(s) Cardiovascular Cardiovascular: Denies chest pain, Denies palpitations and Denies dyspnea Respiratory Respiratory: Denies cough and Denies dyspnea Gastrointestinal Gastrointestinal: Denies abdominal pain, Denies nausea and Denies vomiting Endocrine Endocrine: Denies palpitations Physical Exam Vital Signs: Vital Signs: Last Vital Signs Temp 97.3 F 03/11/23 07:50 Pulse 73 03/11/23 08:05 Resp 16 03/11/23 08:05 BP 160/80 H 03/11/23 07:50 Pulse Ox 98 03/11/23 07:50 O2 Del Method Room Air 03/11/23 07:50 BMI result Body Mass Index 27.0 Const: General: cooperative, comfortable, no acute distress, alert and awake Nutritional Appearance: average body habitus Orientation/consciousness: patient oriented x3 Resp: Effort & Inspection: normal respiratory effort, able to speak in complete sentences, no respiratory distress and no use of accessory muscles Cardio: Rate: regular rate GI: Other: mild mid abdominal tenderness; no guarding or rebound Inspection: No distended Palpation (GI): Soft to palpation Neuro: General: patient oriented x3, moves all extremities and CN's II-XI intact bilaterally Extrem: General: Yes no pedal edema Objective Data Active Medications Acetaminophen (Acetaminophen 325 Mg Tablet) 650 mg PO Q6H PRN PRN Reason: Pain, Mild (Pain Scale 1-3) Last Admin: 03/10/23 05:59 Dose: 650 mg Documented By: CLAIR Albuterol Sulfate (Albuterol Sulfate 90 Mcg 8 Gm Inhaler) 2 puff INHALE Q4H PRN PRN Reason: Cough Amlodipine Besylate (Amlodipine Besylate 10 Mg Tablet) 10 mg PO DAILY [facility]; Protocol Last Admin: 03/11/23 08:37 Dose: 10 mg Documented By: TARUN Atorvastatin Calcium (Atorvastatin Calcium 10 Mg Tablet) 10 mg PO BEDTIME [facility] Last Admin: 03/10/23 20:41 Dose: 10 mg Documented By: MAN Bupropion HCl (Bupropion Hcl 75 Mg Tablet) 75 mg PO BID [facility] Last Admin: 03/11/23 08:37 Dose: 75 mg Documented By: TARUN Celecoxib (Celecoxib 200 Mg Capsule) 200 mg PO BID [facility] Last Admin: 03/11/23 08:36 Dose: 200 mg Documented By: TARUN Clonazepam (Clonazepam 0.5 Mg Tablet) 0.5 mg PO BID PRN PRN Reason: Anxiety Last Admin: 03/10/23 14:08 Dose: 0.5 mg Documented By: GIOVANNA Cyclobenzaprine HCl (Cyclobenzaprine Hcl 10 Mg Tablet) 10 mg PO TID PRN PRN Reason: musculoskeletal pain Dicyclomine HCl (Dicyclomine Hcl 10 Mg Capsule) 20 mg PO QIDACHS [facility] Last Admin: 03/11/23 10:25 Dose: 20 mg Documented By: MARLEY Docusate Sodium (Docusate Sodium 100 Mg Capsule) 100 mg PO DAILY PRN PRN Reason: Constipation Escitalopram Oxalate (Escitalopram Oxalate 20 Mg Tablet) 20 mg PO DAILY [facility] Last Admin: 03/11/23 08:36 Dose: 20 mg Documented By: TARUN Fluticasone Propionate (Fluticasone Propionate 100 Mcg Blst.W.Dev) 1 puff INHALE RBID [facility] Last Admin: 03/11/23 08:04 Dose: 1 puff Documented By: MARCELA Hydromorphone HCl (Hydromorphone Hcl 0.5 Mg/0.5 Ml Syringe) 0.5 mg IVPUSH Q4H PRN; Protocol PRN Reason: Pain, Severe (Pain Scale 7-10) Last Admin: 03/11/23 10:25 Dose: 0.5 mg Documented By: MARLEY Magnesium Sulfate (Magnesium Sulfate/H2o) 2 gm in 50 mls @ 25 mls/hr IV ONCE ONE Stop: 03/11/23 12:00 Last Admin: 03/11/23 10:25 Dose: 25 mls/hr Documented By: MARLEY Omeprazole (Omeprazole 20 Mg Capsule.Dr) 20 mg PO DAILY@0630 [facility] Last Admin: 03/11/23 04:30 Dose: 20 mg Documented By: MEHNAZOIC Ondansetron HCl (Ondansetron Hcl 4 Mg/2 Ml Vial) 4 mg IVPUSH Q8H PRN PRN Reason: Nausea and Vomiting Last Admin: 03/10/23 20:40 Dose: 4 mg Documented By: MAN Oxycodone HCl (Oxycodone Hcl Immed Release 5 Mg Tablet) 5 mg PO Q4H PRN PRN Reason: Pain, Moderate(Pain Scale 4-6) Last Admin: 03/11/23 08:38 Dose: 5 mg Documented By: TARUN Polyethylene Glycol/Electrolytes (Peg 3350/Na Sulf,Bicarb,Cl/Kcl 4,000 Ml Soln.Recon) 4,000 ml PO ONCE ONE Stop: 03/12/23 16:01 Zolpidem Tartrate (Zolpidem Tartrate 5 Mg Tablet) 5 mg PO BEDTIME PRN PRN Reason: insomnia Last Admin: 03/10/23 23:51 Dose: 5 mg Documented By: ANTOIC Labs 03/10/23 06:46 03/11/23 07:27 Labs: Laboratory Results - last 24 hr 03/11/23 07:27 Anion Gap 13 Estim Creat Clear Calc 80.2 Estimated GFR > 60 Random Glucose 98 Calcium 8.5 Magnesium 1.7 Assessment and Plan (1) Diarrhea: Status: Acute Plan This is a 62-year-old female with history of hyperlipidemia, hypertension, irritable bowel syndrome, fibromyalgia, mood disorder, history of C diff colitis, history TIA, chronic bronchitis, asthma, sickle cell trait admitted for acute hypokalemia and hypomagnesemia with intractable diarrhea Acute hypokalemia- d/t diarrhea resolved with replacement follow BMP acute hypomagnesemia- due to diarrhea improving acute diarrhea with possible enteritis GI panel normal cdif PCR +, toxin negative - indicating likely colonization, no need to treat pain management p.r.n. seen by GI - advance diet, plan for EGD/colonoscopy on Tuesday 03/13; bentyl added hypertension continue amlodipine hyperlipidemia statin asthma/COPD overlap continue Flovent, albuterol p.r.n. mood disorder continue home meds DVT prophylaxis- mechanical devices Attending Dr. Welch Full code Patient requires continued hospitalization due to for management of severe electrolyte abnormality requiring repletion, close monitoring of renal function electrolytes and cardiac monitoring Quality Stroke Does the patient have a stroke diagnosis?: No VTE Prior VTE?: No VTE Risk Level:: Medical - moderate - high VTE Device Contraindication: Treatment Not Indicated VTE Drug Contraindication: N/A - Med Ordered
[2023-03-11] MEDS: HYDROmorphone HCl 0.5 MG/0.5 ML SYRINGE 0.25 MG IVPUSH ×2 (18:49→23:30)
[2023-03-11] MEDS: Atorvastatin Calcium 10 MG TABLET PO (20:20)
[2023-03-11] MEDS: Zolpidem Tartrate 5 MG TABLET PO (22:08)
[2023-03-12] VITALS (10 sets, daily range): BP systolic 134–163; BP diastolic 60–84; PULSE 64–84; RESP 12–20; TEMP 36.1–36.8; O2SAT 96–99
[2023-03-12] MEDS: oxyCODONE HCl Immed Release 5 MG TABLET PO ×2 (01:20→08:43)
[2023-03-12] MEDS: Omeprazole 20 MG CAPSULE.DR PO (05:21)
[2023-03-12] MEDS: HYDROmorphone HCl 0.5 MG/0.5 ML SYRINGE 0.25 MG IVPUSH ×4 (05:21→20:13)
[2023-03-12] MEDS: ondansetron HCL 4 MG/2 ML VIAL IVPUSH (05:49)
[2023-03-12 06:52] LABS: Anion Gap 11 (12-20); Blood Urea Nitrogen 5 mg/dL (9-16); Carbon Dioxide 29 mmol/L (22-29); Chloride 104 mmol/L (96-108); Creatinine Clr Calc Pharmacy 88.7; Estimated Glomerular Filt Rate > 60; Glucose Random 86 mg/dL (60-115); Magnesium 1.6 mg/dL (1.6-2.6); Potassium 5.2 mmol/L (3.3-5.1); Sodium 139 mmol/L (135-145)
[2023-03-12] MEDS: buPROPion HCL 75 MG TABLET PO ×2 (08:21→20:13)
[2023-03-12] MEDS: Dicyclomine HCl 10 MG CAPSULE 20 MG PO ×4 (08:21→20:13)
[2023-03-12] MEDS: Escitalopram Oxalate 20 MG TABLET PO (08:21)
[2023-03-12] MEDS: clonazePAM 0.5 MG TABLET PO ×2 (08:21→20:16)
[2023-03-12] MEDS: amLODIPine Besylate 10 MG TABLET PO (08:22)
[2023-03-12] MEDS: Fluticasone Propionate 100 MCG BLST.W.DEV 1 PUFF INHALE (08:30)
--- NOTE | 2023-03-12 10:43 | P.PNIM_ITS ---
Subjective Subjective Date of Service: 03/12/23 Interval History: seen and examined this morning follow up for diarrhea, abdominal pain stool a little less watery Review of Systems Review of Systems: Yes all other systems are reviewed and are negative Constitutional Constitutional: Denies chills and Denies fever(s) Cardiovascular Cardiovascular: Denies chest pain, Denies palpitations and Denies dyspnea Respiratory Respiratory: Denies cough and Denies dyspnea Gastrointestinal Gastrointestinal: Reports abdominal pain, Reports nausea and Denies vomiting Endocrine Endocrine: Denies palpitations Physical Exam 2 Vital Signs: Vital Signs: Last Vital Signs Temp 97.5 F 03/12/23 07:11 Pulse 73 03/12/23 08:31 Resp 12 03/12/23 08:31 BP 163/83 H 03/12/23 07:11 Pulse Ox 96 03/12/23 07:11 O2 Del Method Room Air 03/12/23 07:11 BMI result Body Mass Index 27.0 Const: General: cooperative, comfortable, no acute distress, alert and awake Nutritional Appearance: average body habitus Orientation/consciousness: p atient oriented x3 Resp: Effort & Inspection: normal respiratory effort, able to speak in complete sentences, no respiratory distress and no use of accessory muscles Cardio: Rate: regular rate GI: Other: mild mid abdominal tenderness; no guarding or rebound Inspection: No distended Palpation (GI): Soft to palpation Neuro: General: patient oriented x3, moves all extremities and CN's II-XI intact bilaterally Extrem: General: Yes no pedal edema Objective Data Active Medications Acetaminophen (Acetaminophen 325 Mg Tablet) 650 mg PO Q6H PRN PRN Reason: Pain, Mild (Pain Scale 1-3) Last Admin: 03/10/23 05:59 Dose: 650 mg Documented By: CLAIR Albuterol Sulfate (Albuterol Sulfate 90 Mcg 8 Gm Inhaler) 2 puff INHALE Q4H PRN PRN Reason: Cough Amlodipine Besylate (Amlodipine Besylate 10 Mg Tablet) 10 mg PO DAILY [facility]; Protocol Last Admin: 03/12/23 08:22 Dose: 10 mg Documented By: NICHOLAS Atorvastatin Calcium (Atorvastatin Calcium 10 Mg Tablet) 10 mg PO BEDTIME [facility] Last Admin: 03/11/23 20:20 Dose: 10 mg Documented By: CRISTIAN Bupropion HCl (Bupropion Hcl 75 Mg Tablet) 75 mg PO BID [facility] Last Admin: 03/12/23 08:21 Dose: 75 mg Documented By: NICHOLSA Clonazepam (Clonazepam 0.5 Mg Tablet) 0.5 mg PO BID PRN PRN Reason: Anxiety Last Admin: 03/12/23 08:21 Dose: 0.5 mg Documented By: NICHOLAS Cyclobenzaprine HCl (Cyclobenzaprine Hcl 10 Mg Tablet) 10 mg PO TID PRN PRN Reason: musculoskeletal pain Dicyclomine HCl (Dicyclomine Hcl 10 Mg Capsule) 20 mg PO QIDACHS [facility] Last Admin: 03/12/23 08:21 Dose: 20 mg Documented By: NICHOLAS Docusate Sodium (Docusate Sodium 100 Mg Capsule) 100 mg PO DAILY PRN PRN Reason: Constipation Escitalopram Oxalate (Escitalopram Oxalate 20 Mg Tablet) 20 mg PO DAILY [facility] Last Admin: 03/12/23 08:21 Dose: 20 mg Documented By: NICHOLAS Fluticasone Propionate (Fluticasone Propionate 100 Mcg Blst.W.Dev) 1 puff INHALE [facility] Last Admin: 03/12/23 08:30 Dose: 1 puff Documented By: SCROMINA Hydromorphone HCl (Hydromorphone Hcl 0.5 Mg/0.5 Ml Syringe) 0.25 mg IVPUSH Q4H PRN; Protocol PRN Reason: Pain, Severe (Pain Scale 7-10) Last Admin: 03/12/23 05:21 Dose: 0.25 mg Documented By: CRISTIAN Omeprazole (Omeprazole 20 Mg Capsule.Dr) 20 mg PO DAILY@0630 [facility] Last Admin: 03/12/23 05:21 Dose: 20 mg Documented By: CRISTIAN Ondansetron HCl (Ondansetron Hcl 4 Mg/2 Ml Vial) 4 mg IVPUSH Q8H PRN PRN Reason: Nausea and Vomiting Last Admin: 03/12/23 05:49 Dose: 4 mg Documented By: CRISTIAN Oxycodone HCl (Oxycodone Hcl Immed Release 5 Mg Tablet) 5 mg PO Q4H PRN PRN Reason: Pain, Moderate(Pain Scale 4-6) Last Admin: 03/12/23 08:43 Dose: 5 mg Documented By: NICHOLAS Polyethylene Glycol/Electrolytes (Peg 3350/Na Sulf,Bicarb,Cl/Kcl 4,000 Ml Soln.Recon) 4,000 ml PO ONCE ONE Stop: 03/12/23 16:01 Zolpidem Tartrate (Zolpidem Tartrate 5 Mg Tablet) 5 mg PO BEDTIME PRN PRN Reason: insomnia Last Admin: 03/11/23 22:08 Dose: 5 mg Documented By: CRISTIAN Labs 03/10/23 06:46 03/12/23 05:50 Labs: Laboratory Results - last 24 hr 03/12/23 05:50 Hold Purple Top SEE NOTE Anion Gap 11 L Estim Creat Clear Calc 88.7 Estimated GFR > 60 Random Glucose 86 Calcium 9.0 Magnesium 1.6 Assessment and Plan (1) Diarrhea: Status: Acute Plan This is a 62-year-old female with history of hyperlipidemia, hypertension, irritable bowel syndrome, fibromyalgia, mood disorder, history of C diff colitis, history TIA, chronic bronchitis, asthma, sickle cell trait admitted for acute hypokalemia and hypomagnesemia with intractable diarrhea Acute hypokalemia- d/t diarrhea resolved with replacement follow BMP acute hypomagnesemia- due to diarrhea improving acute diarrhea with possible enteritis GI panel normal cdif PCR +, toxin negative - indicating likely colonization, no need to treat seen by GI - plan for EGD/colonoscopy on Tuesday 03/13; NPO at midnight no indication for antibiotics at this time bentyl added hypertension continue amlodipine hyperlipidemia statin asthma/COPD overlap continue Flovent, albuterol p.r.n. mood disorder continue home meds DVT prophylaxis- mechanical devices Attending Dr. Welch Full code Patient requires continued hospitalization due to for management of diarrhea, plan for EGD/colonoscopy Quality Stroke Does the patient have a stroke diagnosis?: No VTE Prior VTE?: No VTE Risk Level:: Medical - moderate - high VTE Device Contraindication: Treatment Not Indicated VTE Drug Contraindication: N/A - Med Ordered
[2023-03-12] MEDS: PEG 3350/Na Sulf,Bicarb,Cl/KCL 4,000 ML SOLN.RECON 4000 ML PO (16:33)
[2023-03-12] MEDS: Atorvastatin Calcium 10 MG TABLET PO (20:13)
[2023-03-13] VITALS (10 sets, daily range): BP systolic 127–153; BP diastolic 68–87; PULSE 68–90; RESP 16–20; TEMP 36.1–37.1; O2SAT 94–100
[2023-03-13] MEDS: HYDROmorphone HCl 0.5 MG/0.5 ML SYRINGE 0.25 MG IVPUSH ×4 (00:49→20:13)
[2023-03-13 07:18] LABS: Anion Gap 11 (12-20); Blood Urea Nitrogen 3 mg/dL (9-16); Calcium 9.3 mg/dL (8.4-10.2); Carbon Dioxide 29 mmol/L (22-29); Chloride 105 mmol/L (96-108); Creatinine Clr Calc Pharmacy 82.5; Estimated Glomerular Filt Rate > 60; Glucose Random 85 mg/dL (60-115); Sodium 140 mmol/L (135-145)
[2023-03-13] MEDS: Fluticasone Propionate 100 MCG BLST.W.DEV 1 PUFF INHALE (07:37)
[2023-03-13] MEDS: Dicyclomine HCl 10 MG CAPSULE 20 MG PO ×3 (08:09→20:07)
[2023-03-13] MEDS: Escitalopram Oxalate 20 MG TABLET PO (08:09)
[2023-03-13] MEDS: amLODIPine Besylate 10 MG TABLET PO (08:09)
[2023-03-13] MEDS: buPROPion HCL 75 MG TABLET PO ×2 (08:09→20:07)
--- NOTE | 2023-03-13 12:10 | HO.PM.IMPN ---
Subjective Subjective Date of Service: 03/13/23 Review of Systems Follow up Enteritis still with some abd pain Physical Exam Vital Signs: Vital Signs: Last Vital Signs Temp 97.7 F 03/13/23 11:40 Pulse 68 03/13/23 11:40 Resp 20 03/13/23 11:40 BP 139/71 03/13/23 11:40 Pulse Ox 97 03/13/23 11:40 O2 Del Method Room Air 03/13/23 11:40 BMI result Body Mass Index 27.0 Appearing in no acute distress lung sounds are clear to auscultation heart regular rate rhythm, clear S1, S2 positive bowel sounds, abdomen is soft, nontender neuro patient is alert x3, no focal deficits Objective Data Active Medications Acetaminophen (Acetaminophen 325 Mg Tablet) 650 mg PO Q6H PRN PRN Reason: Pain, Mild (Pain Scale 1-3) Last Admin: 03/10/23 05:59 Dose: 650 mg Documented By: CLAIR Albuterol Sulfate (Albuterol Sulfate 90 Mcg 8 Gm Inhaler) 2 puff INHALE Q4H PRN PRN Reason: Cough Amlodipine Besylate (Amlodipine Besylate 10 Mg Tablet) 10 mg PO DAILY [facility]; Protocol Last Admin: 03/13/23 08:09 Dose: 10 mg Documented By: MARLEY Atorvastatin Calcium (Atorvastatin Calcium 10 Mg Tablet) 10 mg PO BEDTIME [facility] Last Admin: 03/12/23 20:13 Dose: 10 mg Documented By: LOGAN Bupropion HCl (Bupropion Hcl 75 Mg Tablet) 75 mg PO BID [facility] Last Admin: 03/13/23 08:09 Dose: 75 mg Documented By: MARLEY Clonazepam (Clonazepam 0.5 Mg Tablet) 0.5 mg PO BID PRN PRN Reason: Anxiety Last Admin: 03/12/23 20:16 Dose: 0.5 mg Documented By: LOGAN Cyclobenzaprine HCl (Cyclobenzaprine Hcl 10 Mg Tablet) 10 mg PO TID PRN PRN Reason: musculoskeletal pain Dicyclomine HCl (Dicyclomine Hcl 10 Mg Capsule) 20 mg PO QIDACHS [facility] Last Admin: 03/13/23 11:04 Dose: 20 mg Documented By: MARLEY Docusate Sodium (Docusate Sodium 100 Mg Capsule) 100 mg PO DAILY PRN PRN Reason: Constipation Escitalopram Oxalate (Escitalopram Oxalate 20 Mg Tablet) 20 mg PO DAILY [facility] Last Admin: 03/13/23 08:09 Dose: 20 mg Documented By: MARLEY Fluticasone Propionate (Fluticasone Propionate 100 Mcg Blst.W.Dev) 1 puff INHALE RBID [facility] Last Admin: 03/13/23 07:37 Dose: 1 puff Documented By: BLASCDanny Hydromorphone HCl (Hydromorphone Hcl 0.5 Mg/0.5 Ml Syringe) 0.25 mg IVPUSH Q4H PRN; Protocol PRN Reason: Pain, Severe (Pain Scale 7-10) Last Admin: 03/13/23 08:09 Dose: 0.25 mg Documented By: MARLEY Omeprazole (Omeprazole 20 Mg Capsule.Dr) 20 mg PO DAILY@0630 [facility] Last Admin: 03/13/23 06:15 Dose: Not Given Documented By: LOGAN Non-Admin Reason: NPO Ondansetron HCl (Ondansetron Hcl 4 Mg/2 Ml Vial) 4 mg IVPUSH Q8H PRN PRN Reason: Nausea and Vomiting Last Admin: 03/12/23 05:49 Dose: 4 mg Documented By: CRISTIAN Labs 03/10/23 06:46 03/13/23 06:29 Labs: Laboratory Results - last 24 hr 03/13/23 06:29 Hold Purple Top SEE NOTE Anion Gap 11 L Estim Creat Clear Calc 82.5 Estimated GFR > 60 Random Glucose 85 Calcium 9.3 Assessment and Plan (1) Diarrhea: Status: Acute Plan This is a 62-year-old female with history of hyperlipidemia, hypertension, irritable bowel syndrome, fibromyalgia, mood disorder, history of C diff colitis, history TIA, chronic bronchitis, asthma, sickle cell trait admitted for acute hypokalemia and hypomagnesemia with intractable diarrhea acute diarrhea with possible enteritis GI panel normal cdif PCR +, toxin negative - indicating likely colonization, no need to treat no indication for antibiotics at this time bentyl added seen by GI - plan for EGD/colonoscopy today Acute hypokalemia d/t diarrhea resolved with replacement follow BMP acute hypomagnesemia due to diarrhea improving hypertension continue amlodipine hyperlipidemia statin asthma/COPD overlap continue Flovent, albuterol p.r.n. mood disorder continue home meds DVT prophylaxis- mechanical devices Attending Dr. Landis Full code Patient requires continued hospitalization due to for management of diarrhea, plan for EGD/colonoscopy Quality Stroke Does the patient have a stroke diagnosis?: No VTE Prior VTE?: No VTE Risk Level:: Medical - moderate - high VTE Device Contraindication: Treatment Not Indicated VTE Drug Contraindication: N/A - Med Ordered
--- NOTE | 2023-03-13 15:33 | MHC.CM.PN ---
EMR reviewed and per MD rounds, pt is not medically cleared for D/C due to continued management of diarrhea, and plan for EGD & colonoscopy today. CM will continue to follow.
--- NOTE | 2023-03-13 16:34 | MHC.SHP ---
Pre-Procedural Eval Section A Date of Service: 03/13/23 The patient is an INPATIENT: Yes The History & Physical has been completed within 30 days and I have reviewed it.: Yes Section B Chief Complaint: hypokalemia, hypomag, diarrhea Allergies: Allergies Allergy/AdvReac Type Severity Reaction Status Date / Time lisinopril [LISINOPRIL] Allergy Severe TONGUE Verified 03/07/23 13:49 SWELLING olanzapine [From Zyprexa] AdvReac Involuntary Verified 03/07/23 13:49 Spasms emprin compound Allergy Intermediate Hives Uncoded 12/13/22 08:16 Plan I have reviewed the history and physical and performed a pertinent physical examination on my patient. No changes have occurred unless specified. Time Spent With Patient Time: Total time managing care of this patient today ____ minutes.
--- NOTE | 2023-03-13 16:38 | HO.ANESPROP2 ---
HPI - Anesthesia Eval Consult details Narrative: 62 F for EGD and colonoscopy TIA post knee replacement few years ago, current smoker , abdominal pain . Asthma , Sickle cell triat irritable bowel syndrome, fibromyalgia, history of C diff colitis, chronic bronchitis. 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) Gait disturbance (Acute) Lumbar radiculopathy (Acute) Primary osteoarthritis of left knee (Acute) Renal cyst, acquired, left (Acute) Angiomyolipoma of right kidney (Acute) Osteoarthritis of knees, bilateral (Acute) Chronic pain syndrome (Acute) Chronic, continuous use of opioids (Acute) Past Medical History Medical History Diverticulitis Irritable bowel syndrome Renal stones Depression with anxiety TIA (transient ischemic attack) Asthma Peripheral neuropathy History of sickle cell trait History of palpitations Back pain Chronic bronchitis Arthritis Fibromyalgia Neck pain History of frequent headaches Gastroesophageal reflux disease Hyperlipidemia Hypertension Family History Family History Father Gout Arthritis Mother Alive and well Hypertension Hyperlipidemia Chronic obstructive pulmonary disease (COPD) Brother No problems noted. Son Alive and well Daughter Alive and well Daughter Alive and well Maternal Aunt History of breast cancer Diabetes Family history of problems with anesthesia: No Surgical History Surgical History History of ankle surgery History of total right knee replacement (TKR) H/O arthroscopic knee surgery Subacromial impingement of right shoulder History of surgical removal of ganglion cyst History of partial hysterectomy H/O wrist surgery Previous section Hx of cholecystectomy History of Problems with Anesthesia: No Social History Social History Household Members: Family Housing: Condominium Do you presently have visiting nurse or other home services: No Alcohol intake: current Alcohol intake frequency: holidays/special occasions only Alcohol type: wine Patient Tobacco Use Status: Current everyday Tobacco user Tobacco use type: Cigarette Cigarettes Per Day: 2 Years Smoked: 10 e-Cigarette/Vaping Use: Currently Using Second Hand Smoke Exposure: Yes Advance Directives Date on File: 03/08/23 service: No Current occupational status: disabled Meds Allergies Allergy/AdvReac Type Severity Reaction Status Date / Time lisinopril [LISINOPRIL] Allergy Severe TONGUE Verified 03/07/23 13:49 SWELLING olanzapine [From Zyprexa] AdvReac Involuntary Verified 03/07/23 13:49 Spasms emprin compound Allergy Intermediate Hives Uncoded 12/13/22 08:16 Active Medications: Current Medications Acetaminophen (Acetaminophen 325 Mg Tablet) 650 mg PO Q6H PRN PRN Reason: Pain, Mild (Pain Scale 1-3) Last Admin: 03/10/23 05:59 Dose: 650 mg Albuterol Sulfate (Albuterol Sulfate 90 Mcg 8 Gm Inhaler) 2 puff INHALE Q4H PRN PRN Reason: Cough Amlodipine Besylate (Amlodipine Besylate 10 Mg Tablet) 10 mg PO DAILY [facility]; Protocol Last Admin: 03/13/23 08:09 Dose: 10 mg Atorvastatin Calcium (Atorvastatin Calcium 10 Mg Tablet) 10 mg PO BEDTIME [facility] Last Admin: 03/12/23 20:13 Dose: 10 mg Bupropion HCl (Bupropion Hcl 75 Mg Tablet) 75 mg PO BID [facility] Last Admin: 03/13/23 08:09 Dose: 75 mg Clonazepam (Clonazepam 0.5 Mg Tablet) 0.5 mg PO BID PRN PRN Reason: Anxiety Last Admin: 03/12/23 20:16 Dose: 0.5 mg Cyclobenzaprine HCl (Cyclobenzaprine Hcl 10 Mg Tablet) 10 mg PO TID PRN PRN Reason: musculoskeletal pain Dicyclomine HCl (Dicyclomine Hcl 10 Mg Capsule) 20 mg PO QIDACHS [facility] Last Admin: 03/13/23 15:52 Dose: Not Given Docusate Sodium (Docusate Sodium 100 Mg Capsule) 100 mg PO DAILY PRN PRN Reason: Constipation Escitalopram Oxalate (Escitalopram Oxalate 20 Mg Tablet) 20 mg PO DAILY [facility] Last Admin: 03/13/23 08:09 Dose: 20 mg Fluticasone Propionate (Fluticasone Propionate 100 Mcg Blst.W.Dev) 1 puff INHALE RBID [facility] Last Admin: 03/13/23 07:37 Dose: 1 puff Hydromorphone HCl (Hydromorphone Hcl 0.5 Mg/0.5 Ml Syringe) 0.25 mg IVPUSH Q4H PRN; Protocol PRN Reason: Pain, Severe (Pain Scale 7-10) Last Admin: 03/13/23 12:50 Dose: 0.25 mg Omeprazole (Omeprazole 20 Mg Capsule.Dr) 20 mg PO DAILY@0630 [facility] Last Admin: 03/13/23 06:15 Dose: Not Given Ondansetron HCl (Ondansetron Hcl 4 Mg/2 Ml Vial) 4 mg IVPUSH Q8H PRN PRN Reason: Nausea and Vomiting Last Admin: 03/12/23 05:49 Dose: 4 mg Sodium Biphosphate/Sodium Phosphate (Sodium Phosphate,[place]-Dibasic 133 Ml Enema) 133 ml UT ONCE PRN PRN Reason: Poor Colonoscopy Prep Results Home Medications Medication Instructions Recorded Confirmed Last Taken Type albuterol sulfate 90 mcg/actuation 2 puff inhalation Q4H PRN Cough 02/01/20 03/07/23 03/04/23 History aerosol inhaler simvastatin 20 mg tablet 20 mg PO BEDTIME 02/01/20 03/07/23 03/04/23 History cyclobenzaprine 10 mg tablet 1 tab PO TID PRN musculoskeletal 10/09/20 03/07/23 03/04/23 History pain escitalopram oxalate 20 mg tablet 20 mg PO DAILY 08/04/22 03/07/23 03/04/23 History fluticasone propionate 110 1 puff inhalation BID 08/04/22 03/07/23 03/04/23 History mcg/actuation HFA aerosol inhaler (Flovent HFA) pantoprazole 40 mg tablet,delayed 40 mg PO DAILY 08/04/22 03/07/23 03/04/23 History release zolpidem 10 mg tablet 10 mg PO BEDTIME PRN insomnia 08/04/22 03/07/23 03/04/23 History amlodipine 10 mg tablet 10 mg PO DAILY 12/13/22 03/07/23 03/04/23 History bupropion HCl 100 mg tablet,12 hr 100 mg PO QAM 12/13/22 03/07/23 03/04/23 History sustained-release clonazepam 0.5 mg tablet 0.5 mg PO BID PRN Anxiety 12/13/22 03/07/23 03/04/23 History Exam Exam Date and Time: March 13, 2023 1638 Height,Weight and Vital Signs: Height 5 ft 5 in Weight 73.6 kg Last Vital Signs Temp 97.5 F 03/13/23 16:04 Pulse 85 03/13/23 16:04 Resp 16 03/13/23 16:04 BP 149/87 H 03/13/23 16:04 Pulse Ox 97 03/13/23 16:04 O2 Del Method Room Air 03/13/23 16:04 Pertinent Lab Results Pertinent Lab Results: Laboratory Tests 03/07/23 03/07/23 03/07/23 14:30 21:10 22:03 WBC 5.0 RBC 3.76 L Hgb 12.4 Hct 34.2 L MCV 91.0 MCH 33.0 MCHC 36.3 H RDW 15.1 Plt Count 265 MPV 10.4 Immature Gran % (Auto) 0.4 Neut % (Auto) 61.7 Lymph % (Auto) 26.6 [place] % (Auto) 9.9 Eos % (Auto) 1.2 Baso % (Auto) 0.2 Lymph # (Auto) 1.3 [place] # (Auto) 0.5 Eos # (Auto) 0.1 Baso # (Auto) 0.0 Abs Immat Gran (auto) 0.02 Absolute Neuts (auto) 3.1 Absolute Nucleated RBC 0.000 Nucleated RBC % (auto) 0.0 Hold Purple Top PT 11.8 INR 1.0 Sodium 145 146 H Potassium 2.1 L* D 3.3 D Chloride 103 108 Carbon Dioxide 29 21 L Anion Gap 15 20 BUN 6 L 6 L Creatinine 0.66 0.60 Estim Creat Clear Calc 88.7 97.7 Estimated GFR > 60 > 60 Random Glucose 88 86 Calcium 8.2 L D 7.6 L D Magnesium 0.7 L* 2.1 Total Bilirubin 0.7 Direct Bilirubin 0.2 AST 34 H ALT 12 Alkaline Phosphatase 95 Troponin I High Sens 4.0 Total Protein 7.1 Albumin 3.6 Lipase 9 Urine Color Yellow Urine Appearance Clear Urine pH 6.5 Ur Specific [place] >= 1.030 H Urine Protein Negative Urine Glucose (UA) Negative Urine Ketones Negative Urine Blood Negative Urine Nitrite Negative Ur Leukocyte Esterase Negative Stl C. cayetanensis PCR Stool Rotavirus A PCR Stl Adenov F 40/41 PCR Stool Astrovirus (PCR) Stool Campylobacter PCR Stool Cryptosporidium PCR Stl Sh Tox Pr E STEC PCR Stool E coli O157 PCR Stl Enterotoxigenic E PCR Stool EPEC (PCR) Stool EAEC (PCR) Stl E. histolytica PCR Stool Giardia Lamblia PCR Stl P. shigelloides PCR Stool Salmonella PCR Stool Sapovirus (PCR) Stl Shigella/EIEC PCR St Y.enterocolitica PCR Stool Vibrio (PCR) Stl Vibrio cholerae PCR Stl Norovirus GI/GII PCR C. difficile Tox B Gene C. difficile Toxin A&B C. difficile Interpret COVID-19 (ISAEL) Negative COVID-19 Clin Com See Note Influenza Type A (RAMBO) Negative Influenza Type B (RAMBO) Negative Influenza A & B Note See Note 03/08/23 03/08/23 03/08/23 04:52 10:13 10:38 WBC 4.6 L RBC 3.28 L Hgb 10.7 L Hct 30.0 L MCV 91.5 MCH 32.6 MCHC 35.7 H RDW 14.7 Plt Count 216 MPV 10.5 Immature Gran % (Auto) 0.6 H Neut % (Auto) 57.0 Lymph % (Auto) 27.7 [place] % (Auto) 12.3 H Eos % (Auto) 2.2 Baso % (Auto) 0.2 Lymph # (Auto) 1.3 [place] # (Auto) 0.6 Eos # (Auto) 0.1 Baso # (Auto) 0.0 Abs Immat Gran (auto) 0.03 Absolute Neuts (auto) 2.6 Absolute Nucleated RBC 0.000 Nucleated RBC % (auto) 0.0 Hold Purple Top PT INR Sodium 142 141 Potassium 2.4 L* D 3.1 L D Chloride 104 104 Carbon Dioxide 25 25 Anion Gap 15 15 BUN 4 L 3 L Creatinine 0.58 0.63 Estim Creat Clear Calc 101.0 93.0 Estimated GFR > 60 > 60 Random Glucose 84 107 Calcium 7.3 L 7.6 L Magnesium 1.4 L* 2.1 Total Bilirubin Direct Bilirubin AST ALT Alkaline Phosphatase Troponin I High Sens Total Protein Albumin Lipase Urine Color Urine Appearance Urine pH Ur Specific [place] Urine Protein Urine Glucose (UA) Urine Ketones Urine Blood Urine Nitrite Ur Leukocyte Esterase Stl C. cayetanensis PCR Cancelled Stool Rotavirus A PCR Cancelled Stl Adenov F 40/41 PCR Cancelled Stool Astrovirus (PCR) Cancelled Stool Campylobacter PCR Cancelled Stool Cryptosporidium PCR Cancelled Stl Sh Tox Pr E STEC PCR Cancelled Stool E coli O157 PCR Cancelled Stl Enterotoxigenic E PCR Cancelled Stool EPEC (PCR) Cancelled Stool EAEC (PCR) Cancelled Stl E. histolytica PCR Cancelled Stool Giardia Lamblia PCR Cancelled Stl P. shigelloides PCR Cancelled Stool Salmonella PCR Cancelled Stool Sapovirus (PCR) Cancelled Stl Shigella/EIEC PCR Cancelled St Y.enterocolitica PCR Cancelled Stool Vibrio (PCR) Cancelled Stl Vibrio cholerae PCR Cancelled Stl Norovirus GI/GII PCR Cancelled C. difficile Tox B Gene POSITIVE A* C. difficile Toxin A&B Negative C. difficile Interpret SEE NOTE COVID-19 (ISAEL) COVID-19 Clin Com Influenza Type A (RAMBO) Influenza Type B (RAMBO) Influenza A & B Note 03/08/23 03/09/23 03/10/23 15:09 09:20 06:33 WBC 4.2 L RBC 3.58 L Hgb 12.0 Hct 34.0 L MCV 95.0 MCH 33.5 H MCHC 35.3 H RDW 14.7 Plt Count 271 D MPV 10.2 Immature Gran % (Auto) 0.5 H Neut % (Auto) 58.2 Lymph % (Auto) 24.4 [place] % (Auto) 12.4 H Eos % (Auto) 3.8 Baso % (Auto) 0.7 Lymph # (Auto) 1.0 L [place] # (Auto) 0.5 Eos # (Auto) 0.2 Baso # (Auto) 0.0 Abs Immat Gran (auto) 0.02 Absolute Neuts (auto) 2.4 Absolute Nucleated RBC 0.000 Nucleated RBC % (auto) 0.0 Hold Purple Top PT INR Sodium 143 140 Potassium 3.2 L 3.2 L 3.0 L Chloride 101 97 Carbon Dioxide 30 H 33 H Anion Gap 15 13 BUN < 3 L < 3 L Creatinine 0.59 0.60 Estim Creat Clear Calc 99.3 97.7 Estimated GFR > 60 > 60 Random Glucose 111 87 Calcium 8.4 D 8.2 L Magnesium 1.0 L* Total Bilirubin Direct Bilirubin AST ALT Alkaline Phosphatase Troponin I High Sens Total Protein Albumin Lipase Urine Color Urine Appearance Urine pH Ur Specific [place] Urine Protein Urine Glucose (UA) Urine Ketones Urine Blood Urine Nitrite Ur Leukocyte Esterase Stl C. cayetanensis PCR Stool Rotavirus A PCR Stl Adenov F 40/41 PCR Stool Astrovirus (PCR) Stool Campylobacter PCR Stool Cryptosporidium PCR Stl Sh Tox Pr E STEC PCR Stool E coli O157 PCR Stl Enterotoxigenic E PCR Stool EPEC (PCR) Stool EAEC (PCR) Stl E. histolytica PCR Stool Giardia Lamblia PCR Stl P. shigelloides PCR Stool Salmonella PCR Stool Sapovirus (PCR) Stl Shigella/EIEC PCR St Y.enterocolitica PCR Stool Vibrio (PCR) Stl Vibrio cholerae PCR Stl Norovirus GI/GII PCR C. difficile Tox B Gene C. difficile Toxin A&B C. difficile Interpret COVID-19 (ISAEL) COVID-19 Clin Com Influenza Type A (RAMBO) Influenza Type B (RAMBO) Influenza A & B Note 03/10/23 03/11/23 03/12/23 06:46 07:27 05:50 WBC 3.6 L RBC 3.88 L Hgb 12.9 Hct 36.1 L MCV 93.0 MCH 33.2 H MCHC 35.7 H RDW 14.6 Plt Count 302 MPV 10.4 Immature Gran % (Auto) 0.6 H Neut % (Auto) 50.2 Lymph % (Auto) 30.1 [place] % (Auto) 14.4 H Eos % (Auto) 4.1 H Baso % (Auto) 0.6 Lymph # (Auto) 1.1 L [place] # (Auto) 0.5 Eos # (Auto) 0.2 Baso # (Auto) 0.0 Abs Immat Gran (auto) 0.02 Absolute Neuts (auto) 1.8 L Absolute Nucleated RBC 0.000 Nucleated RBC % (auto) 0.0 Hold Purple Top SEE NOTE SEE NOTE PT INR Sodium 137 139 Potassium 4.1 D 5.2 H D Chloride 101 104 Carbon Dioxide 27 29 Anion Gap 13 11 L BUN 3 L 5 L Creatinine 0.73 0.66 Estim Creat Clear Calc 80.2 88.7 Estimated GFR > 60 > 60 Random Glucose 98 86 Calcium 8.5 9.0 Magnesium 1.7 1.6 Total Bilirubin Direct Bilirubin AST ALT Alkaline Phosphatase Troponin I High Sens Total Protein Albumin Lipase Urine Color Urine Appearance Urine pH Ur Specific [place] Urine Protein Urine Glucose (UA) Urine Ketones Urine Blood Urine Nitrite Ur Leukocyte Esterase Stl C. cayetanensis PCR Stool Rotavirus A PCR Stl Adenov F PCR Stool Astrovirus (PCR) Stool Campylobacter PCR Stool Cryptosporidium PCR Stl Sh Tox Pr E STEC PCR Stool E coli O157 PCR Stl Enterotoxigenic E PCR Stool EPEC (PCR) Stool EAEC (PCR) Stl E. histolytica PCR Stool Giardia Lamblia PCR Stl P. shigelloides PCR Stool Salmonella PCR Stool Sapovirus (PCR) Stl Shigella/EIEC PCR St Y.enterocolitica PCR Stool Vibrio (PCR) Stl Vibrio cholerae PCR Stl Norovirus GI/GII PCR C. difficile Tox B Gene C. difficile Toxin A&B C. difficile Interpret COVID-19 (ISAEL) COVID-19 Clin Com Influenza Type A (RAMBO) Influenza Type B (RAMBO) Influenza A & B Note 03/13/23 06:29 WBC RBC Hgb Hct MCV MCH MCHC RDW Plt Count MPV Immature Gran % (Auto) Neut % (Auto) Lymph % (Auto) [place] % (Auto) Eos % (Auto) Baso % (Auto) Lymph # (Auto) [place] # (Auto) Eos # (Auto) Baso # (Auto) Abs Immat Gran (auto) Absolute Neuts (auto) Absolute Nucleated RBC Nucleated RBC % (auto) Hold Purple Top SEE NOTE PT INR Sodium 140 Potassium 5.0 Chloride 105 Carbon Dioxide 29 Anion Gap 11 L BUN 3 L Creatinine 0.71 Estim Creat Clear Calc 82.5 Estimated GFR > 60 Random Glucose 85 Calcium 9.3 Magnesium Total Bilirubin Direct Bilirubin AST ALT Alkaline Phosphatase Troponin I High Sens Total Protein Albumin Lipase Urine Color Urine Appearance Urine pH Ur Specific [place] Urine Protein Urine Glucose (UA) Urine Ketones Urine Blood Urine Nitrite Ur Leukocyte Esterase Stl C. cayetanensis PCR Stool Rotavirus A PCR Stl Adenov F PCR Stool Astrovirus (PCR) Stool Campylobacter PCR Stool Cryptosporidium PCR Stl Sh Tox Pr E STEC PCR Stool E coli O157 PCR Stl Enterotoxigenic E PCR Stool EPEC (PCR) Stool EAEC (PCR) Stl E. histolytica PCR Stool Giardia Lamblia PCR Stl P. shigelloides PCR Stool Salmonella PCR Stool Sapovirus (PCR) Stl Shigella/EIEC PCR St Y.enterocolitica PCR Stool Vibrio (PCR) Stl Vibrio cholerae PCR Stl Norovirus GI/GII PCR C. difficile Tox B Gene C. difficile Toxin A&B C. difficile Interpret COVID-19 (ISAEL) COVID-19 Clin Com Influenza Type A (RAMBO) Influenza Type B (RAMBO) Influenza A & B Note Narrative Narrative: Date of Service: 03/07/23 Procedure(s): ECG 12 lead EKG Normal sinus rhythm Normal ECG When compared with ECG of 16-FEB-2022 14:26, No significant change was found Airway Mallampati Class: III Loose/Missing/Broken Teeth: Yes Assessment and Plan Assessment Anesthesia Assessment: Anesthesia Plan Discussed and Chart Reviewed Final Anesthetic Review Family History of Problems with Anesthesia: No History of Problems with Anesthesia: No NPO: Yes ASA Class: III and Emergency Final Preanesthetic Review: Meds/Allgs Chart Reviewed, Consent Obtained/Reviewed and Anes Risks/Benef Reviewed Patient Risk: High Procedure Risk: Intermediate Anesthetic Plan Anesthetic Plan: MAC: and Agree w/ Assess. and Plan Disposition: Inp. Admit - IMC
--- NOTE | 2023-03-13 18:31 | PM.OP ---
Brief Operative Note Date of Service: 03/13/23 Pre-op diagnosis: Diarrhea, GERD, Abdominal pain, Abnormal CT of GI tract Post-op diagnosis: other (Gastritis, GERD, Hiatal hernia, Diverticulosis, R/O Celiac disease, R/O Microscopic colitis) Procedure: EGD with biopsies, Colonoscopy to the cecum with biopsies Surgeon: Calos Pelletier MD Anesthesia: MAC Was an Manager Clinical Research used for this Procedure?: No Estimated blood loss (mL): 2.0 Pathology: other (A. Descending duodenum B. Gastric antrum C. EG Junction at 35cm D. Ascending colon E. Descending colon) Condition: stable Disposition: PACU
--- NOTE | 2023-03-13 18:39 | PM.EVENT ---
Event Note Date of Service: 03/13/23 Event Note: GI-Full note dictated Findings: EGD with biopsies 1. Mild antral gastritis-biopsied x 3 2. Hiatal hernia with changes of GERD and reflux, small areas of ? Monteiro's esophagus-biopsies taken 3. Duodenum-mild duodenitis-biopsies taken to R/O celiac disease Colonoscopy to the cecum with biopsies 1. Diverticulosis 2. No sign of IBD nor pseudomembranous colitis to suggest active C.diff 3. Biopsies taken to R/O microscopic colitis Rec: Check path. Given her ongoing symptoms of diarrhea, etc, I will start her on po Vanco 125mg QID. Continue symptomatic treatment with Dicyclomine and/or Imodium prn. Will start clear liquids, and advance to Lactose-free as tolerated. If diarrhea remains a problem we can try some Cholestyramine. D/W patient, as well as with her daughter, Uyen. Thanks Time Spent With Patient Time: Total time managing care of this patient today ____ minutes.
[2023-03-13 19:19] LABS: Prothrombin Time 11.7 SEC (11.1-13.3)
[2023-03-13] MEDS: Atorvastatin Calcium 10 MG TABLET PO (20:07)
[2023-03-13] MEDS: vancomycin HCL 125 MG CAPSULE PO (20:07)
--- NOTE | 2023-03-13 20:19 | OP_ITS ---
DATE OF SERVICE: 03/13/2023 SURGEON: Calos Pelletier MD INDICATIONS: The patient presents for evaluation of gastroesophageal reflux, diarrhea, abdominal discomfort, and abnormal CT scan of GI tract. Full consent has been obtained from her for both procedures, including risks of bleeding and perforation. PREOPERATIVE DIAGNOSIS: Gastroesophageal reflux, diarrhea, abdominal discomfort, and abnormal CT scan of gastrointestinal tract. POSTOPERATIVE DIAGNOSIS: Gastroesophageal reflux, diarrhea, abdominal discomfort, and abnormal CT scan of gastrointestinal tract, hiatal hernia, rule out Monteiro's esophagus, gastritis, rule out celiac disease, rule out microscopic colitis, diverticulosis, internal hemorrhoids. PROCEDURE PERFORMED: Esophagogastroduodenoscopy with biopsies, and colonoscopy to the cecum with biopsies. ESTIMATED BLOOD LOSS: COMPLICATIONS: ANESTHESIA: Medication used: Monitored anesthesia care. ASSISTANTS: SPECIMENS: DESCRIPTION OF PROCEDURE: The patient was placed in the left lateral decubitus position. The Olympus video gastroscope was passed in the posterior oropharynx and the upper esophagus under direct vision. The scope was passed slowly to the distal esophagus. The gastroesophageal junction appeared at 35 cm. There were some areas of edema, erythema, and small areas of irregularity consistent with possible Monteiro's mucosa. There was no esophagitis, ulceration, lesions,nor mass. The scope easily entered the stomach. There was a small hiatal hernia. The scope was advanced to pylorus and the duodenum was cannulated to the descending portion. The duodenum including the bulb had some areas of mild duodenitis, but no evidence of any ulceration nor mass. Biopsies were obtained from the second and third portions of duodenum. The scope was withdrawn back to the stomach and the gastric antrum had areas of erythema and some edema. There was no ulceration nor mass. There was good peristalsis. Biopsies were obtained from the gastric antrum. The scope was retroflexed visualizing the proximal stomach carefully, which appeared normal, without any sign of mass or ulceration. The scope was straightened and withdrawn back to the esophagus. Biopsies were obtained at the EG junction at 35 cm. Proximal to that, the esophageal mucosa had areas of some edema, but no esophagitis. The scope was withdrawn from the patient. She was turned around for the colonoscopy. The digital rectal exam revealed no abnormalities. The Olympus video pediatric colonoscope was entered into the rectum and advanced easily to the cecum. Once in the cecum, I did identify a cecal pouch with appendiceal orifice and a normal-appearing ileocecal valve. The entire cecum and ileocecal valve appeared normal. Attempts at cannulating the terminal ileum were unsuccessful. There was transillumination of light deep in the right lower quadrant. The scope was then slowly withdrawn assessing all mucosal surfaces carefully. Preparation was excellent. I did not visualize any sign of colitis, polyps, nor angiodysplasia. There was no evidence of any pseudomembranous colitis. Biopsies were obtained in the ascending and descending colon to rule out microscopic colitis. There was some scattered diverticula in the ascending colon and mild amount of diverticulosis in the sigmoid colon. In the rectum, scope was retroflexed, visualizing internal hemorrhoids, but no other pathology. The rectal mucosa appeared normal. The scope was straightened and withdrawn from the patient. She tolerated both procedures well and was returned to the recovery area in stable condition. IMPRESSION: 1. Hiatal hernia, gastroesophageal reflux, rule out Monteiro's esophagus. 2. Gastritis. 3. Rule out celiac disease. 4. Rule out microscopic colitis. 5. Diverticulosis. 6. Internal hemorrhoids. PLAN: The results of the biopsies will be checked. Given her ongoing symptoms of diarrhea and abdominal discomfort, the previously abnormal CT scan of the GI tract, and her stool specimen positive for the C diff gene, I would give her a course of vancomycin 125 mg q.i.d. I would continue symptomatic treatment with dicyclomine and/or Imodium p.r.n. I will start her on clear liquids and this could be advanced to a lactose-free diet as tolerated. If the diarrhea does remain a problem, then we can put her on a trial of some cholestyramine in the future as well. This has been discussed with the patient and her daughter, Milagro. MD MICHAEL Enriquez/STEPHAN / [id number] ARIC
[2023-03-14] VITALS (9 sets, daily range): BP systolic 129–149; BP diastolic 68–85; PULSE 71–82; RESP 16–20; TEMP 36.3–36.8; O2SAT 94–98
[2023-03-14] MEDS: vancomycin HCL 125 MG CAPSULE PO ×4 (01:52→19:14)
[2023-03-14] MEDS: Omeprazole 20 MG CAPSULE.DR PO (06:07)
[2023-03-14] MEDS: HYDROmorphone HCl 0.5 MG/0.5 ML SYRINGE 0.25 MG IVPUSH ×5 (06:45→21:45)
[2023-03-14 07:16] LABS: Anion Gap 15 (12-20); Blood Urea Nitrogen 4 mg/dL (9-16); Calcium 9.7 mg/dL (8.4-10.2); Carbon Dioxide 25 mmol/L (22-29); Chloride 105 mmol/L (96-108); Creatinine Clr Calc Pharmacy 75.1; Estimated Glomerular Filt Rate > 60; Glucose Random 79 mg/dL (60-115); Potassium 5.2 mmol/L (3.3-5.1); Sodium 140 mmol/L (135-145)
[2023-03-14] MEDS: Fluticasone Propionate 100 MCG BLST.W.DEV 1 PUFF INHALE ×2 (07:58→19:45)
[2023-03-14] MEDS: amLODIPine Besylate 10 MG TABLET PO (09:01)
[2023-03-14] MEDS: Escitalopram Oxalate 20 MG TABLET PO (09:01)
[2023-03-14] MEDS: buPROPion HCL 75 MG TABLET PO ×2 (09:01→19:14)
[2023-03-14] MEDS: Acetaminophen 325 MG TABLET 650 MG PO (09:01)
[2023-03-14] MEDS: Dicyclomine HCl 10 MG CAPSULE 20 MG PO ×4 (09:01→19:14)
--- NOTE | 2023-03-14 10:59 | P.PNIM_ITS ---
Subjective Subjective Date of Service: 03/14/23 Review of Systems Follow up Enteritis still with some abd pain Physical Exam 2 Vital Signs: Vital Signs: Last Vital Signs Temp 97.5 F 03/14/23 07:22 Pulse 75 03/14/23 07:59 Resp 16 03/14/23 07:59 BP 148/80 H 03/14/23 07:22 Pulse Ox 96 03/14/23 07:22 O2 Del Method Room Air 03/14/23 07:22 O2 Flow Rate 6 03/13/23 18:30 BMI result Body Mass Index 27.0 Appearing in no acute distress lung sounds are clear to auscultation heart regular rate rhythm, clear S1, S2 positive bowel sounds, abdomen is soft, nontender neuro patient is alert x3, no focal deficits Objective Data Active Medications Acetaminophen (Acetaminophen 325 Mg Tablet) 650 mg PO Q6H PRN PRN Reason: Pain, Mild (Pain Scale 1-3) Last Admin: 03/14/23 09:01 Dose: 650 mg Documented By: ASH Albuterol Sulfate (Albuterol Sulfate 90 Mcg 8 Gm Inhaler) 2 puff INHALE Q4H PRN PRN Reason: Cough Amlodipine Besylate (Amlodipine Besylate 10 Mg Tablet) 10 mg PO DAILY [facility]; Protocol Last Admin: 03/14/23 09:01 Dose: 10 mg Documented By: ASH Atorvastatin Calcium (Atorvastatin Calcium 10 Mg Tablet) 10 mg PO BEDTIME [facility] Last Admin: 03/13/23 20:07 Dose: 10 mg Documented By: LOGAN Bupropion HCl (Bupropion Hcl 75 Mg Tablet) 75 mg PO BID [facility] Last Admin: 03/14/23 09:01 Dose: 75 mg Documented By: ASH Clonazepam (Clonazepam 0.5 Mg Tablet) 0.5 mg PO BID PRN PRN Reason: Anxiety Last Admin: 03/12/23 20:16 Dose: 0.5 mg Documented By: LOGAN Cyclobenzaprine HCl (Cyclobenzaprine Hcl 10 Mg Tablet) 10 mg PO TID PRN PRN Reason: musculoskeletal pain Dicyclomine HCl (Dicyclomine Hcl 10 Mg Capsule) 20 mg PO QIDACHS [facility] Last Admin: 03/14/23 09:01 Dose: 20 mg Documented By: ASH Docusate Sodium (Docusate Sodium 100 Mg Capsule) 100 mg PO DAILY PRN PRN Reason: Constipation Escitalopram Oxalate (Escitalopram Oxalate 20 Mg Tablet) 20 mg PO DAILY [facility] Last Admin: 03/14/23 09:01 Dose: 20 mg Documented By: ASH Fluticasone Propionate (Fluticasone Propionate 100 Mcg Blst.W.Dev) 1 puff INHALE RBID [facility] Last Admin: 03/14/23 07:58 Dose: 1 puff Documented By: MARCELA Hydromorphone HCl (Hydromorphone Hcl 0.5 Mg/0.5 Ml Syringe) 0.25 mg IVPUSH Q4H PRN; Protocol PRN Reason: Pain, Severe (Pain Scale 7-10) Last Admin: 03/14/23 09:01 Dose: 0.25 mg Documented By: ASH Loperamide HCl (Loperamide Hcl 2 Mg Capsule) 2 mg PO Q6H PRN PRN Reason: Diarrhea Omeprazole (Omeprazole 20 Mg Capsule.) 20 mg PO DAILY@0630 [facility] Last Admin: 03/14/23 06:07 Dose: 20 mg Documented By: RANDAL Ondansetron HCl (Ondansetron Hcl 4 Mg/2 Ml Vial) 4 mg IVPUSH Q8H PRN PRN Reason: Nausea and Vomiting Last Admin: 03/12/23 05:49 Dose: 4 mg Documented By: CRISTIAN Vancomycin HCl (Vancomycin Hcl 125 Mg Capsule) 125 mg PO Q6H [facility] Last Admin: 03/14/23 06:07 Dose: 125 mg Documented By: RANDAL Labs 03/10/23 06:46 03/14/23 06:39 Labs: Laboratory Results - last 24 hr 03/13/23 03/14/23 03/14/23 19:06 06:39 06:50 Hold Purple Top SEE NOTE SEE NOTE PT 11.7 INR 1.0 Anion Gap 15 Estim Creat Clear Calc 75.1 Estimated GFR > 60 Random Glucose 79 Calcium 9.7 Assessment and Plan (1) Diarrhea: Status: Acute Plan This is a 62-year-old female with history of hyperlipidemia, hypertension, irritable bowel syndrome, fibromyalgia, mood disorder, history of C diff colitis, history TIA, chronic bronchitis, asthma, sickle cell trait admitted for acute hypokalemia and hypomagnesemia with intractable diarrhea Acute diarrhea with enteritis GI panel normal cdif PCR + no indication for antibiotics at this time bentyl added s/p endo and colo with findings of hiatal hernia, GERD, gastritis, diverticulosis, internal hemorrhoids. Biopsies taken to rule out celiac disease, microscopic colitis and Monteiro's esophagus. Dicyclomine added as well as p.r.n. Imodium Advanced diet to lactose-free Consider Questran in the future if diarrhea persists Cdiff positive oral vancomycin QID for total 10days Acute hypokalemia d/t diarrhea resolved with replacement follow BMP acute hypomagnesemia due to diarrhea improving hypertension continue amlodipine hyperlipidemia statin asthma/COPD overlap continue Flovent, albuterol p.r.n. mood disorder continue home meds DVT prophylaxis- mechanical devices Attending Dr. Landis Full code Patient requires continued hospitalization due to for management of diarrhea Quality Stroke Does the patient have a stroke diagnosis?: No VTE Prior VTE?: No VTE Risk Level:: Medical - moderate - high VTE Device Contraindication: Treatment Not Indicated VTE Drug Contraindication: N/A - Med Ordered
[2023-03-14] MEDS: Loperamide HCl 2 MG CAPSULE PO (12:22)
--- NOTE | 2023-03-14 12:55 | HO.POSTANES ---
Post Anesthesia Evaluation Post Anesthesia Evaluation Date of Service: 03/14/23 Vital Signs: Vital Signs Temp Pulse Resp BP Pulse Ox O2 Del Method 03/14/23 11:34 97.4 F 80 18 149/85 H 98 Room Air 03/14/23 07:59 75 16 03/14/23 07:22 97.5 F 79 18 148/80 H 96 Room Air 03/14/23 03:02 97.6 F 75 20 129/68 97 Room Air Anesthesia: Monitored Mental Status: Awake Pain Control: Satisfactory Nausea/Vomiting: None Hydration: Adequate Anesthesia-Related Issues: No Anes. Related Issues
[2023-03-14 16:54] LABS: INTERNATIONAL NORM RATIO 0.9 (0.9-1.1); Prothrombin Time 11.2 SEC (11.1-13.3)
[2023-03-14] MEDS: Atorvastatin Calcium 10 MG TABLET PO (19:14)
[2023-03-15] MEDS: vancomycin HCL 125 MG CAPSULE PO ×2 (02:45→05:50)
[2023-03-15] MEDS: HYDROmorphone HCl 0.5 MG/0.5 ML SYRINGE 0.25 MG IVPUSH ×3 (02:56→12:15)
[2023-03-15 03:06] VITALS: BP 126/62; PULSE 67; RESP 20; TEMP 36.3; O2SAT 97
[2023-03-15] MEDS: Acetaminophen 325 MG TABLET 650 MG PO (05:07)
[2023-03-15] MEDS: ondansetron HCL 4 MG/2 ML VIAL IVPUSH (05:07)
[2023-03-15] MEDS: Omeprazole 20 MG CAPSULE.DR PO (05:50)
[2023-03-15 07:49] VITALS: BP 133/75; PULSE 72; RESP 20; TEMP 37.5; O2SAT 99
[2023-03-15] MEDS: amLODIPine Besylate 10 MG TABLET PO (08:00)
[2023-03-15] MEDS: Dicyclomine HCl 10 MG CAPSULE 20 MG PO ×2 (08:00→11:10)
[2023-03-15] MEDS: buPROPion HCL 75 MG TABLET PO (08:00)
[2023-03-15] MEDS: Escitalopram Oxalate 20 MG TABLET PO (08:00)
[2023-03-15] MEDS: clonazePAM 0.5 MG TABLET PO (08:03)
[2023-03-15 08:08] VITALS: PULSE 72; RESP 18; O2SAT 99
[2023-03-15] MEDS: Fluticasone Propionate 100 MCG BLST.W.DEV 1 PUFF INHALE (08:08)
--- NOTE | 2023-03-15 10:15 | MHC.CM.PN ---
Per MD rounds patient is medically cleared for discharge. Plan is home, self-care. Pts partner will provide transportation, lemon picker between 12:30-1:00pm.
--- NOTE | 2023-03-15 12:04 | PM.DS ---
DS: Providers Provider Date of Service: 03/15/23 Date of admission: 03/07/23 20:06 Primary care physician: Alyx Lehman MD Consults: 03/08/23 08:17 Consult to Gastroenterology Routine Consulting Provider: Moisés Hardwick Reason for consultation: enteritis, diarrhea DS: Diagnosis Discharge Diagnosis (1) Diarrhea: Status: Acute DS: Summary Hospital Course Hospital Course: 62-year-old female with history of hyperlipidemia, hypertension, irritable bowel syndrome, fibromyalgia, mood disorder, history of C diff colitis, history TIA, chronic bronchitis, asthma, sickle cell trait presented to the ED earlier today for evaluation of severe abdominal pain and intractable diarrhea that has been ongoing for about 48 hours. She has been unable to tolerate much p.o.. States she has been having watery diarrhea every 20-45 minutes with fecal incontinence. Describes the pain as diffuse and sharp in nature without any radiation. She tells me she also has been having cramping and tingling sensation in her extremities. Denies eating any bad foods, recent illness, recent antibiotic use. Denies any sick contacts. She does not use any illicit substances and denies any alcohol use. She smokes about 1-2 cigarettes on a daily basis.Denies any fevers, chills, nausea, vomiting, melena, hematochezia, shortness of breath, chest pain. On arrival, vitals stable though patient hypertensive to 166/92. There is no leukocytosis or anemia. Renal function is normal. Sodium 145, potassium 2.1, chloride 103, CO2 29, magnesium 0.2. Hepatic function normal, troponin 4.0. Negative for COVID-19, influenza. CXR negative for any acute cardiopulmonary abnormality. CT abdomen/pelvis shows abnormal wall thickening to the terminal ileum and distal ileum, infectious versus inflammatory enteritis would be suspected no obstructive changes or evidence of diverticulitis. In the ED, has received 4 g IV magnesium, 500 mL IV NS, IV Tylenol, 60 mEq oral potassium and is ordered for 40 mEq IV potassium which has not yet been administered. 62-year-old woman treated for enteritis with abdominal pain, nausea and diarrhea as well as multiple electrolyte abnormalities due to the diarrhea. Her potassium and magnesium were both repleted and resolved. Stool sample collected for stool study and not only positive for C diff for which she was started on oral vancomycin and will need to take for total of 10 days. She was seen and evaluated by the application architect manager who performed an endoscopy and colonoscopy with findings of hiatal hernia, GERD, gastritis, diverticulosis and internal hemorrhoids. Biopsies were taken to rule out Monteiro's esophagus, celiac disease and microscopic colitis. She initially was on a clear liquid diet and advanced to lactose-free and did well. Her diarrhea is slowing down and she has been taking Imodium as needed. She was initially treated with both Dilaudid and oxycodone but the oxycodone was stopped and she had been using Dilaudid as well as antiemetics. She will be discharged home to complete her dose of vancomycin, she will have antiemetic and a few days of oxycodone. She was started on Bentyl. She should follow-up with the application architect manager in a few weeks regarding the results of the biopsy. Hypertension. Continue amlodipine Hyperlipidemia. Continue statin Asthma/COPD overlap. Continue medications Mental health. Continue home medications Time Attestation Discharge coordination time: Greater than 30 minutes Quality: Safe Use of Opioids Does Pt have an Active Cancer Diagnosis on the Problem List?: No Quality: Stroke Does the patient have a stroke diagnosis?: No Physical Exam Vital Signs: Vital Signs: Last Vital Signs Temp 99.5 F 03/15/23 07:49 Pulse 72 03/15/23 08:08 Resp 18 03/15/23 08:08 BP 133/75 03/15/23 07:49 Pulse Ox 99 03/15/23 07:49 O2 Del Method Room Air 03/15/23 07:49 O2 Flow Rate 6 03/13/23 18:30 BMI result Body Mass Index 27.0 Appearing in no acute distress head is normocephalic atraumatic eyes pupils are PERRLA sclera is anicteric mouth throat mucous membranes are intact and moist neck is supple no lymphadenopathy, no JVD noted lung sounds are clear to auscultation heart regular rate rhythm, clear S1, S2 positive bowel sounds, abdomen is soft, nontender neuro patient is alert x3, no focal deficits DS: Data Data Completed and Pending Pending studies at discharge: Pending at discharge 03/13/23 17:29 Surgical [PTH] Routine Labs on day of discharge: Laboratory Results - last 24 hr 03/14/23 16:42 PT 11.2 INR 0.9 Discharge Plan Discharge Anticipated Discharge Date/Time: 03/15/23 11:54 Patient Disposition: Home, Self-Care Discharge Diagnosis: Diarrhea and abdominal pain IBS C diff Hypokalemia Hypomagnesemia Referrals: Moisés Hardwick MD [Physician] - 1 Week Alyx Lehman MD [Primary Care Provider] - 1 Week Discharge Medications: New loperamide 2 mg Capsule 2 mg PO Q6H PRN (Reason: Diarrhea) Qty: 20 0RF vancomycin 125 mg Capsule 125 mg PO Q6H Qty: 32 0RF dicyclomine 10 mg Capsule 20 mg PO QIDACHS Qty: 120 0RF oxycodone 5 mg tablet 5 mg PO Q8H PRN (Reason: pain) Qty: 12 0RF Rx Instructions: Partial Fill upon patient request. ondansetron 4 mg tablet,disintegrating 4 mg PO Q8H PRN (Reason: nausea and vomiting) Qty: 15 0RF Continued celecoxib 200 mg capsule 200 mg PO BID Qty: 60 1RF cyclobenzaprine 10 mg tablet 1 tab PO TID PRN (Reason: musculoskeletal pain) pantoprazole 40 mg tablet,delayed release (DR/EC) 40 mg PO DAILY zolpidem 10 mg tablet 10 mg PO BEDTIME PRN (Reason: insomnia) fluticasone propionate [Flovent HFA] 110 mcg/actuation HFA aerosol inhaler 1 puff INHALATION BID escitalopram oxalate 20 mg tablet 20 mg PO DAILY simvastatin 20 mg tablet 20 mg PO BEDTIME albuterol sulfate 90 mcg/actuation HFA aerosol inhaler 2 puff inhalation Q4H PRN (Reason: Cough) Rx Instructions: Inhale 2 puffs by mouth every 4 hours if needed for cough or wheezing amlodipine 10 mg tablet 10 mg PO DAILY bupropion HCl 100 mg tablet sustained-release 12 hr 100 mg PO QAM clonazepam 0.5 mg tablet 0.5 mg PO BID PRN (Reason: Anxiety) Discharge Orders: Discharge Order (Routine); Ordered 03/15/23 Ordered By: Patricia Barrientos Diet: Advance to usual diet Activity on Discharge: As tolerated Stand Alone Forms: Patient Portal Discharge page Care Plan Goals: May schedule follow-up visit with Gastroenterology Health Concerns: Diarrhea and abdominal pain IBS C diff Hypokalemia Hypomagnesemia Plan of Treatment: Follow-up with primary care provider as needed Take all medications as prescribed Assessment: See discharge summary
== END 2023-03-15 12:54 | disposition home or self-care (01) | DRG 248 ==
LOC: HO.ED 19:25 → HO.EDOVER 20:19 → HO.IMC 03-08 11:22
PROVIDERS: Internal Medicine; Physician Assistant; Physician Assistant Medical; Admitting Provider Physician Assistant; Emergency Provider Student in an Organized Health Care Education/Training Program; PCP Family Medicine; Visit Provider Nurse Practitioner Acute Care
PROC: 0DB98ZX Excision of Duodenum, Via Natural or Artificial Opening Endoscopic, Diagnostic (ICD-10-PCS; principal; 2023-03-13 15:40)
DX: A04.71 Enterocolitis due to Clostridium difficile, recurrent (principal); D57.3 Sickle-cell trait; E78.5 Hyperlipidemia, unspecified; E86.0 Dehydration; E83.42 Hypomagnesemia; F39 Unspecified mood [affective] disorder; I10 Essential (primary) hypertension; J44.9 Chronic obstructive pulmonary disease, unspecified; F17.210 Nicotine dependence, cigarettes, uncomplicated; M79.7 Fibromyalgia; Z71.6 Tobacco abuse counseling; E87.6 Hypokalemia; K21.9 Gastro-esophageal reflux disease without esophagitis; K22.70 Barrett's esophagus without dysplasia; K58.0 Irritable bowel syndrome with diarrhea; K29.70 Gastritis, unspecified, without bleeding; K44.9 Diaphragmatic hernia without obstruction or gangrene; K29.80 Duodenitis without bleeding; K57.30 Diverticulosis of large intestine without perforation or abscess without bleeding; Z20.822 Contact with and (suspected) exposure to COVID-19; Z79.51 Long term (current) use of inhaled steroids; Z79.899 Other long term (current) drug therapy
CPT/HCPCS: 36415; 71045; 74177; 80048; 80076; 81003; 83690; 83735; 84132; 84484; 85025; 85610; 87324; 87493; 87502; 87507; 87635; 88305; 88342; 93005; 99285; J0131; J1170; J2270; J2405; J3010; J3475; Q9967

== ENCOUNTER → 2023-03-07 20:06 | Outpatient (BNV) | payer OTHER, SELFPAY | PROVIDERS: Admitting Provider Physician Assistant; Emergency Provider Student in an Organized Health Care Education/Training Program; PCP Family Medicine; Visit Provider Physician Assistant | DX: R19.7 Diarrhea, unspecified (principal) | CPT/HCPCS: 99223; 99232; 99239 ==

== ENCOUNTER 2023-05-26 05:39 | Inpatient (IN) | payer OTHER, SELFPAY ==
[2023-05-26] VITALS (8 sets, daily range): BP systolic 121–181; BP diastolic 63–89; PULSE 84–110; RESP 18–22; TEMP 36.7–38.3; O2SAT 91–98; BMI 25.7
--- NOTE | ~2023-05-26 | XR_ITS ---
EXAMINATION: XR CHEST CLINICAL INFORMATION: Cough. COMPARISON: 03/07/2023. TECHNIQUE: 2 views of the chest were obtained. FINDINGS: No significant abnormality is noted involving the heart, lungs, mediastinum, bony thorax or soft tissues. XR/XR chest 2V IMPRESSION: No evidence for active cardiopulmonary disease.
--- NOTE | ~2023-05-26 | CT_ITS ---
EXAMINATION: CT ABDOMEN AND PELVIS WITHOUT CONTRAST CLINICAL INFORMATION: Abdominal pain COMPARISON: CT abdomen pelvis March 07, 2023 TECHNIQUE: Multidetector volumetric imaging was performed from the superior aspect of the liver through the pubic symphysis. Sagittal and coronal reformatted images were obtained on the technologist's workstation. This CT examination was performed using dose optimization techniques as appropriate, variously including the following: *Automated exposure control *Adjustment of mA and/or kV according to patient size (this includes techniques or standardized protocols for targeted exams where dose is matched to indication/reason for exam; i.e. extremities or head) *Use of iterative reconstruction technique DLP: 547 mGy-cm FINDINGS: Visualized lung bases demonstrate mild dependent atelectasis. The liver is normal in size. The gallbladder is surgically absent. The pancreas, spleen and adrenal glands are unremarkable. The kidneys are symmetric in size. A lobulated appearance of the left kidney is again noted, likely accentuated due to areas of cortical thinning. No renal calculi or hydronephrosis of either kidney. Normal caliber loops of small and large bowel. Moderate colonic diverticulosis without CT evidence to suggest active diverticulitis. Normal appendix. Normal caliber abdominal aorta demonstrating only minimal atherosclerotic disease. No retroperitoneal lymphadenopathy. The bladder is normal in appearance. Uterus is surgically absent. There is no gross free pelvic fluid. No inguinal lymphadenopathy. Moderate diffuse degenerative changes of the spine. CT/CT abdomen pelvis wo IV con IMPRESSION: Colonic diverticulosis without CT evidence to suggest active diverticulitis. Fleischner guidelines were followed.
[2023-05-26 06:27] LABS: MANUAL DIFF FLAG NO
[2023-05-26 06:30] LABS: Influenza A PCR POSITIVE (Negative); Influenza B PCR NEGATIVE (Negative); Resp Syncy Virus RNA Qual PCR NEGATIVE (Negative); SARS COV2 PCR INHOUSE NEGATIVE (Negative)
[2023-05-26 06:30] LABS: Basophils Percent Auto 0.3 % (0-2); Hematocrit 34.8 % (37.0-47.0); Hemoglobin 12.6 g/dl (12.0-16.0); Imm Gran Abs Auto 0.02 X10*3/uL (0.00-0.03); Imm Gran Pct Auto 0.3 % (0.0-0.4); Lymphocytes Absolute Auto 0.3 X10*3/uL (1.2-4.9); Lymphocytes Percent Auto 5.3 % (20-40); Mean Corpuscular HGB Conc 36.2 g/dl (31.0-35.0); Mean Corpuscular Hemoglobin 32.7 pg (27.0-33.0); Mean Corpuscular Volume 90.4 fL (80.0-98.0); Mean Platelet Volume 9.9 fL (9.4-12.3); Monocytes Absolute Auto 0.4 X10*3/uL (0.1-1.2); Monocytes Percent Auto 6.9 % (2-11); Neutrophils Absolute Auto 5.3 x10*3/uL (2.0-8.3); Neutrophils Percent Auto 87.2 % (45-73); Platelet Count 316 X10*3/uL (160-400); Red Blood Count 3.85 X10*6/uL (4.20-5.50); Red Cell Distribution Width 15.7 % (11.0-16.0); White Blood Count 6.1 X10*3/uL (4.8-10.8)
[2023-05-26 06:47] LABS: Alanine Aminotransferase 31 U/L (0-31); Albumin Level 3.9 g/dL (3.5-5.0); Alkaline Phosphatase 286 U/L (39-117); Anion Gap 16 (12-20); Aspartate Amino Transferase 93 U/L (5-31); Bilirubin Total 0.7 mg/dL (0.0-1.0); Blood Urea Nitrogen 5 mg/dL (9-16); Calcium 8.4 mg/dL (8.4-10.2); Carbon Dioxide 28 mmol/L (22-29); Chloride 100 mmol/L (96-108); Estimated Glomerular Filt Rate > 60; Glucose Random 106 mg/dL (60-115); Potassium 2.4 mmol/L (3.3-5.1); Sodium 142 mmol/L (135-145); Total Protein 7.5 g/dL (6.5-8.0)
--- NOTE | 2023-05-26 07:28 | ED_ITS ---
HPI - General Adult General Chief complaint: Abdominal Pain Stated complaint: gen med Time Seen by Provider: 05/26/23 07:16 Source: patient Mode of arrival: ambulatory Limitations: no limitations History of Present Illness HPI narrative: Patient is a 62-year-old female with history of HTN, TIA, asthma, IBS, fibromyalgia, GERD presenting to the emergency department with 3 days of cough productive of yellow/green sputum, generalized abdominal pain, nausea, vomiting, diarrhea, lightheadedness, fatigue, and palpitations. Reports history of hypomagnesemia and hypokalemia, questioning if palpitations related to this. Denies fevers. Denies chest pain. Denies dizziness or syncope. Denies dysuria, frequency or other urinary symptoms. States has not taken any OTC medications due to nausea and vomiting. MD complaint: cough, nausea, vomiting, diarrhea, abdominal pain Onset (ago): day(s) Location: abdomen Radiation: non-radiation Severity: moderate Quality: aching Pain Consistency: constant Relieving factors: none Exacerbating factors: none Associated symptoms: cough, nausea/vomiting and other (palpitations) Treatments prior to arrival: none Related Data Home Medications Medication Instructions Recorded Confirmed albuterol sulfate 90 mcg/actuation 2 puff inhalation Q4H PRN Cough 02/01/20 03/07/23 aerosol inhaler simvastatin 20 mg tablet 20 mg PO BEDTIME 02/01/20 03/07/23 cyclobenzaprine 10 mg tablet 1 tab PO TID PRN musculoskeletal 10/09/20 03/07/23 pain escitalopram oxalate 20 mg tablet 20 mg PO DAILY 08/04/22 03/07/23 fluticasone propionate 110 1 puff inhalation BID 08/04/22 03/07/23 mcg/actuation HFA aerosol inhaler (Flovent HFA) pantoprazole 40 mg tablet,delayed 40 mg PO DAILY 08/04/22 03/07/23 release zolpidem 10 mg tablet 10 mg PO BEDTIME PRN insomnia 08/04/22 03/07/23 amlodipine 10 mg tablet 10 mg PO DAILY 12/13/22 03/07/23 bupropion HCl 100 mg tablet,12 hr 100 mg PO QAM 12/13/22 03/07/23 sustained-release clonazepam 0.5 mg tablet 0.5 mg PO BID PRN Anxiety 12/13/22 03/07/23 Previous Rx's Medication Instructions Recorded dicyclomine 10 mg capsule 20 mg (2 x 10 mg) PO QIDACHS #120 03/15/23 caps loperamide 2 mg capsule 2 mg PO Q6H PRN Diarrhea #20 caps 03/15/23 ondansetron 4 mg disintegrating 4 mg PO Q8H PRN nausea and 03/15/23 tablet vomiting #15 tabs oxycodone 5 mg tablet 5 mg PO Q8H PRN pain #12 tabs 03/15/23 vancomycin 125 mg capsule 125 mg PO Q6H #32 caps 03/15/23 celecoxib 200 mg capsule 200 mg PO BID #60 caps 05/24/23 Allergies Allergy/AdvReac Type Severity Reaction Status Date / Time lisinopril [LISINOPRIL] Allergy Severe TONGUE Verified 03/07/23 13:49 SWELLING olanzapine [From Zyprexa] AdvReac Involuntary Verified 03/07/23 13:49 Spasms emprin compound Allergy Intermediate Hives Uncoded 12/13/22 08:16 Review of Systems 2 Review of Systems: As per HPI. Yes all other systems are reviewed and are negative Constitutional: Constitutional: Reports as per HPI [facility] Past Medical History Onset Date is defined in the Problem List Problems that require an onset date and time if occurred within 24 hrs of arrival to the ED Aortic Dissection and Rupture; Neurologic impairment; Cardiopulmonary Arrest; Endotracheal Intubation; Insertion or Replacement of Mechanical Circulatory Assist Device Medical History Diverticulitis Irritable bowel syndrome Renal stones Depression with anxiety TIA (transient ischemic attack) Asthma Peripheral neuropathy History of sickle cell trait History of palpitations Back pain Chronic bronchitis Arthritis Fibromyalgia Neck pain History of frequent headaches Gastroesophageal reflux disease Hyperlipidemia Hypertension Surgical History History of ankle surgery History of total right knee replacement (TKR) H/O arthroscopic knee surgery Subacromial impingement of right shoulder History of surgical removal of ganglion cyst History of partial hysterectomy H/O wrist surgery Previous section Hx of cholecystectomy Family History Family History Father Gout Arthritis Mother Alive and well Hypertension Hyperlipidemia Chronic obstructive pulmonary disease (COPD) Brother No problems noted. Son Alive and well Daughter Alive and well Daughter Alive and well Maternal Aunt History of breast cancer Diabetes Social History Social History Household Members: Family [facility]: [facility] Do you presently have visiting nurse or other home services: No Alcohol intake: current Alcohol intake frequency: holidays/special occasions only Alcohol type: wine Patient Tobacco Use Status: Current everyday Tobacco user Tobacco use type: Cigarette Cigarettes Per Day: 2 Years Smoked: 10 Smoked in Last 30 Days: No e-Cigarette/Vaping Use: Currently Using Second Hand Smoke Exposure: Yes Use of substances other than those prescribed or required for medical reasons: No Advance Directives: Yes Advance Directives on File: Yes Advance Directives Date on File: 03/08/23 service: No Current occupational status: disabled Physical Exam ED Vital Signs: Vital Signs - 24 hr 05/26/23 05:41 05/26/23 07:34 05/26/23 07:55 Temperature 99.5 F 100.9 F H Pulse Rate 110 H 98 98 Respiratory Rate 18 18 18 Blood Pressure 138/88 161/89 H Pulse Oximetry 95 96 Oxygen Delivery Method Room Air Room Air 05/26/23 09:22 Temperature 99.2 F Pulse Rate 101 H Respiratory Rate 18 Blood Pressure 138/70 Pulse Oximetry 91 L Oxygen Delivery Method Room Air BMI result Body Mass Index 25.7 Vital signs have been reviewed and appear to be correct. Blood pressure normal. Heart rate tachycardic. Respiratory rate normal. Temperature normal. Oxygen saturation normal. Const General: cooperative, healthy appearing and no acute distress Orientation/consciousness: oriented to person, oriented to place, oriented to time and patient oriented x3 Limitations: no limitations [facility] Head: Yes normocephalic and Yes atraumatic Ears: external ears normal General nose exam: Normal external nose present Face and sinus: Yes face symmetric Mouth: oropharynx normal and moist mucous membranes Throat: Yes uvula midline Eyes Pupils: Equal, round and reactive pupils present Neck Neck: Yes normal visual inspection and Yes supple Resp Effort & Inspection: normal respiratory effort, able to speak in complete sentences and Actively coughing Quality: dry Auscultation: diminished lung sounds diffuse Cardio Rate: regular rate Rhythm: regular rhythm Heart sounds: S1 normal heart sound present and S2 normal heart sound present GI Palpation (GI): Soft to palpation and nontender Auscultation: normoactive bowel sounds General: Yes no CVA tenderness Back/Spine/Pelvis Back: no CVA tenderness Skin General skin exam: elasticity normal and turgor normal Neuro General: oriented to person, oriented to place, oriented to time, patient oriented x3, moves all extremities, no focal motor deficits and CN's II-XI intact bilaterally Cranial nerves: Yes Equal, round and reactive pupils present Cognition (Neuro): normal cognition Extrem General: Yes full ROM, Yes no pedal edema and Yes no calf tenderness Psych Mental Status: mental status grossly normal Affect: normal affect Thought process: Normal thought process present Medications Administered Generic Name Dose Route Start Last Admin Trade Name Freq PRN Reason Stop Dose Admin Magnesium Sulfate 2 gm in 50 mls @ 25 mls/hr 05/26/23 09:49 05/26/23 10:01 Magnesium Sulfate/H2o IV 05/26/23 11:48 25 mls/hr ONCE ONE Administration Discontinued Medications Generic Name Dose Route Start Last Admin Trade Name Freq PRN Reason Stop Dose Admin Acetaminophen 650 mg 05/26/23 07:44 05/26/23 07:52 Acetaminophen 325 Mg Tablet PO 05/26/23 07:45 650 mg ONCE ONE Administration Albuterol Sulfate 2.5 mg/ 0 mg 05/26/23 07:49 05/26/23 07:52 Albuterol/Ipratropium 3 ml INHALE 05/26/23 07:50 1 dose ONCE ONE Administration Sodium Chloride 1,000 mls @ 999 mls/hr 05/26/23 07:45 05/26/23 07:53 Ns IV 05/26/23 08:45 999 mls/hr .Q1H1M MICHELLE Administration Magnesium Sulfate 2 gm in 50 mls @ 25 mls/hr 05/26/23 07:55 05/26/23 08:28 Magnesium Sulfate/H2o IV 05/26/23 09:54 25 mls/hr ONCE ONE Administration Ibuprofen 600 mg 05/26/23 09:17 05/26/23 09:24 Ibuprofen 600 Mg Tablet PO 05/26/23 09:18 600 mg ONCE ONE Administration Ketorolac Tromethamine 15 mg 05/26/23 07:44 05/26/23 07:52 Ketorolac Tromethamine 15 Mg/Ml Vial IVPUSH 05/26/23 07:45 15 mg ONCE ONE Administration Ondansetron HCl 4 mg 05/26/23 07:44 05/26/23 07:52 Ondansetron Hcl 4 Mg/2 Ml Vial IVPUSH 05/26/23 07:45 4 mg ONCE ONE Administration Oseltamivir Phosphate 75 mg 05/26/23 07:45 05/26/23 07:52 Oseltamivir Phosphate 75 Mg Capsule PO 05/26/23 07:46 75 mg ONCE ONE Administration Potassium Chloride 40 meq 05/26/23 07:29 05/26/23 07:46 Potassium Chloride Er 20 Meq Tab.Er.Prt PO 05/26/23 07:30 40 meq ONCE ONE Administration Medical Decision Making Medical Decision Making [facility] Narrative: Patient is a 62-year-old female with history of HTN, TIA, asthma, IBS, fibromyalgia, cholecystectomy, GERD presenting to the emergency department with 3 days of cough productive of yellow/green sputum, generalized abdominal pain, nausea, vomiting, diarrhea, lightheadedness, palpitations. On exam patient is awake, A+Ox3, VS WNL, afebrile, normal neurological exam without focal deficits, physical exam findings as above. Given reported symptoms and physical exam findings, initial differential includes viral illness, Covid, flu, RSV, hypokalemia, hypomagnesemia. Labs notable for hypokalemia, severe hypomegnesemia, elevated alk phos and AST. No RUQ tenderness on exam. No evidence of pneumonia on chest x-ray. EKG shows sinus tachycardia. ED bronch protocol ordered for diminished LS. PO and IV potassium and mag ordered. [place] Text to Dr. Tillman who accepts admission. Differential Diagnosis Differential Diagnoses: The differential diagnosis associated with the presentation includes As per MDM. Admission/Observation Consideration of admission/observation: Escalation of care including admission/observation considered Consult Healthcare Provider Management of the patient was discussed with: Hospitalist (Dr. Tillman) Lab Data [facility] Lab Attestation statement: I reviewed the patient's lab results. As per MDM. 05/26/23 06:22 05/26/23 06:22 Labs: Lab Results 05/26/23 05/26/23 Range/Units 05:48 06:22 WBC 6.1 (4.8-10.8) X10*3/uL RBC 3.85 L (4.20-5.50) X10*6/uL Hgb 12.6 (12.0-16.0) g/dl Hct 34.8 L (37.0-47.0) % MCV 90.4 (80.0-98.0) fL MCH 32.7 (27.0-33.0) pg MCHC 36.2 H (31.0-35.0) g/dl RDW 15.7 (11.0-16.0) % Plt Count 316 (160-400) X10*3/uL MPV 9.9 (9.4-12.3) fL Immature Gran % (Auto) 0.3 (0.0-0.4) % Neut % (Auto) 87.2 H (45-73) % Lymph % (Auto) 5.3 L (20-40) % [place] % (Auto) 6.9 (2-11) % Eos % (Auto) 0.0 (0-4) % Baso % (Auto) 0.3 (0-2) % Lymph # (Auto) 0.3 L (1.2-4.9) X10*3/uL [place] # (Auto) 0.4 (0.1-1.2) X10*3/uL Eos # (Auto) 0.0 (0.0-0.4) X10*3/uL Baso # (Auto) 0.0 (0.0-0.2) X10*3/uL Abs Immat Gran (auto) 0.02 (0.00-0.03) X10*3/uL Absolute Neuts (auto) 5.3 (2.0-8.3) x10*3/uL Absolute Nucleated RBC 0.000 (0.0-0.012) X10*3/uL Nucleated RBC % (auto) 0.0 (0.0-0.2) /100WBC Sodium 142 (135-145) mmol/L Potassium 2.4 L* (3.3-5.1) mmol/L Chloride 100 (96-108) mmol/L Carbon Dioxide 28 (22-29) mmol/L Anion Gap 16 (12-20) BUN 5 L (9-16) mg/dL Creatinine 0.78 (0.5-1.4) mg/dL Estim Creat Clear Calc 74.0 Estimated GFR > 60 Random Glucose 106 (60-115) mg/dL Calcium 8.4 D (8.4-10.2) mg/dL Magnesium 0.7 L* (1.6-2.6) mg/dL Total Bilirubin 0.7 (0.0-1.0) mg/dL AST 93 H (5-31) U/L ALT 31 (0-31) U/L Alkaline Phosphatase 286 H (39-117) U/L Total Protein 7.5 (6.5-8.0) g/dL Albumin 3.9 (3.5-5.0) g/dL Influenza Type A (PCR) POSITIVE A (Negative) Influenza Type B (PCR) NEGATIVE (Negative) RSV RNA Qual (PCR) NEGATIVE (Negative) SARS-CoV-2 RNA (RT-PCR) NEGATIVE (Negative) Independent Interpretation I performed an independent interpretation of an: EKG and Plain X-Ray Interpretation: No evidence of pneumonia on CXR. Radiology Impression Discussion of test interpretation with radiology: I have reviewed the radiologist's reading. Radiologist Impression: XR/XR chest 2V IMPRESSION: No evidence for active cardiopulmonary disease. External Record Review External record reviewed: Inpatient record, Office record and Outpatient record Prescription Management I considered prescription management with: Antiviral and Other Discharge Plan Discharge Prescriptions: No Action celecoxib 200 mg capsule 200 mg PO BID Qty: 60 1RF cyclobenzaprine 10 mg tablet 1 tab PO TID PRN (Reason: musculoskeletal pain) pantoprazole 40 mg tablet,delayed release (DR/EC) 40 mg PO DAILY zolpidem 10 mg tablet 10 mg PO BEDTIME PRN (Reason: insomnia) fluticasone propionate [Flovent HFA] 110 mcg/actuation HFA aerosol inhaler 1 puff INHALATION BID escitalopram oxalate 20 mg tablet 20 mg PO DAILY loperamide 2 mg Capsule 2 mg PO Q6H PRN (Reason: Diarrhea) Qty: 20 0RF vancomycin 125 mg Capsule 125 mg PO Q6H Qty: 32 0RF dicyclomine 10 mg Capsule 20 mg PO QIDACHS Qty: 120 0RF oxycodone 5 mg tablet 5 mg PO Q8H PRN (Reason: pain) Qty: 12 0RF Rx Instructions: Partial Fill upon patient request. ondansetron 4 mg tablet,disintegrating 4 mg PO Q8H PRN (Reason: nausea and vomiting) Qty: 15 0RF simvastatin 20 mg tablet 20 mg PO BEDTIME albuterol sulfate 90 mcg/actuation HFA aerosol inhaler 2 puff inhalation Q4H PRN (Reason: Cough) Rx Instructions: Inhale 2 puffs by mouth every 4 hours if needed for cough or wheezing amlodipine 10 mg tablet 10 mg PO DAILY bupropion HCl 100 mg tablet sustained-release 12 hr 100 mg PO QAM clonazepam 0.5 mg tablet 0.5 mg PO BID PRN (Reason: Anxiety)
[2023-05-26] MEDS: Potassium Chloride ER 20 MEQ TAB.ER.PRT 40 MEQ PO (07:46)
[2023-05-26] MEDS: Albuterol Sulfate 2.5 MG, Albuterol/Iprat 2.5/0.5MG 3 ML 3 ML INHALE (07:52)
[2023-05-26] MEDS: ondansetron HCL 4 MG/2 ML VIAL IVPUSH ×2 (07:52→20:24)
[2023-05-26] MEDS: Acetaminophen 325 MG TABLET 650 MG PO ×2 (07:52→18:41)
[2023-05-26] MEDS: Oseltamivir Phosphate 75 MG CAPSULE PO ×2 (07:52→20:23)
[2023-05-26] MEDS: Ketorolac Tromethamine 15 MG/ML VIAL IVPUSH (07:52)
[2023-05-26] MEDS: 0.9 % Sodium Chloride 1,000 ML 999 ML IV (07:53)
[2023-05-26 07:56] LABS: Magnesium 0.7 mg/dL (1.6-2.6)
[2023-05-26] MEDS: Magnesium Sulfate/H2O 2 GM/50 ML PIGGYBACK IV ×2 (08:28→10:01)
--- NOTE | 2023-05-26 09:10 | ECG_ITS ---
Test Reason : PALPITATION Blood Pressure : / mmHG Vent. Rate : 101 BPM Atrial Rate : 101 BPM P-R Int : 152 ms QRS Dur : 100 ms QT Int : 380 ms P-R-T Axes : 054 -08 050 degrees QTc Int : 492 ms Sinus tachycardia Otherwise normal ECG When compared with ECG of 07-MAR-2023 14:22, No significant change was found Referred By: Demetra Shelley Electronically Signed By:ARMINDA CAPELLAN
[2023-05-26] MEDS: Ibuprofen 600 MG TABLET PO (09:24)
[2023-05-26] MEDS: Potassium Chloride/H20 10 MEQ/100 ML PIGGYBACK 100 MEQ IV ×5 (10:30→22:56)
--- NOTE | 2023-05-26 11:20 | P.HPHOSP_ITS ---
History of Present Illness Date of Service: 05/26/23 <DI Mckinney - Last Filed: 05/26/23 13:58> Attending physician on admission: Sergei Lo <DI Mckinney - Last Filed: 05/26/23 13:58> Chief Complaint: Abdominal pain, generalized weakness, cough <DI Mckinney - Last Filed: 05/26/23 13:58> Pt is a 62-year-old female with a PMH significant for?IBS with diarrhea predominant, hx of C diff colitis, HTN, HLD, chronic pain d/t arthritis on chronic opioids, hx of TIA, mild intermittent asthma, fibromyalgia, sinckle cell trait, and GERD who presents to the ED with?intractable nausea, vomiting, and diarrhea, cough, and abdominal pain x3 days. Patient also complains of headache at the of her head that wraps around to front, palpitations, and severe diffuse abdominal pain that started after nausea and vomiting. Patient has also been experiencing shortness of breath that has kept her up the past 2 nights. Patient has long history of GI issues including IBS, states this really does not feel like an IBS flare. Patient also has tested positive for C diff in the past, says this feels similar to previous bout of C diff infection, reports diarrhea has a similar foul-smelling odor to it. Also complains of overall body soreness, including joints. In the ED pt was febrile at 100.9, tachycardic up to 110, mildly hypertensive 161/89, and satting as low as 91% on RA. Labs were significant for testing positive for influenza A, potassium 2.4, magnesium 0.7, AST 93, and alk-phos 286. No leukocytosis. CXR showed no evidence for acute cardiopulmonary disease. EKG demonstrated sinus tachycardia of [address] elevations or depressions. Pt was treated with potassium chloride IV and p.o., Mag sulfate 4 g IV, ondansetron, acetaminophen, Tamiflu, IVF, and DuoNebs. Pt will be admitted to the hospital for treatment further evaluation hypokalemia and hypomagnesemia in the setting of intractable nausea secondary to influenza infection. <DI Mckinney - Last Filed: 05/26/23 13:58> Review of Systems 2 Review of Systems: Nausea, vomiting Abdominal pain Shortness of breath Productive cough Myalgias, arthralgias Headache Palpitations <DI Mckinney - Last Filed: 05/26/23 13:58> [facility] Medical History: Medical History Diverticulitis Irritable bowel syndrome Renal stones Depression with anxiety TIA (transient ischemic attack) Asthma Peripheral neuropathy History of sickle cell trait History of palpitations Back pain Chronic bronchitis Arthritis Fibromyalgia Neck pain History of frequent headaches Gastroesophageal reflux disease Hyperlipidemia Hypertension <DI Mckinney - Last Filed: 05/26/23 13:58> Family History: Family History Father Gout Arthritis Mother Alive and well Hypertension Hyperlipidemia Chronic obstructive pulmonary disease (COPD) Brother No problems noted. Son Alive and well Daughter Alive and well Daughter Alive and well Maternal Aunt History of breast cancer Diabetes <DI Mckinney - Last Filed: 05/26/23 13:58> Surgical History: Surgical History History of ankle surgery History of total right knee replacement (TKR) H/O arthroscopic knee surgery Subacromial impingement of right shoulder History of surgical removal of ganglion cyst History of partial hysterectomy H/O wrist surgery Previous section Hx of cholecystectomy <DI Mckinney - Last Filed: 05/26/23 13:58> Social History: Social History Household Members: Family Housing: House Do you presently have visiting nurse or other home services: Yes Alcohol intake: current Alcohol intake frequency: holidays/special occasions only Alcohol type: wine Patient Tobacco Use Status: Former Tobacco user Tobacco use type: Cigarette Cigarettes Per Day: 2 Years Smoked: 10 Smoked in Last 30 Days: Yes e-Cigarette/Vaping Use: Currently Using Second Hand Smoke Exposure: Yes Use of substances other than those prescribed or required for medical reasons: No Currently Displaying Signs/Symptoms of Drug Intoxication Withdrawal: No Have you been hit, kicked, punched, or otherwise hurt by someone within the past year? If so, by whom?: No Do you feel safe in your current relationship?: Yes Spiritual Healthcare Practices: hinduism Advance Directives: Yes Advance Directives on File: Yes Advance Directives Date on File: 03/08/23 Do you have thoughts of harming others: None Do you have a plan to hurt others: No Plan Recently lost weight without trying: Unsure Patient : No service: No Current occupational status: disabled <DI Mckinney - Last Filed: 05/26/23 13:58> Meds Allergies/Adverse reactions: Allergies Allergy/AdvReac Type Severity Reaction Status Date / Time lisinopril [LISINOPRIL] Allergy Severe TONGUE Verified 03/07/23 13:49 SWELLING olanzapine [From Zyprexa] AdvReac Involuntary Verified 03/07/23 13:49 Spasms emprin compound Allergy Intermediate Hives Uncoded 12/13/22 08:16 <DI Mckinney - Last Filed: 05/26/23 13:58> Active Medications: Current Medications Magnesium Sulfate (Magnesium Sulfate/H2o) 2 gm in 50 mls @ 25 mls/hr IV ONCE ONE Stop: 05/26/23 11:48 Last Admin: 05/26/23 10:01 Dose: 25 mls/hr Potassium Chloride (Potassium Chloride/H20) 10 meq in 100 mls @ 100 mls/hr IV Q1H MICHELLE Stop: 05/26/23 13:59 Last Admin: 05/26/23 10:30 Dose: 100 mls/hr <DI Mckinney - Last Filed: 05/26/23 13:58> Home medications: Home Medications Medication Instructions Recorded Confirmed Last Taken Type albuterol sulfate 90 mcg/actuation 2 puff inhalation Q4H PRN Cough 02/01/20 05/26/23 03/04/23 History aerosol inhaler simvastatin 20 mg tablet 20 mg PO BEDTIME 02/01/20 05/26/23 03/04/23 History cyclobenzaprine 10 mg tablet 1 tab PO TID PRN musculoskeletal 10/09/20 05/26/23 03/04/23 History pain pantoprazole 40 mg tablet,delayed 40 mg PO DAILY 08/04/22 05/26/23 03/04/23 History release zolpidem 10 mg tablet 10 mg PO BEDTIME PRN insomnia 08/04/22 05/26/23 03/04/23 History amlodipine 10 mg tablet 10 mg PO DAILY 08/12/2805/26/23 03/04/23 History clonazepam 0.5 mg tablet 0.5 mg PO BID PRN Anxiety 12/13/22 05/26/23 03/04/23 History bupropion HCl 150 mg 24 hr tablet, 150 mg PO DAILY 05/26/23 05/26/23 Unknown History extended release mirtazapine 30 mg tablet 30 mg PO BEDTIME 05/26/23 05/26/23 Unknown History <DI Mckinney - Last Filed: 05/26/23 13:58> Physical Exam 2 Vital Signs and Narrative: Vital Signs: Last Vital Signs Temp 99.2 F 05/26/23 09:22 Pulse 101 H 05/26/23 09:22 Resp 18 05/26/23 09:22 BP 138/70 05/26/23 09:22 Pulse Ox 91 L 05/26/23 09:22 O2 Del Method Room Air 05/26/23 09:22 BMI result Body Mass Index 25.7 <DI Mckinney - Last Filed: 05/26/23 13:58> Constitutional: Alert, in no acute distress. Mental Status: Oriented to person, place and time. Eyes: Pupils are equal, round, and reactive to light. Ear, Nose, and Throat: Oropharynx clear, mucous membranes moist. Ears and nose without deformities. Trachea midline. Respiratory: Diffuse expiratory wheezing and rhonchi bilaterally. Cardiovascular: S1, S2 regular. No murmurs, rubs, or gallops. Gastrointestinal: Abdomen soft, diffusely tender throughout, non-distended. Normal bowel sounds. Neurologic: Cranial nerves II-XII are grossly intact bilaterally. No focal neurological deficits. Moves all extremities spontaneously. Skin: Warm, dry. Musculoskeletal: No cyanosis or clubbing. Extremities: No edema. Psychiatric: Normal mood and affect. <DI Mckinney - Last Filed: 05/26/23 13:58> Results Labs CBC and Chem 7: 05/26/23 06:22 05/27/23 06:40 <DI Mckinney - Last Filed: 05/26/23 13:58> Labs: Laboratory Results - last 24 hr 05/26/23 05/26/23 05:48 06:22 MCV 90.4 MCH 32.7 MCHC 36.2 H RDW 15.7 Plt Count 316 MPV 9.9 Immature Gran % (Auto) 0.3 Neut % (Auto) 87.2 H Lymph % (Auto) 5.3 L [place] % (Auto) 6.9 Eos % (Auto) 0.0 Baso % (Auto) 0.3 Lymph # (Auto) 0.3 L [place] # (Auto) 0.4 Eos # (Auto) 0.0 Baso # (Auto) 0.0 Abs Immat Gran (auto) 0.02 Absolute Neuts (auto) 5.3 Absolute Nucleated RBC 0.000 Nucleated RBC % (auto) 0.0 Anion Gap 16 Estim Creat Clear Calc 74.0 Estimated GFR > 60 Random Glucose 106 Calcium 8.4 D Magnesium 0.7 L* Total Bilirubin 0.7 AST 93 H ALT 31 Alkaline Phosphatase 286 H Total Protein 7.5 Albumin 3.9 Influenza Type A (PCR) POSITIVE A Influenza Type B (PCR) NEGATIVE RSV RNA Qual (PCR) NEGATIVE SARS-CoV-2 RNA (RT-PCR) NEGATIVE <DI Mckinney - Last Filed: 05/26/23 13:58> Imaging Radiologist's Impressions: Impressions Chest X-Ray 05/26/23 06:04 IMPRESSION: No evidence for active cardiopulmonary disease. <DI Mckinney - Last Filed: 05/26/23 13:58> Assessment and Plan (1) Influenza A: Status: Acute <DI Mckinney - Last Filed: 05/26/23 13:58> (2) Hypokalemia: Status: Acute <DI Mckinney - Last Filed: 05/26/23 13:58> (3) Hypomagnesemia: Status: Acute <DI Mckinney - Last Filed: 05/26/23 13:58> Pt is a 62-year-old female with a PMH significant for?IBS with diarrhea predominant, hx of C diff colitis, HTN, HLD, chronic pain d/t arthritis on chronic opioids, hx of TIA, mild intermittent asthma, fibromyalgia, sinckle cell trait, and GERD who presents to the ED with?intractable nausea, vomiting, and diarrhea, cough, and abdominal pain x3 days. Pt will be admitted to the hospital for treatment further evaluation hypokalemia and hypomagnesemia in the setting of intractable nausea secondary to influenza infection. Influenza Patient with SOB, productive cough, myalgias, arthralgias, N/V/D Patient not hypoxic, though with diffuse wheezing on exam Will treat with Tamiflu, DuoNebs, Mucinex Supportive care Hypokalemia Potassium 2.4 time of presentation Likely secondary to GI losses from flu Patient received IV and p.o. potassium supplementation Follow BMP, supplement as necessary Monitor on telemetry Hypomagnesemia Magnesium 0.7 at time of presentation Likely secondary to GI losses from flu Patient received 4 g IV magnesium in ED Follow BMP, supplement as necessary Monitor on telemetry Intractable nausea and vomiting Likely secondary to flu, IBS flare or C Diff less likely Treat as above, as well as with anti-emetics Will test for C Diff toxin Consider full GI panel and/or CT of abd/pelvis is symptoms persist HTN Continue amlodipine HLD Continue statin Asthma/COPD overlap syndrome Not in acute exacerbation Continue home inhalers Mood disorder Continue home meds Full Code Attending:?Dr. Lo DVT Prophylaxis: Lovenox Pt will require a hospitalization of at least two nights for treatment of?hypomagnesemia and hypokalemia in the setting of intractable N/V/D secondary to influenza infection. Given severity of patient's electrolyte abnormalities, as well as past history of the same, patient will require close monitoring of labs and additional supplementation as necessary. Patient will also be treated with antiemetics IVF, and Tamiflu. <DI Mckinney - Last Filed: 05/26/23 13:58> Pt is a 62-year-old female with a PMH significant for?IBS with diarrhea predominant, hx of C diff colitis, HTN, HLD, chronic pain d/t arthritis on chronic opioids, hx of TIA, mild intermittent asthma, fibromyalgia, sinckle cell trait, and GERD who presents to the ED with?intractable nausea, vomiting, and diarrhea, cough, and abdominal pain x3 days. Pt will be admitted to the hospital for treatment further evaluation hypokalemia and hypomagnesemia in the setting of intractable nausea secondary to influenza infection. Influenza--no hypoxia, cough -continue tamiflu for 5 days -sympomatic treatement Hypokalemia--d/t diarrhea -oral and IV replacement as needed -Correct mag as well Potassium 2.4 time of presentation Hypomagnesemia, 0.7 now--IV mag replacement Abd pian, n/v --exan sindy, non contrast CT Diarrhea, check cdif HTN Continue amlodipine HLD Continue statin Asthma/COPD overlap syndrome Not in acute exacerbation Continue home inhalers Mood disorder Continue home meds Full Code DVT prophylaix Lovenox admission for at least 2 midnights for severe hypokalemia, hypomagnesemia and need IV replacement and frequent lab check <Sergei Lo MD - Last Filed: 05/27/23 11:23> Quality Stroke Does the patient have a stroke diagnosis?: No <DI Mckinney - Last Filed: 05/26/23 13:58> VTE Prior VTE?: No <DI Mckinney - Last Filed: 05/26/23 13:58> VTE Risk Level:: Medical - moderate - high <DI Mckinney - Last Filed: 05/26/23 13:58> VTE Device Contraindication: Treatment Not Indicated <DI Mckinney - Last Filed: 05/26/23 13:58> VTE Drug Contraindication: N/A - Med Ordered <DI Mckinney - Last Filed: 05/26/23 13:58>
--- NOTE | 2023-05-26 11:40 | PC.NURSE ---
Patient unable to tolerate K+ infusing, rate slowed provider notified. Hot pack placed on arm
[2023-05-26] MEDS: Prochlorperazine Edisylate 10 MG/2 ML VIAL 5 MG IVPUSH (12:12)
[2023-05-26] MEDS: Enoxaparin Sodium 40 MG/0.4 ML SYRINGE SUBCUT (12:12)
--- NOTE | 2023-05-26 12:22 | PHA.MEDREC ---
Pharmacy Consult ? Medication Reconciliation Pharmacy has completed the medication reconciliation.
[2023-05-26] MEDS: Morphine Sulfate 4 MG/ML CARTRIDGE IVPUSH (12:34)
[2023-05-26] MEDS: guaiFENesin DM 600/30 1 TAB TAB.ER.12H PO ×2 (13:54→20:23)
--- NOTE | 2023-05-26 14:11 | PC.NURSE ---
K+ continues to infuse at decreased rate. Provider aware
--- NOTE | 2023-05-26 18:31 | PC.NURSE ---
informed md of pt's BP
[2023-05-26] MEDS: Cyclobenzaprine HCl 10 MG TABLET PO (18:41)
[2023-05-26] MEDS: Zolpidem Tartrate 5 MG TABLET 10 MG PO (20:22)
[2023-05-26] MEDS: Atorvastatin Calcium 10 MG TABLET PO (20:22)
[2023-05-26] MEDS: Mirtazapine 30 MG TABLET PO (20:23)
[2023-05-26] MEDS: Celecoxib 200 MG CAPSULE PO (20:23)
[2023-05-26] MEDS: 0.9 % Sodium Chloride Flush 3 ML SYRINGE IVFLUSH (20:24)
[2023-05-26] MEDS: Albuterol/Iprat 2.5/0.5MG 3 ML AMPUL.NEB INHALE (20:58)
[2023-05-26 22:44] LABS: Anion Gap 14 (12-20); Carbon Dioxide 25 mmol/L (22-29); Chloride 106 mmol/L (96-108); Magnesium 1.6 mg/dL (1.6-2.6); Potassium 2.6 mmol/L (3.3-5.1); Sodium 142 mmol/L (135-145)
[2023-05-26] MEDS: Potassium Chloride Packet 20 MEQ PACKET 40 MEQ PO (22:55)
[2023-05-27] VITALS (9 sets, daily range): BP systolic 131–187; BP diastolic 71–98; PULSE 75–92; RESP 18–20; TEMP 36–37; O2SAT 93–98
[2023-05-27] MEDS: Potassium Chloride/H20 10 MEQ/100 ML PIGGYBACK 100 MEQ IV ×3 (00:49→02:54)
[2023-05-27 02:17] LABS: CDiff Gene PCR POSITIVE (Negative)
[2023-05-27 03:03] LABS: CDIFF Internal ctrl Dots and bkg OK (V); CDiff Toxin Negative (Negative)
[2023-05-27] MEDS: Acetaminophen 325 MG TABLET 650 MG PO ×2 (03:19→15:47)
[2023-05-27] MEDS: Labetalol HCL 100 MG/20 ML VIAL 10 MG IVPUSH (03:38)
[2023-05-27] MEDS: Cyclobenzaprine HCl 10 MG TABLET PO ×2 (06:29→20:25)
[2023-05-27] MEDS: Omeprazole 20 MG CAPSULE.DR PO (06:29)
[2023-05-27 07:28] LABS: Anion Gap 15 (12-20); Blood Urea Nitrogen 5 mg/dL (9-16); Calcium 8.2 mg/dL (8.4-10.2); Carbon Dioxide 24 mmol/L (22-29); Chloride 109 mmol/L (96-108); Creatinine Clr Calc Pharmacy 83.6; Estimated Glomerular Filt Rate > 60; Glucose Random 80 mg/dL (60-115); Magnesium 1.5 mg/dL (1.6-2.6); Potassium 3.1 mmol/L (3.3-5.1); Sodium 145 mmol/L (135-145)
[2023-05-27] MEDS: Oseltamivir Phosphate 75 MG CAPSULE PO ×2 (08:48→20:26)
[2023-05-27] MEDS: amLODIPine Besylate 10 MG TABLET PO (08:48)
[2023-05-27] MEDS: buPROPion HCl XL 150 MG TAB.ER.24H PO (08:49)
[2023-05-27] MEDS: guaiFENesin DM 600/30 1 TAB TAB.ER.12H PO ×2 (08:49→20:24)
[2023-05-27] MEDS: Potassium Chloride ER 20 MEQ TAB.ER.PRT 40 MEQ PO ×2 (08:49→20:24)
[2023-05-27] MEDS: Celecoxib 200 MG CAPSULE PO ×2 (08:49→20:24)
[2023-05-27] MEDS: vancomycin HCL 125 MG CAPSULE PO ×3 (08:49→20:24)
[2023-05-27] MEDS: Magnesium Sulfate/H2O 2 GM/50 ML PIGGYBACK IV (08:54)
[2023-05-27] MEDS: 0.9 % Sodium Chloride Flush 3 ML SYRINGE IVFLUSH ×3 (08:54→20:25)
[2023-05-27] MEDS: ondansetron HCL 4 MG/2 ML VIAL IVPUSH ×2 (09:40→18:40)
--- NOTE | 2023-05-27 11:23 | HO.PM.IMPN ---
Subjective Subjective Date of Service: 05/27/23 Interval History: f/u on flu, + cdif, c/o cough, abd pain Physical Exam Vital Signs: Vital Signs: Last Vital Signs Temp 97.8 F 05/27/23 07:47 Pulse 75 05/27/23 07:47 Resp 20 05/27/23 07:47 BP 152/87 H 05/27/23 07:47 Pulse Ox 97 05/27/23 07:47 O2 Del Method Room Air 05/27/23 07:47 BMI result Body Mass Index 25.7 Const: Other: General: AO X 3, no acute distress Resp: CTA bilateral CVS: S1,S2,RRR GI: +BS non-specific tendernress, no distention Skin: No rash Neuro: motor grossly intact Psych: appropriate affect Objective Data Active Medications Acetaminophen (Acetaminophen 325 Mg Tablet) 650 mg PO Q6H PRN PRN Reason: Pain, Mild (Pain Scale 1-3) Last Admin: 05/27/23 03:19 Dose: 650 mg Documented By: SUMIT Albuterol Sulfate (Albuterol Sulfate 90 Mcg 8 Gm Inhaler) 2 puff INHALE Q4H PRN PRN Reason: Cough Albuterol/Ipratropium (Albuterol/Iprat 2.5/0.5mg 3 Ml Ampul.Neb) 3 ml INHALE Q4H PRN PRN Reason: Wheezing Last Admin: 05/26/23 20:58 Dose: 3 ml Documented By: MISHA Amlodipine Besylate (Amlodipine Besylate 10 Mg Tablet) 10 mg PO DAILY [facility]; Protocol Last Admin: 05/27/23 08:48 Dose: 10 mg Documented By: SONI Atorvastatin Calcium (Atorvastatin Calcium 10 Mg Tablet) 10 mg PO BEDTIME [facility] Last Admin: 05/26/23 20:22 Dose: 10 mg Documented By: SUMIT Bupropion HCl (Bupropion Hcl Xl 150 Mg Tab.Er.24h) 150 mg PO DAILY [facility] Last Admin: 05/27/23 08:49 Dose: 150 mg Documented By: SONI Celecoxib (Celecoxib 200 Mg Capsule) 200 mg PO BID [facility] Last Admin: 05/27/23 08:49 Dose: 200 mg Documented By: SONI Clonazepam (Clonazepam 0.5 Mg Tablet) 0.5 mg PO BID PRN PRN Reason: Anxiety Cyclobenzaprine HCl (Cyclobenzaprine Hcl 10 Mg Tablet) 10 mg PO TID PRN PRN Reason: musculoskeletal pain Last Admin: 05/27/23 06:29 Dose: 10 mg Documented By: SUMIT Docusate Sodium (Docusate Sodium 100 Mg Capsule) 100 mg PO DAILY PRN PRN Reason: Constipation Enoxaparin Sodium (Enoxaparin Sodium 40 Mg/0.4 Ml Syringe) 40 mg SUBCUT Q24H [facility] Last Admin: 05/26/23 12:12 Dose: 40 mg Documented By: COLLIN Guaifenesin/Dextromethorphan (Guaifenesin Dm 600/30 1 Tab Tab.Er.12h) 1 tab PO BID [facility] Last Admin: 05/27/23 08:49 Dose: 1 tab Documented By: SONI Melatonin (Melatonin 3 Mg Tablet) 6 mg PO BEDTIME PRN PRN Reason: Insomnia Mirtazapine (Mirtazapine 30 Mg Tablet) 30 mg PO BEDTIME [facility] Last Admin: 05/26/23 20:23 Dose: 30 mg Documented By: SUMIT Omeprazole (Omeprazole 20 Mg Capsule.Dr) 20 mg PO DAILY@0630 [facility] Last Admin: 05/27/23 06:29 Dose: 20 mg Documented By: SUMIT Ondansetron HCl (Ondansetron Hcl 4 Mg/2 Ml Vial) 4 mg IVPUSH Q8H PRN PRN Reason: Nausea and Vomiting Last Admin: 05/27/23 09:40 Dose: 4 mg Documented By: SONI Oseltamivir Phosphate (Oseltamivir Phosphate 75 Mg Capsule) 75 mg PO Q12H [facility] Stop: 05/30/23 20:01 Last Admin: 05/27/23 08:48 Dose: 75 mg Documented By: SONI Oxycodone HCl (Oxycodone Hcl Immed Release 5 Mg Tablet) 5 mg PO Q6H PRN PRN Reason: Pain, Severe (Pain Scale 7-10) Potassium Chloride (Potassium Chloride Er 20 Meq Tab.Er.Prt) 40 meq PO BID [facility] Stop: 05/28/23 09:01 Last Admin: 05/27/23 08:49 Dose: 40 meq Documented By: SONI Sodium Chloride (0.9 % Sodium Chloride Flush 3 Ml Syringe) 3 ml IVFLUSH QSHIFT [facility] Last Admin: 05/27/23 08:54 Dose: 3 ml Documented By: SONI Vancomycin HCl (Vancomycin Hcl 125 Mg Capsule) 125 mg PO Q6H [facility] Last Admin: 05/27/23 08:49 Dose: 125 mg Documented By: SONI Zolpidem Tartrate (Zolpidem Tartrate 5 Mg Tablet) 10 mg PO BEDTIME PRN PRN Reason: insomnia Last Admin: 05/26/23 20:22 Dose: 10 mg Documented By: LAFLAMC Labs 05/26/23 06:22 05/27/23 06:40 Labs: Laboratory Results - last 24 hr 05/26/23 05/27/23 05/27/23 22:05 00:11 06:40 Hold Purple Top SEE NOTE Anion Gap 14 15 Estim Creat Clear Calc 83.6 Estimated GFR > 60 Random Glucose 80 Calcium 8.2 L Magnesium 1.6 1.5 L C. difficile Tox B Gene POSITIVE A* C. difficile Toxin A&B Negative C. difficile Interpret SEE NOTE Assessment and Plan (1) Influenza A: Status: Acute (2) Hypokalemia: Status: Acute (3) Hypomagnesemia: Status: Acute Plan Pt is a 62-year-old female with a PMH significant for?IBS with diarrhea predominant, hx of C diff colitis, HTN, HLD, chronic pain d/t arthritis on chronic opioids, hx of TIA, mild intermittent asthma, fibromyalgia, sinckle cell trait, and GERD who presents to the ED with?intractable nausea, vomiting, and diarrhea, cough, and abdominal pain x3 days. Pt will be admitted to the hospital for treatment further evaluation hypokalemia and hypomagnesemia in the setting of intractable nausea secondary to influenza infection. Influenza--no hypoxia, cough -continue tamiflu for 5 days -sympomatic treatement with cough meds, breathing treatment prn Hypokalemia--d/t diarrhea, better -oral and IV replacement as needed -Correct mag as well Hypomagnesemia, 0.7 now 1.5 --IV mag replacement Abd pian, n/v --examn sindy, non contrast CT tody Diarrhea, c dif +, added Vanco PO HTN Continue amlodipine HLD Continue statin Asthma/COPD overlap syndrome Not in acute exacerbation Continue home inhalers Mood disorder Continue home meds Full Code DVT prophylaix Lovenox admission for at least 2 midnights for severe hypokalemia, hypomagnesemia and need IV replacement and frequent lab check Quality Stroke Does the patient have a stroke diagnosis?: No VTE Prior VTE?: No VTE Risk Level:: Medical - moderate - high VTE Device Contraindication: Treatment Not Indicated VTE Drug Contraindication: N/A - Med Ordered
[2023-05-27] MEDS: Enoxaparin Sodium 40 MG/0.4 ML SYRINGE SUBCUT (11:49)
[2023-05-27] MEDS: oxyCODONE HCl Immed Release 5 MG TABLET PO ×2 (11:49→18:37)
[2023-05-27] MEDS: Albuterol/Iprat 2.5/0.5MG 3 ML AMPUL.NEB INHALE (12:20)
[2023-05-27] MEDS: Mirtazapine 30 MG TABLET PO (20:24)
[2023-05-27] MEDS: Atorvastatin Calcium 10 MG TABLET PO (20:24)
[2023-05-27] MEDS: Zolpidem Tartrate 5 MG TABLET 10 MG PO (21:22)
[2023-05-28] VITALS (9 sets, daily range): BP systolic 152–171; BP diastolic 60–89; PULSE 75–87; RESP 14–20; TEMP 36.3–36.9; O2SAT 92–100
[2023-05-28] MEDS: oxyCODONE HCl Immed Release 5 MG TABLET PO ×4 (01:00→22:02)
[2023-05-28] MEDS: vancomycin HCL 125 MG CAPSULE PO ×4 (01:00→22:01)
[2023-05-28] MEDS: Omeprazole 20 MG CAPSULE.DR PO (06:42)
[2023-05-28 06:49] LABS: Anion Gap 14 (12-20); Blood Urea Nitrogen 6 mg/dL (9-16); Calcium 8.3 mg/dL (8.4-10.2); Carbon Dioxide 24 mmol/L (22-29); Chloride 107 mmol/L (96-108); Creatinine Clr Calc Pharmacy 88.8; Estimated Glomerular Filt Rate > 60; Glucose Random 106 mg/dL (60-115); Magnesium 1.5 mg/dL (1.6-2.6); Sodium 142 mmol/L (135-145)
[2023-05-28] MEDS: Oseltamivir Phosphate 75 MG CAPSULE PO ×2 (09:18→22:01)
[2023-05-28] MEDS: amLODIPine Besylate 10 MG TABLET PO (09:19)
[2023-05-28] MEDS: ondansetron HCL 4 MG/2 ML VIAL IVPUSH ×2 (09:19→22:08)
[2023-05-28] MEDS: guaiFENesin DM 600/30 1 TAB TAB.ER.12H PO ×2 (09:19→22:01)
[2023-05-28] MEDS: Potassium Chloride ER 20 MEQ TAB.ER.PRT 40 MEQ PO ×2 (09:19)
[2023-05-28] MEDS: 0.9 % Sodium Chloride Flush 3 ML SYRINGE IVFLUSH ×3 (09:19→22:08)
[2023-05-28] MEDS: buPROPion HCl XL 150 MG TAB.ER.24H PO (09:19)
[2023-05-28] MEDS: Celecoxib 200 MG CAPSULE PO ×2 (09:19→22:01)
--- NOTE | 2023-05-28 10:35 | P.PNIM_ITS ---
Subjective Subjective Date of Service: 05/28/23 Interval History: f/u on flu, + cdif, c/o cough, abd pain Still with cough, abd pain but overall better diarrhea is better, potassium still low Physical Exam 2 Vital Signs: Vital Signs: Last Vital Signs Temp 97.4 F 05/28/23 07:44 Pulse 87 05/28/23 07:44 Resp 20 05/28/23 07:44 BP 164/79 H 05/28/23 07:44 Pulse Ox 94 05/28/23 07:44 O2 Del Method Room Air 05/28/23 07:44 BMI result Body Mass Index 25.7 General: AO X 3, no acute distress Resp: CTA bilateral CVS: S1,S2,RRR GI: +BS, NT no distention Skin: No rash Neuro: motor grossly intact Psych: appropriate affect Objective Data Active Medications Acetaminophen (Acetaminophen 325 Mg Tablet) 650 mg PO Q6H PRN PRN Reason: Pain, Mild (Pain Scale 1-3) Last Admin: 05/27/23 15:47 Dose: 650 mg Documented By: SONI Albuterol Sulfate (Albuterol Sulfate 90 Mcg 8 Gm Inhaler) 2 puff INHALE Q4H PRN PRN Reason: Cough Albuterol/Ipratropium (Albuterol/Iprat 2.5/0.5mg 3 Ml Ampul.Neb) 3 ml INHALE Q4H PRN PRN Reason: Wheezing Last Admin: 05/27/23 12:20 Dose: 3 ml Documented By: MONCHO Amlodipine Besylate (Amlodipine Besylate 10 Mg Tablet) 10 mg PO DAILY [facility]; Protocol Last Admin: 05/28/23 09:19 Dose: 10 mg Documented By: SONI Atorvastatin Calcium (Atorvastatin Calcium 10 Mg Tablet) 10 mg PO BEDTIME [facility] Last Admin: 05/27/23 20:24 Dose: 10 mg Documented By: LAFLAMAdama Bupropion HCl (Bupropion Hcl Xl 150 Mg Tab.Er.24h) 150 mg PO DAILY [facility] Last Admin: 05/28/23 09:19 Dose: 150 mg Documented By: SONI Celecoxib (Celecoxib 200 Mg Capsule) 200 mg PO BID [facility] Last Admin: 05/28/23 09:19 Dose: 200 mg Documented By: SONI Clonazepam (Clonazepam 0.5 Mg Tablet) 0.5 mg PO BID PRN PRN Reason: Anxiety Cyclobenzaprine HCl (Cyclobenzaprine Hcl 10 Mg Tablet) 10 mg PO TID PRN PRN Reason: musculoskeletal pain Last Admin: 05/27/23 20:25 Dose: 10 mg Documented By: SUMIT Docusate Sodium (Docusate Sodium 100 Mg Capsule) 100 mg PO DAILY PRN PRN Reason: Constipation Enoxaparin Sodium (Enoxaparin Sodium 40 Mg/0.4 Ml Syringe) 40 mg SUBCUT Q24H [facility] Last Admin: 05/27/23 11:49 Dose: 40 mg Documented By: SONI Guaifenesin/Dextromethorphan (Guaifenesin Dm 600/30 1 Tab Tab.Er.12h) 1 tab PO BID [facility] Last Admin: 05/28/23 09:19 Dose: 1 tab Documented By: SONI Melatonin (Melatonin 3 Mg Tablet) 6 mg PO BEDTIME PRN PRN Reason: Insomnia Mirtazapine (Mirtazapine 30 Mg Tablet) 30 mg PO BEDTIME [facility] Last Admin: 05/27/23 20:24 Dose: 30 mg Documented By: SUMIT Omeprazole (Omeprazole 20 Mg Capsule.Dr) 20 mg PO DAILY@0630 [facility] Last Admin: 05/28/23 06:42 Dose: 20 mg Documented By: SUMIT Ondansetron HCl (Ondansetron Hcl 4 Mg/2 Ml Vial) 4 mg IVPUSH Q8H PRN PRN Reason: Nausea and Vomiting Last Admin: 05/28/23 09:19 Dose: 4 mg Documented By: SONI Oseltamivir Phosphate (Oseltamivir Phosphate 75 Mg Capsule) 75 mg PO Q12H [facility] Stop: 05/30/23 20:01 Last Admin: 05/28/23 09:18 Dose: 75 mg Documented By: SONI Oxycodone HCl (Oxycodone Hcl Immed Release 5 Mg Tablet) 5 mg PO Q6H PRN PRN Reason: Pain, Severe (Pain Scale 7-10) Last Admin: 05/28/23 06:42 Dose: 5 mg Documented By: SUMIT Potassium Chloride (Potassium Chloride Er 20 Meq Tab.Er.Prt) 40 meq PO Q8H [facility] Stop: 05/28/23 23:31 Last Admin: 05/28/23 09:19 Dose: 40 meq Documented By: SONI Sodium Chloride (0.9 % Sodium Chloride Flush 3 Ml Syringe) 3 ml IVFLUSH QSHIFT [facility] Last Admin: 05/28/23 09:19 Dose: 3 ml Documented By: SONI Vancomycin HCl (Vancomycin Hcl 125 Mg Capsule) 125 mg PO Q6H [facility] Last Admin: 05/28/23 06:43 Dose: 125 mg Documented By: SUMIT Zolpidem Tartrate (Zolpidem Tartrate 5 Mg Tablet) 10 mg PO BEDTIME PRN PRN Reason: insomnia Last Admin: 05/27/23 21:22 Dose: 10 mg Documented By: SUMIT Labs 05/26/23 06:22 05/28/23 05:57 Labs: Laboratory Results - last 24 hr 05/28/23 05:57 Hold Purple Top SEE NOTE Anion Gap 14 Estim Creat Clear Calc 88.8 Estimated GFR > 60 Random Glucose 106 Calcium 8.3 L Magnesium 1.5 L Assessment and Plan (1) Influenza A: Status: Acute (2) Hypokalemia: Status: Acute (3) Hypomagnesemia: Status: Acute Plan Pt is a 62-year-old female with a PMH significant for?IBS with diarrhea predominant, hx of C diff colitis, HTN, HLD, chronic pain d/t arthritis on chronic opioids, hx of TIA, mild intermittent asthma, fibromyalgia, sinckle cell trait, and GERD who presents to the ED with?intractable nausea, vomiting, and diarrhea, cough, and abdominal pain x3 days. Pt will be admitted to the hospital for treatment further evaluation hypokalemia and hypomagnesemia in the setting of intractable nausea secondary to influenza infection. Influenza--no hypoxia, cough -continue tamiflu for 5 days -sympomatic treatement with cough meds, breathing treatment prn Hypokalemia--d/t diarrhea, 3.0 -oral K and recheck in AM -Correct mag as well Hypomagnesemia, 0.7 now 1.5 --IV mag today, repeat tomorrow Abd pian, n/v --exam bening, non contrast CT 05/27 no acute process, toelaring diet Diarrhea, c dif +, continue Vanco PO, slowing down HTN Continue amlodipine HLD Continue statin Asthma/COPD overlap syndrome Not in acute exacerbation Continue home inhalers Mood disorder Continue home meds Full Code DVT prophylaix Lovenox Need for inpt: [place]emia, associated with diarrhea that has required iv replacement and frequent labs Quality Stroke Does the patient have a stroke diagnosis?: No VTE Prior VTE?: No VTE Risk Level:: Medical - moderate - high VTE Device Contraindication: Treatment Not Indicated VTE Drug Contraindication: N/A - Med Ordered
[2023-05-28] MEDS: Potassium Chloride Packet 20 MEQ PACKET 40 MEQ PO ×3 (11:33→22:02)
[2023-05-28] MEDS: Albuterol/Iprat 2.5/0.5MG 3 ML AMPUL.NEB INHALE (11:35)
[2023-05-28] MEDS: Magnesium Sulfate/D5W 1 GM/100 ML PIGGYBACK IV (11:42)
[2023-05-28] MEDS: Enoxaparin Sodium 40 MG/0.4 ML SYRINGE SUBCUT (11:49)
[2023-05-28] MEDS: Metoprolol Tartrate 25 MG TABLET PO ×2 (13:16→22:02)
--- NOTE | 2023-05-28 15:36 | MHC.CM.PN ---
PT ADMITTED, ON [employer] CM CALLED PTS CELL [phone] SHE REPORTS SHE STAYS WITH HER MOTHER WHO SHE PROVIDES CARE FOR HER DAUGHTER ALSO LIVES IN THE HOME PT IS INDEPENDENT WITH CARE AND HAS NO HOME SERVICES SHE USES A NEBULIZER PRN HCP ON FILE PCP: CHRISTIANA GUILLERMO DCP: HOME NO SERVICES [facility] TO TRANSPORT
[2023-05-28] MEDS: Atorvastatin Calcium 10 MG TABLET PO (22:01)
[2023-05-28] MEDS: Zolpidem Tartrate 5 MG TABLET 10 MG PO (22:01)
[2023-05-28] MEDS: Mirtazapine 30 MG TABLET PO (22:03)
[2023-05-29] MEDS: vancomycin HCL 125 MG CAPSULE PO ×4 (00:41→18:39)
[2023-05-29 03:14] VITALS: BP 174/92; PULSE 72; RESP 17; TEMP 36.8; O2SAT 96
[2023-05-29] MEDS: Omeprazole 20 MG CAPSULE.DR PO (06:34)
[2023-05-29 07:06] VITALS: BP 162/93; PULSE 74; RESP 20; TEMP 36.6; O2SAT 97
[2023-05-29 08:59] LABS: Anion Gap 11 (12-20); Blood Urea Nitrogen 5 mg/dL (9-16); Calcium 9.4 mg/dL (8.4-10.2); Carbon Dioxide 26 mmol/L (22-29); Chloride 106 mmol/L (96-108); Creatinine Clr Calc Pharmacy 84.9; Estimated Glomerular Filt Rate > 60; Glucose Random 104 mg/dL (60-115); Magnesium 1.4 mg/dL (1.6-2.6); Potassium 5.4 mmol/L (3.3-5.1); Sodium 138 mmol/L (135-145)
[2023-05-29] MEDS: guaiFENesin DM 600/30 1 TAB TAB.ER.12H PO ×2 (09:18→21:39)
[2023-05-29] MEDS: oxyCODONE HCl Immed Release 5 MG TABLET PO ×3 (09:18→21:34)
[2023-05-29] MEDS: buPROPion HCl XL 150 MG TAB.ER.24H PO (09:18)
[2023-05-29] MEDS: amLODIPine Besylate 10 MG TABLET PO (09:19)
[2023-05-29] MEDS: Oseltamivir Phosphate 75 MG CAPSULE PO ×2 (09:19→18:39)
[2023-05-29] MEDS: Metoprolol Tartrate 25 MG TABLET PO ×2 (09:19→21:34)
[2023-05-29] MEDS: 0.9 % Sodium Chloride Flush 3 ML SYRINGE IVFLUSH ×2 (09:20→18:39)
[2023-05-29] MEDS: Magnesium Sulfate/H2O 2 GM/50 ML PIGGYBACK IV (09:20)
[2023-05-29] MEDS: Celecoxib 200 MG CAPSULE PO ×2 (09:23→21:33)
[2023-05-29] MEDS: ondansetron HCL 4 MG/2 ML VIAL IVPUSH ×2 (09:34→18:39)
--- NOTE | 2023-05-29 10:27 | HO.PM.IMPN ---
Subjective Subjective Date of Service: 05/29/23 Interval History: f/u on flu, + cdif, c/o cough, abd pain overall better, peristent diarrhea Physical Exam Vital Signs: Vital Signs: Last Vital Signs Temp 97.9 F 05/29/23 07:06 Pulse 74 05/29/23 07:06 Resp 20 05/29/23 07:06 BP 162/93 H 05/29/23 07:06 Pulse Ox 97 05/29/23 07:06 O2 Del Method Room Air 05/29/23 07:06 BMI result Body Mass Index 25.7 General: AO X 3, no acute distress Resp: CTA bilateral CVS: S1,S2,RRR GI: +BS, NT no distention Skin: No rash Neuro: motor grossly intact Psych: appropriate affect Objective Data Active Medications Acetaminophen (Acetaminophen 325 Mg Tablet) 650 mg PO Q6H PRN PRN Reason: Pain, Mild (Pain Scale 1-3) Last Admin: 05/27/23 15:47 Dose: 650 mg Documented By: SONI Albuterol Sulfate (Albuterol Sulfate 90 Mcg 8 Gm Inhaler) 2 puff INHALE Q4H PRN PRN Reason: Cough Albuterol/Ipratropium (Albuterol/Iprat 2.5/0.5mg 3 Ml Ampul.Neb) 3 ml INHALE Q4H PRN PRN Reason: Wheezing Last Admin: 05/28/23 11:35 Dose: 3 ml Documented By: JOSSELINE Amlodipine Besylate (Amlodipine Besylate 10 Mg Tablet) 10 mg PO DAILY [facility]; Protocol Last Admin: 05/29/23 09:19 Dose: 10 mg Documented By: FELIPE Atorvastatin Calcium (Atorvastatin Calcium 10 Mg Tablet) 10 mg PO BEDTIME [facility] Last Admin: 05/28/23 22:01 Dose: 10 mg Documented By: ELIZABETH Bupropion HCl (Bupropion Hcl Xl 150 Mg Tab.Er.24h) 150 mg PO DAILY [facility] Last Admin: 05/29/23 09:18 Dose: 150 mg Documented By: FELIPE Celecoxib (Celecoxib 200 Mg Capsule) 200 mg PO BID [facility] Last Admin: 05/29/23 09:23 Dose: 200 mg Documented By: FELIPE Clonazepam (Clonazepam 0.5 Mg Tablet) 0.5 mg PO BID PRN PRN Reason: Anxiety Cyclobenzaprine HCl (Cyclobenzaprine Hcl 10 Mg Tablet) 10 mg PO TID PRN PRN Reason: musculoskeletal pain Last Admin: 05/27/23 20:25 Dose: 10 mg Documented By: SUMIT Docusate Sodium (Docusate Sodium 100 Mg Capsule) 100 mg PO DAILY PRN PRN Reason: Constipation Enoxaparin Sodium (Enoxaparin Sodium 40 Mg/0.4 Ml Syringe) 40 mg SUBCUT Q24H [facility] Last Admin: 05/28/23 11:49 Dose: 40 mg Documented By: SONI Guaifenesin/Dextromethorphan (Guaifenesin Dm 600/30 1 Tab Tab.Er.12h) 1 tab PO BID [facility] Last Admin: 05/29/23 09:18 Dose: 1 tab Documented By: FELIPE Magnesium Sulfate (Magnesium Sulfate/H2o) 2 gm in 50 mls @ 25 mls/hr IV ONCE ONE Stop: 05/29/23 11:00 Last Admin: 05/29/23 09:20 Dose: 25 mls/hr Documented By: FELIPE Melatonin (Melatonin 3 Mg Tablet) 6 mg PO BEDTIME PRN PRN Reason: Insomnia Metoprolol Tartrate (Metoprolol Tartrate 25 Mg Tablet) 25 mg PO BID [facility]; Protocol Last Admin: 05/29/23 09:19 Dose: 25 mg Documented By: FELIPE Mirtazapine (Mirtazapine 30 Mg Tablet) 30 mg PO BEDTIME [facility] Last Admin: 05/28/23 22:03 Dose: 30 mg Documented By: ELIZABETH Omeprazole (Omeprazole 20 Mg Capsule.Dr) 20 mg PO DAILY@0630 [facility] Last Admin: 05/29/23 06:34 Dose: 20 mg Documented By: ELIZABETH Ondansetron HCl (Ondansetron Hcl 4 Mg/2 Ml Vial) 4 mg IVPUSH Q8H PRN PRN Reason: Nausea and Vomiting Last Admin: 05/29/23 09:34 Dose: 4 mg Documented By: FELIPE Oseltamivir Phosphate (Oseltamivir Phosphate 75 Mg Capsule) 75 mg PO Q12H [facility] Stop: 05/30/23 20:01 Last Admin: 05/29/23 09:19 Dose: 75 mg Documented By: FELIPE Oxycodone HCl (Oxycodone Hcl Immed Release 5 Mg Tablet) 5 mg PO Q6H PRN PRN Reason: Pain, Severe (Pain Scale 7-10) Last Admin: 05/29/23 09:18 Dose: 5 mg Documented By: FELIPE Sodium Chloride (0.9 % Sodium Chloride Flush 3 Ml Syringe) [address] [facility] Last Admin: 05/29/23 09:20 Dose: 3 ml Documented By: FELIPE Vancomycin HCl (Vancomycin Hcl 125 Mg Capsule) 125 mg PO Q6H [facility] Last Admin: 05/29/23 06:34 Dose: 125 mg Documented By: ELIZABETH Zolpidem Tartrate (Zolpidem Tartrate 5 Mg Tablet) 10 mg PO BEDTIME PRN PRN Reason: insomnia Last Admin: 05/28/23 22:01 Dose: 10 mg Documented By: ELIZABETH Labs 05/26/23 06:22 05/29/23 07:57 Labs: Laboratory Results - last 24 hr 05/29/23 07:57 Hold Purple Top SEE NOTE Anion Gap 11 L Estim Creat Clear Calc 84.9 Estimated GFR > 60 Random Glucose 104 Calcium 9.4 D Magnesium 1.4 L* Assessment and Plan (1) Influenza A: Status: Acute (2) Hypokalemia: Status: Acute (3) Hypomagnesemia: Status: Acute Plan Pt is a 62-year-old female with a PMH significant for?IBS with diarrhea predominant, hx of C diff colitis, HTN, HLD, chronic pain d/t arthritis on chronic opioids, hx of TIA, mild intermittent asthma, fibromyalgia, sinckle cell trait, and GERD who presents to the ED with?intractable nausea, vomiting, and diarrhea, cough, and abdominal pain x3 days. Pt will be admitted to the hospital for treatment further evaluation hypokalemia and hypomagnesemia in the setting of intractable nausea secondary to influenza infection. Influenza--no hypoxia, cough -continue tamiflu for 5 days -sympomatic treatement with cough meds, breathing treatment prn Hypokalemia--corrected, now k 5.4 no more supplement, 5 mg of Lokelma today Hypomagnesemia, 0.7 on admission now 1.4 --IV 2 gm today, repeat tomorrow Ezekiel delgado, n/v --exam bening, non contrast CT 05/27 no acute process, toelaring diet, pain likley related to cdif Diarrhea, c dif +, improving, continue Vanco PO for 14 days, started 05/27/23, ending 06/11 HTN, not controlled, Continue amlodipine 1o metoprolol 25 bid, addd on 05/28, adjust as needed, allergic to KANDACE/ARBs HLD Continue statin Asthma/COPD overlap syndrome Not in acute exacerbation Continue home inhalers Mood disorder Continue home meds Full Code DVT prophylaix Lovenox need for inpt: management of hypokalemia, hyperkalemia, low mag associated with diarrhea, needing frequent monitorin, anticipate dc tomorrow Quality Stroke Does the patient have a stroke diagnosis?: No VTE Prior VTE?: No VTE Risk Level:: Medical - moderate - high VTE Device Contraindication: Treatment Not Indicated VTE Drug Contraindication: N/A - Med Ordered
[2023-05-29 11:14] VITALS: BP 162/83; PULSE 65; RESP 20; TEMP 36.3; O2SAT 98
[2023-05-29] MEDS: Cyclobenzaprine HCl 10 MG TABLET PO (13:07)
[2023-05-29] MEDS: Enoxaparin Sodium 40 MG/0.4 ML SYRINGE SUBCUT (13:08)
[2023-05-29] MEDS: Sodium Zirconium Cyclosilicate 5 GM POWD.PACK PO (13:29)
[2023-05-29 15:17] VITALS: BP 168/82; PULSE 79; RESP 18; TEMP 36.7; O2SAT 97
[2023-05-29 19:12] VITALS: BP 159/79; PULSE 72; RESP 18; TEMP 36.4; O2SAT 96
[2023-05-29] MEDS: Atorvastatin Calcium 10 MG TABLET PO (21:33)
[2023-05-29] MEDS: Mirtazapine 30 MG TABLET PO (21:34)
[2023-05-29] MEDS: Zolpidem Tartrate 5 MG TABLET 10 MG PO (21:34)
[2023-05-29 23:33] VITALS: BP 162/90; PULSE 67; RESP 18; TEMP 36.5; O2SAT 97
[2023-05-30] VITALS (7 sets, daily range): BP systolic 138–163; BP diastolic 71–93; PULSE 65–85; RESP 15–18; TEMP 36.4–36.8; O2SAT 96–98
[2023-05-30] MEDS: vancomycin HCL 125 MG CAPSULE PO ×4 (00:28→19:52)
[2023-05-30] MEDS: 0.9 % Sodium Chloride Flush 3 ML SYRINGE IVFLUSH ×4 (00:28→19:53)
[2023-05-30] MEDS: Omeprazole 20 MG CAPSULE.DR PO (06:01)
[2023-05-30] MEDS: ondansetron HCL 4 MG/2 ML VIAL IVPUSH ×2 (06:02→15:06)
[2023-05-30] MEDS: Oseltamivir Phosphate 75 MG CAPSULE PO ×2 (09:10→19:53)
[2023-05-30] MEDS: oxyCODONE HCl Immed Release 5 MG TABLET PO ×3 (09:10→22:20)
[2023-05-30] MEDS: amLODIPine Besylate 10 MG TABLET PO (09:11)
[2023-05-30] MEDS: buPROPion HCl XL 150 MG TAB.ER.24H PO (09:11)
[2023-05-30] MEDS: Celecoxib 200 MG CAPSULE PO ×2 (09:11→19:52)
[2023-05-30] MEDS: Metoprolol Tartrate 25 MG TABLET PO ×2 (09:11→19:52)
[2023-05-30 09:53] LABS: Anion Gap 13 (12-20); Blood Urea Nitrogen 7 mg/dL (9-16); Calcium 9.8 mg/dL (8.4-10.2); Carbon Dioxide 26 mmol/L (22-29); Chloride 104 mmol/L (96-108); Creatinine Clr Calc Pharmacy 82.5; Estimated Glomerular Filt Rate > 60; Glucose Random 94 mg/dL (60-115); Magnesium 1.5 mg/dL (1.6-2.6); Potassium 4.9 mmol/L (3.3-5.1); Sodium 138 mmol/L (135-145)
[2023-05-30] MEDS: Magnesium Sulfate/D5W 1 GM/100 ML PIGGYBACK IV (15:06)
[2023-05-30] MEDS: Enoxaparin Sodium 40 MG/0.4 ML SYRINGE SUBCUT (15:06)
--- NOTE | 2023-05-30 16:15 | P.PNIM_ITS ---
Subjective Subjective Date of Service: 05/30/23 Interval History: f/u on flu, + cdif, c/o cough, abd pain Review of Systems Still has nausea, intermittent abdominal pain, diarrhea Physical Exam 2 Vital Signs: Vital Signs: Last Vital Signs Temp 98.2 F 05/30/23 15:17 Pulse 71 05/30/23 15:17 Resp 16 05/30/23 15:17 BP 148/71 H 05/30/23 15:17 Pulse Ox 97 05/30/23 15:17 O2 Del Method Room Air 05/30/23 15:17 O2 Flow Rate 98 05/30/23 07:26 BMI result Body Mass Index 25.7 General: AO X 3, no acute distress Resp: CTA bilateral CVS: S1,S2,RRR GI: +BS, NT no distention Skin: No rash Neuro: motor grossly intact Psych: appropriate affect Objective Data Active Medications Acetaminophen (Acetaminophen 325 Mg Tablet) 650 mg PO Q6H PRN PRN Reason: Pain, Mild (Pain Scale 1-3) Last Admin: 05/27/23 15:47 Dose: 650 mg Documented By: SONI Albuterol Sulfate (Albuterol Sulfate 90 Mcg 8 Gm Inhaler) 2 puff INHALE Q4H PRN PRN Reason: Cough Albuterol/Ipratropium (Albuterol/Iprat 2.5/0.5mg 3 Ml Ampul.Neb) 3 ml INHALE Q4H PRN PRN Reason: Wheezing Last Admin: 05/28/23 11:35 Dose: 3 ml Documented By: JOSSELINE Amlodipine Besylate (Amlodipine Besylate 10 Mg Tablet) 10 mg PO DAILY [facility]; Protocol Last Admin: 05/30/23 09:11 Dose: 10 mg Documented By: FELIPE Atorvastatin Calcium (Atorvastatin Calcium 10 Mg Tablet) 10 mg PO BEDTIME [facility] Last Admin: 05/29/23 21:33 Dose: 10 mg Documented By: ELIZABETH Bupropion HCl (Bupropion Hcl Xl 150 Mg Tab.Er.24h) 150 mg PO DAILY [facility] Last Admin: 05/30/23 09:11 Dose: 150 mg Documented By: FELIPE Celecoxib (Celecoxib 200 Mg Capsule) 200 mg PO BID [facility] Last Admin: 05/30/23 09:11 Dose: 200 mg Documented By: FELIPE Clonazepam (Clonazepam 0.5 Mg Tablet) 0.5 mg PO BID PRN PRN Reason: Anxiety Cyclobenzaprine HCl (Cyclobenzaprine Hcl 10 Mg Tablet) 10 mg PO TID PRN PRN Reason: musculoskeletal pain Last Admin: 05/29/23 13:07 Dose: 10 mg Documented By: FLEIPE Docusate Sodium (Docusate Sodium 100 Mg Capsule) 100 mg PO DAILY PRN PRN Reason: Constipation Enoxaparin Sodium (Enoxaparin Sodium 40 Mg/0.4 Ml Syringe) 40 mg SUBCUT Q24H [facility] Last Admin: 05/30/23 15:06 Dose: 40 mg Documented By: FELIPE Guaifenesin/Dextromethorphan (Guaifenesin Dm 600/30 1 Tab Tab.Er.12h) 1 tab PO BID [facility] Last Admin: 05/30/23 10:51 Dose: Not Given Documented By: FELIPE Non-Admin Reason: Patient Refused Melatonin (Melatonin 3 Mg Tablet) 6 mg PO BEDTIME PRN PRN Reason: Insomnia Metoprolol Tartrate (Metoprolol Tartrate 25 Mg Tablet) 25 mg PO BID [facility]; Protocol Last Admin: 05/30/23 09:11 Dose: 25 mg Documented By: FELIPE Mirtazapine (Mirtazapine 30 Mg Tablet) 30 mg PO BEDTIME [facility] Last Admin: 05/29/23 21:34 Dose: 30 mg Documented By: ELIZABETH Omeprazole (Omeprazole 20 Mg Capsule.Dr) 20 mg PO DAILY@0630 [facility] Last Admin: 05/30/23 06:01 Dose: 20 mg Documented By: ELIZABETH Ondansetron HCl (Ondansetron Hcl 4 Mg/2 Ml Vial) 4 mg IVPUSH Q8H PRN PRN Reason: Nausea and Vomiting Last Admin: 05/30/23 15:06 Dose: 4 mg Documented By: FELIPE Oseltamivir Phosphate (Oseltamivir Phosphate 75 Mg Capsule) 75 mg PO Q12H [facility] Stop: 05/30/23 20:01 Last Admin: 05/30/23 09:10 Dose: 75 mg Documented By: FELIPE Oxycodone HCl (Oxycodone Hcl Immed Release 5 Mg Tablet) 5 mg PO Q6H PRN PRN Reason: Pain, Severe (Pain Scale 7-10) Last Admin: 05/30/23 15:07 Dose: 5 mg Documented By: FELIPE Sodium Chloride (0.9 % Sodium Chloride Flush 3 Ml Syringe) 3 ml IVFLUSH QSHIFT [facility] Last Admin: 05/30/23 09:13 Dose: 3 ml Documented By: FELIPE Vancomycin HCl (Vancomycin Hcl 125 Mg Capsule) 125 mg PO Q6H [facility] Last Admin: 05/30/23 15:07 Dose: 125 mg Documented By: FELIPE Zolpidem Tartrate (Zolpidem Tartrate 5 Mg Tablet) 10 mg PO BEDTIME PRN PRN Reason: insomnia Last Admin: 05/29/23 21:34 Dose: 10 mg Documented By: ELIZABETH Labs 05/26/23 06:22 05/30/23 09:03 Labs: Laboratory Results - last 24 hr 05/30/23 09:03 Anion Gap 13 Estim Creat Clear Calc 82.5 Estimated GFR > 60 Random Glucose 94 Calcium 9.8 Magnesium 1.5 L Assessment and Plan (1) Influenza A: Status: Acute (2) Hypokalemia: Status: Acute (3) Hypomagnesemia: Status: Acute Plan Pt is a 62-year-old female with a PMH significant for?IBS with diarrhea predominant, hx of C diff colitis, HTN, HLD, chronic pain d/t arthritis on chronic opioids, hx of TIA, mild intermittent asthma, fibromyalgia, sinckle cell trait, and GERD who presents to the ED with?intractable nausea, vomiting, and diarrhea, cough, and abdominal pain x3 days. Pt will be admitted to the hospital for treatment further evaluation hypokalemia and hypomagnesemia in the setting of intractable nausea secondary to influenza infection. Influenza--no hypoxia, cough -continue tamiflu for 5 days -sympomatic treatement with cough meds, breathing treatment prn Hypokalemia--corrected, now k 5.4 no more supplement, 5 mg of Lokelma today Hypomagnesemia, 0.7 on admission now 1.5 --IV magnesium 1gm , repeat tomorrow Abd danny, n/v --exam bening, non contrast CT 05/27 no acute process, toelaring diet, pain likley related to cdif Diarrhea, c dif +, improving, continue Vanco PO for 14 days, started 05/27/23, ending 06/11 HTN, not controlled, Continue amlodipine 1o metoprolol 25 bid, addd on 05/28, adjust as needed, allergic to KANDACE/ARBs HLD Continue statin Asthma/COPD overlap syndrome Not in acute exacerbation Continue home inhalers Mood disorder Continue home meds Full Code DVT prophylaix Lovenox need for inpt: management of hypokalemia, hyperkalemia, low mag associated with diarrhea, needing frequent monitorin, anticipate dc tomorrow Quality Stroke Does the patient have a stroke diagnosis?: No VTE Prior VTE?: No VTE Risk Level:: Medical - moderate - high VTE Device Contraindication: Treatment Not Indicated VTE Drug Contraindication: N/A - Med Ordered
[2023-05-30] MEDS: guaiFENesin DM 600/30 1 TAB TAB.ER.12H PO (19:52)
[2023-05-30] MEDS: Cyclobenzaprine HCl 10 MG TABLET PO (19:52)
[2023-05-30] MEDS: Atorvastatin Calcium 10 MG TABLET PO (19:53)
[2023-05-30] MEDS: Mirtazapine 30 MG TABLET PO (19:53)
[2023-05-30] MEDS: Acetaminophen 325 MG TABLET 650 MG PO (19:53)
[2023-05-30] MEDS: Melatonin 3 MG TABLET 6 MG PO (19:54)
[2023-05-30] MEDS: Albuterol/Iprat 2.5/0.5MG 3 ML AMPUL.NEB INHALE (20:40)
[2023-05-30] MEDS: Zolpidem Tartrate 5 MG TABLET 10 MG PO (22:20)
[2023-05-31] MEDS: vancomycin HCL 125 MG CAPSULE PO ×4 (01:20→17:06)
[2023-05-31 03:51] VITALS: BP 143/90; PULSE 77; RESP 18; TEMP 37.1; O2SAT 99
[2023-05-31] MEDS: ondansetron HCL 4 MG/2 ML VIAL IVPUSH ×2 (03:56→12:25)
[2023-05-31] MEDS: Omeprazole 20 MG CAPSULE.DR PO (06:00)
[2023-05-31] MEDS: oxyCODONE HCl Immed Release 5 MG TABLET PO ×3 (06:02→17:06)
[2023-05-31 07:38] VITALS: BP 135/83; PULSE 72; RESP 20; TEMP 36.6; O2SAT 98
[2023-05-31] MEDS: buPROPion HCl XL 150 MG TAB.ER.24H PO (07:42)
[2023-05-31] MEDS: Celecoxib 200 MG CAPSULE PO (07:43)
[2023-05-31] MEDS: amLODIPine Besylate 10 MG TABLET PO (07:43)
[2023-05-31] MEDS: Acetaminophen 325 MG TABLET 650 MG PO ×2 (07:43→16:37)
[2023-05-31] MEDS: Metoprolol Tartrate 25 MG TABLET PO (07:43)
[2023-05-31] MEDS: Cyclobenzaprine HCl 10 MG TABLET PO ×2 (07:43→16:37)
[2023-05-31] MEDS: 0.9 % Sodium Chloride Flush 3 ML SYRINGE IVFLUSH ×2 (07:44→12:26)
[2023-05-31 09:06] LABS: Anion Gap 14 (12-20); Blood Urea Nitrogen 11 mg/dL (9-16); Calcium 10.2 mg/dL (8.4-10.2); Carbon Dioxide 26 mmol/L (22-29); Chloride 101 mmol/L (96-108); Creatinine Clr Calc Pharmacy 67.1; Estimated Glomerular Filt Rate > 60; Glucose Random 104 mg/dL (60-115); Magnesium 1.8 mg/dL (1.6-2.6); Potassium 5.5 mmol/L (3.3-5.1); Sodium 135 mmol/L (135-145)
[2023-05-31] MEDS: Sodium Zirconium Cyclosilicate 5 GM POWD.PACK PO ×2 (10:53→16:37)
[2023-05-31 11:11] VITALS: BP 140/83; PULSE 76; RESP 18; TEMP 36.4; O2SAT 98
[2023-05-31 15:51] VITALS: BP 141/80; PULSE 69; RESP 16; TEMP 36.4; O2SAT 98
[2023-05-31 16:12] LABS: Potassium, Serum 5.2 mmol/L (3.3-5.1)
--- NOTE | 2023-05-31 16:33 | PM.DS ---
DS: Providers Provider Date of Service: 05/31/23 Date of admission: 05/26/23 11:53 Date of discharge: 05/31/23 Primary care physician: Alyx Lehman MD Consults: 05/31/23 10:37 Consult to Infectious Diseases Routine Consulting Provider: [facility] [place] Reason for consultation: reccurrent c diff infection Has provider been notified: No Attending physician on discharge: Deniz Delong Discharging clinician: Deniz Delong DS: Diagnosis Discharge Diagnosis (1) Influenza A: Status: Acute (2) Hypokalemia: Status: Acute (3) Hypomagnesemia: Status: Acute DS: Summary Hospital Course Hospital Course: 62-year-old female with a PMH significant for?IBS with diarrhea predominant, hx of C diff colitis, HTN, HLD, chronic pain d/t arthritis on chronic opioids, hx of TIA, mild intermittent asthma, fibromyalgia, sinckle cell trait, and GERD who presents to the ED with?intractable nausea, vomiting, and diarrhea, cough, and abdominal pain x3 days. Patient also complains of headache at the of her head that wraps around to front, palpitations, and severe diffuse abdominal pain that started after nausea and vomiting. Patient has also been experiencing shortness of breath that has kept her up the past 2 nights. Patient has long history of GI issues including IBS, states this really does not feel like an IBS flare. Patient also has tested positive for C diff in the past, says this feels similar to previous bout of C diff infection, reports diarrhea has a similar foul-smelling odor to it. Also complains of overall body soreness, including joints. In the ED pt was febrile at 100.9, tachycardic up to 110, mildly hypertensive 161/89, and satting as low as 91% on RA. Labs were significant for testing positive for influenza A, potassium 2.4, magnesium 0.7, AST 93, and alk-phos 286. No leukocytosis. CXR showed no evidence for acute cardiopulmonary disease. EKG demonstrated sinus tachycardia of [address] elevations or depressions. Pt was treated with potassium chloride IV and p.o., Mag sulfate 4 g IV, ondansetron, acetaminophen, Tamiflu, IVF, and DuoNebs. Pt will be admitted to the hospital for treatment further evaluation hypokalemia and hypomagnesemia in the setting of intractable nausea secondary to influenza infection. Hospital course: Patient was admitted for influenza-started on Tamiflu, also had multiple electrolytic abnormalities including hypokalemia and hypomagnesemia: Repleted and resolved. Subsequently also had mild hyperkalemia which is also treated with Lokelma. Patient already completed Lokelma course. Monitor renal function and electrolytes in 1 week out patiently. Patient also had abdominal pain and diarrhea : Stool study positive for C diff question of C diff diarrhea: Started on p.o. vanco diarrhea seems to be improved abdominal pain resolved, tolerating diet. Patient will be going home with p.o. vancomycin 250 mg 4 times a day-monitor for diarrhea, if any new symptoms consider going to the nearest emergency room for further evaluation. In addition patient is to follow-up with Dr. Cheatham for further vancomycin taper prescription as well as follow-up. plan: vancomycin 250 mg 4 times a day for 10 days then follow-up with Dr. Cheatham for further vancomycin taper prescription as well as follow-up. Monitor BMP, magnesium in 1 week, given magnesium 200 mg p.o. daily supply for 5 days. Further management outpatient with PCP. Above management discussed with the patient in detail length she understand and in agreement with the above plan, time spent 50 minutes and 50% time spent on counseling. Time Attestation Discharge coordination time: Greater than 30 minutes Quality: Safe Use of Opioids Does Pt have an Active Cancer Diagnosis on the Problem List?: No Quality: Stroke Does the patient have a stroke diagnosis?: No Physical Exam Vital Signs: Vital Signs: Last Vital Signs Temp 97.5 F 05/31/23 15:51 Pulse 69 05/31/23 15:51 Resp 16 05/31/23 15:51 BP 141/80 H 05/31/23 15:51 Pulse Ox 98 05/31/23 15:51 O2 Del Method Room Air 05/31/23 15:51 O2 Flow Rate 98 05/30/23 07:26 BMI result Body Mass Index 25.7 General: AO X 3, no acute distress Resp: CTA bilateral CVS: S1,S2,RRR GI: +BS, NT no distention Skin: No rash Neuro: motor grossly intact Psych: appropriate affect DS: Data Data Completed and Pending Completed studies during hospitalization [Text1]: Procedures Excision of Ascending Colon, Via Natural or Artificial Opening Endoscopic, Diagnostic (03/07/23) Excision of Descending Colon, Via Natural or Artificial Opening Endoscopic, Diagnostic (03/07/23) Excision of Duodenum, Via Natural or Artificial Opening Endoscopic, Diagnostic (03/07/23) Excision of Esophagogastric Junction, Via Natural or Artificial Opening Endoscopic, Diagnostic (03/07/23) Excision of Stomach, Pylorus, Via Natural or Artificial Opening Endoscopic, Diagnostic (03/07/23) Labs on day of discharge: Laboratory Results - last 24 hr 05/31/23 05/31/23 08:44 15:38 Sodium 135 Potassium 5.5 H Serum Potassium 5.2 H Chloride 101 Carbon Dioxide 26 Anion Gap 14 BUN 11 Creatinine 0.86 Estim Creat Clear Calc 67.1 Estimated GFR > 60 Random Glucose 104 Calcium 10.2 Magnesium 1.8 Imaging Chest x-ray: Radiologist's impression: ITS Impressions Chest X-Ray 05/26/23 06:04 IMPRESSION: No evidence for active cardiopulmonary disease. Abdomen/Pelvis CT 05/27/23 12:13 IMPRESSION: Colonic diverticulosis without CT evidence to suggest active diverticulitis. Fleischner guidelines were followed. Discharge Plan Discharge Anticipated Discharge Date/Time: 05/31/23 10:30 Patient Disposition: Home, Self-Care Discharge Diagnosis: cdiff diarrhae ,hyperkalemia ,hypomagnesmia ,influenza A. Referrals: Jessie Cheatham MD [Physician] - 1 Week (follow up outpatient) Alyx Lehman MD [Primary Care Provider] - 1 Week Discharge Medications: New Mucus DM 30-600 mg Tablet Extended Release 12 Hr 1 tab PO BID Qty: 10 0RF vancomycin 125 mg Capsule 125 mg PO Q6H Qty: 40 0RF oxycodone 5 mg Tablet 5 mg PO Q6H PRN (Reason: Pain, Severe (Pain Scale 7-10)) Qty: 6 0RF Rx Instructions: Partial Fill upon patient request. magnesium oxide 200 mg magnesium tablet 200 mg PO DAILY Qty: 5 0RF Continued cyclobenzaprine 10 mg tablet 1 tab PO TID PRN (Reason: musculoskeletal pain) pantoprazole 40 mg tablet,delayed release (DR/EC) 40 mg PO DAILY zolpidem 10 mg tablet 10 mg PO BEDTIME PRN (Reason: insomnia) mirtazapine 30 mg tablet 30 mg PO BEDTIME bupropion HCl 150 mg tablet extended release 24 hr 150 mg PO DAILY simvastatin 20 mg tablet 20 mg PO BEDTIME albuterol sulfate 90 mcg/actuation HFA aerosol inhaler 2 puff inhalation Q4H PRN (Reason: Cough) Rx Instructions: Inhale 2 puffs by mouth every 4 hours if needed for cough or wheezing amlodipine 10 mg tablet 10 mg PO DAILY clonazepam 0.5 mg tablet 0.5 mg PO BID PRN (Reason: Anxiety) Held celecoxib 200 mg capsule 200 mg PO BID Qty: 60 1RF Hold Instructions: Resume on 06/06/23. Discharge Orders: Discharge Order (Routine); Ordered 05/31/23 Ordered By: Deniz Delong Diet: Advance to usual diet Activity on Discharge: As tolerated Stand Alone Forms: Patient Portal Discharge page Other Ambulatory Orders: Basic Metabolic Panel (Routine) Timeframe: 1 Week Facility: [facility] - Location: Laboratory Ordered By: Deniz Delong Magnesium (Routine) Timeframe: 1 Week Facility: [facility] - Location: Laboratory Ordered By: Deniz Delong Care Plan Goals: Patient was admitted for influenza-started on Tamiflu, also had multiple electrolytic abnormalities including hypokalemia and hypomagnesemia: Repleted and resolved. Subsequently also had mild hyperkalemia which is also treated with Lokelma. Patient already completed Lokelma course. Monitor renal function and electrolytes in 1 week out patiently. Patient also had abdominal pain and diarrhea : Stool study positive for C diff question of C diff diarrhea: Started on p.o. vanco diarrhea seems to be improved abdominal pain resolved, tolerating diet. Patient will be going home with p.o. vancomycin 250 mg 4 times a day-monitor for diarrhea, if any new symptoms consider going to the nearest emergency room for further evaluation. In addition patient is to follow-up with Dr. Cheatham for further vancomycin taper prescription as well as follow-up. Health Concerns: As above. Plan of Treatment: As above. Assessment: As above. Discharge Date/Time: 05/31/23 17:24
== END 2023-05-31 17:24 | disposition home or self-care (01) | DRG 113 ==
LOC: HO.ED 10:11 → HO.EDOVER 12:02 → HO.IMC 16:24
PROVIDERS: Internal Medicine; Registered Nurse Emergency; Admitting Provider Student in an Organized Health Care Education/Training Program; Emergency Provider Emergency Medicine; PCP Family Medicine; Visit Provider Internal Medicine
DX: J10.1 Influenza due to other identified influenza virus with other respiratory manifestations (principal); A04.72 Enterocolitis due to Clostridium difficile, not specified as recurrent; F39 Unspecified mood [affective] disorder; J45.20 Mild intermittent asthma, uncomplicated; E87.6 Hypokalemia; E83.42 Hypomagnesemia; Z20.822 Contact with and (suspected) exposure to COVID-19; Z79.899 Other long term (current) drug therapy
CPT/HCPCS: 0241U; 36415; 71046; 74176; 80048; 80051; 80053; 83735; 84132; 85025; 87324; 87493; 93005; 94640; 99285; J0737; J1650; J1885; J1920; J2270; J2405; J2550; J3475; J3480

== ENCOUNTER → 2023-05-26 09:10 | Outpatient (BNV) | payer OTHER, SELFPAY | PROVIDERS: Admitting Provider Student in an Organized Health Care Education/Training Program; Emergency Provider Emergency Medicine; Visit Provider Internal Medicine | DX: R00.0 Tachycardia, unspecified (principal) | CPT/HCPCS: 93010 ==

== ENCOUNTER → 2023-05-26 11:53 | Outpatient (BNV) | payer OTHER, SELFPAY | PROVIDERS: Admitting Provider Student in an Organized Health Care Education/Training Program; Emergency Provider Emergency Medicine; Visit Provider Student in an Organized Health Care Education/Training Program | DX: J10.1 Influenza due to other identified influenza virus with other respiratory manifestations (principal); E87.6 Hypokalemia; E83.42 Hypomagnesemia | CPT/HCPCS: 99223; 99232; 99239 ==

== ENCOUNTER 2023-06-08 10:55 | Outpatient (REF) | payer OTHER, SELFPAY ==
[2023-06-08 12:45] LABS: Anion Gap 14 (12-20); Blood Urea Nitrogen 16 mg/dL (9-16); Calcium 9.3 mg/dL (8.4-10.2); Carbon Dioxide 25 mmol/L (22-29); Chloride 105 mmol/L (96-108); Estimated Glomerular Filt Rate 53; Glucose Random 93 mg/dL (60-115); Magnesium 1.7 mg/dL (1.6-2.6); Potassium 3.8 mmol/L (3.3-5.1); Sodium 140 mmol/L (135-145)
== END 2023-06-08 10:56 | disposition home or self-care (01) ==
LOC: HO.LAB 10:55
PROVIDERS: Visit Provider Internal Medicine
DX: E87.6 Hypokalemia (principal); E83.42 Hypomagnesemia
CPT/HCPCS: 36415; 80048; 83735

== ENCOUNTER 2023-11-28 08:46 | Day surgery (SDC) | payer OTHER, SELFPAY ==
--- NOTE | 2023-11-27 10:08 | HO.ANESPROP2 ---
Documented by User: Pooja Mason NP 11/27/23 10:11 HPI - Anesthesia Eval Consult details Narrative: 63yo F for Upper Endoscopy and Colonoscopy s/p same 03/2023 with [facility] Active Problems Active Problems: All Active Problems Influenza A (Acute) Hypokalemia (Acute) Hypomagnesemia (Acute) Diarrhea (Acute) Fibromyalgia (Acute) History of arthroplasty of right knee (Acute) Clostridium difficile carrier (Acute) Gait disturbance (Acute) Lumbar radiculopathy (Acute) Primary osteoarthritis of left knee (Acute) Renal cyst, acquired, left (Acute) Angiomyolipoma of right kidney (Acute) Osteoarthritis of knees, bilateral (Acute) Chronic pain syndrome (Acute) Chronic, continuous use of opioids (Acute) Past Medical History Medical History Diverticulitis Irritable bowel syndrome Renal stones Depression with anxiety TIA (transient ischemic attack) Asthma Peripheral neuropathy History of sickle cell trait History of palpitations Back pain Chronic bronchitis Arthritis Fibromyalgia Neck pain History of frequent headaches Gastroesophageal reflux disease Hyperlipidemia Hypertension Family History Family History Father Gout Arthritis Mother Alive and well Hypertension Hyperlipidemia Chronic obstructive pulmonary disease (COPD) Brother No problems noted. Son Alive and well Daughter Alive and well Daughter Alive and well Maternal Aunt History of breast cancer Diabetes Family history of problems with anesthesia: No Surgical History Surgical History History of ankle surgery History of total right knee replacement (TKR) H/O arthroscopic knee surgery Subacromial impingement of right shoulder History of surgical removal of ganglion cyst History of partial hysterectomy H/O wrist surgery Previous section Hx of cholecystectomy History of Problems with Anesthesia: No Social History Social History Household Members: Family Housing: House Do you presently have visiting nurse or other home services: Yes Alcohol intake: current Alcohol intake frequency: holidays/special occasions only Alcohol type: wine Patient Tobacco Use Status: Current someday Tobacco user Tobacco use type: Cigarette Cigarettes Per Day: 2 Years Smoked: 10 e-Cigarette/Vaping Use: Currently Using Second Hand Smoke Exposure: Yes Use of substances other than those prescribed or required for medical reasons: No Are you DNR?: No Advance Directives: No Advance Directives Information Provided: Yes Advance Directives Date on File: 03/08/23 service: No Current occupational status: disabled Meds Allergies Allergy/AdvReac Type Severity Reaction Status Date / Time lisinopril [LISINOPRIL] Allergy Severe TONGUE Verified 03/07/23 13:49 SWELLING olanzapine [From Zyprexa] AdvReac Involuntary Verified 03/07/23 13:49 Spasms emprin compound Allergy Intermediate Hives Uncoded 12/13/22 08:16 Home Medications ?Medication ?Instructions ?Recorded ?Confirmed ?Last Taken ?Type albuterol sulfate 90 mcg/actuation 2 puff inhalation Q4H PRN Cough 02/01/20 05/26/23 03/04/23 History aerosol inhaler simvastatin 20 mg tablet 20 mg PO BEDTIME 02/01/20 05/26/23 03/04/23 History cyclobenzaprine 10 mg tablet 1 tab PO TID PRN musculoskeletal 10/09/20 05/26/23 03/04/23 History pain pantoprazole 40 mg tablet,delayed 40 mg PO DAILY 08/04/22 05/26/23 03/04/23 History release zolpidem 10 mg tablet 10 mg PO BEDTIME PRN insomnia 08/04/22 05/26/23 03/04/23 History amlodipine 10 mg tablet 10 mg PO DAILY 12/13/22 11/28/23 11/28/23 History clonazepam 0.5 mg tablet 0.5 mg PO BID PRN Anxiety 12/13/22 05/26/23 03/04/23 History bupropion HCl 150 mg 24 hr tablet, 150 mg PO DAILY 05/26/23 05/26/23 Unknown History extended release mirtazapine 30 mg tablet 30 mg PO BEDTIME 05/26/23 05/26/23 Unknown History clonidine HCl 0.1 mg tablet 0.1 mg PO DAILY 11/27/23 11/27/23 Unknown History dicyclomine 20 mg tablet 20 mg PO BID 11/27/23 11/27/23 Unknown History escitalopram oxalate 20 mg tablet 20 mg PO DAILY 11/27/23 11/27/23 Unknown History naproxen 500 mg tablet 500 mg PO BID PRN Pain 11/27/23 11/27/23 Unknown History potassium chloride 20 mEq 40 meq PO BID 11/27/23 11/27/23 Unknown History tablet,extended release(part/cryst) (Klor-Con M) Exam Pertinent Lab Results Pertinent Lab Results: Laboratory Tests 05/26/23 06/08/23 06:22 11:23 WBC 6.1 Hgb 12.6 Hct 34.8 L Plt Count 316 Sodium 140 Potassium 3.8 D Chloride 105 Carbon Dioxide 25 BUN 16 Creatinine 1.06 Narrative Narrative: EKG 05/2023 Vent. Rate : 101 BPM Atrial Rate : 101 BPM P-R Int : 152 ms QRS Dur : 100 ms QT Int : 380 ms P-R-T Axes : 054 -08 050 degrees QTc Int : 492 ms Sinus tachycardia Otherwise normal ECG When compared with ECG of 07-MAR-2023 14:22, No significant change was found Assessment and Plan Assessment Anesthesia Assessment: Chart Reviewed Final Anesthetic Review Family History of Problems with Anesthesia: No History of Problems with Anesthesia: No Documented by User: Karl Amaya MD 11/28/23 10:14 [facility] Past Medical History Medical History Diverticulitis Irritable bowel syndrome Renal stones Depression with anxiety TIA (transient ischemic attack) Asthma Peripheral neuropathy History of sickle cell trait History of palpitations Back pain Chronic bronchitis Arthritis Fibromyalgia Neck pain History of frequent headaches Gastroesophageal reflux disease Hyperlipidemia Hypertension Family History Family History Father Gout Arthritis Mother Alive and well Hypertension Hyperlipidemia Chronic obstructive pulmonary disease (COPD) Brother No problems noted. Son Alive and well Daughter Alive and well Daughter Alive and well Maternal Aunt History of breast cancer Diabetes Surgical History Surgical History History of ankle surgery History of total right knee replacement (TKR) H/O arthroscopic knee surgery Subacromial impingement of right shoulder History of surgical removal of ganglion cyst History of partial hysterectomy H/O wrist surgery Previous section Hx of cholecystectomy Social History Social History Household Members: Family Housing: House Do you presently have visiting nurse or other home services: Yes Alcohol intake: current Alcohol intake frequency: holidays/special occasions only Alcohol type: wine Patient Tobacco Use Status: Current someday Tobacco user Tobacco use type: Cigarette Cigarettes Per Day: 2 Years Smoked: 10 e-Cigarette/Vaping Use: Currently Using Second Hand Smoke Exposure: Yes Use of substances other than those prescribed or required for medical reasons: No Are you DNR?: No Advance Directives: No Advance Directives Information Provided: Yes Advance Directives Date on File: 03/08/23 service: No Current occupational status: disabled Meds Allergies Allergy/AdvReac Type Severity Reaction Status Date / Time lisinopril [LISINOPRIL] Allergy Severe TONGUE Verified 03/07/23 13:49 SWELLING olanzapine [From Zyprexa] AdvReac Involuntary Verified 03/07/23 13:49 Spasms emprin compound Allergy Intermediate Hives Uncoded 12/13/22 08:16 Home Medications ?Medication ?Instructions ?Recorded ?Confirmed ?Last Taken ?Type albuterol sulfate 90 mcg/actuation 2 puff inhalation Q4H PRN Cough 02/01/20 05/26/23 03/04/23 History aerosol inhaler simvastatin 20 mg tablet 20 mg PO BEDTIME 02/01/20 05/26/23 03/04/23 History cyclobenzaprine 10 mg tablet 1 tab PO TID PRN musculoskeletal 10/09/20 05/26/23 03/04/23 History pain pantoprazole 40 mg tablet,delayed 40 mg PO DAILY 08/04/22 05/26/23 03/04/23 History release zolpidem 10 mg tablet 10 mg PO BEDTIME PRN insomnia 08/04/22 05/26/23 03/04/23 History amlodipine 10 mg tablet 10 mg PO DAILY 12/13/22 11/28/23 11/28/23 History clonazepam 0.5 mg tablet 0.5 mg PO BID PRN Anxiety 12/13/22 05/26/23 03/04/23 History bupropion HCl 150 mg 24 hr tablet, 150 mg PO DAILY 05/26/23 05/26/23 Unknown History extended release mirtazapine 30 mg tablet 30 mg PO BEDTIME 05/26/23 05/26/23 Unknown History clonidine HCl 0.1 mg tablet 0.1 mg PO DAILY 11/27/23 11/27/23 Unknown History dicyclomine 20 mg tablet 20 mg PO BID 11/27/23 11/27/23 Unknown History escitalopram oxalate 20 mg tablet 20 mg PO DAILY 11/27/23 11/27/23 Unknown History naproxen 500 mg tablet 500 mg PO BID PRN Pain 11/27/23 11/27/23 Unknown History potassium chloride 20 mEq 40 meq PO BID 11/27/23 11/27/23 Unknown History tablet,extended release(part/cryst) (Klor-Con M) Exam Airway Mallampati Class: I TM Dist: >3cm Neck ROM: Full Denture: Upper and Lower Heart: ok Lungs: ok Assessment and Plan Assessment Anesthesia Assessment: Anesthesia Plan Discussed Final Anesthetic Review NPO: Yes ASA Class: II Final Preanesthetic Review: No Changes in Pt Med Stat, Meds/Allgs Chart Reviewed, Consent Obtained/Reviewed and Anes Risks/Benef Reviewed Patient Risk: Low Procedure Risk: Low Anesthetic Plan Anesthetic Plan: Agree w/ Assess. and Plan and TIVA Disposition: Standard PACU
[2023-11-28 09:00] VITALS: BMI 26.6
[2023-11-28 09:06] VITALS: BP 166/86; PULSE 78; RESP 16; TEMP 36.8; O2SAT 98
[2023-11-28] MEDS: Lactated Ringers 1,000 ML 100 ML IVCONT (09:34)
--- NOTE | 2023-11-28 09:57 | MHC.SHP ---
Pre-Procedural Eval Section A - 24 Hr Update-Section A only Date of Service: 11/28/23 The patient is an INPATIENT: No Changes since office visit: No Cold of Flu in the past 2 weeks, No New Medical Problems, No Changes in Medication and No Patient answered all questions The patient has been examined within 24 hours of the surgical procedure. The History & Physical has been completed within 30 days and I have reviewed it.: Yes Section B - Complete if H&P > 30 days Chief Complaint: diarrhea,gerd, Allergies: Allergies Allergy/AdvReac Type Severity Reaction Status Date / Time lisinopril [LISINOPRIL] Allergy Severe TONGUE Verified 03/07/23 13:49 SWELLING olanzapine [From Zyprexa] AdvReac Involuntary Verified 03/07/23 13:49 Spasms emprin compound Allergy Intermediate Hives Uncoded 12/13/22 08:16 Plan I have reviewed the history and physical and performed a pertinent physical examination on my patient. No changes have occurred unless specified. Time Spent With Patient Time: Total time managing care of this patient today ____ minutes.
[2023-11-28 11:01] VITALS: BP 141/76; PULSE 75; RESP 18; TEMP 36.3; O2SAT 99
[2023-11-28 11:16] VITALS: BP 171/86; PULSE 64; RESP 18; O2SAT 99
[2023-11-28 11:26] VITALS: BP 173/86; PULSE 65; RESP 18; TEMP 36.4; O2SAT 99
--- NOTE | 2023-11-28 11:26 | OP_ITS ---
DATE OF SERVICE: 11/28/2023 SURGEON: Moisés Hardwick MD INDICATIONS: 1. Gastroesophageal reflux disease. 2. Diarrhea. PREOPERATIVE DIAGNOSIS: POSTOPERATIVE DIAGNOSIS: PROCEDURE PERFORMED: Upper endoscopy with biopsy, colonoscopy to the terminal ileum with snare polypectomy and biopsy. ESTIMATED BLOOD LOSS: COMPLICATIONS: ANESTHESIA: Medications, monitored anesthesia care. ASSISTANTS: SPECIMENS: DESCRIPTION OF PROCEDURE: A history and physical performed. The risks and benefits of the procedure were explained to the patient. Informed consent was obtained. The patient was placed in the left lateral decubitus position. The Olympus video gastroscope was introduced into the esophagus, stomach, and duodenum. Examination was performed. The scope was removed. She was repositioned for colonoscopy. A digital rectal exam was performed and was found to be normal. The Olympus pediatric video colonoscope was introduced into the rectum and advanced to the cecum. The cecum was identified by transillumination, palpation, and identification of ileocecal valve. Examination was performed. The scope was removed. She tolerated both procedures well and was returned to recovery area in stable condition. FINDINGS: Upper endoscopy: 1. Esophagus: The esophagus was normal. Biopsies were obtained from the EG junction. 2. Stomach: Stomach showed no evidence of masses, ulcers, or polyps. Antral biopsies were obtained to evaluate for H pylori. 3. Duodenum: The bulb and 2nd portion were normal. Colonoscopy: The terminal ileum was briefly glimpsed and appeared normal. The visualized colonic mucosa was normal. The quality of the prep was good with some liquid stool coating the mucosa, mainly in the right colon and proximal transverse colon. This was washed and suctioned. Two polyps were identified. The 1st was located at 50 cm from the anal verge measuring approximately 8 mm and were removed with a hot snare. The 2nd polyp at 35 cm measured less than 5 mm was removed with biopsy forceps. Finally, random sigmoid biopsies were obtained because of the patient's history of diarrhea. There was extensive diverticulosis with tortuous sigmoid and scattered diverticula throughout the remainder of the colon. Retroflexed examination showed internal hemorrhoids. IMPRESSION: 1. Gastroesophageal reflux disease. 2. Colon polyps. RECOMMENDATION: Follow up the biopsy results. MD ELIN Anne/STEPHAN / [id number]
== END 2023-11-28 11:56 | disposition home or self-care (01) ==
PROVIDERS: PCP Family Medicine; Visit Provider Internal Medicine Gastroenterology
PROC: (CPT 45385; principal; 2023-11-28 10:50)
DX: R19.7 Diarrhea, unspecified (principal); D12.5 Benign neoplasm of sigmoid colon; K57.30 Diverticulosis of large intestine without perforation or abscess without bleeding; K64.8 Other hemorrhoids; K58.9 Irritable bowel syndrome, unspecified; K21.9 Gastro-esophageal reflux disease without esophagitis; K20.90 Esophagitis, unspecified without bleeding; I10 Essential (primary) hypertension; E78.00 Pure hypercholesterolemia, unspecified; J42 Unspecified chronic bronchitis; Z79.1 Long term (current) use of non-steroidal anti-inflammatories (NSAID); Z79.899 Other long term (current) drug therapy; Z88.8 Allergy status to other drugs, medicaments and biological substances; Z98.890 Other specified postprocedural states; F17.210 Nicotine dependence, cigarettes, uncomplicated
CPT/HCPCS: 45385; 45380; 43239; 88305; 88313; 88342; J2704; J3010